=== PATIENT | male | born 1960 | race Caucasian/White ===

== ENCOUNTER 2024-03-15 19:57 | Emergency (ER) | payer BC, SELFPAY ==
--- OUTSIDE RECORDS SUMMARY | 2024-03-15 19:59 | XMS_ITS | Encounter Summary ---
Author Name [facility] [place] Address [address] [place] [address] Care Team Providers Care Peoplesoft Developer Name Role Phone TERRY ROTH Primary Care Provider Unavailabl e Insurance Providers: All historical and current Section Date Range: From patient's date of to the date document was created. This section includes the names of all active insurance providers for the patient. Insurance Provider Type of Coverage Plan Name Start of Policy Coverage End of Policy Coverage Group Number Member ID Insurance Provider's Telephone Number Policy Davis's Name Patient's Relationship to Policy Davis [place] PREFERRED PROVIDER ORGANIZAT ION (PPO) OPERA TING DARIEN EERS Mar 21, 2017 [id number] [phone] BASILIO BRENNAN HN PATIENT [place] PREFERRED PROVIDER ORGANIZAT ION (PPO) OPERA TING DARIEN EERS Mar 21, 2017 [id number] [phone] BASILIO BRENNAN HN PATIENT CATALYST RX PRESCRIPT ION OPER ENG LOCAL 49 Mar 21, 2017 49ERS [id number] BASILIO BRENNAN HN PATIENT OPTUM RX PRESCRIPT ION OPER ENG LOCAL 49 Mar 21, 2020 49ERS [id number] [phone] BASILIO BRENNAN HN PATIENT OPTUM RX PRESCRIPT ION OPER ENG LOCAL 49 Mar 21, 2018 49ERS [id number] [phone] BASILIO BRENNAN PATIENT Selected Encounter This section includes the information on record at [place] for the Encounter. Date/Time Encounter Type Encounter Description Reason Provider Source Apr 11, 2023 08:30 AM OFFICE O/P EST LOW [facility] ICD-10-CM F33.8 Other recurrent depressive disorders ANAIS WILSON [facility] Encounter Template Text not used by [place] Assessments - Encounter Diagnoses This section includes the primary and secondary diagnoses documented for the Encounter. Date/Time Primary/Secondary Diagnosis Diagnosis Name Provider Source Apr 20, 2023 07:31 AM PRIMARY Other recurrent depressive disorders ANAIS WILSON [facility] Apr 20, 2023 07:31 AM SECONDARY Anxiety disorder, unspecified ANAIS WILSON [facility] Plan of Treatment: Future Appointments (+ 6 months) and Future Tests (+/- 45 days) The Plan of Treatment section includes future care activities for the patient from all [place] treatmentfacilities. This section includes future appointments and future orders which are active, pending or scheduled. Future Appointments This section includes appointments that were scheduled to occur 6 months from the date of the Encounter, up to a maximum of 20 appointments. The data comes from all [place] treatment facilities. Appointment Date/Time Appointment Type Appointme nt Facility Name Apr 18, 2023 09:00 AM AMBULATORY - NONE [facility] Apr 18, 2023 10:00 AM AMBULATORY - MEDICINE [facility] Apr 18, 2023 01:30 PM AMBULATORY - SURGERY [facility] Jun 03, 2023 11:30 AM AMBULATORY - SURGERY [facility] Jun 08, 2023 09:00 AM AMBULATORY - PSYCHIATRY [facility] Lab Results: +/- 30 days of the encounter This section includes the Chemistry and Hematology Lab Results on record with [place] for the patient. Radiology Reports and Pathology Reports are provided separately, in subsequent sections. Lab Results This section contains the Chemistry/Hematology Results that were resulted 30 days before or 30 daysafter the date of the Encounter. Date/Time Source Result Type Result - Unit Interpretation Reference Range Comment Apr 18, 2023 09:06 AM [facility] HEMOGLOBIN A1C Specimen Type: BLOOD Comment: Values obtained from A1C measurements can vary. For typical A1C assays, a reported value of 7.0 could actually be between 6.7 and 7.3 if measured by a reference method. A reported value of 9.0 could actually be between 8.7 and 9.3. Ref: http://www.ng sp.org/CAPdat a.asp Ordering Provider: SOPHIA ROTH Report Released Date/Time: Jan 13, 2022 02:03 PM Reporting Lab: [facility] [id number] Performing Lab: [facility] [id number] HEMOGLOBIN A1C 5.2 4.0-6.0 Apr 18, 2023 09:06 AM [facility] TSH W/REFLEX TO FREE T4 Specimen Type: PLASMA No comment entered. Ordering Provider: SOPHIA ROTH Report Released Date/Time: Jan 13, 2022 02:03 PM Reporting Lab: [facility] [id number] Performing Lab: [facility] [id number] TSH 1.88 u[IU]/mL 0.35-4.94 Apr 18, 2023 09:06 AM [facility] CBC Specimen Type: BLOOD No comment entered. Ordering Provider: SOPHIA ROTH Report Released Date/Time: Jan 13, 2022 02:03 PM Reporting Lab: [facility] [id number] Performing Lab: [facility] [id number] WBC 8.77 10*3/uL 4.0-11.0 RBC 5.06 10*6/uL 4.6-6.2 HGB 15.4 g/dL 13.5-17.9 HCT 45.0 41-54 MCV 88.9 fL 80-100 MCH 30.4 pg 27-33 MCHC 34.2 g/dL 32.0-37.5 PLT 225 10*3/uL 150-400 MPV 9.4 fL 7.4-10.4 RDW 12.7 11.5-14.5 Apr 18, 2023 09:06 AM [facility] LIPID PANEL,NON-FASTING Specimen Type: PLASMA No comment entered. Ordering Provider: SOPHIA ROTH Report Released Date/Time: Jan 13, 2022 02:03 PM Reporting Lab: [facility] [id number] Performing Lab: [facility] [phone] CHOLESTEROL 158 mg/dL <199 .HDL 39 mg/dL L >40 LDL CALCULATION 101 mg/dL H <99 VLDL CALCULATION 18 mg/dL <29 NON HDL CHOLESTEROL 119 mg/dL <129 TRIG(NON FASTING) 89 mg/dL <149 Apr 18, 2023 09:06 AM [facility] COMPREHENSIVE METABOLIC PANEL+MG Specimen Type: PLASMA No comment entered. Ordering Provider: SOPHIA ROTH Report Released Date/Time: Jan 13, 2022 02:03 PM Reporting Lab: [facility] [phone] Performing Lab: [facility] [phone] CREATININE 0.9 mg/dL 0.7-1.2 UREA NITROGEN 20 mg/dL 8-26 GLUCOSE 90 mg/dL 70-100 SODIUM 140 mmol/L 136-145 POTASSIUM 3.9 mmol/L 3.5-5.1 CHLORIDE 109 mmol/L H 98-107 CO2 21 mmol/L L 22-29 CALCIUM 9.0 mg/dL 8.4-10.2 PROTEIN,TOTAL 6.6 g/dL 6.0-8.3 ALBUMIN 4.1 g/dL 3.5-5.2 BILIRUBIN, TOTAL 1.1 mg/dL 0.2-1.2 MAGNESIUM 2.1 mg/dL 1.6-2.6 ANION GAP 10 mmol/L 5-15 ALKALINE PHOSPHATASE 36 U/L L 40-150 ALT/SGPT 33 U/L <55 AST/SGOT 22 U/L <34 .CREAT EGFR(CKD-EPI) >90 >60 Social History: Smoking Status (Most current) and Tobacco Use (All prior to encounter date) This section includes the most current, and the historical, smoking and tobacco- related health factors from the [place] facility where the Encounter took place. Current Smoking Status This section includes the most current smoking, or tobacco-related health factor, from the [place] facility where the Encounter took place. Date/Time Current Smoking Status Comment Shante [facility] Feb 21, 2023 01:30 PM VA-TOBACCO QUIT 15 YRS OR MORE [facility] Tobacco Use History This section includes a history of the smoking, or tobacco-related health factors, that were collected on or before the date of the Encounter. The data comes from the [place] facility where the Encounter took place. Date/Time Smoking Status/Tobacco Use Comment [facility] Feb 21, 2023 01:30 PM VA-TOBACCO QUIT 15 YRS OR MORE [facility] Jun 01, 2021 10:45 AM VA-TOBACCO FORMER USER [facility] Jun 01, 2021 10:45 AM VA-TOBACCO QUIT 15 YRS OR MORE [facility] Jan 23, 2019 01:33 PM VA-TOBACCO FORMER USER [facility] Jan 23, 2019 01:33 PM VA-TOBACCO QUIT 15 YRS OR MORE [facility] May 20, 2017 11:03 AM FORMER TOBACCO USER 7Y OR GREATE R [facility] Mar 12, 2016 09:31 AM FORMER TOBACCO USER 7Y OR GREATE R [facility] Mar 11, 2015 07:54 AM CURRENT TOBACCO USER [facility] Feb 22, 2014 09:51 AM FORMER TOBACCO USER 7Y OR GREATE R [facility] Jan 10, 2008 07:56 AM FORMER TOBACCO USER 7Y OR GREATE R [facility] Advance Directives: All historical and current Section Date Range: From patient's date of to the date document was created. This section includes ALL of a patient's completed or amended [place] Advance and Rescinded Directives. The entries below indicate that a directive exists for the patient, but an actual copy is not included with this document. The data comes from all [place] facilities. Date Advance Directives Provider Source Feb 28, 2006 ADVANCE DIRECTIVE SYDNEY PEÑALOZA [facility] Encounter Notes: All associated encounter notes This section contains the clinical notes associated to the Encounter. Date/Time Encounter Note(s) Provider Source Apr 13, 2023 07:19 AM REPORT OF CONTACT: LOCAL TITLE: APPOINTMENT SCHEDULING NOTE STANDARD TITLE: REPORT OF CONTACT DATE OF NOTE: APR 13, 2023@07:19 ENTRY DATE: APR 13, 2023@07:19:35 AUTHOR: KARY JUAREZ EXP COSIGNER: URGENCY: STATUS: COMPLETED APPOINTMENT SCHEDULING NOTE Has ADDENDA Attempted to schedule Return to clinic (RTC) Left [facility] [place] to call [phone]. Sent letter. /destin JUAREZ FERRY PILOT Signed: 04/13/2023 07:20 04/14/2023 ADDENDUM STATUS: COMPLETED 3rd Attempt- Called to (re)schedule appointment with provider. No answer, LVM to call [phone]. /destin JUAREZ FERRY PILOT Signed: 04/14/2023 10:07 04/15/2023 ADDENDUM STATUS: COMPLETED 4th Attempt- Called [place] to (re)schedule appointment with provider. No answer, LVM to call [phone]. No further attempts will be made to contact . /aubrie/ KARY JUAREZ FERRY PILOT Signed: 04/15/2023 09:39 LARRYKARY [facility] Apr 11, 2023 09:26 AM PSYCHIATRY E & M N OTE: LOCAL TITLE: PSYCHIATRIC EVALUATION & MANAGEMENT STANDARD TITLE: PSYCHIATRY E & M NOTE DATE OF NOTE: APR 11, 2023@09:26 ENTRY DATE: APR 11, 2023@09:26:53 AUTHOR: MATT WILSON COSIGNER: URGENCY: STATUS: COMPLETED Med Mgmt and Supportive Psychotherapy Appt. video visit; patient consented to format and confirmed location TIME SPENT (FACE TO FACE): 19 MIN CHIEF COMPLAINT: ongoing care for depression, anxiety DIAGNOSIS: Specified depressive disorder; unspecified anxiety disorder supportive psychotherapy: 16 min ID: male with hx of depression and anxiety, he and care for their autistic son. Subjective: Patient hasn't yet reduced buspirone, encouraged to reduce to 20 mg bid to see if any help with losing weight. Some ongoing stressors, no si/intent/plan. Encouraged to try and utilize phone less, sleep more regular scheduled and exercise. he is in agreement, f/u in 2 months to check on progress. Medications: Active Outpatient Medications (including Supplies): Active Outpatient Medications Status 1) FLUOXETINE HCL 20MG CAP TAKE TWO CAPSULES BY MOUTH ACTIVE EVERY MORNING 2) FLUTICASONE PROP 50MCG 120D NASAL INHL SPRAY 2 SPRAYS ACTIVE (S) IN EACH NOSTRIL TWICE A DAY USE REGULARLY FOR RELIEF OF ALLERGIES/CONGESTION 3) SIMVASTATIN 40MG TAB TAKE ONE-HALF TABLET BY MOUTH AT ACTIVE BEDTIME FOR CHOLESTEROL Pending Outpatient Medications Status 1) BUSPIRONE HCL 10MG TAB TAKE TWO TABLETS BY MOUTH PENDING TWICE A DAY Active Non-VA Medications Status 1) Non-VA ASPIRIN 81MG EC TAB 81MG MOUTH EVERY DAY ACTIVE 2) Non-VA COENZYME Q10 60MG TAB/CAP 1 TABLET MOUTH EVERY ACTIVE DAY 3) Non-VA FISH OIL 1000MG (500MG DHA/EPA) CAP 1000MG ACTIVE MOUTH EVERY DAY 4) Non-VA METOPROLOL SUCCINATE 100MG SA TAB 50MG MOUTH ACTIVE EVERY DAY 5) Non-VA MULTI/MINERAL/ANTIOXIDANT TAB MOUTH EVERY DAY ACTIVE 9 Total Medications PSYCHIATRIC MEDICATION RECOMMENDATION: Psychiatric medications were reviewed, and list above is accurate. Mental status exam: Alert, cooperative. Musculoskeletal: Unable to assess over video. Speech: Within normal limits. Mood: I'm managing. Affect: Full range, congruent. Thought process: Linear. Thought content: Denies SI/HI/AH/VH, no delusions or paranoia elicited. Insight: Fair. Judgment: Fair. RISK ASSESSMENT (unchanged from prior): Patient with hx of depression and anxiety, family stress of difficulties with autistic child.. however pt denies si, intent or plan now or at any time in past, denies suicide attempts, denies current substance abuse, appears well- connected to family and has been stable without ever requiring psychiatric hospitalization. As such, pt is deemed low- risk for imminent self- harm and low chronic risk for self-harm. Diagnosis: Unspecified depressive disorder, unspecified anxiety disorder, alcohol use disorder in full sustained remission ASSESSMENT/PLAN: This is a male with hx of depression and anxiety, continues to be stable on his regimen. We will reduce buspirone to 20 mg po bid (he didn't do this in between last visit and this) and encouraged to decrease phone time, increase exercise/socialization/str ucture and f/u in 2 month. No si/intent/plan elicited. -RTC in 2 months for follow-up with me, video -continue fluoxetine 40 mg daily for mood -reduce buspirone to 20 mg BID for anxiety -Pt aware of clinic contact info if experiencing decompensation /es/ MATT WILSON MD PSYCHIATRIST Signed: 04/11/2023 09:29 MATT WILSON [facility]
--- OUTSIDE RECORDS SUMMARY | 2024-03-15 19:59 | XMS_ITS | Continuity of Care Document ---
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 It does not include entries that were removed or entered in error. Problem Status Onset Date Problem Type Date of Resolution Comments Source Adenomatous polyp of colon Active Condition [facility] Anxiety disorder Active Condition [facility] Chews tobacco (SNOMED CT 77627778) Active Condition [facility] Chronic rhinitis Active Condition [facility] Depressive disorder (SNOMED CT 57488577) Active Condition [facility] Erectile dysfunction Active Condition [facility] Essential hypertension Active Condition [facility] Hyperlipidemia (SNOMED CT 58843837) Active Condition [facility] Low back pain Active Condition [facility] Metatarsal Plantar Flexed Active Condition [facility] Nasal obstruction Active Condition [place] [facility] Obesity Active Condition [facility] Obstructive sleep apnea of adult [facility] Umbilical hernia Active Condition [facility] Diagnosis: ICD-10-CM Z71.89 Other specified counseling Active Diagnosis 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 Diagnosis: ICD-10-CM Z01.118 Encntr for exam of ears and hearing w oth abnormal findings Active Diagnosis [facility] Diagnosis: ICD-10-CM Z01.818 Encounter for other preprocedural examination Active Diagnosis [facility] Diagnosis: ICD-10-CM Z13.6 Encounter for screening for cardiovascular disorders Active Diagnosis [facility] Diagnosis: ICD-10-CM J34.89 Other specified disorders of nose and nasal sinuses Active Diagnosis [facility] Diagnosis: ICD-10-CM J34.2 Deviated nasal septum Active Diagnosis [facility] Diagnosis: ICD-10-CM G47.33 Obstructive sleep apnea (adult) (pediatric) Active Diagnosis [facility] Diagnosis: ICD-10-CM Z46.1 Encounter for fitting and adjustment of hearing aid Active Diagnosis [facility] Diagnosis: ICD-10-CM E78.49 Other hyperlipidemia Active Diagnosis [facility] Diagnosis: ICD-10-CM Z71.9 Counseling, unspecified Active Diagnosis [facility] Diagnosis: ICD-10-CM L84 Corns and callosities Active Diagnosis [facility] Medications Combined list of outpatient medications from Department of Defense and Veterans Affairs facilities.Medications provided include 1) outpatient medications from the last 15 months, and 2) patient-reported medications. Medication Details Route Status Patient Instructions Prescription Expires Prescription Number Last Dispense Date Ordering Provider Order Date Order Qty Source ASPIRIN 81MG TAB,EC TAKE ONE TABLET BY MOUTH EVERY DAY ORAL ACTIVE TERRY ROTH H 2021 [facility] BUSPIRONE HCL 10MG TAB TAKE TWO TABLETS BY MOUTH TWICE A DAY FOR ANXIETY ORAL ACTIVE 04/11/2024 [id number] MATT RODRÍGUEZ 2023 360 [facility] BUSPIRONE HCL 10MG TAB TAKE THREE TABLETS BY MOUTH TWICE A DAY ORAL DISCONT INUED (EDIT) 09/15/2023 [id number] MATT RODRÍGUEZ 2022 540 [facility] COENZYME Q10 CAP/TAB TAKE ONE TABLET BY MOUTH EVERY DAY ORAL ACTIVE GONZALEZ TERRY H 2021 [facility] FISH OIL 1000MG (500MG DHA/EPA) CAP,ORAL TAKE 1 CAPSULE BY MOUTH EVERY DAY ORAL ACTIVE GONZALEZVANNALY H 2021 [facility] FLUOXETINE HCL 20MG CAP TAKE TWO CAPSULES BY MOUTH EVERY MORNING ORAL ACTIVE 12/05/2024 [id number] MATT RODRÍGUEZ 2023 180 [facility] FLUOXETINE HCL 20MG CAP TAKE TWO CAPSULES BY MOUTH EVERY MORNING ORAL DISCONT INUED 09/15/2023 [id number] MATT RODRÍGUEZ 2022 180 [facility] FLUTICASONE PROPIONATE 50MCG/SPRAY SOLN,NASAL, 16GM SPRAY 2 SPRAYS IN EACH NOSTRIL EVERY DAY USE REGULARL Y FOR RELIEF OF ALLERGIE S/CONGES TION NASAL ACTIVE 09/05/2024 [id number] TERRY ROTH 2023 3 [facility] FLUTICASONE PROPIONATE 50MCG/SPRAY SOLN,NASAL, 16GM SPRAY 2 SPRAYS IN EACH NOSTRIL TWICE A DAY USE REGULARL Y FOR RELIEF OF ALLERGIE S/CONGES TION NASAL 07/20/2023 [id number] MIGUEL ÁNGEL WHITT 2022 1 [facility] METOPROLOL SUCCINATE 100MG TAB,SA TAKE ONE-HALF TABLET BY MOUTH EVERY DAY ORAL ACTIVE MIGUEL ÁNGEL WHITT 2020 [facility] MULTI/RADIATION PROTECTION TECHNICIAN AL/ANTIOXID ANT TAB MOUTH EVERY DAY ORAL ACTIVE TERRY ROTH 2021 [facility] SIMVASTATIN 20MG TAB TAKE ONE TABLET BY MOUTH AT BEDTIME FOR CHOLESTE ROL ORAL SUSPEND ED 02/20/2025 [id number] TERRY ROTH 2024 90 [facility] SIMVASTATIN 20MG TAB TAKE ONE TABLET BY MOUTH AT BEDTIME FOR CHOLESTE ROL ORAL DISCONT INUED 03/31/2024 [id number] TERRY ROTH 2023 90 [facility] SIMVASTATIN 40MG TAB TAKE ONE-HALF TABLET BY MOUTH AT BEDTIME FOR CHOLESTE ROL ORAL DISCONT INUED 03/31/2024 [id number] TERRY ROTH 2023 45 [facility] Immunizations Combined list of available immunizations from the Department of Defense and Veterans Affairs facilities. Immunization Series Date Given Administered By Site Reaction Lot Number CVX Code Drug Cottrell Blower Status Comments Source COVID-19 (MODERNA), MRNA, LNP-S, PF, 50 MCG/0.5 ML (AGES 12+ YEARS) 2023 312 complet ed [facility] INFLUENZA, SPLIT VIRUS, TRIVALENT, PF 2023 140 complet ed [facility] COVID-19 (MODERNA), MRNA, LNP-S, PF, 50 MCG/0.5 ML (AGES 12+ YEARS) 2023 312 complet ed [facility] INFLUENZA, INJECTABLE, MDCK, PRESERVATIVE FREE, QUADRIVALENT 2022 171 complet ed [facility] COVID-19 (MODERNA), MRNA, LNP-S, BIVALENT, PF, 50 MCG/0.5 ML OR 25MCG/0.25 ML DOSE 2022 229 complet ed [facility] TDAP 2022 115 complet ed [facility] ZOSTER RECOMBINANT 2022 187 complet ed [facility] COVID-19 (MODERNA), MRNA, LNP-S, BIVALENT, PF, 50 MCG/0.5 ML OR 25MCG/0.25 ML DOSE 2021 229 complet ed [facility] ZOSTER RECOMBINANT 2021 187 complet [facility] PNEUMOCOCCAL CONJUGATE PCV20, POLYSACCHARID E [id number] CONJUGATE, ADJUVANT, PF 2021 216 complet [facility] INFLUENZA, UNSPECIFIED FORMULATION 2021 88 complet [facility] INFLUENZA, INJECTABLE, MDCK, PRESERVATIVE FREE, QUADRIVALENT 2021 171 complet [facility] COVID-19 (MODERNA), MRNA, LNP-S, PF, 100 MCG/0.5ML DOSE OR 50 MCG/0.25ML DOSE 2021 207 complet [facility] COVID-19 (MODERNA), MRNA, LNP-S, PF, 100 MCG/0.5ML DOSE OR 50 MCG/0.25ML DOSE 2020 207 complet [facility] COVID-19 (MODERNA), MRNA, LNP-S, PF, 100 MCG/0.5ML DOSE OR 50 MCG/0.25ML DOSE 3 2020 207 complet [facility] INFLUENZA, INJECTABLE, QUADRIVALENT, PRESERVATIVE FREE 2020 150 complet [facility] INFLUENZA, UNSPECIFIED FORMULATION 2020 88 complet [facility] COVID-19 (MODERNA), MRNA, LNP-S, PF, 100 MCG/0.5 ML DOSE 2 2020 207 complet ed MOD: [id number]; 1 [facility] COVID-19 (MODERNA), MRNA, LNP-S, PF, 100 MCG/0.5 ML DOSE 1 2020 207 complet ed MOD; [id number]; 1 [facility] INFLUENZA, RECOMBINANT, QUADRIVALENT, INJECTABLE, PRESERVATIVE FREE 2019 185 complet ed [facility] INFLUENZA, UNSPECIFIED FORMULATION 2019 88 complet ed [facility] INFLUENZA, RECOMBINANT, QUADRIVALENT, INJECTABLE, PRESERVATIVE FREE 2018 185 complet ed [facility] INFLUENZA, SEASONAL, INJECTABLE 2018 141 complet ed [facility] INFLUENZA, INJECTABLE, QUADRIVALENT, PRESERVATIVE FREE 2017 150 complet ed [facility] INFLUENZA, SEASONAL, INJECTABLE, PRESERVATIVE FREE 2016 140 complet ed [facility] INFLUENZA, SEASONAL, INJECTABLE 2015 141 complet ed [facility] PNEUMOCOCCAL POLYSACCHARID E PPV23 2014 33 complet ed [employer] lot: [id number] exp: 05/13/16 [facility] INFLUENZA, INJECTABLE, QUADRIVALENT, PRESERVATIVE FREE 2014 150 complet ed [facility] INFLUENZA, SEASONAL, INJECTABLE 2014 141 complet ed [facility] INFLUENZA, UNSPECIFIED FORMULATION 2013 88 complet ed [facility] TDAP 2012 115 complet ed [id number] 05/26/15 [facility] INFLUENZA, UNSPECIFIED FORMULATION 2012 88 complet ed [facility] INFLUENZA, SEASONAL, INJECTABLE 2010 141 complet ed [facility] INFLUENZA, UNSPECIFIED FORMULATION 2010 88 complet ed [facility] INFLUENZA, SEASONAL, INJECTABLE 2009 141 complet ed [facility] NOVEL INFLUENZA-H1N 1-09, ALL FORMULATIONS 2009 128 complet ed [facility] INFLUENZA, UNSPECIFIED FORMULATION 2008 88 complet ed [facility] PNEUMOCOCCAL, UNSPECIFIED FORMULATION 2008 109 complet ed [employer] [id number], 0 [facility] INFLUENZA (HISTORICAL) 2007 88 complet ed [facility] INFLUENZA, UNSPECIFIED FORMULATION 2006 88 complet ed [facility] INFLUENZA (HISTORICAL) 2005 88 complet ed [facility] INFLUENZA (HISTORICAL) 2004 88 complet ed [facility] INFLUENZA, UNSPECIFIED FORMULATION 2003 88 complet ed [facility] INFLUENZA (HISTORICAL) 2003 88 complet ed [facility] TD(ADULT) UNSPECIFIED FORMULATION 2003 139 complet ed [facility] INFLUENZA, SEASONAL, INJECTABLE 1997 141 complet ed [facility] MMR 1997 03 complet ed [facility] DT (PEDIATRIC) 1991 28 complet ed [facility] Results Combined list of recent chemistry, hematology and other laboratory results from Department of Defense and Veterans Affairs, ranging from 15 months to all on record, depending upon the facility. Order Name Results Value Reference Range Date Interpretation Specimen Comments Source ACT PART THROMBO TIME APTT IN PLATELET POOR PLASMA BY COAGULATION ASSAY 29.2 s 25.1 - 36.5 02/22 Specimen Type: PLASMA Comment: Automated Differentia l Performed Ordering Provider: DAMION MAGUIRE Report Released Date/Time: Jun 03, 2023 01:52 PM Reporting Lab: [facility] [address] Performing Lab: [facility] [address] [place] [facility] PROTHROMB IN TIME/INR INR IN PLATELET POOR PLASMA BY COAGULATION ASSAY 1.1 0.8 - 1.1 02/22 Specimen Type: PLASMA Comment: Automated Differentia l Performed Ordering Provider: DAMION MAGUIRE Report Released Date/Time: Jun 03, 2023 01:52 PM Reporting Lab: [facility] [address] Performing Lab: [facility] [address] [place] [facility] PROTHROMB IN TIME/INR PROTHROMBIN TIME (PT) 12.5 s 9.4 - 12.5 02/22 Specimen Type: PLASMA Comment: Automated Differentia l Performed Ordering Provider: DAMION MAGUIRE Report Released Date/Time: Jun 03, 2023 01:52 PM Reporting Lab: [facility] [address] Performing Lab: [facility] [address] [place] [facility] HEMOGLOBI N A1C HEMOGLOBIN A1C/HEMOGLO BIN.TOTAL IN BLOOD 5.3 4.0 - 6.0 02/22 Specimen Type: BLOOD Comment: Values obtained from A1C measurement s can vary. For typical A1C assays, a reported value of 7.0 could actually be between 6.7 and 7.3 if measured by a reference method. A reported value of 9.0 could actually be between 8.7 and 9.3. Ref: http://[email or web address] ngsp.org/[place] Pdata.asp Ordering Provider: DAMOIN MAGUIRE Report Released Date/Time: Jun 29, 2023 10:54 AM Reporting Lab: [facility] [address] Performing Lab: [facility] [address] [facility] [facility] BASIC METABOLIC PANEL+MG CREATININE [MASS/VOLUM E] IN SERUM OR PLASMA 1.0 mg/dL 0.7 - 1.2 02/22 Specimen Type: PLASMA No comment entered. Ordering Provider: DAMION MAGUIRE Report Released Date/Time: Jun 03, 2023 01:52 PM Reporting Lab: [facility] [address] Performing Lab: [facility] [address] [place] [facility] BASIC METABOLIC PANEL+MG UREA NITROGEN [MASS/VOLUM E] IN SERUM OR PLASMA 19 mg/dL 8 - 26 02/22 Specimen Type: PLASMA No comment entered. Ordering Provider: DAMION MAGUIRE Report Released Date/Time: Jun 03, 2023 01:52 PM Reporting Lab: [facility] [address] Performing Lab: [facility] [address] [place] [facility] BASIC METABOLIC PANEL+MG GLUCOSE [MASS/VOLUM E] IN SERUM OR PLASMA 100 mg/dL 70 - 100 02/22 Specimen Type: PLASMA No comment entered. Ordering Provider: DAMION MAGUIRE Report Released Date/Time: Jun 03, 2023 01:52 PM Reporting Lab: [facility] [address] Performing Lab: [facility] [address] [place] [facility] BASIC METABOLIC PANEL+MG SODIUM [MOLES/VOLU ME] IN SERUM OR PLASMA 140 mmol/L 136 - 145 02/22 Specimen Type: PLASMA No comment entered. Ordering Provider: DAMION MAGUIRE Report Released Date/Time: Jun 03, 2023 01:52 PM Reporting Lab: [facility] [address] Performing Lab: [facility] [address] [place] [facility] BASIC METABOLIC PANEL+MG POTASSIUM [MOLES/VOLU ME] IN SERUM OR PLASMA 4.0 mmol/L 3.5 - 5.1 02/22 Specimen Type: PLASMA No comment entered. Ordering Provider: DAMION MAGUIRE Report Released Date/Time: Jun 03, 2023 01:52 PM Reporting Lab: [facility] [address] Performing Lab: [facility] [address] [place] [facility] BASIC METABOLIC PANEL+MG CHLORIDE [MOLES/VOLU ME] IN SERUM OR PLASMA 108 mmol/L 98 - 107 02/22 H Specimen Type: PLASMA No comment entered. Ordering Provider: DAMION MAGUIRE Report Released Date/Time: Jun 03, 2023 01:52 PM Reporting Lab: [facility] [address] Performing Lab: [facility] [address] [place] [facility] BASIC METABOLIC PANEL+MG CARBON DIOXIDE, TOTAL [MOLES/VOLU ME] IN SERUM OR PLASMA 25 mmol/L 22 - 29 02/22 Specimen Type: PLASMA No comment entered. Ordering Provider: DAMION MAGUIRE Report Released Date/Time: Jun 03, 2023 01:52 PM Reporting Lab: [facility] [address] Performing Lab: [facility] [address] [place] [facility] BASIC METABOLIC PANEL+MG CALCIUM [MASS/VOLUM E] IN SERUM OR PLASMA 8.8 mg/dL 8.4 - 10.2 02/22 Specimen Type: PLASMA No comment entered. Ordering Provider: DAMION MAGUIRE Report Released Date/Time: Jun 03, 2023 01:52 PM Reporting Lab: [facility] [address] Performing Lab: [facility] [address] [place] [facility] BASIC METABOLIC PANEL+MG MAGNESIUM [MASS/VOLUM E] IN SERUM OR PLASMA 2.1 mg/dL 1.6 - 2.6 02/22 Specimen Type: PLASMA No comment entered. Ordering Provider: DAMION MAGUIRE Report Released Date/Time: Jun 03, 2023 01:52 PM Reporting Lab: [facility] [address] Performing Lab: [facility] [address] [place] [facility] BASIC METABOLIC PANEL+MG ANION GAP IN SERUM OR PLASMA 7 mmol/L 5 - 15 02/22 Specimen Type: PLASMA No comment entered. Ordering Provider: DAMION MAGUIRE Report Released Date/Time: Jun 03, 2023 01:52 PM Reporting Lab: [facility] [address] Performing Lab: [facility] [address] [place] [facility] BASIC METABOLIC PANEL+MG GLOMERULAR FILTRATION RATE/1.73 SQ M.PREDICTED [VOLUME RATE/AREA] IN SERUM, PLASMA OR BLOOD BY CREATININE- BASED FORMULA (CKD-EPI 2020) 85 60 02/22 Specimen Type: PLASMA No comment entered. Ordering Provider: DAMION MAGUIRE Report Released Date/Time: Jun 03, 2023 01:52 PM Reporting Lab: [facility] [address] Performing Lab: [facility] [address] [place] [facility] CBC & DIFF LEUKOCYTES [#/VOLUME] IN BLOOD BY AUTOMATED COUNT 8.4 4.0 - 11.0 02/22 Specimen Type: BLOOD Comment: Automated Differentia l Performed Ordering Provider: DAMION MAGUIRE Report Released Date/Time: Jun 03, 2023 01:52 PM Reporting Lab: [facility] [address] Performing Lab: [facility] [address] [place] [facility] CBC & DIFF ERYTHROCYTE S [#/VOLUME] IN BLOOD BY AUTOMATED COUNT 5.18 4.60 - 6.20 02/22 Specimen Type: BLOOD Comment: Automated Differentia l Performed Ordering Provider: DAMION MAGUIRE Report Released Date/Time: Jun 03, 2023 01:52 PM Reporting Lab: [facility] [address] Performing Lab: [facility] [address] [place] [facility] CBC & DIFF HEMOGLOBIN [MASS/VOLUM E] IN BLOOD 14.9 g/dL 13.5 - 17.9 02/22 Specimen Type: BLOOD Comment: Automated Differentia l Performed Ordering Provider: DAMION MAGUIRE Report Released Date/Time: Jun 03, 2023 01:52 PM Reporting Lab: [facility] [address] Performing Lab: [facility] [address] [place] [facility] CBC & DIFF HEMATOCRIT [VOLUME FRACTION] OF BLOOD BY AUTOMATED COUNT 46.8 41.0 - 54.0 02/22 Specimen Type: BLOOD Comment: Automated Differentia l Performed Ordering Provider: DAMION MAGUIRE Report Released Date/Time: Jun 03, 2023 01:52 PM Reporting Lab: [facility] [address] Performing Lab: [facility] [address] [place] [facility] CBC & DIFF MCV [ENTITIC VOLUME] BY AUTOMATED COUNT 90.3 fL 80.0 - 100.0 02/22 Specimen Type: BLOOD Comment: Automated Differentia l Performed Ordering Provider: DAMION MAGUIRE Report Released Date/Time: Jun 03, 2023 01:52 PM Reporting Lab: [facility] [address] Performing Lab: [facility] [address] [place] [facility] CBC & DIFF MCH [ENTITIC MASS] BY AUTOMATED COUNT 28.8 pg 27.0 - 33.0 02/22 Specimen Type: BLOOD Comment: Automated Differentia l Performed Ordering Provider: DAMION MAGUIRE Report Released Date/Time: Jun 03, 2023 01:52 PM Reporting Lab: [facility] [address] Performing Lab: [facility] [address] [place] [facility] CBC & DIFF MCHC [MASS/VOLUM E] BY AUTOMATED COUNT 31.8 g/dL 32.0 - 37.5 02/22 L Specimen Type: BLOOD Comment: Automated Differentia l Performed Ordering Provider: DAMION MAGUIRE Report Released Date/Time: Jun 03, 2023 01:52 PM Reporting Lab: [facility] [address] Performing Lab: [facility] [address] [place] [facility] CBC & DIFF PLATELETS [#/VOLUME] IN BLOOD BY AUTOMATED COUNT 239 150 - 400 02/22 Specimen Type: BLOOD Comment: Automated Differentia l Performed Ordering Provider: DAMION MAGUIRE Report Released Date/Time: Jun 03, 2023 01:52 PM Reporting Lab: [facility] [address] Performing Lab: [facility] [address] [place] [facility] CBC & DIFF PLATELET MEAN VOLUME [ENTITIC VOLUME] IN BLOOD BY AUTOMATED COUNT 9.4 fL 9.1 - 13.0 02/22 Specimen Type: BLOOD Comment: Automated Differentia l Performed Ordering Provider: DAMION MAGUIRE Report Released Date/Time: Jun 03, 2023 01:52 PM Reporting Lab: [facility] [address] Performing Lab: [facility] [address] [place] [facility] CBC & DIFF NEUTROPHILS /100 LEUKOCYTES IN BLOOD BY MANUAL COUNT 67.6 40.0 - 80.0 02/22 Specimen Type: BLOOD Comment: Automated Differentia l Performed Ordering Provider: DAMION MAGUIRE Report Released Date/Time: Jun 03, 2023 01:52 PM Reporting Lab: [facility] [address] Performing Lab: [facility] [address] [place] [facility] CBC & DIFF LYMPHOCYTES /100 LEUKOCYTES IN BLOOD BY MANUAL COUNT 22.1 15.0 - 45.0 02/22 Specimen Type: BLOOD Comment: Automated Differentia l Performed Ordering Provider: DAMION MAGUIRE Report Released Date/Time: Jun 03, 2023 01:52 PM Reporting Lab: [facility] [address] Performing Lab: [facility] [address] [place] [facility] CBC & DIFF MONOCYTES/1 00 LEUKOCYTES IN BLOOD BY AUTOMATED COUNT 7.6 2.0 - 12.0 02/22 Specimen Type: BLOOD Comment: Automated Differentia l Performed Ordering Provider: DAMION MAGUIRE Report Released Date/Time: Jun 03, 2023 01:52 PM Reporting Lab: [facility] [address] Performing Lab: [facility] [address] [place] [facility] CBC & DIFF EOSINOPHILS /100 LEUKOCYTES IN BLOOD BY AUTOMATED COUNT 1.7 0.0 - 6.0 02/22 Specimen Type: BLOOD Comment: Automated Differentia l Performed Ordering Provider: DAMION MAGUIRE Report Released Date/Time: Jun 03, 2023 01:52 PM Reporting Lab: [facility] [address] Performing Lab: [facility] [address] [place] [facility] CBC & DIFF BASOPHILS/1 00 LEUKOCYTES IN BLOOD BY MANUAL COUNT 0.5 0.0 - 2.0 02/22 Specimen Type: BLOOD Comment: Automated Differentia l Performed Ordering Provider: DAMION MAGUIRE Report Released Date/Time: Jun 03, 2023 01:52 PM Reporting Lab: [facility] [address] Performing Lab: [facility] [address] [place] [facility] CBC & DIFF ERYTHROCYTE DISTRIBUTIO N WIDTH [RATIO] BY AUTOMATED COUNT 13.0 11.5 - 14.5 02/22 Specimen Type: BLOOD Comment: Automated Differentia l Performed Ordering Provider: DAMION MAGUIRE Report Released Date/Time: Jun 03, 2023 01:52 PM Reporting Lab: [facility] [address] Performing Lab: [facility] [address] [place] [facility] CBC & DIFF LYMPHOCYTES [#/VOLUME] IN BLOOD BY AUTOMATED COUNT 1.9 1.0 - 4.0 12/05 /2024 Specimen Type: BLOOD Comment: Automated Differentia l Performed Ordering Provider: DAMION MAGUIRE Report Released Date/Time: Jun 03, 2023 01:52 PM Reporting Lab: [facility] [address] Performing Lab: [facility] [address] [place] [facility] CBC & DIFF MONOCYTES [#/VOLUME] IN BLOOD BY AUTOMATED COUNT 0.6 0.1 - 1.0 02/22 Specimen Type: BLOOD Comment: Automated Differentia l Performed Ordering Provider: DAMION MAGUIRE Report Released Date/Time: Jun 03, 2023 01:52 PM Reporting Lab: [facility] [address] Performing Lab: [facility] [address] [place] [facility] CBC & DIFF NEUTROPHILS [#/VOLUME] IN BLOOD BY AUTOMATED COUNT 5.7 2.0 - 7.7 02/22 Specimen Type: BLOOD Comment: Automated Differentia l Performed Ordering Provider: DAMION MAGUIRE Report Released Date/Time: Jun 03, 2023 01:52 PM Reporting Lab: [facility] [address] Performing Lab: [facility] [address] [place] [facility] CBC & DIFF EOSINOPHILS [#/VOLUME] IN BLOOD BY AUTOMATED COUNT 0.1 0.0 - 0.5 02/22 Specimen Type: BLOOD Comment: Automated Differentia l Performed Ordering Provider: DAMION MAGUIRE Report Released Date/Time: Jun 03, 2023 01:52 PM Reporting Lab: [facility] [address] Performing Lab: [facility] [address] [place] [facility] CBC & DIFF BASOPHILS [#/VOLUME] IN BLOOD BY AUTOMATED COUNT 0.0 0.0 - 0.2 02/22 Specimen Type: BLOOD Comment: Automated Differentia l Performed Ordering Provider: DAMION MAGUIRE Report Released Date/Time: Jun 03, 2023 01:52 PM Reporting Lab: [facility] [id number] Performing Lab: [facility] [id number] [place] [facility] CBC & DIFF IG(META,MYE LO,PRO) 0.5 02/22 Specimen Type: BLOOD Comment: Automated Differentia l Performed Ordering Provider: DAMION MAGUIRE Report Released Date/Time: Jun 03, 2023 01:52 PM Reporting Lab: [facility] [id number] Performing Lab: [facility] [id number] [facility] [facility] DIFF IMMATURE GRANULOCYTE S [PRESENCE] IN BLOOD BY AUTOMATED COUNT 0.0 0.0 - 0.1 02/22 Specimen Type: BLOOD Comment: Automated Differentia l Performed Ordering Provider: DAMION MAGUIRE Report Released Date/Time: Jun 03, 2023 01:52 PM Reporting Lab: [facility] [address] Performing Lab: [facility] [address] [facility] TSH W/REFLEX TO FREE T4 THYROTROPIN [UNITS/VOLU ME] IN SERUM OR PLASMA 1.44 u[IU]/ mL 0.35 - 4.94 02/19 Specimen Type: PLASMA No comment entered. Ordering Provider: SA DONTRELL ROTH Report Released Date/Time: Apr 18, 2023 10:42 AM Reporting Lab: [facility] [address] Performing Lab: [facility] [address] [facility] HEMOGLOBI N A1C HEMOGLOBIN A1C/HEMOGLO BIN.TOTAL IN BLOOD 5.4 4.0 - 6.0 02/19 Specimen Type: BLOOD Comment: Values obtained from A1C measurement s can vary. For typical A1C assays, a reported value of 7.0 could actually be between 6.7 and 7.3 if measured by a reference method. A reported value of 9.0 could actually be between 8.7 and 9.3. Ref: http://www. ngsp.org/[place] Pdata.asp Ordering Provider: SA DONTRELL ROTH Report Released Date/Time: Apr 18, 2023 10:42 AM Reporting Lab: [facility] [address] Performing Lab: [facility] [address] [facility] LIPID PANEL,NON -FASTING CHOLESTEROL [MASS/VOLUM E] IN SERUM OR PLASMA 144 mg/dL <199 - 199 02/19 Specimen Type: PLASMA No comment entered. Ordering Provider: SA DONTRELL ROTH Report Released Date/Time: Apr 18, 2023 10:42 AM Reporting Lab: [facility] [address] Performing Lab: [facility] [address] [place] [facility] LIPID PANEL,NON -FASTING CHOLESTEROL IN HDL [MASS/VOLUM E] IN SERUM OR PLASMA 37 mg/dL 40 02/19 L Specimen Type: PLASMA No comment entered. Ordering Provider: SA DONTRELL ROTH Report Released Date/Time: Apr 18, 2023 10:42 AM Reporting Lab: [facility] [address] Performing Lab: [facility] [address] [place] [facility] LIPID PANEL,NON -FASTING CHOLESTEROL IN LDL [MASS/VOLUM E] IN SERUM OR PLASMA BY CALCULATION 86 mg/dL <99 - 99 02/19 Specimen Type: PLASMA No comment entered. Ordering Provider: SA DONTRELL ROTH Report Released Date/Time: Apr 18, 2023 10:42 AM Reporting Lab: [facility] [address] Performing Lab: [facility] [address] [place] [facility] LIPID PANEL,NON -FASTING CHOLESTEROL IN VLDL [MASS/VOLUM E] IN SERUM OR PLASMA BY CALCULATION 21 mg/dL <29 - 29 02/19 Specimen Type: PLASMA No comment entered. Ordering Provider: SA DONTRELL ROTH Report Released Date/Time: Apr 18, 2023 10:42 AM Reporting Lab: [facility] [address] Performing Lab: [facility] [address] [place] [facility] LIPID PANEL,NON -FASTING CHOLESTEROL NON HDL [MASS/VOLUM E] IN SERUM OR PLASMA 107 mg/dL <129 - 129 02/19 Specimen Type: PLASMA No comment entered. Ordering Provider: SA DONTRELL ROTH Report Released Date/Time: Apr 18, 2023 10:42 AM Reporting Lab: [facility] [address] Performing Lab: [facility] [address] [place] [facility] LIPID PANEL,NON -FASTING TRIGLYCERID E [MASS/VOLUM E] IN SERUM OR PLASMA 104 mg/dL <149 - 149 02/19 Specimen Type: PLASMA No comment entered. Ordering Provider: SA DONTRELL ROTH Report Released Date/Time: Apr 18, 2023 10:42 AM Reporting Lab: [facility] [address] Performing Lab: [facility] [address] [place] [facility] CBC LEUKOCYTES [#/VOLUME] IN BLOOD BY AUTOMATED COUNT 7.7 4.0 - 11.0 02/19 Specimen Type: BLOOD No comment entered. Ordering Provider: SA DONTRELL ROTH Report Released Date/Time: Apr 18, 2023 10:42 AM Reporting Lab: [facility] [address] Performing Lab: [facility] [address] [place] [facility] CBC ERYTHROCYTE S [#/VOLUME] IN BLOOD BY AUTOMATED COUNT 4.99 4.60 - 6.20 02/19 Specimen Type: BLOOD No comment entered. Ordering Provider: SA DONTRELL ROTH Report Released Date/Time: Apr 18, 2023 10:42 AM Reporting Lab: [facility] [address] Performing Lab: [facility] [address] [place] [facility] CBC HEMOGLOBIN [MASS/VOLUM E] IN BLOOD 15.0 g/dL 13.5 - 17.9 02/19 Specimen Type: BLOOD No comment entered. Ordering Provider: SA DONTRELL ROTH Report Released Date/Time: Apr 18, 2023 10:42 AM Reporting Lab: [facility] [address] Performing Lab: [facility] [address] [place] [facility] CBC HEMATOCRIT [VOLUME FRACTION] OF BLOOD BY AUTOMATED COUNT 46.1 41.0 - 54.0 02/19 Specimen Type: BLOOD No comment entered. Ordering Provider: SA DONTRELL ROTH Report Released Date/Time: Apr 18, 2023 10:42 AM Reporting Lab: [facility] [address] Performing Lab: [facility] [address] [facility] CBC MCV [ENTITIC VOLUME] BY AUTOMATED COUNT 92.4 fL 80.0 - 100.0 02/19 Specimen Type: BLOOD No comment entered. Ordering Provider: SA DONTRELL ROTH Report Released Date/Time: Apr 18, 2023 10:42 AM Reporting Lab: [facility] [address] Performing Lab: [facility] [address] [facility] CBC MCH [ENTITIC MASS] BY AUTOMATED COUNT 30.1 pg 27.0 - 33.0 02/19 Specimen Type: BLOOD No comment entered. Ordering Provider: SA DONTRELL ROTH Report Released Date/Time: Apr 18, 2023 10:42 AM Reporting Lab: [facility] [address] Performing Lab: [facility] [address] [facility] CBC MCHC [MASS/VOLUM E] BY AUTOMATED COUNT 32.5 g/dL 32.0 - 37.5 02/19 Specimen Type: BLOOD No comment entered. Ordering Provider: SA DONTRELL ROTH Report Released Date/Time: Apr 18, 2023 10:42 AM Reporting Lab: [facility] [address] Performing Lab: [facility] [address] [facility] CBC PLATELETS [#/VOLUME] IN BLOOD BY AUTOMATED COUNT 235 150 - 400 02/19 Specimen Type: BLOOD No comment entered. Ordering Provider: SA DONTRELL ROTH Report Released Date/Time: Apr 18, 2023 10:42 AM Reporting Lab: [facility] [address] Performing Lab: [facility] [address] [facility] CBC PLATELET MEAN VOLUME [ENTITIC VOLUME] IN BLOOD BY AUTOMATED COUNT 9.3 fL 9.1 - 13.0 02/19 Specimen Type: BLOOD No comment entered. Ordering Provider: SA DONTRELL ROTH Report Released Date/Time: Apr 18, 2023 10:42 AM Reporting Lab: [facility] [address] Performing Lab: [facility] [address] [place] [facility] CBC ERYTHROCYTE DISTRIBUTIO N WIDTH [RATIO] BY AUTOMATED COUNT 13.0 11.5 - 14.5 02/19 Specimen Type: BLOOD No comment entered. Ordering Provider: SA DONTRELL ROTH Report Released Date/Time: Apr 18, 2023 10:42 AM Reporting Lab: [facility] [address] Performing Lab: [facility] [address] [place] [facility] COMPREHEN SIVE METABOLIC PANEL+MG CREATININE [MASS/VOLUM E] IN SERUM OR PLASMA 0.9 mg/dL 0.7 - 1.2 02/19 Specimen Type: PLASMA No comment entered. Ordering Provider: SA DONTRELL ROTH Report Released Date/Time: Apr 18, 2023 10:42 AM Reporting Lab: [facility] [address] Performing Lab: [facility] [address] [facility] COMPREHEN SIVE METABOLIC PANEL+MG UREA NITROGEN [MASS/VOLUM E] IN SERUM OR PLASMA 13 mg/dL 8 - 26 02/19 Specimen Type: PLASMA No comment entered. Ordering Provider: SA DONTRELL ROTH Report Released Date/Time: Apr 18, 2023 10:42 AM Reporting Lab: [facility] [address] Performing Lab: [facility] [address] [facility] COMPREHEN SIVE METABOLIC PANEL+MG GLUCOSE [MASS/VOLUM E] IN SERUM OR PLASMA 97 mg/dL 70 - 100 02/19 Specimen Type: PLASMA No comment entered. Ordering Provider: SA DONTRELL ROTH Report Released Date/Time: Apr 18, 2023 10:42 AM Reporting Lab: [facility] [address] Performing Lab: [facility] [address] [place] [facility] COMPREHEN SIVE METABOLIC PANEL+MG SODIUM [MOLES/VOLU ME] IN SERUM OR PLASMA 141 mmol/L 136 - 145 02/19 Specimen Type: PLASMA No comment entered. Ordering Provider: SA DONTRELL ROTH Report Released Date/Time: Apr 18, 2023 10:42 AM Reporting Lab: [facility] [address] Performing Lab: [facility] [address] [place] [facility] COMPREHEN SIVE METABOLIC PANEL+MG POTASSIUM [MOLES/VOLU ME] IN SERUM OR PLASMA 4.0 mmol/L 3.5 - 5.1 02/19 Specimen Type: PLASMA No comment entered. Ordering Provider: SA DONTRELL ROTH Report Released Date/Time: Apr 18, 2023 10:42 AM Reporting Lab: [facility] [address] Performing Lab: [facility] [address] [place] [facility] COMPREHEN SIVE METABOLIC PANEL+MG CHLORIDE [MOLES/VOLU ME] IN SERUM OR PLASMA 113 mmol/L 98 - 107 02/19 H Specimen Type: PLASMA No comment entered. Ordering Provider: SA DONTRELL ROTH Report Released Date/Time: Apr 18, 2023 10:42 AM Reporting Lab: [facility] [address] Performing Lab: [facility] [address] [place] [facility] COMPREHEN SIVE METABOLIC PANEL+MG CARBON DIOXIDE, TOTAL [MOLES/VOLU ME] IN SERUM OR PLASMA 22 mmol/L 22 - 29 02/19 Specimen Type: PLASMA No comment entered. Ordering Provider: SA DONTRELL ROTH Report Released Date/Time: Apr 18, 2023 10:42 AM Reporting Lab: [facility] [address] Performing Lab: [facility] [address] [place] [facility] COMPREHEN SIVE METABOLIC PANEL+MG CALCIUM [MASS/VOLUM E] IN SERUM OR PLASMA 8.6 mg/dL 8.4 - 10.2 02/19 Specimen Type: PLASMA No comment entered. Ordering Provider: SA DONTRELL ROTH Report Released Date/Time: Apr 18, 2023 10:42 AM Reporting Lab: [facility] [address] Performing Lab: [facility] [address] [place] [facility] COMPREHEN SIVE METABOLIC PANEL+MG PROTEIN [MASS/VOLUM E] IN SERUM OR PLASMA 6.1 g/dL 6.4 - 8.3 02/19 L Specimen Type: PLASMA No comment entered. Ordering Provider: SA DONTRELL ROTH Report Released Date/Time: Apr 18, 2023 10:42 AM Reporting Lab: [facility] [address] Performing Lab: [facility] [address] [place] [facility] COMPREHEN SIVE METABOLIC PANEL+MG ALBUMIN [MASS/VOLUM E] IN SERUM OR PLASMA 3.8 g/dL 3.5 - 5.0 02/19 Specimen Type: PLASMA No comment entered. Ordering Provider: SA DONTRELL ROTH Report Released Date/Time: Apr 18, 2023 10:42 AM Reporting Lab: [facility] [address] Performing Lab: [facility] [address] [place] [facility] COMPREHEN SIVE METABOLIC PANEL+MG BILIRUBIN.T OTAL [MASS/VOLUM E] IN SERUM OR PLASMA 0.3 mg/dL 0.2 - 1.2 02/19 Specimen Type: PLASMA No comment entered. Ordering Provider: SA DONTRELL ROTH Report Released Date/Time: Apr 18, 2023 10:42 AM Reporting Lab: [facility] [address] Performing Lab: [facility] [address] [place] [facility] COMPREHEN SIVE METABOLIC PANEL+MG MAGNESIUM [MASS/VOLUM E] IN SERUM OR PLASMA 2.0 mg/dL 1.6 - 2.6 02/19 Specimen Type: PLASMA No comment entered. Ordering Provider: SA DONTRELL ROTH Report Released Date/Time: Apr 18, 2023 10:42 AM Reporting Lab: [facility] [address] Performing Lab: [facility] [address] [place] [facility] COMPREHEN SIVE METABOLIC PANEL+MG ANION GAP IN SERUM OR PLASMA 6 mmol/L 5 - 15 02/19 Specimen Type: PLASMA No comment entered. Ordering Provider: SA DONTRELL ROTH Report Released Date/Time: Apr 18, 2023 10:42 AM Reporting Lab: [facility] [address] Performing Lab: [facility] [address] [place] [facility] COMPREHEN SIVE METABOLIC PANEL+MG ALKALINE PHOSPHATASE [ENZYMATIC ACTIVITY/VO LUME] IN SERUM OR PLASMA 40 U/L 40 - 150 02/19 Specimen Type: PLASMA No comment entered. Ordering Provider: SA DONTRELL ROTH Report Released Date/Time: Apr 18, 2023 10:42 AM Reporting Lab: [facility] [address] Performing Lab: [facility] [address] [place] [facility] COMPREHEN SIVE METABOLIC PANEL+MG ALANINE AMINOTRANSF ERASE [ENZYMATIC ACTIVITY/VO LUME] IN SERUM OR PLASMA 45 U/L <44 - 44 02/19 H Specimen Type: PLASMA No comment entered. Ordering Provider: SA DONTRELL ROTH Report Released Date/Time: Apr 18, 2023 10:42 AM Reporting Lab: [facility] [address] Performing Lab: [facility] [address] [facility] [facility] COMPREHEN SIVE METABOLIC PANEL+MG ASPARTATE AMINOTRANSF ERASE [ENZYMATIC ACTIVITY/VO LUME] IN SERUM OR PLASMA 30 U/L 11 - 34 02/19 Specimen Type: PLASMA No comment entered. Ordering Provider: SA DONTRELL ROTH Report Released Date/Time: Apr 18, 2023 10:42 AM Reporting Lab: [facility] [address] Performing Lab: [facility] [address] [place] [facility] COMPREHEN SIVE METABOLIC PANEL+MG GLOMERULAR FILTRATION RATE/1.73 SQ M.PREDICTED [VOLUME RATE/AREA] IN SERUM, PLASMA OR BLOOD BY CREATININE- BASED FORMULA (CKD-EPI 2020) >90 60 02/19 Specimen Type: PLASMA No comment entered. 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 Vital Sign Value Date Comments Source SYSTOLIC BLOOD PRESSURE 119 02/23/2024 10:16:03 [facility] DIASTOLIC BLOOD PRESSURE 80 02/23/2024 10:16:03 [facility] PULSE OXIMETRY 95 02/23/2024 [facility] WEIGHT 234.6 02/23/2024 10:16:03 [facility] BMI 33kg/m2 02/23/2024 10:16:03 [facility] PAIN 0 02/23/2024 10:16:03 [facility] HEIGHT 71 02/23/2024 10:16:03 [place] [facility] TEMPERATURE 97.8 02/23/2024 10[facility]16:03 [facility] PULSE 75 02/23/2024 10:16:03 [facility] RESPIRATION 16 02/23/2024 10:16:03 [place] [facility] SYSTOLIC BLOOD PRESSURE 111 02/20/2024 09:37:52 [facility] DIASTOLIC BLOOD PRESSURE 79 02/20/2024 09:37:52 [facility] PULSE OXIMETRY 94 02/20/2024 09:37:52 [facility] WEIGHT 239 02/20/2024 09:37:52 [place] [facility] BMI 33kg/m2 02/20/2024 09:37:52 [facility] PAIN 0 02/20/2024 09:37:52 [place] [facility] HEIGHT 71 02/20/2024 09:37:52 [place] [facility] TEMPERATURE 97.1 02/20/2024 09:37:52 [facility] PULSE 60 02/20/2024 09:37:52 [facility] RESPIRATION 16 02/20/2024 09:37:52 [facility] SYSTOLIC BLOOD PRESSURE 115 04/18/2023 10:00:53 [facility] DIASTOLIC BLOOD PRESSURE 76 04/18/2023 10:00:53 [facility] PULSE OXIMETRY 95% 04/18/2023 10:00:53 [facility] WEIGHT 226.1 04/18/2023 10:00:53 [facility] BMI 32kg/m2 04/18/2023 10:00:53 [facility] PAIN 0 04/18/2023 10:00:53 [facility] TEMPERATURE 97 04/18/2023 10:00:53 [facility] PULSE 54 04/18/2023 10:00:53 [facility] RESPIRATION 18 04/18/2023 10:00:53 [facility] Encounters Combined list of: 1) Encounters from Department of [facility] Affairs facilities going back up to thelast 18 months. 2) Encounters from the Department of Defense facilities going back up to 280 months. 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
MATT WILSON 09/13 [facility] Outpatient Encounter [id number] 12/11 [facility] Outpatient Encounter [id number] [facility] Outpatient Encounter [id number] 02/15 [facility] HC PRO PHONE CALL 11-20 MIN [id number] Diagnos is: ICD-10- CM Z71.9 Post Acute Care Nurse Practitioner ing, unspeci fied
STUBVEGA ICA K 02/17 [facility] OFFICE O/P EST SF 10-19 MIN [id number] Diagnos is: ICD-10- CM L84 Corns and callosi ties
CHUCK BOLDEN H 02/21 [facility] HC PRO PHONE CALL 5-10 MIN [id number] Diagnos is: ICD-10- CM Z71.9 Post Acute Care Nurse Practitioner ing, unspeci fied
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
JAEDSEYOLIA ,MATT P 04/11 [facility] IS [facility] OFFICE O/P EST HI 40 MIN [id number] Diagnos is: ICD-10- CM E78.49 Other hyperli pidemia
Lacho ROTH H 04/18 [facility] HEARING AID FITTING/CH ECKING [id number] Diagnos is: ICD-10- CM Z46.1 Encount er for fitting and adjustm ent of hearing aid<br/ > Lacho ARREGUIN 04/18 [facility] PRO PHONE CALL 5-10 MIN [id number] Diagnos is: ICD-10- CM G47.33 Obstruc tive sleep apnea (adult) (pediat donaldo)
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
MEGHANYOLIMATT Arellano Brit 06/07 [facility] Outpatient Encounter [id number] SPEEDY ANTON Davide 06/30 [facility] Outpatient Encounter [id number] 09/04 [facility] Outpatient Encounter [id number] 09/22 [facility] Outpatient Encounter [id number] 01/12 [facility] Outpatient Encounter [id number] 02/19 [facility] OFFICE O/P EST HI 40 MIN [id number] Diagnos is: ICD-10- CM J34.89 Other specifi ed disorde rs of nose and nasal sinuses
GONZALEZLacho ADITYA H 02/19 [facility] ELECTROCAR DIOGRAM REPORT [id number] Diagnos is: ICD-10- CM Z13.6 Encount er for screeni ng for cardiov ascular disorde rs
NIKITA BROWN 02/22 [facility] OFFICE O/P EST LOW 20 MIN [id number] Diagnos is: ICD-10- CM Z01.818 Encount er for other preproc edural examina tion
SOFIE RODRÍGUEZ 02/22 [facility] PT EDUCATION NOC INDIVID [id number] Diagnos is: ICD-10- CM Z71.89 Other specifi ed clinical mental health counselor ing<br/ > PERRI AQUINO 02/22 [facility] Outpatient Encounter [id number] 02/27 [facility] Outpatient Encounter [id number] 02/27 [facility] HEARING AID FITTING/CH ECKING [id number] Diagnos is: ICD-10- CM Z01.118 Encntr for exam of ears and hearing w oth abnorma l finding s
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
MATT WILSON P 03/05 [facility] Outpatient Encounter [id number] 03/09 [facility] PT EDUCATION NOC INDIVID [id number] Diagnos is: ICD-10- CM Z71.89 Other specifi ed clinical mental health counselor ing<br/ > PERRI AQUINO 03/13 [facility] Outpatient Encounter [id number] 03/15 [facility] Social History Combined list of available smoking, tobacco, and other social history from Department of Defense and [facility] Affairs facilities. Social History Type Response Date Comment Sourc e Tobacco smoking status NHIS VA-TOBACCO USE FORMER CIGARETTES 02/20/2024 [facility] History of tobacco use NE-TOBACCO USE FORMER OTHER TYPE 02/20/[address] [facility] History of tobacco use NE-TOBACCO FORMER USER 02/21/2023 [facility] History of tobacco use VA-TOBACCO FORMER USER 06/01/2021 [facility] History of tobacco use NE-TOBACCO NEVER USED 05/16/2020 [facility] History of tobacco use NE-TOBACCO QUIT 15 YRS OR MORE 01/23/2019 [facility] History of tobacco use FORMER TOBACCO USER 7Y OR GREATER 05/20/2017 [facility] History of tobacco use FORMER TOBACCO USER 7Y OR GREATER 03/12/2016 [facility] History of tobacco use CURRENT TOBACCO USER 03/11/2015 [facility] History of tobacco use FORMER TOBACCO USER 7Y OR GREATER 02/22/2014 [facility] History of tobacco use FORMER TOBACCO USER 7Y OR GREATER 01/10/2008 [facility] Plan of Care List of future care activities from [facility] facilities. Additional future care activities may be listed in the Assessment and Plan section. Date/Time Care Activity Care Activity Detail Facili ty 04/11/2024 AMBULATORY - SURGERY AMBULATORY - SURGERY [facility] Advance Directives List of completed, amended, or rescinded Advance Directives on record at [facility] facilities. An actual copy of the Directive is not included. Date Advance Directive Provider Source 02/28/2006 ADVANCE DIRECTIVE SYDNEY PEÑALOZA FOR[facility]LY [facility]
--- OUTSIDE RECORDS SUMMARY | 2024-03-15 20:00 | XMS_ITS | Encounter Summary ---
Author Name [facility] [facility] [place] [facility] [place] Address [address] [place] [address] Care Team Providers Care Camper Assembler Name Role Phone TERRY ROTH Primary Care [...] PROVIDER ORGANIZAT ION (PPO) OPERA TING DARIEN RS Mar 21, 2017 [id number] [phone] BASILIO BRENNAN HN PATIENT [employer] [place] PREFERRED PROVIDER ORGANIZAT ION (PPO) OPERA TING DARIEN EERS Mar 21, 2017 [id number] [phone] BASILIO BRENNAN HN PATIENT CATALYST RX PRESCRIPT ION OPER ENG LOCAL 49 Mar 21, 2017 [employer] [id number] BASILIO BRENNAN HN PATIENT OPTUM RX PRESCRIPT ION OPER ENG LOCAL 49 Mar 21, 2020 [employer] [id number] [phone] BASILIO BRENNAN HN PATIENT OPTUM RX PRESCRIPT ION OPER ENG LOCAL 49 Mar 21, 2018 [employer] [id number] [phone] BASILIO BRENNAN PATIENT Selected Encounter This section includes the information on record at [place] for the Encounter. Date/Time Encounter Type Encounter Description Reason Provider Source May 11, 2023 02:16 PM HC PRO PHONE CALL 5-10 MIN TELEPHONE/MEDICIN E ICD-10-CM G47.33 Obstructive sleep apnea (adult) (pediatric) MICHEL GALAVIZ IHE Encounter Template Text not used by [place] Assessments - Encounter Diagnoses This section includes the primary and secondary diagnoses documented for the Encounter. Date/Time Primary/Secondary Diagnosis Diagnosis Name Provider Source May 11, 2023 02:16 PM PRIMARY Obstructive sleep apnea (adult) (pediatric) MICHEL GALAVIZ [facility] Plan of Treatment: Future Appointments (+ 6 months) and Future Tests (+/- 45 days) The Plan of Treatment section includes future care activities for the patient from all [place] treatmentfacilities. This section includes future appointments and future orders which are active, pending or scheduled. Future Appointments This section includes appointments that were scheduled to occur 6 months from the date of the Encounter, up to a maximum of 20 appointments. The data comes from all [place] treatment facilities. Appointment Date/Time Appointment Type Appointme nt Facility Name Jun 03, 2023 11:30 AM AMBULATORY - SURGERY [facility] Jun 08, 2023 09:00 AM AMBULATORY - PSYCHIATRY [facility] Lab Results: +/- 30 days of the encounter This section includes the Chemistry and Hematology Lab Results on record with [place] for the patient. Radiology Reports and Pathology Reports are provided separately, in subsequent sections. Lab Results This section contains the Chemistry/Hematology Results that were resulted 30 days before or 30 daysafter the date of the Encounter. Date/Time Source Result Type Result - Unit Interpretation Reference Range Comment Apr 18, 2023 09:06 AM [facility] HEMOGLOBIN A1C Specimen Type: BLOOD Comment: Values [...] Jan 13, 2022 02:03 PM Reporting Lab: [facility] [id number] Performing Lab: [facility] [id number] HEMOGLOBIN A1C 5.2 4.0-6.0 Apr 18, 2023 09:06 AM [facility] CBC Specimen Type: BLOOD No comment entered. Ordering Provider: SOPHIA ROTH Report Released Date/Time: Jan 13, 2022 02:03 PM Reporting Lab: [facility] [id number] Performing Lab: [facility] [id number] WBC 8.77 10*3/uL 4.0-11.0 RBC 5.06 10*6/uL 4.6-6.2 HGB 15.4 g/dL 13.5-17.9 HCT 45.0 41-54 MCV 88.9 fL 80-100 MCH 30.4 pg 27-33 MCHC 34.2 g/dL 32.0-37.5 PLT 225 10*3/uL 150-400 MPV 9.4 fL 7.4-10.4 RDW 12.7 11.5-14.5 Apr 18, 2023 09:06 AM [facility] COMPREHENSIVE METABOLIC PANEL+MG Specimen Type: PLASMA No comment entered. Ordering Provider: SOPHIA ROTH Report Released Date/Time: Jan 13, 2022 02:03 PM Reporting Lab: [facility] [id number] Performing Lab: [facility] [id number] CREATININE 0.9 mg/dL 0.7-1.2 UREA NITROGEN 20 [...] 22 U/L <34 .CREAT EGFR(CKD-EPI) >90 >60 Apr 18, 2023 09:06 AM [facility] LIPID PANEL,NON-FASTING Specimen Type: PLASMA No comment entered. Ordering Provider: SOPHIA ROTH Report Released Date/Time: Jan 13, 2022 02:03 PM Reporting Lab: [facility] [id number] Performing Lab: [facility] [id number] CHOLESTEROL 158 mg/dL <199 .HDL 39 mg/dL L >40 LDL CALCULATION 101 mg/dL H <99 VLDL CALCULATION 18 mg/dL <29 NON HDL CHOLESTEROL 119 mg/dL <129 TRIG(NON FASTING) 89 mg/dL <149 Apr 18, 2023 09:06 AM [facility] TSH W/REFLEX TO FREE T4 Specimen Type: PLASMA No comment entered. Ordering Provider: SOPHIA ROTH Report Released Date/Time: Jan 13, 2022 02:03 PM Reporting Lab: [facility] [phone] Performing Lab: [facility] [id number] TSH 1.88 u[IU]/mL 0.35-4.94 Social History: Smoking Status (Most current) and Tobacco Use (All prior to encounter date) This section includes the most current, and the historical, smoking and tobacco- related health factors from the [place] facility where the Encounter took place. Current Smoking Status This section includes the most current smoking, or tobacco-related health factor, from the [place] facility where the Encounter took place. Date/Time Current Smoking Status Comment Shante yepez Feb 21, 2023 01:30 PM VA-TOBACCO FORMER USER [facility] Tobacco Use History This section includes a history of the smoking, or tobacco-related health factors, that were collected on or before the date of the Encounter. The data comes from the [place] facility where the Encounter took place. Date/Time Smoking Status/Tobacco Use Comment Fauzia acnacho Feb 21, 2023 01:30 PM VA-TOBACCO QUIT 15 YRS OR MORE [facility] Jun 01, 2021 10:45 AM VA-TOBACCO FORMER USER [facility] Jun 01, 2021 10:45 AM VA-TOBACCO QUIT 15 YRS OR MORE [facility] Jan 23, 2019 01:33 PM VA-TOBACCO FORMER USER [facility] Jan 23, 2019 01:33 PM VA-TOBACCO QUIT 15 YRS OR MORE [facility] May 20, 2017 11:03 AM FORMER TOBACCO USER 7Y OR GREATE R [facility] Mar 12, 2016 09:31 AM FORMER TOBACCO USER 7Y OR GREATE R [facility] Mar 11, 2015 07:54 AM CURRENT TOBACCO USER [facility] Feb 22, 2014 09:51 AM FORMER TOBACCO USER 7Y OR GREATE R [facility] Jan 10, 2008 07:56 AM FORMER TOBACCO USER 7Y OR GREATE R [facility] Advance Directives: All historical and current Section Date Range: From patient's date of to the date document was created. This section includes ALL of a patient's completed or amended [place] Advance and Rescinded Directives. The entries below indicate that a directive exists for the patient, but an actual copy is not included with this document. The data comes from all [place] facilities. Date Advance Directives Provider Source Feb 28, 2006 ADVANCE DIRECTIVE SYDNEY PEÑALOZA [facility] Encounter Notes: All associated encounter notes This section contains the clinical notes associated to the Encounter. Date/Time Encounter Note(s) Provider Source May 11, 2023 02:16 PM SLEEP MEDICINE NOT E: LOCAL TITLE: SLEEP MEDICINE NOTE STANDARD TITLE: SLEEP MEDICINE NOTE DATE OF NOTE: MAY 11, 2023@14:16 ENTRY DATE: MAY 11, 2023@14:16:48 AUTHOR: MICHEL GALAVIZ EXP COSIGNER: URGENCY: STATUS: COMPLETED PAP Therapy Telephone Follow-Up Reason for call: Return patient's call Patient called regarding: Equipment questions Patient called worried about the a new recall because he recieved that letter about [employer] stopped selling cpap machines at this time. Cell Tender Helper informed the patient that his DS2 cpap is fine and he should continue using it. Patient instructed to call with problems/questions or if symptoms aren't improved. 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
--- OUTSIDE RECORDS SUMMARY | 2024-03-15 20:00 | XMS_ITS | Encounter Summary ---
Author Name [facility] [place] [facility] [place] Address [address] [place] [address] Care Team Providers Care Insurance Sales Producer Name Role Phone KEY ROTH Primary Care Provider Unavailabl e Insurance [...] OPERA TING DARIEN EERS Mar 21, 2017 [id number] [phone] BASILIO BRENNAN HN PATIENT [place] PREFERRED PROVIDER ORGANIZAT ION (PPO) OPERA TING DARIEN EERS Mar 21, 2017 [id number] [phone] BASILIO BRENNAN HN PATIENT CATALYST RX PRESCRIPT ION OPER ENG LOCAL 49 Mar 21, 2017 49ERS [id number] [phone] BASILIO BRENNAN HN PATIENT OPTUM RX PRESCRIPT ION OPER ENG LOCAL 49 Mar 21, 2020 49ERS [id number] [phone] BASILIO BRENNAN HN PATIENT OPTUM RX PRESCRIPT ION OPER ENG LOCAL 49 Mar 21, 2018 49ERS [id number] [phone] BASILIO BRENNAN PATIENT Selected Encounter This section includes the information on record at [place] for the Encounter. Date/Time Encounter Type Encounter Description Reason Provider Source Apr 18, 2023 10:00 AM OFFICE O/P EST HI 40 MIN PRIMARY CARE/MEDICINE ICD-10-CM E78.49 Other hyperlipidemia GONZALEZSOPHIA Y Andriy Davide Encounter Template Text not used by [place] Assessments - Encounter Diagnoses This section includes the primary and secondary diagnoses documented for the Encounter. Date/Time Primary/Secondary Diagnosis Diagnosis Name Provider Source Apr 27, 2023 12:41 PM PRIMARY Other hyperlipidemia GONZALEZ,SOPHIA Y H [facility] Apr 27, 2023 12:41 PM SECONDARY Anxiety disorder, unspecified GONZALEZSOPHIA Y H [facility] Apr 27, 2023 12:41 PM SECONDARY Benign neoplasm of colon, unspecified GONZALEZSOPHIA Y H [facility] Apr 27, 2023 12:41 PM SECONDARY Chronic rhinitis VANNA ROTHL Y H [facility] Apr 27, 2023 12:41 PM SECONDARY Essential (primary) hypertension VANNA ROTHL Y H [facility] Apr 27, 2023 12:41 PM SECONDARY Low back pain, unspecified GONZALEZ,SOPHIA Y H [facility] Apr 27, 2023 12:41 PM SECONDARY Obesity, unspecified VANNA ROTHL Y H [facility] Apr 27, 2023 12:41 PM SECONDARY Obstructive sleep apnea (adult) (pediatric) VANNA ROTHL Y H [facility] Apr 27, 2023 12:41 PM SECONDARY Other recurrent depressive disorders VANNA ROTHL Y H [facility] Plan of Treatment: Future Appointments (+ 6 months) and Future Tests (+/- 45 days) The Plan of Treatment section includes future care activities for the patient [facility] [place] [facility] This section includes future appointments and future orders which are active, pending or scheduled. Future Appointments This section includes appointments that were scheduled to occur 6 months from the date of the Encounter, up to a maximum of 20 appointments. The data comes from all [place] treatment facilities. Appointment Date/Time Appointment Type Appointme nt Facility Name Jun 03, 2023 11:30 AM AMBULATORY - SURGERY [facility] Jun 08, 2023 09:00 AM [facility] [place] [facility] Lab Results: +/- 30 days of the encounter This section includes the Chemistry and Hematology Lab Results on record with [place] for the patient. Radiology Reports and Pathology Reports are provided separately, in subsequent sections. Lab Results This section contains the Chemistry/Hematology Results that were resulted 30 days before or 30 daysafter the date of the Encounter. Date/Time Source Result Type Result - Unit Interpretation Reference Range Comment Apr 18, 2023 09:06 AM [facility] HEMOGLOBIN A1C Specimen Type: BLOOD Comment: Values [...] Jan 13, 2022 02:03 PM Reporting Lab: [facility] [id number] Performing Lab: [facility] [id number] HEMOGLOBIN A1C 5.2 4.0-6.0 Apr 18, 2023 09:06 AM [facility] TSH W/REFLEX TO FREE T4 Specimen Type: PLASMA No comment entered. Ordering Provider: SOPHIA ROTH Report Released Date/Time: Jan 13, 2022 02:03 PM Reporting Lab: [facility] [id number] Performing Lab: [facility] [id number] TSH 1.88 u[IU]/mL 0.35-4.94 Apr 18, 2023 09:06 AM [facility] LIPID PANEL,NON-FASTING Specimen Type: PLASMA No comment entered. Ordering Provider: SOPHIA ROTH Report Released Date/Time: Jan 13, 2022 02:03 PM Reporting Lab: [facility] [id number] Performing Lab: [facility] [id number] CHOLESTEROL 158 mg/dL <199 .HDL 39 mg/dL L >40 LDL CALCULATION 101 mg/dL H <99 VLDL CALCULATION 18 mg/dL <29 NON HDL CHOLESTEROL 119 mg/dL <129 TRIG(NON FASTING) 89 mg/dL <149 Apr 18, 2023 09:06 AM [facility] COMPREHENSIVE METABOLIC PANEL+MG Specimen Type: PLASMA No comment entered. Ordering Provider: SOPHIA ROTH Report Released Date/Time: Jan 13, 2022 02:03 PM Reporting Lab: [facility] [id number] Performing Lab: [facility] [address] CREATININE 0.9 mg/dL 0.7-1.2 UREA NITROGEN 20 [...] >90 >60 Apr 18, 2023 09:06 AM [facility] CBC Specimen Type: BLOOD No comment entered. Ordering Provider: SOPHIA ROTH Report Released Date/Time: Jan 13, 2022 02:03 PM Reporting Lab: [facility] [id number] Performing Lab: [facility] [address] WBC 8.77 10*3/uL 4.0-11.0 RBC 5.06 10*6/uL 4.6-6.2 HGB 15.4 g/dL 13.5-17.9 HCT 45.0 41-54 MCV 88.9 fL 80-100 MCH 30.4 pg 27-33 MCHC 34.2 g/dL 32.0-37.5 PLT 225 10*3/uL 150-400 MPV 9.4 fL 7.4-10.4 RDW 12.7 11.5-14.5 Vital Signs: All taken on the encounter date This section contains inpatient and outpatient Vital Signs collected on the date of the Encounter. Date/Time Temperature Pulse Blood Pressure Respiratory Rate SP02 Pain Height Weight Body Mass Index Source Apr 18, 2023 10:00 AM 97 F 54 /min 115/76 mm[Hg] 18 /min 95 % 0 226.1 lb 32 [facility]EL CARPIO [facility] Social History: Smoking Status (Most current) and Tobacco Use (All prior to encounter date) This section includes the most current, and the historical, smoking and tobacco- related health factors from the [facility] where the Encounter took place. Current Smoking Status This section includes the most current smoking, or tobacco-related health factor, from the [place] facility where the Encounter took place. Date/Time Current Smoking Status Comment Facil ity Feb 21, 2023 01:30 PM VA-TOBACCO FORMER USER [facility] Tobacco Use History This section includes a history of the smoking, or tobacco-related health factors, that were collected on or before the date of the Encounter. The data comes from the [place] facility where the Encounter took place. Date/Time Smoking Status/Tobacco Use Comment F acility Feb 21, 2023 01:30 PM VA-TOBACCO QUIT 15 YRS OR MORE [facility] Jun 01, 2021 10:45 AM VA-TOBACCO FORMER USER [facility] Jun 01, 2021 10:45 AM VA-TOBACCO QUIT 15 YRS OR MORE [facility] Jan 23, 2019 01:33 PM VA-TOBACCO FORMER USER [facility] Jan 23, 2019 01:33 PM VA-TOBACCO QUIT 15 YRS OR MORE [facility] May 20, 2017 11:03 AM FORMER TOBACCO USER 7Y OR GREATE R [facility] Mar 12, 2016 09:31 AM FORMER TOBACCO USER 7Y OR GREATE R [facility] Mar 11, 2015 07:54 AM CURRENT TOBACCO USER [facility] Feb 22, 2014 09:51 AM FORMER TOBACCO USER 7Y OR GREATE R [facility] Jan 10, 2008 07:56 AM FORMER TOBACCO USER 7Y OR GREATE R [facility] Advance Directives: All historical and current Section Date Range: From patient's date of to the date document was created. This section includes ALL of a patient's completed or amended [place] Advance and Rescinded Directives. The entries below indicate that a directive exists for the patient, but an actual copy is not included with this document. The data comes from all [facility]. Date Advance Directives Provider Source Feb 28, 2006 ADVANCE DIRECTIVE SYDNEY PEÑALOZA [facility] Encounter Notes: All associated encounter notes This section contains the clinical notes associated to the Encounter. Date/Time Encounter Note(s) Provider Source Apr 18, 2023 01:26 PM LETTERS: LOCAL TITLE: FOLLOW UP RESULTS LETTER STANDARD TITLE: LETTERS DATE OF NOTE: APR 18, 2023@13:26 ENTRY DATE: APR 18, 2023@13:26:56 AUTHOR: KEY ROTH COSIGNER: URGENCY: STATUS: COMPLETED [facility] [address] [place] [address] Mar CATIA BRENNAN [address] [place] [phone] Dear [place]: I am writing to inform you of the results of testing that you had done recently at the [facility]. Your test results area acceptable. Collection time: Apr 18, 2023@09:06 Test Name Result Units Range --------- ------ ----- ----- WBC 8.77 K/cmm 4.0 - 11.0 RBC 5.06 M/cmm 4.6 - 6.2 HGB 15.4 g/dL 13.5 - 17.9 HCT 45.0 % 41 - 54 MCV 88.9 fL 80 - 100 MCH 30.4 pg 27 - 33 MCHC 34.2 g/dL 32.0 - 37.5 RDW 12.7 % 11.5 - 14.5 PLT 225 K/cmm 150 - 400 TSH 1.88 uIU/mL 0.35 - 4.94 SODIUM 140 mmol/L 136 - 145 POTASSIUM 3.9 mmol/L 3.5 - 5.1 CHLORIDE 109 H mmol/L 98 - 107 CO2 21 L mmol/L 22 - 29 ANION GAP 10 mmol/L 5 - 15 GLUCOSE 90 mg/dL 70 - 100 UREA NITROGEN 20 mg/dL 8 - 26 CREATININE 0.9 mg/dL 0.7 - 1.2 PROTEIN,TOTAL 6.6 g/dL 6.0 - 8.3 ALBUMIN 4.1 g/dL 3.5 - 5.2 CALCIUM 9.0 mg/dL 8.4 - 10.2 MAGNESIUM 2.1 mg/dL 1.6 - 2.6 BILIRUBIN, TOTAL 1.1 mg/dL 0.2 - 1.2 ALKALINE PHOSPHATASE 36 L U/L 40 - 150 AST/SGOT 22 U/L Ref: <=34 ALT/SGPT 33 U/L Ref: <=55 CHOLESTEROL 158 mg/dL Ref: <=199 TRIG(NON FASTING) 89 mg/dL Ref: <=149 .HDL 39 L mg/dL Ref: >=40 LDL CALCULATION 101 H mg/dL Ref: <=99 HEMOGLOBIN A1C 5.2 % 4.0 - 6.0 If you have any further questions or problems, please contact our nursing staff or provider at the following number: [phone]. Sincerely, Key Roth MD Physician KEY ROTH [facility] Apr 18, 2023 10:03 AM INTERNAL MEDICINE OUTPATIENT NOTE: LOCAL TITLE: MEDICINE CLINIC NURSING NOTE STANDARD TITLE: INTERNAL MEDICINE OUTPATIENT NOTE DATE OF NOTE: APR 18, 2023@10:03 ENTRY DATE: APR 18, 2023@10:03:13 AUTHOR: PERRI PAYAN COSIGNER: URGENCY: STATUS: COMPLETED TYPE OF VISIT: Appointment Check In Type of appointment: In-person appointment REASON FOR VISIT: annual check up ALLERGIES: Patient has answered NKA VITAL SIGNS: Blood Pressure: 115/76 (04/18/2023 10:00) Pulse: 54 (04/18/2023 10:00) Respiration: 18 (04/18/2023 10:00) Temperature: 97 F [36.1 C] (04/18/2023 10:00) Weight: 226.1 lb [102.56 kg] (04/18/2023 10:00) Height: 71 in [180.3 cm] (02/21/2023 13:28) BMI: 31.6 O2 Sat: 95% (04/18/2023 10:00) Pain: 0 (04/18/2023 10:00) PAIN SCREEN: Patient is not having significant pain that they wish to discuss with their provider today. MEDICATION Over the Counter/Herbal Medications: The patient states that they take some outside medications and/or herbals. COVID-19 Immunization: Refused Pfizer Monovalent COVID-19 vaccine Immunization: COVID-19 (PFIZER), MRNA, LNP-S, PF, MELY-SUCROSE, 30 MCG/0.3 ML (AGES 12+ YEARS) Refusal Reason: PATIENT DECISION Patient refuses all immunization(s) in the COVID-19 group Date Documented: 04/18/23 10:05 Suicide Screen: C-SSRS Screening [place] Suicide Severity Rating Scale (C-SSRS) screener 1. Over the past month, have you wished you were or wished you could go to sleep and not wake up? No 2. Over the past month, have you had any actual thoughts of killing yourself? No 3. Over the past month, have you been thinking about how you might do this? Response not required due to responses to other questions. 4. Over the past month, have you had these thoughts and had some intention of acting on them? Response not required due to responses to other questions. 5. Over the past month, have you started to work out or worked out the details of how to kill yourself? Response not required due to responses to other questions. 6. If yes, at any time in the past month did you intend to carry out this plan? Response not required due to responses to other questions. 7. In your lifetime, have you ever done anything, started to do anything, or prepared to do anything to end your life (for example, collected pills, obtained a gun, gave away valuables, went to the roof but didn't jump)? No 8. If YES, was this within the past 3 months? Response not required due to responses to other questions. /aubrie/ PERRI PAYAN LPN LICENSED PRACTICAL NURSE Signed: 04/18/2023 10:06 PERRI PAYAN [facility] Apr 18, 2023 08:34 AM INTERNAL MEDICINE NOTE: LOCAL TITLE: MEDICINE CLINIC NOTE STANDARD TITLE: INTERNAL MEDICINE NOTE DATE OF NOTE: APR 18, 2023@08:34 ENTRY DATE: APR 15, 2023@13:21:15 AUTHOR: KEY ROTH EXP COSIGNER: URGENCY: STATUS: COMPLETED SUBJECT: CLINIC VISIT GENERAL INTERNAL MEDICINE CLINIC PROGRESS NOTE CATIA BRENNAN is a 62 year old MALE with the following CHIEF COMPLAINT: chronic disease management THIS AN ESTABLISHED PATIENT IN THE PRIMARY CARE CLINIC HPI: Catia has a medical history notable for HLD, HTN, JUAN, Mental health conditions (depression, anxiety), Chronic LBP, Colon adenoma, Tobacco use DO, Obesity, ED, Co managed care, Co managed care: Dr. Nikhil Luz, [facility] fax [phone] [place] specialties following: Mental Health/psychiatry Today, we reviewed 's interim chart notes (as summarized below), medications and any need for refills, test results and routine health care maintenance. Additional concerns today: Cor calcium scan ordered by PCP, not elevated 03/16/2023 Obesity: discussed lifetyle mods, info provided I noted nasal obstruction on exam. Chronic nasal obstruction affecting breathing and ability to use cpap effectively, air blows out sides of mask CHART REVIEW: 01/13/22: At our most recent visit to establish care, we reviewed his health history and HCM, meds. Plan at that time: Wt. management assistance declined Nicotine cessation assistance declined Refill sildenafil Labs RTC one year Fax results, per 's request, to PCP in [facility]. The following preventive care screening and other chronic disease management records were reviewed: Immunizations: due for COVID booster--declined, Flu--had elsewhere, Shingrix-- will get at a near future date, Consented to Pneumovax Blood pressure trends (home, clinic): reviewed BMI: 33.5 Labs: See test results section Colon cancer screening: Per [place] GI: Colonoscopy GAP Reminder: Recommendations are needed in the clinical reminder system following the patient's most recent colorectal cancer screening/surveillance test (Colonoscopy, Sigmoidoscopy or CT Colonography) Colonoscopy reminder set 8 years from APR 18, 2022. Comments (optional): hx of 1-2 small adenomas in 2013 and 2020, updated guidelines for polyp surveillance suggests 10 year f/u See nursing note regarding the following screening: Pain, suicide, depression, alcohol use, toxic exposures, fall risk, skin screen, home abuse/violence, nutriton, health education, tobacco use use. Today's nursing notes were reviewed. Active problems - Computerized Problem List is the source for the followin. Hyperlipidemia (SNOMED CT 61709650) 2. Chews tobacco (SNOMED CT 01182439) 3. Low back pain 4. Depressive disorder (SNOMED CT 34243877) 5. Umbilical hernia 6. Metatarsal Plantar Flexed 7. Obstructive sleep apnea of adult 8. Anxiety disorder 9. Essential hypertension 10. Adenomatous polyp of colon 11. Obesity 12. Erectile dysfunction SURGICAL HISTORY: Colonoscopy July. Left shoulder decompession surg Hernia repair FAMILY HISTORY: Brother (Fab): CAD age 50, maker (survived) Brother(Nikhil): [place] of an anomoly artery? 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 1997, started age 17, avg 1+ ppd, chews tobacco tins x 2/week Vape: none Alcohol use: neg. Illicit drug use: none Active and Recently Outpatient Medications (including Supplies): Active Outpatient Medications Status 1) BUSPIRONE HCL 10MG TAB TAKE TWO TABLETS BY MOUTH HOLD TWICE A DAY FOR ANXIETY 2) FLUOXETINE HCL 20MG CAP TAKE TWO CAPSULES BY MOUTH ACTIVE EVERY MORNING 3) FLUTICASONE PROP 50MCG 120D NASAL INHL SPRAY 2 SPRAYS ACTIVE IN EACH NOSTRIL TWICE A DAY USE REGULARLY FOR RELIEF OF ALLERGIES/CONGESTION 4) SIMVASTATIN 40MG TAB TAKE ONE-HALF TABLET BY MOUTH AT ACTIVE BEDTIME FOR CHOLESTEROL Active Non-VA Medications Status 1) Non-VA ASPIRIN 81MG EC TAB 81MG MOUTH EVERY DAY ACTIVE 2) Non-VA COENZYME Q10 60MG TAB/CAP 1 TABLET MOUTH EVERY ACTIVE DAY 3) Non-VA FISH OIL 1000MG (500MG DHA/EPA) CAP 1000MG ACTIVE MOUTH EVERY DAY 4) Non-VA METOPROLOL SUCCINATE 100MG SA TAB 50MG MOUTH ACTIVE EVERY DAY 5) Non-VA MULTI/MINERAL/ANTIOXIDANT TAB MOUTH EVERY DAY ACTIVE MEDICATION RECONCILIATION: completed ALLERGIES: Patient has answered NKA EXAM: VITAL SIGNS: Blood Pressure: 115/76 (04/18/2023 10:00) Pulse: 54 (04/18/2023 10:00) Respiration: 18 (04/18/2023 10:00) Temperature: 97 F [36.1 C] (04/18/2023 10:00) Weight: 226.1 lb [102.56 kg] (04/18/2023 10:00) Height: 71 in [180.3 cm] (02/21/2023 13:28) BMI: 31.6 O2 Sat: 95% (04/18/2023 10:00) PREVIOUS VITAL SIGNS: Blood Pressure: 133/81 (01/13/2022 10:49) Weight: 236.3 lb [107.18 kg] (01/13/2022 10:49) BMI: 33.5 GEN: Alert, no acute distress EENT: Pupils equal, round, reactive to light. No icterus. Ear canals patent w/o significant cerumen, TM's normal,nasal left nostril greater than right nostril narrow passage, oral mucosa moist,pharynx without erythema or exudate Neck: Full active ROM, no cervical lymphadenopathy,thyroid smooth, symmetric, no nodules Lungs: Clear to auscultation throughout Cardiac: Regular rate and rhythm, no murmurs, rubs or gallops, JVP normal/not elevated Abdomen: Normal bowel sounds, soft, non tender, no hepatosplenomegaly or masses, no CVA tenderness or masses Extremities: No peripheral edema, DP pulses 2+, no cyanosis Skin: No jaundice, rashes or suspicious lesions on exposed surfaces MSK: No significant joint deformities noted on hands, no kyphosis Neuro: CN's 2-12 intact, able to get on/off exam table without assistance. Strength grossly intact. Psych: actively engaged in conversation, full range of affect, no psychomotor slowing, no signs of agitation TEST RESULTS: Collection time: Apr 18, 2023@09:06 Test Name Result Units Range --------- ------ ----- ----- WBC 8.77 K/cmm 4.0 - 11.0 RBC 5.06 M/cmm 4.6 - 6.2 HGB 15.4 g/dL 13.5 - 17.9 HCT 45.0 % 41 - 54 MCV 88.9 fL 80 - 100 MCH 30.4 pg 27 - 33 MCHC 34.2 g/dL 32.0 - 37.5 RDW 12.7 % 11.5 - 14.5 PLT 225 K/cmm 150 - 400 TSH 1.88 uIU/mL 0.35 - 4.94 SODIUM 140 mmol/L 136 - 145 POTASSIUM 3.9 mmol/L 3.5 - 5.1 CHLORIDE 109 H mmol/L 98 - 107 CO2 21 L mmol/L 22 - 29 ANION GAP 10 mmol/L 5 - 15 GLUCOSE 90 mg/dL 70 - 100 UREA NITROGEN 20 mg/dL 8 - 26 CREATININE 0.9 mg/dL 0.7 - 1.2 PROTEIN,TOTAL 6.6 g/dL 6.0 - 8.3 ALBUMIN 4.1 g/dL 3.5 - 5.2 CALCIUM 9.0 mg/dL 8.4 - 10.2 MAGNESIUM 2.1 mg/dL 1.6 - 2.6 BILIRUBIN, TOTAL 1.1 mg/dL 0.2 - 1.2 ALKALINE PHOSPHATASE 36 L U/L 40 - 150 AST/SGOT 22 U/L Ref: <=34 ALT/SGPT 33 U/L Ref: <=55 CHOLESTEROL 158 mg/dL Ref: <=199 TRIG(NON FASTING) 89 mg/dL Ref: <=149 .HDL 39 L mg/dL Ref: >=40 LDL CALCULATION 101 H mg/dL Ref: <=99 HEMOGLOBIN A1C 5.2 % 4.0 - 6.0 Collection time: Jan 13, 2022@12:05 Test Name Result Units Range --------- ------ ----- ----- CHOLESTEROL 133 mg/dL Ref: <=199 TRIG(NON FASTING) 78 mg/dL Ref: <=149 HDL 35 L mg/dL Ref: >=40 LDL CALCULATION 82 mg/dL Ref: <=99 B 12 432 pg/mL 213 - 816 PSA 1.40 ng/mL Ref: <=4.00 Specimen Collection Date: Mar 12, 2016@09:55 Test name Result units Ref. range Site Code ANTI-HEP C(EIA) NEGATIVE Ref: NEGATIVE [618] Patient was informed of available lab, imaging, and other study results associated with today's visit. ASSESSMENT AND PLAN: HLD, HTN, JUAN, Chronic nasal obstruction affecting breathing and ability to use cpap effectively Mental health conditions (depression, anxiety), Chronic LBP, Colon adenoma, Tobacco use DO (chew) ED Obesity Co managed care Plan: Weight management discussed and hand outs on MOVE, Smart START classes provided ENT referral RTC one year REMINDERS: Medication Reconciliation: Education Evaluations *Was medication education provided for NEW medications or CHANGES to medications? (including medication name, dose, route, reason for use, and potential side effects). No new medications or medication changes during this encounter. TERATOGENIC MED & CONTRACEPTION REVIEW (Optional)... === MEDICATION RECONCILIATION === List Given: An updated medication list was provided to the patient/caregiver. Review Done: The medication list shown below was verified for accuracy and it includes all pending medications/active medications/all medications or discontinued within the last 90 days/all remote medications and non-VA medications. If a given category (i.e. remote meds) is not shown, that means that a patient doesn't have a medication(s) in that category. Allergies listed below were also reviewed/updated for accuracy. Allergies/ADR from [facility] may not display in CPRS. Use JLV MRT5 - Allergies/ADRs FACILITY ALLERGY/ADR -------- No Remote Allergy/ADR Data available for this patient [facility] [facility] No Known Allergies Active and Recently Outpatient Medications (including Supplies): Issue Date Status Last Fill Active Outpatient Medications Refills Expiration 1) BUSPIRONE HCL 10MG TAB Qty: 360 for 90 HOLD Issu:04-11-23 days Sig: TAKE TWO TABLETS BY MOUTH Refills: 3 TWICE A DAY FOR ANXIETY Expr:04-11-24 2) FLUOXETINE HCL 20MG CAP Qty: 180 for 90 ACTIVE Issu:09-14-22 days Sig: TAKE TWO CAPSULES BY MOUTH Refills: 1 Last:04-10-23 EVERY MORNING Expr:09-15-23 3) FLUTICASONE PROP 50MCG 120D NASAL INHL ACTIVE Issu:07-19-22 Qty: 1 for 30 days Sig: SPRAY 2 Refills: 7 Last:04-11-23 SPRAYS IN EACH NOSTRIL TWICE A DAY Expr:07-20-23 USE REGULARLY FOR RELIEF OF ALLERGIES/CONGESTION 4) SIMVASTATIN 40MG TAB Qty: 45 for 90 ACTIVE Issu:03-31-23 days Sig: TAKE ONE-HALF TABLET BY Refills: 3 Last:04-08-23 MOUTH AT BEDTIME FOR CHOLESTEROL Expr:03-31-24 Issue Date Status Last Fill Inactive Outpatient Medications Refills Expiration 1) BUSPIRONE HCL 10MG TAB Qty: 540 for 90 DISCONTINUED Issu:09-14-22 days Sig: TAKE THREE TABLETS BY MOUTH (EDIT) Last:03-31-23 TWICE A DAY Refills: 2 Expr:09-15-23 2) BUSPIRONE HCL 10MG TAB Qty: 540 for 90 DISCONTINUED Issu:05-13-22 days Sig: TAKE THREE TABLETS BY MOUTH Refills: 2 Last:08-03-22 TWICE A DAY Expr:05-14-23 3) FLUOXETINE HCL 20MG CAP Qty: 180 for 90 DISCONTINUED Issu:05-13-22 days Sig: TAKE TWO CAPSULES BY MOUTH Refills: 3 Last:08-03-22 EVERY MORNING Expr:05-14-23 4) SILDENAFIL CITRATE 100MG TAB Qty: 9 for Issu:01-13-22 90 days Sig: TAKE ONE-HALF TABLET BY Refills: 3 Last:01-14-22 MOUTH EVERY DAY NEEDED 1 HOUR Expr:01-14-23 BEFORE ANTICIPATED SEXUAL ACTIVITY 5) SIMVASTATIN 40MG TAB Qty: 45 for 90 DISCONTINUED Issu:01-13-22 days Sig: TAKE ONE-HALF TABLET BY Refills: 1 Last:11-10-22 MOUTH AT BEDTIME FOR CHOLESTEROL Expr:01-14-23 Start Date Active Non-VA Medications Refills Expiration 1) Non-VA ASPIRIN 81MG EC TAB SiMG ACTIVE MOUTH EVERY DAY 2) Non-VA COENZYME Q10 60MG TAB/CAP Si ACTIVE TABLET MOUTH EVERY DAY 3) Non-VA FISH OIL 1000MG (500MG DHA/EPA) ACTIVE CAP SiMG MOUTH EVERY DAY 4) Non-VA METOPROLOL SUCCINATE 100MG SA TAB ACTIVE SiMG MOUTH EVERY DAY 5) Non-VA MULTI/MINERAL/ANTIOXIDANT TAB ACTIVE Sig: MOUTH EVERY DAY 14 Total Medications Time spent today, including reviewing prior VA- and non-VA notes and test results, independently obtaining history, performing a medically appropriate exam and/or evaluation, documenting clinical information in the EHR progress note, updating the EHR problem list, independently interpreting results, communicating results, counseling and educating patient/surrogate, coordinating care with other health team members, entering orders, completing reminders and coding the encounter: Total Time: 40min Key Roth MD General Internal Medicine [facility] PACT CHIQUITA Zuñiga /es/ Key Roth MD Physician Signed: 04/18/2023 10:48 KEY ROTH [facility]
--- OUTSIDE RECORDS SUMMARY | 2024-03-15 20:00 | XMS_ITS | Encounter Summary ---
Author Name [facility] [place] [facility] [place] Address [address] [place] [address] Care Team Providers Care Superintendent Division Name Role Phone KEY ROTH Primary Care Provider Unavailleny shaw Insurance Providers: All historical and current Section [...] OPERA TING DARIEN EERS Mar 21, 2017 [id number] [phone] BASILIO BRENNAN HN PATIENT [place] PREFERRED PROVIDER ORGANIZAT ION (PPO) OPERA TING DARIEN EERS Mar 21, 2017 [id number] [phone] BASILIO BRENNAN HN PATIENT CATALYST RX PRESCRIPT ION OPER ENG LOCAL 49 Mar 21, 2017 49ERS [id number] [phone] BASILIO BRENNAN HN PATIENT OPTUM RX PRESCRIPT ION OPER ENG LOCAL 49 Mar 21, 2020 49ERS [id number] [phone] BASILIO BRENNAN HN PATIENT OPTUM RX PRESCRIPT ION OPER ENG LOCAL 49 Mar 21, 2018 49ERS [id number] [phone] BASILIO BRENNAN HN PATIENT Selected Encounter This section includes the information on record at [place] for the Encounter. Date/Time Encounter Type Encounter Description Reason Pro vider Source Sep 05, 2023 08:57 AM Outpatient Encounter TELEPHONE TRIAGE IHE Encounter Template Text not used by [place] Plan of Treatment: Future Appointments (+ 6 months) and Future Tests (+/- 45 days) The Plan of Treatment section includes future care activities for the patient from all [place] [facility]. This section includes future appointments and future orders which are active, pending or scheduled. Future Appointments This section includes appointments that were scheduled to occur 6 months from the date of the Encounter, up to a maximum of 20 appointments. The data comes from all [place] treatment facilities. Appointment Date/Time Appointment Type Appointme nt Facility Name Feb 20, 2024 09:00 AM AMBULATORY - NONE [facility] Feb 20, 2024 10:00 AM AMBULATORY - MEDICINE [facility] Feb 23, 2024 09:30 AM AMBULATORY - NONE [facility] Feb 23, 2024 10:00 AM AMBULATORY - MEDICINE [facility] Feb 23, 2024 10:30 AM AMBULATORY - SURGERY [facility] Feb 23, 2024 11:00 AM AMBULATORY - SURGERY [facility] Mar 05, 2024 07:45 AM AMBULATORY - SURGERY [facility] Mar 05, 2024 02:00 PM AMBULATORY - PSYCHIATRY [facility] Social History: Smoking Status (Most current) and Tobacco Use (All prior to encounter date) This section includes the most current, and the historical, smoking and tobacco- related health factors from the [place] facility where the Encounter took place. Current Smoking Status This section includes the most current smoking, or tobacco-related health factor, from the [place] facility where the Encounter took place. Date/Time Current Smoking Status Comment Facil ity Feb 21, 2023 01:30 PM [place]-TOBAC[place] QU[place] [address] [facility] Tobacco Use History This section includes a history of the smoking, or tobacco-related health factors, that were collected on or before the date of the Encounter. The data comes from the [place] facility where the Encounter took place. Date/Time Smoking Status/Tobacco Use Comment F acility Feb 21, 2023 01:30 PM [place]AC[place] QU[place] [address] [facility] Jun 01, 2021 10:45 AM VA-TOBACCO FORMER USER [facility] Jun 01, 2021 10:45 AM VA-TOBACCO QUIT [address] [facility] Jan 23, 2019 01:33 PM VA-TOBACCO FORMER USER [facility] Jan 23, 2019 01:33 PM [place]-TOBAC[place] QU[place] [address] [facility] May 20, 2017 11:03 AM FORMER TOBACCO USER 7Y OR GRE[address] R [facility] Mar 12, 2016 09:31 AM FORMER TOBACCO USER 7Y OR GRE[address] R [facility] Mar 11, 2015 07:54 AM CUR[address] TOBACCO USER [facility] Feb 22, 2014 09:51 AM FORMER TOBACCO USER 7Y OR GREATE R [facility] Jan 10, 2008 07:56 AM FORMER TOBACCO USER 7Y OR GRE[address] R [facility] Advance Directives: All historical and current Section Date Range: From patient's date of to the date document was created. This section includes ALL of a patient's completed or amended [place] Advance and Rescinded Directives. The entries below indicate that a directive exists for the patient, but an actual copy is not included with this document. The data comes from all [place] facilities. Date Advance Directives Provider Source Feb 28, 2006 ADVANCE DIRECTIVE SYDNEY PEÑALOZA [facility] Encounter Notes: All associated encounter notes This section contains the clinical notes associated to the Encounter. Date/Time Encounter Note(s) Provider Source Sep 05, 2023 08:57 AM PHARMACY NOTE: LOCAL TITLE: PHARMACY CALL CENTER MEDICATION RENEWAL REQUEST STANDARD TITLE: PHARMACY NOTE DATE OF NOTE: SEP 05, 2023@08:57 ENTRY DATE: SEP 05, 2023@08:57:56 AUTHOR: ARTIE MEJIA EXP COSIGNER: URGENCY: STATUS: COMPLETED Medication renewal(s) requested by patient for: Non-controlled substance(s): CATIA BRENNAN is requesting a renewal of the following prescription (s): FLUTICASONE PROP 50MCG 120D NASAL INHL [id number] 1 07/20/2023 07/19/2022 05/24/2023 5 MIGUEL ÁNGEL WHITT 2.66 SPRAY 2 SPRAYS IN EACH NOSTRIL TWICE A DAY USE REGULARLY FOR RELIEF If clinically appropriate, please renew. Meds to be MAILED Active and Recently Outpatient Medications (excluding Supplies): Active Outpatient Medications Status 1) BUSPIRONE HCL 10MG TAB TAKE TWO TABLETS BY MOUTH ACTIVE (S) TWICE A DAY FOR ANXIETY 2) FLUOXETINE HCL 20MG CAP TAKE TWO CAPSULES BY MOUTH ACTIVE EVERY MORNING 3) SIMVASTATIN 40MG TAB TAKE ONE-HALF TABLET BY MOUTH AT ACTIVE (S) BEDTIME FOR CHOLESTEROL Active Non-VA Medications Status 1) Non-VA ASPIRIN 81MG EC TAB 81MG MOUTH EVERY DAY ACTIVE 2) Non-VA COENZYME Q10 60MG TAB/CAP 1 TABLET MOUTH EVERY ACTIVE DAY 3) Non-VA FISH OIL 1000MG (500MG DHA/EPA) CAP 1000MG ACTIVE MOUTH EVERY DAY 4) Non-VA METOPROLOL SUCCINATE 100MG SA TAB 50MG MOUTH ACTIVE EVERY DAY 5) Non-VA MULTI/MINERAL/ANTIOXIDANT TAB MOUTH EVERY DAY ACTIVE 8 Total Medications Future appointments: 10/18/2023 07:45 [facility] AUD TWELVE 02/20/2024 09:00 [facility] PC LAB BLOOD DRAW 4C 02/20/2024 10:00 [facility] PACT FERN WH 4F 02/23/2024 09:30 [facility] LAB BLOOD DRAWING ALISON 02/23/2024 10:00 [facility] EKG LAB 3M 02/23/2024 10:30 [facility] ANES 1 PREOP AM 02/23/2024 11:15 [facility] SURG COORD ENT J 03/16/2024 06:15 [facility] OUTPT SURGERY 03/23/2024 10:30 [facility] ENT FROYMOSCAR /aubrie/ ARTIE RG 10 PCC NUCLEAR PLANT 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
--- OUTSIDE RECORDS SUMMARY | 2024-03-15 20:00 | XMS_ITS | Encounter Summary ---
Author Name [facility] [place] Address [address] [place] [address] Care Team Providers Care Live In Companion Name Role Phone TERRY ROTH Primary Care [...] OPERA TING DARIEN EERS Mar 21, 2017 [id number] [phone] BASILIO BRENNAN HN [place]IENT [place] PREFERRED PROVIDER ORGANIZAT ION (PPO) OPERA TING DARIEN EERS Mar 21, 2017 [id number] [phone] BASILIO BRENNAN HN PATIENT CATALYST RX PRESCRIPT ION OPER ENG LOCAL 49 Mar 21, 2017 49ERS [id number] BASILIO BRENNAN HN PATIENT OPTUM RX PRESCRIPT ION OPER ENG LOCAL 49 Mar 21, 2020 49ERS [id number] [phone] BASILIO BRENNAN HN PATIENT OPTUM RX PRESCRIPT ION OPER ENG LOCAL 49 Mar 21, 2018 49ERS [id number] [phone] BASILIO BRENNAN PATIENT Selected Encounter This section includes the information on record at [place] for the Encounter. Date/Time Encounter Type Encounter Description Reason Provider Source Jun 03, 2023 11:30 AM OFFICE O/P NEW MOD 45 MIN OTOLARYNGOLOGY/ENT ICD-10-CM J34.2 Deviated nasal septum CHRISTIE AMARO IHDavide Encounter Template Text not used by [place] Assessments - Encounter Diagnoses This section includes the primary and secondary diagnoses documented for the Encounter. Date/Time Primary/Secondary Diagnosis Diagnosis Name Provider Source Aug 24, 2023 09:38 AM PRIMARY Deviated nasal septum ROSANA MENDEZ [facility] Plan of Treatment: Future Appointments (+ 6 months) and Future Tests (+/- 45 days) The Plan of Treatment section includes future care activities for the patient from all [place] [facility]. This section includes future appointments and future orders which are active, pending or scheduled. Future Appointments This section includes appointments that were scheduled to occur 6 months from the date of the Encounter, up to a maximum of 20 appointments. The data comes from all [place] treatment facilities. Appointment Date/Time Appointment Type Appointme nt Facility Name Jun 08, 2023 09:00 AM AMBULATORY - PSYCHIATRY [facility] Social History: Smoking Status (Most current) and Tobacco Use (All prior to encounter date) This section includes the most current, and the historical, smoking and tobacco- related health factors from the [place] facility where the Encounter took place. Current Smoking Status This section includes the most current smoking, or tobacco-related health factor, from the [place] facility where the Encounter took place. Date/Time Current Smoking Status Comment Facil ity Feb 21, 2023 01:30 PM VA-TOBACCO QUIT 15 YRS OR MORE [facility] Tobacco Use History This section includes a history of the smoking, or tobacco-related health factors, that were collected on or before the date of the Encounter. The data comes from the [place] facility where the Encounter took place. Date/Time Smoking Status/Tobacco Use Comment F acility Feb 21, 2023 01:30 PM VA-TOBACCO QUIT 15 YRS OR MORE [facility] Jun 01, 2021 10:45 AM VA-TOBACCO FORMER USER [facility] Jun 01, 2021 10:45 AM VA-TOBACCO QUIT 15 YRS OR MORE [facility] Jan 23, 2019 01:33 PM VA-TOBACCO FORMER USER [facility] Jan 23, 2019 01:33 PM VA-TOBACCO QUIT 15 YRS OR MORE [facility] May 20, 2017 11:03 AM FORMER TOBACCO USER 7Y OR GREATE R [facility] Mar 12, 2016 09:31 AM FORMER TOBACCO USER 7Y OR GREATE R [facility] Mar 11, 2015 07:54 AM CURRENT TOBACCO USER [facility] Feb 22, 2014 09:51 AM FORMER TOBACCO USER 7Y OR GREATE R [facility] Jan 10, 2008 07:56 AM FORMER TOBACCO USER 7Y OR GREATE R [facility] Advance Directives: All historical and current Section Date Range: From patient's date of to the date document was created. This section includes ALL of a patient's completed or amended [place] Advance and Rescinded Directives. The entries below indicate that a directive exists for the patient, but an actual copy is not included with this document. The data comes from all [place] facilities. Date Advance Directives Provider Source Feb 28, 2006 ADVANCE DIRECTIVE SYDNEY PEÑALOZA [facility] Encounter Notes: All associated encounter notes This section contains the clinical notes associated to the Encounter. Date/Time Encounter Note(s) Provider Source Jun 03, 2023 01:57 PM ADDENDUM: LOCAL TITLE: Addendum STANDARD TITLE: ADDENDUM DATE OF NOTE: JUN 03, 2023@13:57:24 ENTRY DATE: JUN 03, 2023@13:57:25 AUTHOR: VAN THOMAS COSIGNER: URGENCY: STATUS: COMPLETED Diagnosis:Deviated Septum Surgery:Septoplasty, Turbinate Reduction, Latera Implants Surgical Date:03/16/24 Surgeon: Dr. Amaro Please write delayed order for 's pre-operative antibiotic or write no antibiotic indicated for surgery Please write delayed order for DVT prophylaxis for surgery /aubrie/ VAN THOMAS RN STAFF NURSE Signed: 06/03/2023 13:57 Receipt Acknowledged By: 06/03/2023 15:57 /aubrie/ Rosana Mendez MD Resident, ENT --- Original Document --- 06/03/23 SURGERY COORDINATOR NOTE: Diagnosis:Deviated Septum Surgery:Septoplasty, Turbinate Reduction, Latera Implants Surgical Date:03/16/24 Surgeon: Dr. Amaro Spoke with patient today in clinic following appointment with Dr. Amaro and Dr. Mendez on 06/03/23. Discussed process for scheduling, timing and confirmation of surgical procedure.The following surgical date was decided on between the surgeon and the [place]. Allergies: Patient has answered NKA Active Outpatient Medications (excluding Supplies): Outpatient Medications Status 1) BUSPIRONE HCL 10MG TAB TAKE TWO TABLETS BY MOUTH HOLD TWICE A DAY FOR ANXIETY 2) FLUOXETINE HCL 20MG CAP TAKE TWO CAPSULES BY MOUTH ACTIVE (S) EVERY MORNING 3) FLUTICASONE PROP 50MCG 120D NASAL INHL SPRAY 2 SPRAYS ACTIVE IN EACH NOSTRIL TWICE A DAY USE REGULARLY FOR RELIEF OF ALLERGIES/CONGESTION 4) SIMVASTATIN 40MG TAB TAKE ONE-HALF TABLET BY MOUTH AT ACTIVE (S) BEDTIME FOR CHOLESTEROL Non-VA Medications Status 1) Non-VA ASPIRIN 81MG EC TAB 81MG MOUTH EVERY DAY ACTIVE 2) Non-VA COENZYME Q10 60MG TAB/CAP 1 TABLET MOUTH EVERY ACTIVE DAY 3) Non-VA FISH OIL 1000MG (500MG DHA/EPA) CAP 1000MG ACTIVE MOUTH EVERY DAY 4) Non-VA METOPROLOL SUCCINATE 100MG SA TAB 50MG MOUTH ACTIVE EVERY DAY 5) Non-VA MULTI/MINERAL/ANTIOXIDANT TAB MOUTH EVERY DAY ACTIVE 9 Total Medications Reviewed pt's medical history. Problems: Hyperlipidemia (SCT 58389853) Chews tobacco (SCT 26300971) Low back pain (SCT 443975172) Depressive disorder ([facility] 74018086) Umbilical hernia (SCT 786042834) Metatarsal Plantar Flexed (ICD-9-CM 736.79) Obstructive sleep apnea of adult (SCT 11Anxiety disorder (SCT 149901802) Essential hypertension (SCT 95168459) Adenomatous polyp of colon (SCT 904359668) Obesity (SCT 857297015) Erectile dysfunction (SCT 621147673) Chronic rhinitis (SCT 45816419) Following evaluation of pt's needs, ENT coordinator will set up all appropriate pre-operative clearance testing for pt. at [facility] , within 30 days prior to surgery. FEB 23, 2024@09:30 Clinic: [facility] LAB BLOOD DRAWING ROOM FEB 23, 2024@10:00 Clinic: [facility] EKG LAB 3M FEB 23, 2024@10:30 Clinic: [facility] ANES 1 PREOP AM FEB 23, 2024@11:15 Clinic: [facility] SURG COORD ENT J MAR 16, 2024@06:15 Clinic: [facility] OUTPT SURGERY MAR 23, 2024@10:30 Clinic: [facility] ENT TING Finalization of surgical date will be based on patient's successful completion of necessary pre-operative appointments. Filament Coil Winder will then educate and instruct patient on pre/post-operative information providing pt. with all educational materials pertaining to the surgery and pre/post-operative care. Informed pt. he/she will need a mobile lounge driver or operator to drive him/her home after surgery and someone to stay with him/her overnight unless pt. is to stay overnight for monitoring.Loop Puller and 24 hour supervision = (Danna) [phone] Advised pt. today that he can call ENT Coordinator any time with all questions or concerns. Pt. verbalizes agreement and understanding of plan. Total time for this encounter was 75 minutes, of which __55__ minutes were spent in counseling. Also includes chart review, care coordination, education, and follow-up. /aubrie/ VAN THOMAS PICKING TABLE WORKER NURSE Signed: 06/03/2023 13:57 VAN THOMAS V [facility] Jun 03, 2023 01:55 PM SURGERY CASE MANAG ER NOTE: LOCAL TITLE: SURGERY COORDINATOR NOTE STANDARD TITLE: SURGERY GOLF COURSE MANAGER NOTE DATE OF NOTE: JUN 03, 2023@13:55 ENTRY DATE: JUN 03, 2023@13:55:17 AUTHOR: VAN THOMAS COSIGNER: URGENCY: STATUS: COMPLETED SURGERY COORDINATOR NOTE Has ADDENDA Diagnosis:Deviated Septum Surgery:Septoplasty, Turbinate Reduction, Latera Implants Surgical Date:03/16/24 Surgeon: Dr. Amaro Spoke with patient today in clinic following appointment with Dr. Amaro and Dr. Mendez on 06/03/23. Discussed process for scheduling, timing and confirmation of surgical procedure.The following surgical date was decided on between the surgeon and the [place]. Allergies: Patient has answered NKA Active Outpatient Medications (excluding Supplies): Outpatient Medications Status 1) BUSPIRONE HCL 10MG TAB TAKE TWO TABLETS BY MOUTH HOLD TWICE A DAY FOR ANXIETY 2) FLUOXETINE HCL 20MG CAP TAKE TWO CAPSULES BY MOUTH ACTIVE (S) EVERY MORNING 3) FLUTICASONE PROP 50MCG 120D NASAL INHL SPRAY 2 SPRAYS ACTIVE IN EACH NOSTRIL TWICE A DAY USE REGULARLY FOR RELIEF OF ALLERGIES/CONGESTION 4) SIMVASTATIN 40MG TAB TAKE ONE-HALF TABLET BY MOUTH AT ACTIVE (S) BEDTIME FOR CHOLESTEROL Non-VA Medications Status 1) Non-VA ASPIRIN 81MG EC TAB 81MG MOUTH EVERY DAY ACTIVE 2) Non-VA COENZYME Q10 60MG TAB/CAP 1 TABLET MOUTH EVERY ACTIVE DAY 3) Non-VA FISH OIL 1000MG (500MG DHA/EPA) CAP 1000MG ACTIVE MOUTH EVERY DAY 4) Non-VA METOPROLOL SUCCINATE 100MG SA TAB 50MG MOUTH ACTIVE EVERY DAY 5) Non-VA MULTI/MINERAL/ANTIOXIDANT TAB MOUTH EVERY DAY ACTIVE 9 Total Medications Reviewed pt's medical history. Problems: Hyperlipidemia (SCT 91160142) Chews tobacco (SCT 77133877) Low back pain (SCT 393134159) Depressive disorder ([facility] 55618448) Umbilical hernia (SCT 474340796) Metatarsal Plantar Flexed (ICD-9-CM 736.79) Obstructive sleep apnea of adult (SCT 11Anxiety disorder (SCT 507475369) Essential hypertension (SCT 50148923) Adenomatous polyp of colon (SCT 003102443) Obesity (SCT 481717464) Erectile dysfunction (SCT 994890154) Chronic rhinitis ([facility] 15079815) Following evaluation of pt's needs, ENT coordinator will set up all appropriate pre-operative clearance testing for pt. at [facility] , within 30 days prior to surgery. FEB 23, 2024@09:30 Clinic: [facility] BLOOD DRAWING ROOM FEB 23, 2024@10:00 Clinic: [facility] EKG LAB FEB 23, 2024@10:30 Clinic: [facility] ANES 1 PREOP AM FEB 23, 2024@11:15 Clinic: [facility] SURG COORD ENT J MAR 16, 2024@06:15 Clinic: [facility] OUTPT SURGERY MAR 23, 2024@10:30 Clinic: [facility] ENT TING Finalization of surgical date will be based on patient's successful completion of necessary pre-operative appointments. Filament Coil Winder will then educate and instruct patient on pre/post-operative information providing pt. with all educational materials pertaining to the surgery and pre/post-operative care. Informed pt. he/she will need a mobile lounge driver or operator to drive him/her home after surgery and someone to stay with him/her overnight unless pt. is to stay overnight for monitoring.Loop Puller and 24 hour supervision = (Danna) [phone] Advised pt. today that he can call ENT Coordinator any time with all questions or concerns. Pt. verbalizes agreement and understanding of plan. Total time for this encounter was 75 minutes, of which __55__ minutes were spent in counseling. Also includes chart review, care coordination, education, and follow-up. /aubrie/ VAN THOMAS RN STAFF NURSE Signed: 06/03/2023 13:57 06/03/2023 ADDENDUM STATUS: COMPLETED Diagnosis:Deviated Septum Surgery:Septoplasty, Turbinate Reduction, Latera Implants Surgical Date:03/16/24 Surgeon: Dr. Amaro Please write delayed order for 's pre-operative antibiotic or write no antibiotic indicated for surgery Please write delayed order for DVT prophylaxis for surgery /es/ VAN THOMAS, PICKING TABLE WORKER NURSE Signed: 06/03/2023 13:57 Receipt Acknowledged By: * AWAITING SIGNATURE * ROSANA MENDEZ OMOLARA V [facility] Jun 03, 2023 11:30 AM OTOLARYNGOLOGY CON SULT: LOCAL TITLE: ENT CONSULT STANDARD TITLE: OTOLARYNGOLOGY CONSULT DATE OF NOTE: JUN 03, 2023@11:30 ENTRY DATE: JUN 06, 2023@07:11:01 AUTHOR: ROSANA MENDEZ EXP COSIGNER: URGENCY: STATUS: COMPLETED CONSULTATION PATIENT: CATIA BRENNAN SSN: [id number] : 1960 [address] [facility] ENT [facility] CONSULT #: [id number] DICTATED BY: ROSANA MENDEZ M.D. DATE AND TIME OF APPOINTMENT: 06/03/2023@1130 CHIEF COMPLAINT: Nasal obstruction. HISTORY OF PRESENT ILLNESS: The patient reports 15+ year history of bilateral nasal obstruction (right greater than left), which he started noticing after first using CPAP. He states that he needs to wear a full-face mask as he cannot breathe through his mouth, particularly at night. He states that his breathing is okay during the day. However, now that he thinks about it in the office, his right side is usually more blocked than the left. He is also bothered by persistent rhinorrhea at all times. He does endorse a history of seasonal allergies and uses Flonase daily. He denies colored drainage, facial pain/pressure, associated headaches. PAST MEDICAL HISTORY: Hyperlipidemia. PAST SURGICAL HISTORY: 1. Shoulder surgery. 2. Hernia repair. 3. No prior history of head or neck surgery. SOCIAL HISTORY: Quit tobacco 20 years ago. Previously moderate alcohol use; denies active alcohol use. PHYSICAL EXAMINATION: General: Well appearing. Comfortable in chair. Face: Symmetrical. Cranial nerve VII intact bilaterally. Eyes: Extraocular movements intact. Pupils equal and reactive. Ears: No obvious external abnormalities. Nose: Midline and symmetric dorsum. Nasal mucosa is pink and moist. Right anterior cartilaginous septal deviation. Turbinates normal appearing bilaterally. Significant benefit with both Hemalatha and modified [place] maneuvers, particularly on the right. Mouth: Mucous membranes moist. Tongue midline and symmetric. Neck: No lymphadenopathy. Trachea is midline. Neurological: Cranial nerves III through XII grossly intact. ASSESSMENT AND PLAN: This is a 62-year-old otherwise healthy male who presents with a long history of nasal obstruction, likely due to right septal deviation. He does have to have a component of nasal valve collapse as well, given improvement with modified and non-modified Hemalatha maneuvers. We discussed septoplasty surgery, inferior turbinate reduction, and Latera implant placement surgery as a means to relieve the anatomical factors contributing to his nasal obstruction, which would hopefully improve his nasal breathing. We discussed what surgery would entail, including steps during surgery and the expected postoperative recovery process, such as having splints in place for a week following surgery. At this time, the patient is bothered enough by his nasal obstruction that he is willing to proceed with surgery. We will have our schedulers meet with him to work on finding a date. PLAN: 1. OR for septoplasty, bilateral inferior turbinate reduction, bilateral Latera placement. Date/time TBD. 2. Follow up with Sleep Surgery regarding symptoms of persistent tiredness during the day. Patient seen and discussed with Dr. Amaro. @ 0051 @ 0952 [place]: [facility] JOB# [id number] /aubrie/ Rosana Mendez MD Resident, ENT Signed: 06/13/2023 08:38 Receipt Acknowledged By: 06/17/2023 16:13 /aubrie/ DAMION AMARO MD STAFF SURGEON ROSANA MENDEZ [facility]
--- OUTSIDE RECORDS SUMMARY | 2024-03-15 20:00 | XMS_ITS | Encounter Summary ---
Author Name [facility] [facility] [place] [facility] [place] [facility] [place] Address [address] [place] [address] Care Team Providers Care Assembler Sandal [employer] Name Role Phone KEY ROTH Primary Care [...] OPERA TING DARIEN EERS Mar 21, 2017 [id number] [phone] BASILIO BRENNAN HN PATIENT [place] PREFERRED PROVIDER ORGANIZAT ION (PPO) OPERA TING DARIEN EERS Mar 21, 2017 [id number] [phone] BASILIO BRENNAN HN PATIENT CATALYST RX PRESCRIPT ION OPER ENG LOCAL 49 Mar 21, 2017 49ERS [phone] BASILIO BRENNAN HN PATIENT OPTUM RX PRESCRIPT ION OPER ENG LOCAL 49 Mar 21, 2020 49ERS [id number] [phone] BASILIO BRENNAN HN PATIENT OPTUM RX PRESCRIPT ION OPER ENG LOCAL 49 Mar 21, 2018 49ERS [id number] [phone] BASILIO BRENNAN PATIENT Selected Encounter This section includes the information on record at [place] for the Encounter. Date/Time Encounter Type Encounter Description Reason Provider Source Feb 20, 2024 10:00 AM OFFICE O/P EST HI 40 MIN PRIMARY CARE/MEDICINE ICD-10-CM J34.89 Other specified disorders of nose and nasal sinuses KEY ROTH Davide Encounter Template Text not used by [place] Assessments - Encounter Diagnoses This section includes the primary and secondary diagnoses documented for the Encounter. Date/Time Primary/Secondary Diagnosis Diagnosis Name Provider Source Mar 01, 2024 09:51 AM PRIMARY Other specified disorders of nose and nasal sinuses GONZALEZSOPHIA Gabby Ashraf [facility] Mar 01, 2024 09:51 AM SECONDARY Chronic rhinitis GONZALEZSOPHIA Gabby Ashraf [facility] Mar 01, 2024 09:51 AM SECONDARY Essential (primary) hypertension GONZALEZSOPHIA Ashraf [facility] Mar 01, 2024 09:51 AM SECONDARY Obstructive sleep apnea (adult) (pediatric) SOPHIA ROTH [facility] Mar 01, 2024 09:51 AM SECONDARY Other hyperlipidemia GONZALEZ,SOPHIA Gabby Ashraf [facility] Plan of Treatment: Future Appointments (+ 6 months) and Future Tests (+/- 45 days) The Plan of Treatment section includes future care activities for the patient from all [place] [facility]. This section includes future appointments and future orders which are active, pending or scheduled. Future Appointments This section includes appointments that were scheduled to occur 6 months from the date of the Encounter, up to a maximum of 20 appointments. The data comes from all [place] treatment facilities. Appointment Date/Time Appointment Type Appointme nt Facility Name Feb 23, 2024 09:30 AM [facility] Feb 23, 2024 10:00 AM [facility] Feb 23, 2024 10:30 AM AMBULATORY - SURGERY [facility] Feb 23, 2024 11:00 AM AM[facility]UL[facility]ORY - SURGERY [facility] Mar 05, 2024 07:45 AM AM[facility]UL[facility]ORY - SURGERY [facility] Mar 05, 2024 02:00 PM [facility] Apr 11, 2024 07:45 AM AMBULATORY - SURGERY [facility] Lab Results: +/- 30 days of the encounter This section includes the Chemistry and Hematology Lab Results on record with [place] for the patient. Radiology Reports and Pathology Reports are provided separately, in subsequent sections. Lab Results This section contains the Chemistry/Hematology Results that were resulted 30 days before or 30 daysafter the date of the Encounter. Date/Time Source Result Type Result - Unit Interpretation Reference Range Comment Feb 23, 2024 09:18 AM [facility] ACT PART THROMBO TIME Specimen Type: PLASMA Comment: Automated Differential Performed Ordering Provider: DANYELL AMARO Report Released Date/Time: Jun 03, 2023 01:52 PM Reporting Lab: [facility] [id number] Performing Lab: [facility] [id number] APTT 29.2 s 25.1-36.5 Feb 23, 2024 09:18 AM [facility] HEMOGLOBIN A1C Specimen Type: BLOOD Comment: Values obtained from A1C measurements can vary. For typical A1C assays, a reported value of 7.0 could actually be between 6.7 and 7.3 if measured by a reference method. A reported value of 9.0 could actually be between 8.7 and 9.3. Ref: http://www. sp.org/CAPdat a.[email or web address] Ordering Provider: DANYELL AMARO Report Released Date/Time: Jun 29, 2023 10:54 AM Reporting Lab: [facility] [id number] Performing Lab: [facility] [phone] HEMOGLOBIN A1C 5.3 4.0-6.0 Feb 23, 2024 09:18 AM [facility] PROTHROMBIN TIME/INR Specimen Type: PLASMA Comment: Automated Differential Performed Ordering Provider: DANYELL AMARO Report Released Date/Time: Jun 03, 2023 01:52 PM Reporting Lab: [facility] [phone] Performing Lab: [facility] [address] .INR 1.1 0.8-1.1 .PT 12.5 s 9.4-12.5 Feb 23, 2024 09:18 AM [facility] BASIC METABOLIC PANEL+MG Specimen Type: PLASMA No comment entered. Ordering Provider: DANYELL AMARO Report Released Date/Time: Jun 03, 2023 01:52 PM Reporting Lab: [facility] [phone] Performing Lab: [facility] [phone] CREATININE 1.0 mg/dL 0.7-1.2 UREA NITROGEN 19 mg/dL 8-26 GLUCOSE 100 mg/dL 70-100 SODIUM 140 mmol/L 136-145 POTASSIUM 4.0 mmol/L 3.5-5.1 CHLORIDE 108 mmol/L H 98-107 CO2 25 mmol/L 22-29 CALCIUM 8.8 mg/dL 8.4-10.2 MAGNESIUM 2.1 mg/dL 1.6-2.6 ANION GAP 7 mmol/L 5-15 .CREAT EGFR(CKD-EPI) 85 >60 Feb 23, 2024 09:18 AM [facility] CBC & DIFF Specimen Type: BLOOD Comment: Automated Differential Performed Ordering Provider: DANYELL AMARO Report Released Date/Time: Jun 03, 2023 01:52 PM Reporting Lab: [facility] [phone] Performing Lab: [facility] [phone] WBC 8.4 4.0-11.0 RBC 5.18 4.60-6.20 HGB 14.9 g/dL 13.5-17.9 HCT 46.8 41.0-54.0 MCV 90.3 fL 80.0-100.0 MCH 28.8 pg 27.0-33.0 MCHC 31.8 g/dL L 32.0-37.5 PLT 239 150-400 MPV 9.4 fL 9.1-13.0 NEUT 67.6 40.0-80.0 LYMPHS 22.1 15.0-45.0 MONO 7.6 2.0-12.0 EOSINO 1.7 0.0-6.0 BASO 0.5 0.0-2.0 RDW 13.0 11.5-14.5 ABS LYMPH 1.9 1.0-4.0 ABS MONO 0.6 0.1-1.0 ABS NEUT 5.7 2.0-7.7 ABS EOS 0.1 0.0-0.5 ABS BASO 0.0 0.0-0.2 IG(META,MYELO,P RO) 0.5 ABS IMMATURE GRAN 0.0 0.0-0.1 Feb 20, 2024 09:01 AM [facility] TSH W/REFLEX TO FREE T4 Specimen Type: PLASMA No comment entered. Ordering Provider: SOPHIA ROTH Report Released Date/Time: Apr 18, 2023 10:42 AM Reporting Lab: [facility] [phone] Performing Lab: [facility] [phone] TSH 1.44 u[IU]/mL 0.35-4.94 Feb 20, 2024 09:01 AM [facility] HEMOGLOBIN A1C Specimen Type: BLOOD Comment: Values obtained from A1C measurements can vary. For typical A1C assays, a reported value of 7.0 could actually be between 6.7 and 7.3 if measured by a reference method. A reported value of 9.0 could actually be between 8.7 and 9.3. Ref: http://www.ng [email or web address]/CAPdat [email or web address] Ordering Provider: SOPHIA ROTH Report Released Date/Time: Apr 18, 2023 10:42 AM Reporting Lab: [facility] [phone] Performing Lab: [facility] [phone] HEMOGLOBIN A1C 5.4 4.0-6.0 Feb 20, 2024 09:01 AM [facility] CBC Specimen Type: BLOOD No comment entered. Ordering Provider: SOPHIA ROTH Report Released Date/Time: Apr 18, 2023 10:42 AM Reporting Lab: [facility] [phone] Performing Lab: [facility] [phone] WBC 7.7 4.0-11.0 RBC 4.99 4.60-6.20 HGB 15.0 g/dL 13.5-17.9 HCT 46.1 41.0-54.0 MCV 92.4 fL 80.0-100.0 MCH 30.1 pg 27.0-33.0 MCHC 32.5 g/dL 32.0-37.5 PLT 235 150-400 MPV 9.3 fL 9.1-13.0 RDW 13.0 11.5-14.5 Feb 20, 2024 09:01 AM [facility] COMPREHENSIVE METABOLIC PANEL+MG Specimen Type: PLASMA No comment entered. Ordering Provider: SOPHIA ROTH Report Released Date/Time: Apr 18, 2023 10:42 AM Reporting Lab: [facility] [phone] Performing Lab: [facility] [phone] CREATININE 0.9 mg/dL 0.7-1.2 UREA NITROGEN 13 mg/dL 8-26 GLUCOSE 97 mg/dL 70-100 SODIUM 141 mmol/L 136-145 POTASSIUM 4.0 mmol/L 3.5-5.1 CHLORIDE 113 mmol/L H 98-107 CO2 22 mmol/L 22-29 CALCIUM 8.6 mg/dL 8.4-10.2 PROTEIN,TOTAL 6.1 g/dL L 6.4-8.3 ALBUMIN 3.8 g/dL 3.5-5.0 BILIRUBIN, TOTAL 0.3 mg/dL 0.2-1.2 MAGNESIUM 2.0 mg/dL 1.6-2.6 ANION GAP 6 mmol/L 5-15 ALKALINE PHOSPHATASE 40 U/L 40-150 ALT/SGPT 45 U/L H <44 AST/SGOT 30 U/L 11-34 .CREAT EGFR(CKD-EPI) >90 >60 Feb 20, 2024 09:01 AM [facility] LIPID PANEL,NON-FASTING Specimen Type: PLASMA No comment entered. Ordering Provider: SOPHIA ROTH Report Released Date/Time: Apr 18, 2023 10:42 AM Reporting Lab: [facility] [phone] Performing Lab: [facility] [phone] CHOLESTEROL 144 mg/dL <199 .HDL 37 mg/dL L >40 LDL CALCULATION 86 mg/dL <99 VLDL CALCULATION 21 mg/dL <29 NON HDL CHOLESTEROL 107 mg/dL <129 TRIG(NON FASTING) 104 mg/dL <149 Vital Signs: All taken on the encounter date This section contains inpatient and outpatient Vital Signs collected on the date of the Encounter. Date/Time Temperature Pulse Blood Pressure Respiratory Rate SP02 Pain Height Weight Body Mass Index Source Feb 20, 2024 09:37 AM 97.1 60 111/79 16 94 0 71 239 33 HAZEL CARPIO [facility] Social History: Smoking Status (Most current) and Tobacco Use (All prior to encounter date) This section includes the most current, and the historical, smoking and tobacco- related health factors from the [place] facility where the Encounter took place. Current Smoking Status This section includes the most current smoking, or tobacco-related health factor, from the [place] facility where the Encounter took place. Date/Time Current Smoking Status Comment Facil ity Feb 20, 2024 10:00 AM VA-TOBACCO USE FORMER CIGARETTES [facility] Tobacco Use History This section includes a history of the smoking, or tobacco-related health factors, that were collected on or before the date of the Encounter. The data comes from the [facility] where the Encounter took place. Date/Time Smoking Status/Tobacco Use Comment F acility Feb 20, 2024 10:00 AM VA-TOBACCO USE FOR GURMEET OTHER TYPE 20years a go [facility] Feb 21, 2023 01:30 PM VA-TOBACCO FORMER USER [facility] Feb 21, 2023 01:30 PM VA-TOBACCO QUIT 15 YRS OR MORE [facility] Jun 01, 2021 10:45 AM VA-TOBACCO FORMER USER [facility] Jun 01, 2021 10:45 AM VA-TOBACCO QUIT 15 YRS OR MORE [facility] Jan 23, 2019 01:33 PM VA-TOBACCO FORMER USER [facility] Jan 23, 2019 01:33 PM VA-TOBACCO QUIT 15 YRS OR MORE [facility] May 20, 2017 11:03 AM FORMER TOBACCO USE R 7Y OR GREATER [facility] Mar 12, 2016 09:31 AM FORMER TOBACCO USE R 7Y OR GREATER [facility] Mar 11, 2015 07:54 AM CURRENT TOBACCO USER [facility] Feb 22, 2014 09:51 AM FORMER TOBACCO USE R 7Y OR GREATER [facility] Jan 10, 2008 07:56 AM FORMER TOBACCO USE R 7Y OR GREATER [facility] Advance Directives: All historical and current Section Date Range: From patient's date of to the date document was created. This section includes ALL of a patient's completed or amended [place] Advance and Rescinded Directives. The entries below indicate that a directive exists for the patient, but an actual copy is not included with this document. The data comes from all [facility]. Date Advance Directives Provider Source Feb 28, 2006 ADVANCE DIRECTIVE SYDNEY PEÑALOZA [facility] Encounter Notes: All associated encounter notes This section contains the clinical notes associated to the Encounter. Date/Time Encounter Note(s) Provider Source Feb 20, 2024 09:40 AM INTERNAL MEDICINE OUTPATIENT NOTE: LOCAL TITLE: MEDICINE CLINIC NURSING NOTE STANDARD TITLE: INTERNAL MEDICINE OUTPATIENT NOTE DATE OF NOTE: FEB 20, 2024@09:40 ENTRY DATE: FEB 20, 2024@09:40:09 AUTHOR: DIONICIO BRODY COSIGNER: URGENCY: STATUS: COMPLETED TYPE OF VISIT: Appointment Check In Type of appointment: In-person appointment REASON FOR VISIT: Routine check up ALLERGIES: Patient has answered NKA VITAL SIGNS: Blood Pressure: 111/79 (02/20/2024 09:37) Pulse: 60 (02/20/2024 09:37) Respiration: 16 (02/20/2024 09:37) Temperature: 97.1 F [36.2 C] (02/20/2024 09:37) Weight: 239 lb [108.41 kg] (02/20/2024 09:37) Height: 71 in [180.3 cm] (02/20/2024 09:37) BMI: 33.4 O2 Sat: 94% (02/20/2024 09:37) Pain: 0 (02/20/2024 09:37) PAIN SCREEN: Patient is not having significant pain that they wish to discuss with their provider today. MEDICATION Over the Counter/Herbal Medications: The patient states that they take some outside medications and/or herbals. Tobacco Use Screening: The patient is a former cigarette smoker. The patient formerly used other types of tobacco. Comment: 20years a go Depression Screening: Perform PHQ-2 A PHQ-2 screen was performed. The score was 0 which is a negative screen for depression. Over the past two weeks, how often have you been bothered by the following problems? 1. Little interest or pleasure in doing things Not at all 2. Feeling down, depressed, or hopeless Not at all Alcohol Use Screen (AUDIT-C): Alcohol Screen: SCREEN FOR ALCOHOL (AUDIT-C) An alcohol screening test (AUDIT-C) was negative (score=0). 1. How often did you have a drink containing alcohol in the past year? Consider a drink to be a 12 ounce can or bottle of regular beer, 8 ounces of malt liquor, a 5 ounce glass of table wine, or a 1.5 ounce shot of liquor (like scotch, gin, or vodka). Never 2. How many drinks containing alcohol did you have on a typical day when you were drinking in the past year? Response not required due to responses to other questions. 3. How often did you have six or more drinks on one occasion in the past year? Response not required due to responses to other questions. Nursing Annual Screening: Whole Health Screen is due OR due soon (within 90 days). Whole Health Screening Why is addressing your overall health important to you? live What do you want your health for (why do you want to be healthy)? enjoy Fall History Screen During the past 12 months, have you had any falls? Patient does not report any falls in the past 12 months. MEDICATIONS: Patient is on one of the following medication classes: Antihypertensives, Antidepressants, Antipsychotics, Diuretics, or Controlled substance medication used for pain. Script Talk Screen Are you able to read your prescription bottles with your glasses, magnifiers or other aids? Yes or patient not taking any prescriptions. Skin Screen Patient reports any current pressure ulcers, a history of pressure ulcers, or a wound from a medical laboratory manager or Patient is bed-confined or a wheelchair-user or Patient requires assistance to transfer/change position No, Skin Screen is Negative Home Abuse/Violence Screen Is your home free of abuse and violence? Yes MOVE! Program Screen Body Mass Index (BMI)= 33.4 [place]: Collection DT Specimen Test Name Result Units Ref Range 02/20/2024 09:01 BLOOD !! HEMOGLOBIN A1C 5.4 % 4.0 - 6.0 !! Indicates COMMENTS AVAILABLE...Refer to Interim Lab Report. [place] Hgb A1C: No data available [place] Hgb A1C: No data available Point of Care Hgb A1C: POC HGB A1C____ [employer] Weight Management brochure given to and discussed. The counseling includes discussion of the health effects of being overweight/obese, description of the [facility] Weight Management treatment program and contact number for [facility] Weight Management Program. no No Outpatient Nutrition Screen Body Mass Index (BMI)= 33.4 [place]: Collection DT Specimen Test Name Result Units Ref Range 02/20/2024 09:01 BLOOD !! HEMOGLOBIN A1C 5.4 % 4.0 - 6.0 !! Indicates COMMENTS AVAILABLE...Refer to Interim Lab Report. [place] Hgb A1C: No data available [place] Hgb A1C: No data available Point of Care Hgb A1C: POC HGB A1C____ Is patient's BMI less than 18.5? No Does patient have swallowing, coughing, or chewing problems affecting oral intake? No Has patient experienced unplanned weight loss or gain greater than 10 pounds over the last 2 months? No Is patient's Hgb A1C (Glycosylated Hemoglobin) greater than 9.5? No Is patient receiving Total Parenteral Nutrition (TPN) or Tube Feedings? No Patient Health Education Screen BARRIERS/SPECIAL NEEDS: No barriers identified PREFERRED STYLE OF LEARNING: No preference stated Client Assistive Service (LASHONDA) Screen Does the patient require assistance with outpatient visit? No /es/ DIONICIO BRODY L.P.N SALES REPRESENTATIVE [employer] Signed: 02/20/2024 09:44 DIONICIO BRODY [facility] Feb 20, 2024 08:39 AM INTERNAL MEDICINE NOTE: LOCAL TITLE: MEDICINE CLINIC NOTE STANDARD TITLE: INTERNAL MEDICINE NOTE DATE OF NOTE: FEB 20, 2024@08:39 ENTRY DATE: FEB 16, 2024@11:36:14 AUTHOR: KEY ROTH COSIGNER: URGENCY: STATUS: COMPLETED SUBJECT: CLINIC VISIT GENERAL INTERNAL MEDICINE CLINIC PROGRESS NOTE CATIA BRENNAN is a 63 year old MALE with the following CHIEF COMPLAINT: preop THIS AN ESTABLISHED PATIENT IN THE PRIMARY CARE CLINIC HPI: Catia has a medical history notable for HLD, HTN, JUAN, Mental health conditions (depression, anxiety), Chronic LBP, Colon adenoma, Tobacco use DO, Obesity, ED, Co managed care, Co managed care: Dr. Nikhil Luz, [facility] specialties following: Mental Health/psychiatry, ENT, Sleep Med. Today, we reviewed 's interim chart notes (as summarized below), medications and any need for refills, test results and routine health care maintenance. Additional concerns today: UPCOMING PLAN: Surgery:Septoplasty, Turbinate Reduction, Latera Implants Surgical Date:03/16/24 Surgeon: Dr. Amaro. Follow up with Sleep Surgery regarding symptoms of persistent tiredness during the day. [place] looking forward to surgery, hopes to regain benefit of cpap No personal/family hx of bleeding disorder or adverse anesthesia effects, no unanticipated complications of prior surgery. Active, not frail, no cardiopulmonary hx or symptoms. Additional ROS: Weaker urinatary stream (not acute), no nocturia, no incomplete emptying, no urgency, no frequency or burning, no hematuria, no systemic symptoms. Educated on signs/symptoms that may warrant further investigation CHART REVIEW: 06/08/23: Most recent Psychiatry visit 06/03/23: ENT consult 05/11/23 Sleep med RT note 04/18/23: At our most recent visit, we reviewed cor calcium CT (ordered by his non [facility] PCP), addressed weight management strategies, nasal obstruction/chronic, routine HCM Plan at that time: Weight management discussed and hand outs on MOVE, Smart START classes provided ENT referral RTC one year The following preventive care screening and other chronic disease management records were reviewed: Immunizations: SALES REPRESENTATIVE [employer] offered any due Blood pressure trends (home, clinic): reviewed Diet, exercise: reviewed Labs including Hep C and HIV screening: See test results section Colon cancer screening: Per [place] GI: Colonoscopy reminder set 8 years from APR 18, 2022. Comments (optional): hx of 1-2 small adenomas in 2013 and 2020, updated guidelines for polyp surveillance suggests 10 year f/u Prostate cancer screening: Collection time: Jan 13, 2022@12:05 Test Name Result Units Range --------- ------ ----- ----- PSA 1.40 ng/mL Ref: <=4.00 See nursing note regarding the following screening: Pain, suicide, depression, alcohol use, toxic exposures, fall risk, skin screen, home abuse/violence, nutriton, health education, tobacco use use. Today's nursing notes were reviewed. Active problems - Computerized Problem List is the source for the followin. Hyperlipidemia (SNOMED CT 75264576) 2. Chews tobacco (SNOMED CT 19043957) 3. Low back pain 4. Depressive disorder (SNOMED CT 84949102) 5. Umbilical hernia 6. Metatarsal Plantar Flexed 7. Obstructive sleep apnea of adult 8. Anxiety disorder 9. Essential hypertension 10. Adenomatous polyp of colon 11. Obesity 12. Erectile dysfunction 13. Chronic rhinitis 14. Nasal obstruction SURGICAL HISTORY: Colonoscopy July. Left shoulder decompession surg Hernia repair FAMILY HISTORY: Brother (Fab): CAD age 50, maker (survived), lung cancer mets to brain Brother(Nikhil): OR of an anomoly artery? 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 1997, started age 17, avg 1+ ppd, chews tobacco tins x 2/week Vape: none Alcohol use: neg. Illicit drug use: none Active and Recently Outpatient Medications (including Supplies): Active Outpatient Medications Status 1) BUSPIRONE HCL 10MG TAB TAKE TWO TABLETS BY MOUTH ACTIVE TWICE A DAY FOR ANXIETY 2) FLUOXETINE HCL 20MG CAP TAKE TWO CAPSULES BY MOUTH ACTIVE EVERY MORNING 3) FLUTICASONE PROP 50MCG 120D NASAL INHL SPRAY 2 SPRAYS ACTIVE IN EACH NOSTRIL EVERY DAY USE REGULARLY FOR RELIEF OF ALLERGIES/CONGESTION 4) SIMVASTATIN 20MG TAB TAKE ONE TABLET BY MOUTH AT ACTIVE BEDTIME FOR [...] Non-VA MULTI/MINERAL/ANTIOXIDANT TAB MOUTH EVERY DAY ACTIVE ALLERGIES: Patient has answered NKA EXAM: PREVIOUS VITAL SIGNS: Blood Pressure: 115/76 (04/18/2023 10:00) Weight: 226.1 lb [102.56 kg] (04/18/2023 10:00) Blood Pressure: 133/81 (01/13/2022 10:49) Weight: 236.3 [...] signs of agitation TEST RESULTS: Collection time: Feb 20, 2024@09:01 Test Name Result Units Range --------- ------ ----- ----- HEMOGLOBIN A1C 5.4 % 4.0 - 6.0 WBC 7.7 10x3/uL 4.0 - 11.0 RBC 4.99 10x6/uL 4.60 - 6.20 HGB 15.0 g/dL 13.5 - 17.9 HCT 46.1 % 41.0 - 54.0 MCV 92.4 fL 80.0 - 100.0 MCH 30.1 pg 27.0 - 33.0 MCHC 32.5 g/dL 32.0 - 37.5 RDW 13.0 % 11.5 - 14.5 PLT 235 10x3/uL 150 - 400 TSH 1.44 uIU/mL 0.35 - 4.94 SODIUM 141 mmol/L 136 - 145 POTASSIUM 4.0 mmol/L 3.5 - 5.1 CHLORIDE 113 H mmol/L 98 - 107 CO2 22 mmol/L 22 - 29 ANION GAP 6 mmol/L 5 - 15 GLUCOSE 97 mg/dL 70 - 100 UREA NITROGEN 13 mg/dL 8 - 26 CREATININE 0.9 mg/dL 0.7 - 1.2 PROTEIN,TOTAL 6.1 L g/dL 6.4 - 8.3 ALBUMIN 3.8 g/dL 3.5 - 5.0 CALCIUM 8.6 mg/dL 8.4 - 10.2 MAGNESIUM 2.0 mg/dL 1.6 - 2.6 BILIRUBIN, TOTAL 0.3 mg/dL 0.2 - 1.2 ALKALINE PHOSPHATASE 40 U/L 40 - 150 AST/SGOT 30 U/L 11 - 34 ALT/SGPT 45 H U/L Ref: <=44 CHOLESTEROL 144 mg/dL Ref: <=199 TRIG(NON FASTING) 104 mg/dL Ref: <=149 .HDL 37 L mg/dL Ref: >=40 LDL CALCULATION 86 mg/dL Ref: <=99 Collection time: Jan 13, 2022@12:05 Test Name Result Units Range --------- ------ ----- ----- B 12 432 pg/mL 213 - 816 Specimen Collection Date: Mar 12, 2016@09:55 Test name Result units Ref. range Site Code ANTI-HEP C(EIA) NEGATIVE Ref: NEGATIVE [618] Patient was informed of available lab, imaging, and other study results associated with today's visit. ASSESSMENT AND PLAN: Chronic nasal obstruction affecting breathing and ability to use cpap effectively Low cardiopulmonary risk profile for proposed ENT surgery HLD, HTN, JUAN, Mental health conditions (depression, anxiety), Chronic LBP, Colon adenoma, Tobacco use DO (chew) ED Obesity Co managed care Plan: Surgery:Septoplasty, Turbinate Reduction, Latera Implants Surgical Date:03/16/24 RTC one year Patient/Surrogate indicates readiness to learn, verbalizes understanding, agreement and satisfaction with the treatment plan. REMINDERS: Medication Reconciliation: Education Evaluations *Was medication education provided for NEW medications or CHANGES to medications? (including medication name, dose, route, reason for use, and potential side effects). No new medications or medication changes during this encounter. TERATOGENIC MED & CONTRACEPTION REVIEW (Optional)... = MEDICATION RECONCILIATION = List Given: An updated medication list was [...] Remote Allergy/ADR Data available for this patient [facility] No Known Allergies Active and Recently Outpatient Medications (including Supplies): Issue Date Status Last Fill Active Outpatient Medications Refills Expiration 1) BUSPIRONE HCL 10MG TAB Qty: 360 for 90 ACTIVE Issu:04-11-23 days Sig: TAKE TWO TABLETS BY MOUTH Refills: 2 Last:01-16-24 TWICE A DAY FOR ANXIETY Expr:04-11-24 2) FLUOXETINE HCL 20MG CAP Qty: 180 for 90 ACTIVE Issu:12-05-23 days Sig: TAKE TWO CAPSULES BY MOUTH Refills: 2 Last:02-24-24 EVERY MORNING Expr:12-05-24 3) FLUTICASONE PROP 50MCG 120D NASAL INHL ACTIVE Issu:09-05-23 Qty: 3 for 90 days Sig: SPRAY 2 Refills: 1 Last:02-23-24 SPRAYS IN EACH NOSTRIL EVERY DAY USE Expr:09-05-24 REGULARLY FOR RELIEF OF ALLERGIES/CONGESTION 4) SIMVASTATIN 20MG TAB Qty: 90 for 90 ACTIVE Issu:03-31-23 days Sig: TAKE ONE TABLET BY MOUTH AT Refills: 2 Last:02-27-24 BEDTIME FOR CHOLESTEROL Expr:03-31-24 Issue Date Status Last Fill Pending Outpatient Medications Refills Expiration 1) SIMVASTATIN 20MG TAB Qty: 90 Sig: TAKE PENDING ONE TABLET BY MOUTH AT BEDTIME Refills: 0 Issue Date Status Last Fill Inactive Outpatient Medications Refills Expiration 1) SIMVASTATIN 40MG TAB Qty: 45 for 90 DISCONTINUED Issu:03-31-23 days Sig: TAKE ONE-HALF TABLET BY Refills: 1 Last:09-17-23 MOUTH AT BEDTIME FOR CHOLESTEROL Expr:03-31-24 Start Date Active Non-VA Medications Refills Expiration [...] MULTI/MINERAL/ANTIOXIDANT TAB ACTIVE Sig: MOUTH EVERY DAY 11 Total Medications Time spent today, including: Reviewing interim [facility]- and non-[facility] VA chart notes and test results, Independently obtaining history, Performing a medically appropriate exam and/or evaluation, Documenting clinical information in the progress note, Updating the CPRS problem list, Renewing medications, Entering any non-VA medications in CPRS Independently interpreting results, Communicating results (verbally, in results letter), Counseling and educating patient/surrogate, Coordinating care with other health team members, Entering/signing orders, Completing reminders, Composing after visit summary verbally and in writing Coding the encounter. Total Time: 40 min Key Roth MD General Internal Medicine [facility] PACT CHIQUITA Zuñiga /es/ Key Roth MD Physician Signed: 02/20/2024 10:14 KEY ROTH [facility]
--- OUTSIDE RECORDS SUMMARY | 2024-03-15 20:00 | XMS_ITS | Encounter Summary ---
Author Name [facility] [place] [facility] [place] Address [address] [place] [address] Care Team Providers Care Keno Dealer Name Role Phone TERRY ROTH Primary Care [...] OPERA TING DARIEN EERS Mar 21, 2017 [id number] [phone] BASILIO BRENNAN HN PATIENT [place] PREFERRED PROVIDER ORGANIZAT ION (PPO) OPERA TING DARIEN EERS Mar 21, 2017 [id number] [phone] BASILIO BRENNAN HN PATIENT CATALYST RX PRESCRIPT ION OPER ENG LOCAL 49 Mar 21, 2017 [facility] [id number] [phone] BASILIO BRENNAN HN PATIENT OPTUM RX PRESCRIPT ION OPER ENG LOCAL 49 Mar 21, 2020 [facility] [id number] [phone] BASILIO BRENNAN HN PATIENT OPTUM RX PRESCRIPT ION OPER ENG LOCAL 49 Mar 21, 2018 [facility] [id number] [phone] BASILIO BRENNAN PATIENT Selected Encounter This section includes the information on record at [place] for the Encounter. Date/Time Encounter Type Encounter Description Reason Provider Source Jun 08, 2023 09:00 AM OFFICE O/P EST LOW 20 [facility] - IND ICD-10-CM F33.8 Other recurrent depressive disorders ANAIS WILSON [facility] Encounter Template Text not used by [place] Assessments - Encounter Diagnoses This section includes the primary and secondary diagnoses documented for the Encounter. Date/Time Primary/Secondary Diagnosis Diagnosis Name Provider Source Jun 21, 2023 11:26 AM PRIMARY Other recurrent depressive disorders ANAIS WILSON [facility] Social History: Smoking Status (Most current) and Tobacco Use (All prior to encounter date) This section includes the most current, and the historical, smoking and tobacco- related health factors from the [place] facility where the Encounter took place. Current Smoking Status This section includes the most current smoking, or tobacco-related health factor, from the [place] facility where the Encounter took place. Date/Time Current Smoking Status Comment Facil ity Feb 21, 2023 01:30 PM VA-TOBACCO QUIT 15 YRS OR MORE [facility] Tobacco Use History This section includes a history of the smoking, or tobacco-related health factors, that were collected on or before the date of the Encounter. The data comes from the [place] facility where the Encounter took place. Date/Time Smoking Status/Tobacco Use Comment F acility Feb 21, 2023 01:30 PM VA-TOBACCO QUIT 15 YRS OR MORE [facility] Jun 01, 2021 10:45 AM VA-TOBACCO FORMER USER [facility] Jun 01, 2021 10:45 AM VA-TOBACCO QUIT 15 YRS OR MORE [facility] Jan 23, 2019 01:33 PM VA-TOBACCO FORMER USER [facility] Jan 23, 2019 01:33 PM VA-TOBACCO QUIT 15 YRS OR MORE [facility] May 20, 2017 11:03 AM FORMER TOBACCO USER 7Y OR GREATE R [facility] Mar 12, 2016 09:31 AM FORMER TOBACCO USER 7Y OR GREATE R [facility] Mar 11, 2015 07:54 AM CURRENT TOBACCO USER [facility] Feb 22, 2014 09:51 AM FORMER TOBACCO USER 7Y OR GREATE R [facility] Jan 10, 2008 07:56 AM FORMER TOBACCO USER 7Y OR GREATE R [facility] Advance Directives: All historical and current Section Date Range: From patient's date of to the date document was created. This section includes ALL of a patient's completed or amended [place] Advance and Rescinded Directives. The entries below indicate that a directive exists for the patient, but an actual copy is not included with this document. The data comes from all [place] facilities. Date Advance Directives Provider Source Feb 28, 2006 ADVANCE DIRECTIVE SYDNEY PEÑALOZA [facility] Encounter Notes: All associated encounter notes This section contains the clinical notes associated to the Encounter. Date/Time Encounter Note(s) Provider Source Jun 09, 2023 10:52 AM REPORT OF CONTACT: LOCAL TITLE: APPOINTMENT SCHEDULING NOTE STANDARD TITLE: REPORT OF CONTACT DATE OF NOTE: JUN 09, 2023@10:52 ENTRY DATE: JUN 09, 2023@10:52:32 AUTHOR: KARY JUAREZ EXP COSIGNER: URGENCY: STATUS: COMPLETED APPOINTMENT SCHEDULING NOTE Has ADDENDA Attempted to schedule [place] to clinic ([place] [facility] [place] [phone]. Sent letter. /destin JUAREZ MANAGER DIGITAL Signed: 06/09/2023 10:52 06/10/2023 ADDENDUM STATUS: COMPLETED 3rd Attempt- Called [place] to (re)schedule appointment with provider. No answer, LVM to call [phone]. /destin JUAREZ MANAGER DIGITAL Signed: 06/10/2023 10:20 06/13/2023 ADDENDUM STATUS: COMPLETED 4th Attempt- Called [place] to (re)schedule appointment with provider. No answer, LVM to call [phone]. No further attempts will be made to contact . /destin JUAREZ MANAGER DIGITAL Signed: 06/13/2023 08:57 KARY JUAREZ [facility] Jun 08, 2023 09:02 AM PSYCHIATRY E & M N OTE: LOCAL TITLE: MH PSYCHIATRIC EVALUATION & MANAGEMENT STANDARD TITLE: PSYCHIATRY E & M NOTE DATE OF NOTE: JUN 08, 2023@09:02 ENTRY DATE: JUN 08, 2023@09:02:25 AUTHOR: MATT WILSON EXP COSIGNER: URGENCY: STATUS: COMPLETED Med Mgmt and Supportive Psychotherapy Appt. video visit; patient consented to format and confirmed location TIME SPENT (FACE TO FACE): 19 MIN CHIEF COMPLAINT: ongoing care for depression, anxiety DIAGNOSIS: Specified depressive disorder; unspecified anxiety disorder supportive psychotherapy: 16 min ID: male with hx of depression and anxiety, he and care for their autistic son. Subjective: Patient has reduced buspirone to 20 mg bid. Not noting any significant issues. Last week, has done a better job with sleep schedule. not doing too well with weight loss/exercise goals. We discussed strategies to address and engage. He will have surgery next winter for deviated septum. Medications: Active Outpatient Medications (including Supplies): Active [...] video. Speech: Within normal limits. Mood: I'm doing ok, managing. Affect: Full range, congruent. Thought process: [...] continues to be stable on his regimen. Reduced buspirone to 20 mg bid, we will maintain this regimen for now. No decompensation, encouraged to continue on working towards more regular sleep and exercise schedule. -RTC in 2 months for follow-up with me, video -continue fluoxetine 40 mg daily for mood -continue buspirone to 20 mg BID for anxiety -Pt aware of clinic contact info if experiencing decompensation /es/ MATT WILSON MD PSYCHIATRIST Signed: 06/08/2023 09:25 MATT WILSON [facility]
--- OUTSIDE RECORDS SUMMARY | 2024-03-15 20:00 | XMS_ITS | Encounter Summary ---
Author Name [facility] [place] Organization [facility] [place] Address [address] [place] [address] Care Team Providers Care Entry Level Java Developer Name Role Phone TERRY ROTH Primary Care Provider Unavailleny shaw Insurance [...] OPERA TING DARIEN EERS Mar 21, 2017 [id number] [phone] BASILIO BRENNAN HN PATIENT [place] PREFERRED PROVIDER ORGANIZAT ION (PPO) OPERA TING DARIEN EERS Mar 21, 2017 [id number] [phone] BASILIO BRENNAN HN PATIENT CATALYST RX PRESCRIPT ION OPER ENG LOCAL 49 Mar 21, 2017 49ERS [id number] BASILIO BRENNAN HN PATIENT OPTUM RX PRESCRIPT ION OPER ENG LOCAL 49 Mar 21, 2020 [facility]ERS [id number] [phone] BASILIO BRENNAN HN PATIENT OPTUM RX PRESCRIPT ION OPER ENG LOCAL 49 Mar 21, 2018 [facility] [id number] [phone] BASILIO BRENNAN HN PATIENT Selected Encounter This section includes the information on record at [place] for the Encounter. Date/Time Encounter Type Encounter Description Reason Provider Source Jul 01, 2023 02:51 PM Outpatient Encounter TELEPHONE TRIAGE SPEEDY ANTON Encounter Template Text not used by ID Social History: Smoking Status (Most current) and Tobacco Use (All prior to encounter date) This section includes the most current, and the historical, smoking and tobacco- related health factors from the [place] facility where the Encounter took place. Current Smoking Status This section includes the most current smoking, or tobacco-related health factor, from the [place] facility where the Encounter took place. Date/Time Current Smoking Status Comment Facil ity Feb 21, 2023 01:30 PM VA-TOBACCO FORMER USER [facility] Tobacco Use History This section includes a history of the smoking, or tobacco-related health factors, that were collected on or before the date of the Encounter. The data comes from the [place] facility where the Encounter took place. Date/Time Smoking Status/Tobacco Use Comment F acility Feb 21, 2023 01:30 PM VA-TOBACCO QUIT 15 YRS OR MORE [facility] Jun 01, 2021 10:45 AM VA-TOBACCO FORMER USER [facility] Jun 01, 2021 10:45 AM VA-TOBACCO QUIT 15 YRS OR MORE [facility] Jan 23, 2019 01:33 PM VA-TOBACCO FORMER USER [facility] Jan 23, 2019 01:33 PM ID-TOBACCO QUIT 15 YRS OR MORE [facility] May 20, 2017 11:03 AM FORMER TOBACCO USER 7Y OR GREATE R [facility] Mar 12, 2016 09:31 AM FORMER TOBACCO USER 7Y OR GREATE R [facility] Mar 11, 2015 07:54 AM CURRENT TOBACCO USER [facility] Feb 22, 2014 09:51 AM FORMER TOBACCO USER 7Y OR GREATE R [facility] Jan 10, 2008 07:56 AM FORMER TOBACCO USER 7Y OR GREATE R [facility] Advance Directives: All historical and current Section Date Range: From patient's date of to the date document was created. This section includes ALL of a patient's completed or amended [place] Advance and Rescinded Directives. The entries below indicate that a directive exists for the patient, but an actual copy is not included with this document. The data comes from all [place] facilities. Date Advance Directives Provider Source Feb 28, 2006 ADVANCE DIRECTIVE SYDNEY PEÑALOZA [facility] Encounter Notes: All associated encounter notes This section contains the clinical notes associated to the Encounter. Date/Time Encounter Note(s) Provider Source Jul 01, 2023 02:51 PM RN PROGRESS NOTE: LOCAL TITLE: CCC: CLINICAL TRIAGE STANDARD TITLE: RN PROGRESS NOTE DATE OF NOTE: JUL 01, 2023@14:51:44 ENTRY DATE: JUL 01, 2023@14:51:44 AUTHOR: SPEEDY ANTON COSIGNER: URGENCY: STATUS: COMPLETED Patient Demographics Patient Name: CATIA BRENNAN Patient Primary [address]: [address] [place] [id number] Patient Primary Phone: [phone] Patient : 1960 Patient Age: 62 Caller/Recipient Relation to Patient: Self Emergency Contact: DANNA BRENNAN Triage Summary Conducted triage/discussed symptoms Chief Complaint: Flank Pain System WHEN: Self-care Nurse's Recommendation / WHEN: Other Nurse's Other / WHEN: >24 hours System WHERE: Home Nurse's Recommendation / WHERE: Clinic/[facility] Patient Disposition Patient/Caregiver agrees to plan of care: Yes Nursing Plan and Disposition Referred Patient for In-Person Appt Transferred patient to Sched & Admin-Apt No appt avail Advised Urgent Care Other course(s) of action Provided guidance for worsening symptoms: *Caller/Patient* advised to call facilities [place] Clinical Contact Center or seek immediate medical attention for new or worsening symptoms Nurse Summary Nurse Summary: PATIENT CONCERN/DURATION/ONSET: [place] calling to report concerns for right sided back/flank pain x 1 week. He denies it's pain, but an annoyance. Lower level, unable to rate it. He states it's under his ribcage on the right/axilla. States it's nagging and depends on what he's doing how to reduce the pain. He denies trauma, swelling, open wound, fever/chills, SOB, chest pain, urinary issues (dysuria, urgency, frequency, hematuria). WHAT HAS PATIENT TRIED TO TREAT THE SYMPTOMS: Nothing. HISTORY/PREVIOUS TREATMENT: Depression, Anxiety, HLD, HTN, Low back pain, JUAN. WHAT IS PATIENT GOAL FOR THE CALL: Get in to be seen 07/04. Was a Virtual Care Visit considered (TELE or VVC)?: No. VENTILATED RIB FITTER DISPOSITION: Recommended triage is >24 hours with PACT secondary to duration of symptoms with no acute changes. Attempted to schedule with PACT team, no appointments in his requested timeframe/day. [facility] but can't due to work. I offered to send a message to his team to see if they could find an appointment. He wanted to know about being seen today. We discussed [facility] and/or [facility]. He wanted more information on [facility] [facility]. Warm transfer to [facility] number. Advised patient to call back immediately/seek emergency care if any of the signs or symptoms noted above worsen. Best contact for is (verified-[phone]). This note was created by a [address] fleet salesperson. Please do not alert this nurse by adding as a signer for future communications. Alerts are not monitored by this user, please reach out to [facility] instead if indicated. Clinical Contact Center Codes Clinic/Location: [address] PHONE [facility] RN [facility] Triage Complete Triage Date: 07/01/2023 1:40 PM Triage Note: Phone Triage 01 Jul 2023 19:32:46 +0000 [facility] Demographics 62 y/o Male Results CC: Flank Pain Software suggested: Self-care Software suggested follow-up location: Home, consider virtual care Values and Measures Duration of CC: 1 Weeks Positive Responses MEDS: cholesterol-lowering medication PMH: high cholesterol VS: temperature not taken Negative Responses Denies: HPI: arm, shoulder or jaw pain, with back pain Denies: HPI: back injury, recent Denies: HPI: back pain, duration longer than 1 month Denies: HPI: back pain, duration longer than 2 weeks Denies: HPI: back pain, lower back Denies: HPI: back pain, moderate to severe Denies: HPI: back pain, onset within past 2 months Denies: HPI: back pain, severe Denies: HPI: back pain, worsening Denies: HPI: cancer Denies: HPI: chest pain, with back pain Denies: HPI: diaphoresis, with back pain, duration longer than 10 minutes Denies: HPI: difficulty walking Denies: HPI: dyspnea, with back pain Denies: HPI: dysuria Denies: HPI: hematuria Denies: HPI: increased urinary frequency Denies: HPI: leg numbness, unilateral Denies: HPI: leg weakness, bilateral, new Denies: HPI: leg weakness, unilateral Denies: HPI: lightheadedness with back pain, duration longer than 10 minutes Denies: HPI: muscle tenderness, generalized Denies: HPI: myalgias, generalized Denies: HPI: numbness, groin or legs, new Denies: HPI: pain, radiation down leg Denies: HPI: skin erythema, back, worsening Denies: HPI: skin lump, swollen, painful, over the back Denies: HPI: skin swelling, back, worsening Denies: HPI: syncope Denies: HPI: urinary incontinence Denies: HPI: urinary urgency, constant Denies: HPI: vomiting Denies: HPI: weakness, duration longer than 10 minutes, with the back pain Denies: PMH: aortic aneurysm Denies: PMH: heart disease Denies: PMH: Marfan syndrome Denies: PMH: UTI Education Verbal Education Provided for: Back Pain Home Care Education Log Notify your provider if you have back pain and any of the following: Bloody urine Difficulty walking Difficulty urinating Groin numbness Inability to urinate Leg numbness Leg weakness Pain during urination Severe back pain Fever /es/ RACHELL McnamaraN, RN Registered Nurse, V23 [facility] Signed: 07/01/2023 14:51 SPEEDY ANTON [facility]
--- OUTSIDE RECORDS SUMMARY | 2024-03-15 20:00 | XMS_ITS | Encounter Summary ---
Author Name [facility] [place] [facility] [place] [facility] [place] [facility] [place] Address [address] [place] [address] Care Team Providers Care Media Services Specialist Name Role Phone TERRY ROTH Primary Care [...] OPERA TING DARIEN EERS Mar 21, 2017 [id number] [phone] BASILIO BRENNAN HN PATIENT [place] [place] PREFERRED PROVIDER ORGANIZAT ION (PPO) OPERA TING DARIEN EERS Mar 21, 2017 [id number] [phone] BASILIO BRENNAN HN PATIENT CATALYST RX PRESCRIPT ION OPER ENG LOCAL 49 Mar 21, 2017 [employer]ERS [id number] BASILIO BRENNAN HN PATIENT OPTUM RX PRESCRIPT ION OPER ENG LOCAL 49 Mar 21, 2020 [employer]ERS [phone] BASILIO BRENNAN HN PATIENT OPTUM RX PRESCRIPT ION OPER ENG LOCAL 49 Mar 21, 2018 [employer] [id number] [phone] BASILIO BRENNAN HN PATIENT Selected Encounter This section includes the information on record at [place] for the Encounter. Date/Time Encounter Type Encounter Description Reason Provider Source Apr 18, 2023 01:30 PM HEARING AID FITTING/CHECKIN G AUDIOLOGY ICD-10-CM Z46.1 Encounter for fitting and adjustment of hearing aid ARTIE ARREGUIN [place] Encounter Template Text not used by [place] Assessments - Encounter Diagnoses This section includes the primary and secondary diagnoses documented for the Encounter. Date/Time Primary/Secondary Diagnosis Diagnosis Name Provider Source Apr 18, 2023 01:56 PM PRIMARY Encounter for fitting and adjustment of hearing aid FABIENNE ARREGUIN [facility] Apr 18, 2023 01:56 PM SECONDARY Sensorineural hearing loss, bilateral FABIENNE ARREGUIN [facility] Apr 18, 2023 01:56 PM SECONDARY Tinnitus, bilateral FABIENNE ARREGUIN [facility] Plan of Treatment: Future Appointments (+ 6 months) and Future Tests (+/- 45 days) The Plan of Treatment section includes future care activities for the patient from all [place] [facility]. This section includes future appointments and future orders which are active, pending or scheduled. Future Appointments This section includes appointments that were scheduled to occur 6 months from the date of the Encounter, up to a maximum of 20 appointments. The data comes from all [place] treatment facilities. Appointment Date/Time Appointment Type Appointme nt Facility Name Jun 03, 2023 11:30 AM AMBULATORY - SURGERY [facility] Jun 08, 2023 09:00 AM AMBULATORY - PSYCHIATRY [facility] Lab Results: +/- 30 days of the encounter This section includes the Chemistry and Hematology Lab Results on record with [place] for the patient. Radiology Reports and Pathology Reports are provided separately, in subsequent sections. Lab Results This section contains the Chemistry/Hematology Results that were resulted 30 days before or 30 daysafter the date of the Encounter. Date/Time Source Result Type Result - Unit Interpretation Reference Range Comment Apr 18, 2023 09:06 AM [facility] HEMOGLOBIN A1C Specimen Type: BLOOD Comment: Values [...] Jan 13, 2022 02:03 PM Reporting Lab: [facility] [id number] Performing Lab: [facility] [id number] HEMOGLOBIN A1C 5.2 4.0-6.0 Apr 18, 2023 09:06 AM [facility] TSH W/REFLEX TO FREE T4 Specimen Type: PLASMA No comment entered. Ordering Provider: SOPHIA ROTH Report Released Date/Time: Jan 13, 2022 02:03 PM Reporting Lab: [facility] [id number] Performing Lab: [facility] [id number] TSH 1.88 u[IU]/mL 0.35-4.94 Apr 18, 2023 09:06 AM [facility] LIPID PANEL,NON-FASTING Specimen Type: PLASMA No comment entered. Ordering Provider: SOPHIA ROTH Report Released Date/Time: Jan 13, 2022 02:03 PM Reporting Lab: [facility] [id number] Performing Lab: [facility] [phone] CHOLESTEROL 158 mg/dL <199 .HDL 39 mg/dL L >40 LDL CALCULATION 101 mg/dL H <99 VLDL CALCULATION 18 mg/dL <29 NON HDL CHOLESTEROL 119 mg/dL <129 TRIG(NON FASTING) 89 mg/dL <149 Apr 18, 2023 09:06 AM [facility] CBC Specimen Type: BLOOD No comment entered. Ordering Provider: SOPHIA ROTH Report Released Date/Time: Jan 13, 2022 02:03 PM Reporting Lab: [facility] [id number] Performing Lab: [facility] [id number] WBC 8.77 10*3/uL 4.0-11.0 RBC 5.06 10*6/uL 4.6-6.2 HGB 15.4 g/dL 13.5-17.9 HCT 45.0 41-54 MCV 88.9 fL 80-100 MCH 30.4 pg 27-33 MCHC 34.2 g/dL 32.0-37.5 PLT 225 10*3/uL 150-400 MPV 9.4 fL 7.4-10.4 RDW 12.7 11.5-14.5 Apr 18, 2023 09:06 AM [facility] COMPREHENSIVE METABOLIC PANEL+MG Specimen Type: PLASMA No comment entered. Ordering Provider: SOPHIA ROTH Report Released Date/Time: Jan 13, 2022 02:03 PM Reporting Lab: [facility] [id number] Performing Lab: [facility] [id number] CREATININE 0.9 mg/dL 0.7-1.2 UREA NITROGEN 20 [...] 22 U/L <34 .CREAT EGFR(CKD-EPI) >90 >60 Vital Signs: All taken on the encounter date This section contains inpatient and outpatient Vital Signs collected on the date of the Encounter. Date/Time Temperature Pulse Blood Pressure Respiratory Rate SP02 Pain Height Weight Body Mass Index Source Apr 18, 2023 10:00 AM 97 F 54 /min 115/76 mm[Hg] 18 /min 95 % 0 226.1 lb [facility] Social History: Smoking Status (Most current) and Tobacco Use (All prior to encounter date) This section includes the most current, and the historical, smoking and tobacco- related health factors from the [place] facility where the Encounter took place. Current Smoking Status This section includes the most current smoking, or tobacco-related health factor, from the [place] facility where the Encounter took place. Date/Time Current Smoking Status Comment Shante yepez Feb 21, 2023 01:30 PM VA-TOBACCO FORMER USER [facility] Tobacco Use History This section includes a history of the smoking, or tobacco-related health factors, that were collected on or before the date of the Encounter. The data comes from the [place] facility where the Encounter took place. Date/Time Smoking Status/Tobacco Use Comment F acility Feb 21, 2023 01:30 PM VA-TOBACCO QUIT 15 YRS OR MORE [facility] Jun 01, 2021 10:45 AM VA-TOBACCO FORMER USER [facility] Jun 01, 2021 10:45 AM VA-TOBACCO QUIT 15 YRS OR MORE [facility] Jan 23, 2019 01:33 PM VA-TOBACCO FORMER USER [facility] Jan 23, 2019 01:33 PM [place]-TOBACCO QUIT 15 YRS OR MORE [facility] May 20, 2017 11:03 AM FORMER TOBACCO USER 7Y OR GREATE R [facility] Mar 12, 2016 09:31 AM FORMER TOBACCO USER 7Y OR GREATE R [facility] Mar 11, 2015 07:54 AM CURRENT TOBACCO USER [facility] Feb 22, 2014 09:51 AM FORMER TOBACCO USER 7Y OR GREATE R [facility] Jan 10, 2008 07:56 AM FORMER TOBACCO USER 7Y OR GREATE R [facility] Advance Directives: All historical and current Section Date Range: From patient's date of to the date document was created. This section includes ALL of a patient's completed or amended [place] Advance and Rescinded Directives. The entries below indicate that a directive exists for the patient, but an actual copy is not included with this document. The data comes from all [facility]. Date Advance Directives Provider Source Feb 28, 2006 ADVANCE DIRECTIVE SYDNEY PEÑALOZA [facility] Encounter Notes: All associated encounter notes This section contains the clinical notes associated to the Encounter. Date/Time Encounter Note(s) Provider Source Apr 18, 2023 01:44 PM AUDIOLOGY NOTE: LOCAL TITLE: AUDIOLOGY CLINIC NOTE STANDARD TITLE: AUDIOLOGY NOTE DATE OF NOTE: APR 18, 2023@13:44 ENTRY DATE: APR 18, 2023@13:44:35 AUTHOR: ARTIE ARREGUIN COSIGNER: URGENCY: STATUS: COMPLETED SUBJECT: HAE REASON FOR VISIT - AUDIOLOGY EVALUTION, 60 MINUTES Location of visit (Room Number): 2S-106 DIAGNOSIS: - Encounter for Fitting and Adjustment of Hearing Aid - Sensorineural Hearing Loss, Bilateral - Tinnitus, Bilateral HEARING AIDS: Hearing aid-right; Date Fit: Aug Make: Resound Model: Linx Quattro TS 61 Style: Mini OVI-R Serial #: [id number] Home Planning Consultant Salesperson/Slim Tube Size: 3 LP Dome/Earmold: medium open Hearing aid-left; Date Fit: Aug Make: Resound Model: Linx Quattro TS 61 Style: Mini OVI-R Serial #: [id number] Home Planning Consultant Salesperson/Slim Tube Size: 3 LP Dome/Earmold: medium open ACCESSORIES: [employer] 3D soni HISTORY: [place] was seen today for a hearing evaluation and hearing aid service. The 's aids have lost their connection with his iPhone. 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 His daughter has encouraged him to use his hearing aids more often. Hearing seems down since it was last evaluated in June 2018. Positive for intermittent tinnitus. [place] Denied: - Aural fullness - Otalgia - Otorrhea - Vertigo/Dizziness/Imbalance - Otosurgery PROCEDURES: RESULTS AVAILABLE VIA AUDIOGRAM DISPLAY IN [employer] MENU OR [employer] DATABASE OTOSCOPY: Ear canals free of excessive cerumen, tympanic membranes visible. COMPREHENSIVE HEARING EVALUATION: Pure Tone Audiometry, Speech Senior Sharepoint Architect Threshold, & Word Recognition Testing Transducer: Insert earphones & bone oscillator Reliability: Good PURE TONE AUDIOMETRY: RIGHT EAR: Normal through 2 kHz sloping to a moderate notch of sensorineural hearing loss at 3 kHz then rising to mild loss at 6-8 kHz LEFT EAR: Normal through 2 kHz sloping to severe sensorineural hearing loss SPEECH GARBAGE PICK UP MAN THRESHOLD: Spondees RIGHT EAR: 20 dB HL LEFT EAR: 20 dB HL Speech Senior Sharepoint Architect Thresholds are consistent with pure tone thresholds. WORD RECOGNITION: Recorded W-22 word lists RIGHT EAR: 100% Level: 70* dB LEFT EAR: 100% Level: 70* dB TYMPANOMETRY: RIGHT EAR: Type A Pressure: Normal Compliance: Normal Volume: Normal LEFT EAR: Type A Pressure: Normal Compliance: Normal Volume: Normal ACOUSTIC REFLEXES (STIMULUS EAR): unable to tolerate stimulus level SUMMARY: Relative to previous exam on 07/07/2018 right ear hearing is decreased 10 dB at 1 & 6 kHz; left ear hearing is decreased 10 dB at 3 kHz, 30 dB at 6 kHz, and 15 dB at 8 kHz. Word discrimination remains excellent per ear. RIGHT EAR: Normal through 2 kHz sloping to a moderate notch of sensorineural hearing loss at 3 kHz then rising to mild loss at 6-8 kHz with normal word discrimination abilities. Normal middle ear function via tympanometry. LEFT EAR: Normal through 2 kHz sloping to severe sensorineural hearing loss with normal word discrimination abilities. High frequency hearing is poorer than the right ear by 30 dB at 6 kHz and 40 dB at 8 kHz. Normal middle ear function via tympanometry. EDUCATION: - [place] counseled regarding the results of today's hearing evaluation. 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 - [place] counseled on using hearing protection to preserve his hearing. - Recommended establish routine use of bilateral hearing aids when away from his heavy equipment or other hazardous noise exposures. HEARING AID CHECK with REPROGRAMMING: - [place]'s current hearing aids were cleaned and checked. Wax filters, domes, and sports locks were replaced. A listening check revealed a good sound quality. - Hearing aids were programmed to today's audiogram. The 's subjective impressions were considered while adjusting the hearing aids and output was ultimately decreased to 90% of prescribed targets. - The was counseled regarding proper care and maintenance of his aids. We reviewed how to change the wax filters and domes. - [facility] and will [facility] to the . - [place]'s aids were paired with his iPhone and then the [employer] soni. PLAN: - [place] will return in 6 months for repeat HAE to monitor for any increase in left side hearing asymmetry. If otologic symptoms arise or asymmetry increases, ENT referral may be warranted. At that visit we will assess the 's satisfaction with today's adjustments and discuss whether to pursue replacement hearing aids. - Follow up sooner if a change in hearing is noted or as medically indicated. PATIENT IS IN AGREEMENT WITH THIS PLAN. /aubrie/ ARTIE DOMÍNGUEZ DRIVEWAY SEALER Signed: 04/18/2023 15:24 ARTIE ARREGUIN [facility]
--- OUTSIDE RECORDS SUMMARY | 2024-03-15 20:01 | XMS_ITS | Encounter Summary ---
Author Name [facility] [place] [facility] [place] Address [address] [place] [address] Care Team Providers Care Bottle Washer Machine Name Role Phone TERRY ROTH Primary Care [...] OPERA TING DARIEN EERS Mar 21, 2017 [id number] [phone] BASILIO BRENNAN HN PATIENT [place] PREFERRED PROVIDER ORGANIZAT ION (PPO) OPERA TING DARIEN EERS Mar 21, 2017 [id number] [phone] BASILIO BRENNAN HN PATIENT CATALYST RX PRESCRIPT ION OPER ENG LOCAL 49 Mar 21, 2017 49ERS [id number] BASILIO BRENNAN HN PATIENT OPTUM RX PRESCRIPT ION OPER ENG LOCAL 49 Mar 21, 2020 49ERS [id number] [phone] BASILIO BRENNAN HN PATIENT OPTUM RX PRESCRIPT ION OPER ENG LOCAL 49 Mar 21, 2018 49ERS [id number] [phone] BASILIO BRENNAN PATIENT Selected Encounter This section includes the information on record at [place] for the Encounter. Date/Time Encounter Type Encounter Description Reason Provider Source Mar 05, 2024 02:00 PM OFFICE O/P EST LOW [facility] - IND ICD-10-CM F33.8 Other recurrent depressive disorders ANAIS WILSON [facility] Encounter Template Text not used by [place] Assessments - Encounter Diagnoses This section includes the primary and secondary diagnoses documented for the Encounter. Date/Time Primary/Secondary Diagnosis Diagnosis Name Provider Source Mar 05, 2024 02:33 PM PRIMARY Other recurrent depressive disorders ANAIS WILSON [facility] Mar 05, 2024 02:33 PM SECONDARY Anxiety disorder, unspecified ANAIS WILSON [facility] Plan of Treatment: Future Appointments (+ 6 months) and Future Tests (+/- 45 days) The Plan of Treatment section includes future care activities for the patient from all [place] treatmentfacilities. This section includes future appointments and future orders which are active, pending or scheduled. Future Appointments This section includes appointments that were scheduled to occur 6 months from the date of the Encounter, up to a maximum of 20 appointments. The data comes from all [place] treatment facilities. Appointment Date/Time Appointment Type Appointme nt Facility Name Apr 11, 2024 07:45 AM AMBULATORY - SURGERY [facility] Lab Results: +/- 30 days of the encounter This section includes the Chemistry and Hematology Lab Results on record with [place] for the patient. Radiology Reports and Pathology Reports are provided separately, in subsequent sections. Lab Results This section contains the Chemistry/Hematology Results that were resulted 30 days before or 30 daysafter the date of the Encounter. Date/Time Source Result Type Result - Unit Interpretation Reference Range Comment Feb 23, 2024 09:[address] [facility] ACT PART THROMBO TIME Specimen Type: PLASMA Comment: Automated Differential Performed Ordering Provider: DANYELL MAGUIRE Report Released Date/Time: Jun 03, 2023 01:52 PM Reporting Lab: [facility] [id number] Performing Lab: [facility] [phone] APTT 29.2 s 25.1-36.5 Feb 23, 2024 09:[address] [facility] PROTHROMBIN TIME/INR Specimen Type: PLASMA Comment: Automated Differential Performed Ordering Provider: DANYELL MAGUIER Report Released Date/Time: Jun 03, 2023 01:52 PM Reporting Lab: [facility] [phone] Performing Lab: [facility] [address] .INR 1.1 0.8-1.1 .PT 12.5 s 9.4-12.5 Feb 23, 2024 09:[address] [facility] HEMOGLOBIN A1C Specimen Type: BLOOD Comment: Values obtained from A1C measurements can vary. For typical A1C assays, a reported value of 7.0 could actually be between 6.7 and 7.3 if measured by a reference method. A reported value of 9.0 could actually be between 8.7 and 9.3. Ref: http://www.ng sp.org/CAPdat a.asp Ordering Provider: DANYELL MAGUIRE Report Released Date/Time: Jun 29, 2023 10:54 AM Reporting Lab: [facility] [address] Performing Lab: [facility] [address] HEMOGLOBIN A1C 5.3 4.0-6.0 Feb 23, 2024 09:[address] [facility] BASIC METABOLIC PANEL+MG Specimen Type: PLASMA No comment entered. Ordering Provider: DANYELL MAGUIRE Report Released Date/Time: Jun 03, 2023 01:52 PM Reporting Lab: [facility] [address] Performing Lab: [facility] [address] CREATININE 1.0 mg/dL 0.7-1.2 UREA NITROGEN 19 mg/dL 8-26 GLUCOSE 100 mg/dL 70-100 SODIUM 140 mmol/L 136-145 POTASSIUM 4.0 mmol/L 3.5-5.1 CHLORIDE 108 mmol/L H 98-107 CO2 25 mmol/L 22-29 CALCIUM 8.8 mg/dL 8.4-10.2 MAGNESIUM 2.1 mg/dL 1.6-2.6 ANION GAP 7 mmol/L 5-15 .CREAT EGFR(CKD-EPI) 85 >60 Feb 23, 2024 09:[address] [facility] CBC & DIFF Specimen Type: BLOOD Comment: Automated Differential Performed Ordering Provider: DANYELL MAGUIRE Report Released Date/Time: Jun 03, 2023 01:52 PM Reporting Lab: [facility] [address] Performing Lab: [facility] [address] WBC 8.4 4.0-11.0 RBC 5.18 4.60-6.20 HGB [...] 0.0 0.0-0.1 Feb 20, 2024 09:[address] [facility] TSH W/REFLEX TO FREE T4 Specimen Type: PLASMA No comment entered. Ordering Provider: SOPHIA ROTH Report Released Date/Time: Apr 18, 2023 10:42 AM Reporting Lab: [facility] [address] Performing Lab: [facility] [address] TSH 1.44 u[IU]/mL 0.35-4.94 Feb 20, 2024 09:[address] [facility] HEMOGLOBIN A1C Specimen Type: BLOOD Comment: Values [...] Apr 18, 2023 10:42 AM Reporting Lab: [facility] [id number] Performing Lab: [facility] [address] HEMOGLOBIN A1C 5.4 4.0-6.0 Feb 20, 2024 09:[address] [facility] CBC Specimen Type: BLOOD No comment entered. Ordering Provider: SOPHIA ROTH Report Released Date/Time: Apr 18, 2023 10:42 AM Reporting Lab: [facility] [address] Performing Lab: [facility] [address] WBC 7.7 4.0-11.0 RBC 4.99 4.60-6.20 HGB 15.0 g/dL 13.5-17.9 HCT 46.1 41.0-54.0 MCV 92.4 fL 80.0-100.0 MCH 30.1 pg 27.0-33.0 MCHC 32.5 g/dL 32.0-37.5 PLT 235 150-400 MPV 9.3 fL 9.1-13.0 RDW 13.0 11.5-14.5 Feb 20, 2024 09:[address] [facility] LIPID PANEL,NON-FASTING Specimen Type: PLASMA No comment entered. Ordering Provider: SOPHIA ROTH Report Released Date/Time: Apr 18, 2023 10:42 AM Reporting Lab: [facility] [address] Performing Lab: [facility] [address] CHOLESTEROL 144 mg/dL <199 .HDL 37 mg/dL L >40 LDL CALCULATION 86 mg/dL <99 VLDL CALCULATION 21 mg/dL <29 NON HDL CHOLESTEROL 107 mg/dL <129 TRIG(NON FASTING) 104 mg/dL <149 Feb 20, 2024 09:[address] [facility] COMPREHENSIVE METABOLIC PANEL+MG Specimen Type: PLASMA No comment entered. Ordering Provider: SOPHIA ROTH Report Released Date/Time: Apr 18, 2023 10:42 AM Reporting Lab: [facility] [address] Performing Lab: [facility] [address] CREATININE 0.9 mg/dL 0.7-1.2 UREA NITROGEN 13 [...] 30 U/L 11-34 .CREAT EGFR(CKD-EPI) >90 >60 Social History: Smoking Status (Most current) and Tobacco Use (All prior to encounter date) This section includes the most current, and the historical, smoking and tobacco- related health factors from the [place] facility where the Encounter took place. Current Smoking Status This section includes the most current smoking, or tobacco-related health factor, from the [place] facility where the Encounter took place. Date/Time Current Smoking Status Comment Facil ity Feb 20, 2024 10:00 AM [place]-TOBACCO USE FORMER CIGARETTES [facility] Tobacco Use History This section includes a history of the smoking, or tobacco-related health factors, that were collected on or before the date of the Encounter. The data comes from the [place] facility where the Encounter took place. Date/Time Smoking Status/Tobacco Use Comment F acility Feb 20, 2024 10:00 AM VA-TOBACCO USE FOR GURMEET OTHER TYPE 20years a go [facility] Feb 21, 2023 01:30 PM VA-TOBACCO FORMER USER [facility] Feb 21, 2023 01:30 PM VA-TOBACCO QUIT [address] [facility] Jun 01, 2021 10:45 AM VA-TOBACCO FORMER USER [facility] Jun 01, 2021 10:45 AM VA-TOBACCO QUIT [address] [facility] Jan 23, 2019 01:33 PM VA-TOBACCO FORMER USER [facility] Jan 23, 2019 01:33 PM VA-TOBACCO QUIT [address] [facility] May 20, 2017 11:03 AM FORMER TOBACCO USE R 7Y OR GREATER [facility] Mar 12, 2016 09:31 AM FORMER TOBACCO USE R 7Y OR GREATER [facility] Mar 11, 2015 07:54 AM CURRENT TOBACCO USER [facility] Feb 22, 2014 09:51 AM FORMER TOBACCO USE R 7Y OR GREATER [facility] Jan 10, 2008 07:56 AM FORMER TOBACCO USE R 7Y OR GREATER [facility] Advance Directives: All historical and current Section Date Range: From patient's date of to the date document was created. This section includes ALL of a patient's completed or amended [place] Advance and Rescinded Directives. The entries below indicate that a directive exists for the patient, but an actual copy is not included with this document. The data comes from all [place] facilities. Date Advance Directives Provider Source Feb 28, 2006 ADVANCE DIRECTIVE SYDNEY PEÑALOZA [facility] Encounter Notes: All associated encounter notes This section contains the clinical notes associated to the Encounter. Date/Time Encounter Note(s) Provider Source Mar 06, 2024 09:28 AM REPORT OF CONTACT: LOCAL TITLE: APPOINTMENT SCHEDULING NOTE STANDARD TITLE: REPORT OF CONTACT DATE OF NOTE: MAR 06, 2024@09:28 ENTRY DATE: MAR 06, 2024@09:28:25 AUTHOR: KARY JUAREZ EXP COSIGNER: URGENCY: STATUS: COMPLETED APPOINTMENT SCHEDULING NOTE Has ADDENDA Attempted to schedule Return to clinic (RTC) Left [facility] [place] to call [phone]. Sent letter. /destin JUAREZ HAZMAT TANKER DRIVER Signed: 03/06/2024 09:28 03/07/2024 ADDENDUM STATUS: COMPLETED 3rd Attempt- Called [place] to (re)schedule appointment with provider. No answer, LVM to call [phone]. /destin JUAREZ HAZMAT TANKER DRIVER Signed: 03/07/2024 09:13 03/08/2024 ADDENDUM STATUS: COMPLETED 4th Attempt- Called to (re)schedule appointment with provider. No answer, LVM to call [phone]. No further attempts will be made to contact [place]. /destin JUAREZ HAZMAT TANKER DRIVER Signed: 03/08/2024 11:29 KARY JUAREZ [facility] Mar 05, 2024 02:03 PM PSYCHIATRY E & M N OTE: LOCAL TITLE: PSYCHIATRIC EVALUATION & MANAGEMENT STANDARD TITLE: PSYCHIATRY E & M NOTE DATE OF NOTE: MAR 05, 2024@14:03 ENTRY DATE: MAR 05, 2024@14:03:13 AUTHOR: MATT WILSON COSIGNER: URGENCY: STATUS: COMPLETED Med Mgmt and Supportive Psychotherapy Appt. video visit; patient consented to format and confirmed location TIME SPENT (FACE TO FACE): 19 MIN CHIEF COMPLAINT: ongoing care for depression, anxiety DIAGNOSIS: Specified depressive disorder; unspecified anxiety disorder supportive psychotherapy: 16 min ID: male with hx of depression and anxiety, he and care for their autistic son. Subjective: septoplasty being scheduled, looking forward to that. Denies si/intent/plan, currently has URI, but no fevers/SOB. Continues to work, remains engaged with his family. Going to retire officially this month, but can still work some, roughly 20 hrs week. involved with autistic son -- encouraged to be more structured. Medications: Active Outpatient Medications (including Supplies): Active [...] TAKE ONE TABLET BY MOUTH AT ACTIVE (S) BEDTIME [...] above is accurate. Mental status exam: Alert, pleasant. Musculoskeletal: Unable to assess over video. Speech: Within normal limits. Mood: I'm doing fine, managing.. Affect: Full range, congruent. Thought process: Linear. [...] continues to be stable on his regimen. retiring from work, encouraged to build structure of exercise and socializing into his newfound free time. No si/intent/plan. -RTC in 3 months for follow-up with me, video -continue fluoxetine 40 mg daily for mood -continue buspirone to 20 mg BID for anxiety -Pt aware of clinic contact info if experiencing decompensation /es/ MATT WILSON MD PSYCHIATRIST Signed: 03/05/2024 14:[address] [facility]
--- OUTSIDE RECORDS SUMMARY | 2024-03-15 20:01 | XMS_ITS | Encounter Summary ---
Author Name [facility] [place] Address [address] [place] [address] Care Team Providers Care Casework Manager Name Role Phone TERRY ROTH Primary Care [...] OPERA TING DARIEN EERS Mar 21, 2017 [id number] [phone] BASILIO BRENNAN HN PATIENT [place] PREFERRED PROVIDER ORGANIZAT ION (PPO) OPERA TING DARIEN EERS Mar 21, 2017 [id number] [phone] BASILIO BRENNAN HN PATIENT CATALYST RX PRESCRIPT ION OPER ENG LOCAL 49 Mar 21, 2017 49ERS [id number] [phone] BASILIO BRENNAN HN PATIENT OPTUM RX PRESCRIPT ION OPER ENG LOCAL 49 Mar 21, 2020 49ERS [id number] [phone] BASILIO BRENNAN HN PATIENT OPTUM RX PRESCRIPT ION OPER ENG LOCAL 49 Mar 21, 2018 49ERS [id number] [phone] BASILIO BRENNAN HN PATIENT Selected Encounter This section includes the information on record at [place] for the Encounter. Date/Time Encounter Type Encounter Description Reason Provider Source Feb 23, 2024 10:00 AM ELECTROCARDIOGRAM REPORT EKG ICD-10-CM Z13.6 Encounter for screening for cardiovascular disorders PETER BROWN I[facility] Encounter Template Text not used by [place] Assessments - Encounter Diagnoses This section includes the primary and secondary diagnoses documented for the Encounter. Date/Time Primary/Secondary Diagnosis Diagnosis Name Provider Source Feb 23, 2024 09:44 AM PRIMARY Encounter for screening for cardiovascular disorders NATE VAZQUEZ [facility] Plan of Treatment: Future Appointments (+ 6 months) and Future Tests (+/- 45 days) The Plan of Treatment section includes [facility] care [facility] [place] [facility] This section includes future appointments and future orders which are active, pending or scheduled. Future Appointments This section includes appointments that were scheduled to occur 6 months from the date of the Encounter, up to a maximum of 20 appointments. The data comes from all [place] treatment facilities. Appointment Date/Time Appointment Type Appointme nt Facility Name Mar 05, 2024 07:45 AM AMBULATORY - SURGERY [facility] Mar 05, 2024 02:00 PM AMBULATORY - PSYCHIATRY [facility] Apr 11, 2024 07:45 AM AMBULATORY - SURGERY [facility] Lab Results: +/- 30 days of the encounter This section includes the Chemistry and Hematology Lab Results on record with [place] for the patient. Radiology Reports and Pathology Reports are provided separately, in subsequent sections. Lab Results This section contains the Chemistry/Hematology Results that were resulted 30 days before or 30 daysafter the date of the Encounter. Date/Time Source Result Type Result - Unit Interpretation Reference Range Comment Feb 23, 2024 09:[address] [facility] ACT PART THROMBO TIME Specimen Type: PLASMA Comment: Automated Differential Performed Ordering Provider: DANYELL MAGUIRE Report Released Date/Time: Jun 03, 2023 01:52 PM Reporting Lab: [facility] [address] Performing Lab: [facility] [address] APTT 29.2 s 25.1-36.5 Feb 23, 2024 09:[address] [facility] PROTHROMBIN TIME/INR Specimen Type: PLASMA Comment: Automated Differential Performed Ordering Provider: FROYMOVICH,OL EG Report Released Date/Time: Jun 03, 2023 01:52 PM Reporting Lab: [facility] [address] Performing Lab: [facility] [address] .INR 1.1 0.8-1.1 .PT 12.5 s 9.4-12.5 Feb 23, 2024 09:[address] [facility] HEMOGLOBIN A1C Specimen Type: BLOOD Comment: [...] Jun 29, 2023 10:54 AM Reporting Lab: [facility] [address] Performing Lab: [facility] [address] HEMOGLOBIN A1C 5.3 4.0-6.0 Feb 23, 2024 09:[address] [facility] BASIC METABOLIC PANEL+MG Specimen Type: PLASMA No comment entered. Ordering Provider: DANYELL MAGUIRE EG Report Released Date/Time: Jun 03, 2023 01:52 PM Reporting Lab: [facility] [address] Performing Lab: [facility] [address] CREATININE 1.0 mg/dL 0.7-1.2 UREA NITROGEN 19 mg/dL 8-26 GLUCOSE 100 mg/dL 70-100 SODIUM 140 mmol/L 136-145 POTASSIUM 4.0 mmol/L 3.5-5.1 CHLORIDE 108 mmol/L H 98-107 CO2 25 mmol/L 22-29 CALCIUM 8.8 mg/dL 8.4-10.2 MAGNESIUM 2.1 mg/dL 1.6-2.6 ANION GAP 7 mmol/L 5-15 .CREAT EGFR(CKD-EPI) 85 >60 Feb 23, 2024 09:[address] [facility] CBC & DIFF Specimen Type: BLOOD Comment: Automated Differential Performed Ordering Provider: DANYELL MAGUIRE EG Report Released Date/Time: Jun 03, 2023 01:52 PM Reporting Lab: [facility] [address] Performing Lab: [facility] [address] WBC 8.4 4.0-11.0 RBC 5.18 4.60-6.20 HGB [...] 0.0-0.1 Feb 20, 2024 09:[address] [facility] TSH W/REFLEX TO FREE T4 Specimen Type: PLASMA No comment entered. Ordering Provider: SOPHIA ROTH Report Released Date/Time: Apr 18, 2023 10:42 AM Reporting Lab: [facility] [address] Performing Lab: [facility] [address] TSH 1.44 u[IU]/mL 0.35-4.94 Feb 20, 2024 09:[address] [facility] HEMOGLOBIN A1C Specimen Type: BLOOD Comment: [...] Apr 18, 2023 10:42 AM Reporting Lab: [facility] [address] Performing Lab: [facility] [address] HEMOGLOBIN A1C 5.4 4.0-6.0 Feb 20, 2024 09:[address] [facility] CBC Specimen Type: BLOOD No comment entered. Ordering Provider: SOPHIA ROTH Report Released Date/Time: Apr 18, 2023 10:42 AM Reporting Lab: [facility] [address] Performing Lab: [facility] [address] WBC 7.7 4.0-11.0 RBC 4.99 4.60-6.20 HGB 15.0 g/dL 13.5-17.9 HCT 46.1 41.0-54.0 MCV 92.4 fL 80.0-100.0 MCH 30.1 pg 27.0-33.0 MCHC 32.5 g/dL 32.0-37.5 PLT 235 150-400 MPV 9.3 fL 9.1-13.0 RDW 13.0 11.5-14.5 Feb 20, 2024 09:[address] [facility] COMPREHENSIVE METABOLIC PANEL+MG Specimen Type: PLASMA No comment entered. Ordering Provider: SOPHIA ROTH Report Released Date/Time: Apr 18, 2023 10:42 AM Reporting Lab: [facility] [address] Performing Lab: [facility] [address] CREATININE 0.9 mg/dL 0.7-1.2 UREA NITROGEN 13 [...] >90 >60 Feb 20, 2024 09:[address] [facility] LIPID PANEL,NON-FASTING Specimen Type: PLASMA No comment entered. Ordering Provider: SOPHIA ROTH Report Released Date/Time: Apr 18, 2023 10:42 AM Reporting Lab: [facility] [address] Performing Lab: [facility] [address] CHOLESTEROL 144 mg/dL <199 .HDL 37 mg/dL [...] Height Weight Body Mass Index Source Feb 23, 2024 10:16 AM 97.8 75 119/80 16 95 0 71 234.6 [facility] Social History: Smoking Status (Most current) and Tobacco Use (All prior to encounter date) This section includes the most current, and the historical, smoking and tobacco- related health factors from the [place] facility where the Encounter took place. Current Smoking Status This section includes the most current smoking, or tobacco-related health factor, from the [place] facility where the Encounter took place. Date/Time Current Smoking Status Comment Shante ity Feb 20, 2024 10:00 AM [place]-TOBACCO USE FORMER CIGARETTES [facility] Tobacco Use History This section includes a history of the smoking, or tobacco-related health factors, that were collected on or before the date of the Encounter. The data comes from the [place] facility where the Encounter took place. Date/Time Smoking Status/Tobacco Use Comment F acility Feb 20, 2024 10:00 AM VA-TOBACCO USE FOR GURMEET OTHER TYPE 20years a go [facility] Feb 21, 2023 01:30 PM VA-TOBACCO FORMER USER [facility] Feb 21, 2023 01:30 PM VA-TOBACCO QUIT [address] [facility] Jun 01, 2021 10:45 AM VA-TOBACCO FORMER USER [facility] Jun 01, 2021 10:45 AM [place] QU[place] [address] [facility] Jan 23, 2019 01:33 PM VA-TOBACCO FORMER USER [facility] Jan 23, 2019 01:33 PM VA-TOBACCO QUIT [address] [facility] May 20, 2017 11:03 AM FORMER TOBACCO USE R 7Y OR GREATER [facility] Mar 12, 2016 09:31 AM FORMER TOBACCO USE R 7Y OR GREATER [facility] Mar 11, 2015 07:54 AM CURRENT TOBACCO USER [facility] Feb 22, 2014 09:51 AM FORMER TOBACCO USE R 7Y OR GREATER [facility] Jan 10, 2008 07:56 AM FORMER TOBACCO USE R 7Y OR GREATER [facility] Advance Directives: All historical and current Section Date Range: From patient's date of to the date document was created. This section includes ALL of a patient's completed or amended [place] Advance and Rescinded Directives. The entries below indicate that a directive exists for the patient, but an actual copy is not included with this document. The data comes from all [place] facilities. Date Advance Directives Provider Source Feb 28, 2006 ADVANCE DIRECTIVE SYDNEY PEÑALOZA [facility]
--- OUTSIDE RECORDS SUMMARY | 2024-03-15 20:01 | XMS_ITS | Encounter Summary ---
Author Name [facility] [facility] [place] [facility] [place] Address [address] [place] [address] Care Team Providers Care Clinical Data Management Manager Name Role Phone TERRY ROTH Primary Care Provider Unavailleny e Insurance Providers: All historical and current [...] OPERA TING DARIEN EERS Mar 21, 2017 [id number] [phone] BASILIO BRENNAN HN PATIENT [place] PREFERRED PROVIDER ORGANIZAT ION (PPO) OPERA TING DARIEN EERS Mar 21, 2017 [id number] [phone] BASILIO BRENNAN HN PATIENT CATALYST RX PRESCRIPT ION OPER ENG LOCAL 49 Mar 21, 2017 49ERS [id number] BASILIO BRENNAN HN PATIENT OPTUM RX PRESCRIPT ION OPER ENG LOCAL 49 Mar 21, 2020 49ERS [id number] [phone] BASILIO BRENNAN HN PATIENT OPTUM RX PRESCRIPT ION OPER ENG LOCAL 49 Mar 21, 2018 49ERS [id number] [phone] MIKA,BASILIO HN PATIENT Selected Encounter This section includes the information on record at [place] for the Encounter. Date/Time Encounter Type Encounter Description Reason Pro vider Source Mar 09, 2024 09:26 AM Outpatient Encounter TELEPHONE/SURGERY IHE Encounter Template Text not used by [place] Plan of Treatment: Future Appointments (+ 6 months) and Future Tests (+/- 45 days) The Plan of Treatment section includes future care activities for the patient from all [place] treatmentfacilities. This section includes future appointments and future orders which are active, pending or scheduled. Future Appointments This section includes appointments that were scheduled to occur 6 months from the date of the Encounter, up to a maximum of 20 appointments. The data comes from all [place] treatment facilities. Appointment Date/Time Appointment Type Appointme nt Facility Name Apr 11, 2024 07:45 AM AMBULATORY - SURGERY [facility] Lab Results: +/- 30 days of the encounter This section includes the Chemistry and Hematology Lab Results on record with [place] for the patient. Radiology Reports and Pathology Reports are provided separately, in subsequent sections. Lab Results This section contains the Chemistry/Hematology Results that were resulted 30 days before or 30 daysafter the date of the Encounter. Date/Time Source Result Type Result - Unit Interpretation Reference Range Comment Feb 23, 2024 09:18 AM [facility] ACT PART THROMBO TIME Specimen Type: PLASMA Comment: Automated Differential Performed Ordering Provider: DANYELL AMARO Report Released Date/Time: Jun 03, 2023 01:52 PM Reporting Lab: [facility] [id number] Performing Lab: [facility] [address] APTT 29.2 s 25.1-36.5 Feb 23, 2024 09:18 AM [facility] PROTHROMBIN TIME/INR Specimen Type: PLASMA Comment: Automated Differential Performed Ordering Provider: DANYELL AMARO Report Released Date/Time: Jun 03, 2023 01:52 PM Reporting Lab: [facility] [phone] Performing Lab: [facility] [address] .INR 1.1 0.8-1.1 .PT 12.5 s 9.4-12.5 Feb 23, 2024 09:18 AM [facility] HEMOGLOBIN A1C Specimen Type: BLOOD Comment: Values obtained from A1C measurements can vary. For typical A1C assays, a reported value of 7.0 could actually be between 6.7 and 7.3 if measured by a reference method. A reported value of 9.0 could actually be between 8.7 and 9.3. Ref: http://www.ng sp.org/CAPdat a.asp Ordering Provider: DANYELL AMARO Report Released Date/Time: Jun 29, 2023 10:54 AM Reporting Lab: [facility] [phone] Performing Lab: [facility] [address] HEMOGLOBIN A1C 5.3 4.0-6.0 Feb 23, 2024 09:18 AM [facility] BASIC METABOLIC PANEL+MG Specimen Type: PLASMA No comment entered. Ordering Provider: DANYELL AMARO Report Released Date/Time: Jun 03, 2023 01:52 PM Reporting Lab: [facility] [phone] Performing Lab: [facility] [address] CREATININE 1.0 mg/dL 0.7-1.2 UREA NITROGEN 19 mg/dL 8-26 GLUCOSE 100 mg/dL 70-100 SODIUM 140 mmol/L 136-145 POTASSIUM 4.0 mmol/L 3.5-5.1 CHLORIDE 108 mmol/L H 98-107 CO2 25 mmol/L 22-29 CALCIUM 8.8 mg/dL 8.4-10.2 MAGNESIUM 2.1 mg/dL 1.6-2.6 ANION GAP 7 mmol/L 5-15 .CREAT EGFR(CKD-EPI) 85 >60 Feb 23, 2024 09:18 AM [facility] CBC & DIFF Specimen Type: BLOOD Comment: Automated Differential Performed Ordering Provider: DANYELL AMARO Report Released Date/Time: Jun 03, 2023 01:52 PM Reporting Lab: [facility] [phone] Performing Lab: [facility] [address] WBC 8.4 4.0-11.0 RBC 5.18 4.60-6.20 HGB [...] 0.0 0.0-0.1 Feb 20, 2024 09:01 AM [facility] TSH W/REFLEX TO FREE T4 Specimen Type: PLASMA No comment entered. Ordering Provider: SOPHIA ROTH Report Released Date/Time: Apr 18, 2023 10:42 AM Reporting Lab: [facility] [phone] Performing Lab: [facility] [address] TSH 1.44 u[IU]/mL 0.35-4.94 Feb 20, 2024 09:01 AM [facility] HEMOGLOBIN A1C Specimen Type: BLOOD Comment: [...] Apr 18, 2023 10:42 AM Reporting Lab: [facility] [address] Performing Lab: [facility] [address] HEMOGLOBIN A1C 5.4 4.0-6.0 Feb 20, 2024 09:01 AM [facility] LIPID PANEL,NON-FASTING Specimen Type: PLASMA No comment entered. Ordering Provider: SOPHIA ROTH Report Released Date/Time: Apr 18, 2023 10:42 AM Reporting Lab: [facility] [phone] Performing Lab: [facility] [address] CHOLESTEROL 144 mg/dL <199 .HDL 37 mg/dL L >40 LDL CALCULATION 86 mg/dL <99 VLDL CALCULATION 21 mg/dL <29 NON HDL CHOLESTEROL 107 mg/dL <129 TRIG(NON FASTING) 104 mg/dL <149 Feb 20, 2024 09:01 AM [facility] CBC Specimen Type: BLOOD No comment entered. Ordering Provider: SOPHIA ROTH Report Released Date/Time: Apr 18, 2023 10:42 AM Reporting Lab: [facility] [phone] Performing Lab: [facility] [address] WBC 7.7 4.0-11.0 RBC 4.99 4.60-6.20 HGB 15.0 g/dL 13.5-17.9 HCT 46.1 41.0-54.0 MCV 92.4 fL 80.0-100.0 MCH 30.1 pg 27.0-33.0 MCHC 32.5 g/dL 32.0-37.5 PLT 235 150-400 MPV 9.3 fL 9.1-13.0 RDW 13.0 11.5-14.5 Feb 20, 2024 09:01 AM [facility] COMPREHENSIVE METABOLIC PANEL+MG Specimen Type: PLASMA No comment entered. Ordering Provider: SOPHIA ROTH Report Released Date/Time: Apr 18, 2023 10:42 AM Reporting Lab: [facility] [phone] Performing Lab: [facility] [address] CREATININE 0.9 mg/dL 0.7-1.2 UREA NITROGEN 13 [...] and tobacco- related health factors from the [place] facility where the Encounter took place. Current Smoking Status This section includes the most current smoking, or tobacco-related health factor, from the [place] facility where the Encounter took place. Date/Time Current Smoking Status Comment Facil ity Feb 20, 2024 10:00 AM VA-TOBACCO USE FORMER CIGARETTES [facility] Tobacco Use History This section includes a history of the smoking, or tobacco-related health factors, that were collected on or before the date of the Encounter. The data comes from the [place] facility where the Encounter took place. Date/Time Smoking Status/Tobacco Use Comment F acility Feb 20, 2024 10:00 AM VA-TOBACCO USE FOR GURMEET OTHER TYPE 20years a go [facility] Feb 21, 2023 01:30 PM VA-TOBACCO FORMER USER [facility] Feb 21, 2023 01:30 PM VA-TOBACCO QUIT 15 YRS OR MORE [facility] Jun 01, 2021 10:45 AM VA-TOBACCO FORMER USER [facility] Jun 01, 2021 10:45 AM VA-TOBACCO QUIT 15 YRS OR MORE [facility] Jan 23, 2019 01:33 PM VA-TOBACCO FORMER USER [facility] Jan 23, 2019 01:33 PM VA-TOBACCO QUIT 15 YRS OR MORE [facility] May 20, 2017 11:03 AM FORMER TOBACCO USE R 7Y OR GREATER [facility] Mar 12, 2016 09:31 AM FORMER TOBACCO USE R 7Y OR GREATER [facility] Mar 11, 2015 07:54 AM CURRENT TOBACCO USER [facility] Feb 22, 2014 09:51 AM FORMER TOBACCO USE R 7Y OR GREATER [facility] Jan 10, 2008 07:56 AM FORMER TOBACCO USE R 7Y OR GREATER [facility] Advance Directives: All historical and current Section Date Range: From patient's date of to the date document was created. This section includes ALL of a patient's completed or amended [place] Advance and Rescinded Directives. The entries below indicate that a directive exists for the patient, but an actual copy is not included with this document. The data comes from all [place] facilities. Date Advance Directives Provider Source Feb 28, 2006 ADVANCE DIRECTIVE SYDNEY PEÑALOZA [facility] Encounter Notes: All associated encounter notes This section contains the clinical notes associated to the Encounter. Date/Time Encounter Note(s) Provider Source Mar 09, 2024 09:26 AM NURSING TELEPHONE ENCOUNTER NOTE: LOCAL TITLE: COVID-19 SCREENING PRE/POST PROCEDURE CALL STANDARD TITLE: NURSING TELEPHONE ENCOUNTER NOTE DATE OF NOTE: MAR 09, 2024@09:26 ENTRY DATE: MAR 09, 2024@09:26:46 AUTHOR: TONA THACKER EXP COSIGNER: URGENCY: STATUS: COMPLETED Pre-Procedure Call Questions (screening to be done within 3 days of procedure): Surgery Date: Feb Surgical Procedure: Septoplasty, turbinate reduction and Latera Implants Surgeon: Hi Amaro MD Resident: MD Julien Pre op phone call was placed to him today to review some basic instructions and answer questions if needed. VM was reached and a message was left with general surgical information (date/time/location/NPO guidelines/post op appt/med recs) Per chart review, his driver sales and supervision will be his Danna. Informed consent will need to be completed DOS. Pre op H&P was completed/updated on 02/23/2024. Call back was encouraged if he has questions/needs prior to surgery Total time spent on this encounter including chart review, care coordination, phone discussion and follow-up - 8 minutes /es/ Tona Thacker, RN, BSN Surgery Nurse Coordinator Signed: 03/09/2024 09:29 TONA THACKER [facility]
--- OUTSIDE RECORDS SUMMARY | 2024-03-15 20:01 | XMS_ITS | Encounter Summary ---
Author Name [facility] [place] [facility] [place] Address [address] [place] [address] Care Team Providers Care Center Machine Operator Name Role Phone TERRY ROTH Primary Care [...] OPERA TING DARIEN EERS Mar 21, 2017 [id number] [phone] BASILIO BRENNAN HN PATIENT [place] PREFERRED PROVIDER ORGANIZAT ION (PPO) OPERA TING DARIEN EERS Mar 21, 2017 [id number] [phone] BASILIO BRENNAN HN PATIENT CATALYST RX PRESCRIPT ION OPER ENG LOCAL 49 Mar 21, 2017 49ERS [id number] BASILIO BRENNAN HN PATIENT OPTUM RX PRESCRIPT ION OPER ENG LOCAL 49 Mar 21, 2020 49ERS [id number] [phone] BASILIO BRENNAN HN PATIENT OPTUM RX PRESCRIPT ION OPER ENG LOCAL 49 Mar 21, 2018 49ERS [id number] [phone] BASILIO BRENNAN HN PATIENT Selected Encounter This section includes the information on record at [place] for the Encounter. Date/Time Encounter Type Encounter Description Reason Provider Source Mar 05, 2024 08:31 AM PT EDUCATION NOC INDIVID OTOLARYNGOLOGY/EN T ICD-10-CM Z71.89 Other specified counseling PERRI AQUINO IHDavide Encounter Template Text not used by [place] Assessments - Encounter Diagnoses This section includes the primary and secondary diagnoses documented for the Encounter. Date/Time Primary/Secondary Diagnosis Diagnosis Name Provider Source Mar 05, 2024 08:40 AM PRIMARY Other specified counseling PERRI AQUINO [facility] Plan of Treatment: Future Appointments (+ 6 months) and Future Tests (+/- 45 days) The Plan of Treatment section includes future care activities for the patient from all [place] treatmentfacilities. This section includes future appointments and future orders which are active, pending or scheduled. Future Appointments This section includes appointments that were scheduled to occur 6 months from the date of the Encounter, up to a maximum of 20 appointments. The data comes from all [place] treatment facilities. Appointment Date/Time Appointment Type Appointme nt Facility Name Apr 11, 2024 07:45 AM AMBULATORY - SURGERY [facility] Lab Results: +/- 30 days of the encounter This section includes the Chemistry and Hematology Lab Results on record with [place] for the patient. Radiology Reports and Pathology Reports are provided separately, in subsequent sections. Lab Results This section contains the Chemistry/Hematology Results that were resulted 30 days before or 30 daysafter the date of the Encounter. Date/Time Source Result Type Result - Unit Interpretation Reference Range Comment Feb 23, 2024 09:18 AM [facility] ACT PART THROMBO TIME Specimen Type: PLASMA Comment: Automated Differential Performed Ordering Provider: DANYELL AMARO Report Released Date/Time: Jun 03, 2023 01:52 PM Reporting Lab: [facility] [phone] Performing Lab: [facility] [address] APTT 29.2 s 25.1-36.5 Feb 23, 2024 09:18 AM [facility] PROTHROMBIN TIME/INR Specimen Type: PLASMA Comment: Automated Differential Performed Ordering Provider: DANYELL AMARO Report Released Date/Time: Jun 03, 2023 01:52 PM Reporting Lab: [facility] [address] Performing Lab: [facility] [address] .INR 1.1 0.8-1.1 .PT 12.5 s 9.4-12.5 Feb 23, 2024 09:18 AM [facility] HEMOGLOBIN A1C Specimen Type: BLOOD Comment: [...] Jun 29, 2023 10:54 AM Reporting Lab: [facility] [address] Performing Lab: [facility] [address] HEMOGLOBIN A1C 5.3 4.0-6.0 Feb 23, 2024 09:18 AM [facility] BASIC METABOLIC PANEL+MG Specimen Type: PLASMA No comment entered. Ordering Provider: DANYELL AMARO Report Released Date/Time: Jun 03, 2023 01:52 PM Reporting Lab: [facility] [address] Performing Lab: [facility] [address] CREATININE 1.0 mg/dL 0.7-1.2 UREA NITROGEN 19 mg/dL 8-26 GLUCOSE 100 mg/dL 70-100 SODIUM 140 mmol/L 136-145 POTASSIUM 4.0 mmol/L 3.5-5.1 CHLORIDE 108 mmol/L H 98-107 CO2 25 mmol/L 22-29 CALCIUM 8.8 mg/dL 8.4-10.2 MAGNESIUM 2.1 mg/dL 1.6-2.6 ANION GAP 7 mmol/L 5-15 .CREAT EGFR(CKD-EPI) 85 >60 Feb 23, 2024 09:18 AM [facility] CBC & DIFF Specimen Type: BLOOD Comment: Automated Differential Performed Ordering Provider: DANYELL AMARO Report Released Date/Time: Jun 03, 2023 01:52 PM Reporting Lab: [facility] [phone] Performing Lab: [facility] [address] WBC 8.4 4.0-11.0 RBC 5.18 4.60-6.20 HGB [...] 0.0 0.0-0.1 Feb 20, 2024 09:01 AM [facility] TSH W/REFLEX TO FREE T4 Specimen Type: PLASMA No comment entered. Ordering Provider: SOPHIA ROTH Report Released Date/Time: Apr 18, 2023 10:42 AM Reporting Lab: [facility] [address] Performing Lab: [facility] [address] TSH 1.44 u[IU]/mL 0.35-4.94 Feb 20, 2024 09:01 AM [facility] HEMOGLOBIN A1C Specimen Type: BLOOD Comment: [...] Apr 18, 2023 10:42 AM Reporting Lab: [facility] [address] Performing Lab: [facility] [address] HEMOGLOBIN A1C 5.4 4.0-6.0 Feb 20, 2024 09:01 AM [facility] CBC Specimen Type: BLOOD No comment entered. Ordering Provider: SOPHIA ROTH Report Released Date/Time: Apr 18, 2023 10:42 AM Reporting Lab: [facility] [address] Performing Lab: [facility] [address] WBC 7.7 4.0-11.0 RBC 4.99 4.60-6.20 HGB 15.0 g/dL 13.5-17.9 HCT 46.1 41.0-54.0 MCV 92.4 fL 80.0-100.0 MCH 30.1 pg 27.0-33.0 MCHC 32.5 g/dL 32.0-37.5 PLT 235 150-400 MPV 9.3 fL 9.1-13.0 RDW 13.0 11.5-14.5 Feb 20, 2024 09:01 AM [facility] LIPID PANEL,NON-FASTING Specimen Type: PLASMA No comment entered. Ordering Provider: SOPHIA ROTH Report Released Date/Time: Apr 18, 2023 10:42 AM Reporting Lab: [facility] [address] Performing Lab: [facility] [address] CHOLESTEROL 144 mg/dL <199 .HDL 37 mg/dL L >40 LDL CALCULATION 86 mg/dL <99 VLDL CALCULATION 21 mg/dL <29 NON HDL CHOLESTEROL 107 mg/dL <129 TRIG(NON FASTING) 104 mg/dL <149 Feb 20, 2024 09:01 AM [facility] COMPREHENSIVE METABOLIC PANEL+MG Specimen Type: PLASMA No comment entered. Ordering Provider: SOPHIA ROTH Report Released Date/Time: Apr 18, 2023 10:42 AM Reporting Lab: [facility] [address] Performing Lab: [facility] [address] CREATININE 0.9 mg/dL 0.7-1.2 UREA NITROGEN 13 [...] and tobacco- related health factors from the [place] facility where the Encounter took place. Current Smoking Status This section includes the most current smoking, or tobacco-related health factor, from the [place] facility where the Encounter took place. Date/Time Current Smoking Status Comment Facil ity Feb 20, 2024 10:00 AM VA-TOBACCO USE FORMER CIGARETTES [facility] Tobacco Use History This section includes a history of the smoking, or tobacco-related health factors, that were collected on or before the date of the Encounter. The data comes from the [place] facility where the Encounter took place. Date/Time Smoking Status/Tobacco Use Comment F acility Feb 20, 2024 10:00 AM VA-TOBACCO USE FOR GURMEET OTHER TYPE 20years a go [facility] Feb 21, 2023 01:30 PM VA-TOBACCO FORMER USER [facility] Feb 21, 2023 01:30 PM VA-TOBACCO QUIT 15 YRS OR MORE [facility] Jun 01, 2021 10:45 AM VA-TOBACCO FORMER USER [facility] Jun 01, 2021 10:45 AM VA-TOBACCO QUIT 15 YRS OR MORE [facility] Jan 23, 2019 01:33 PM VA-TOBACCO FORMER USER [facility] Jan 23, 2019 01:33 PM VA-TOBACCO QUIT 15 YRS OR MORE [facility] May 20, 2017 11:03 AM FORMER TOBACCO USE R 7Y OR GREATER [facility] Mar 12, 2016 09:31 AM FORMER TOBACCO USE R 7Y OR GREATER [facility] Mar 11, 2015 07:54 AM CURRENT TOBACCO USER [facility] Feb 22, 2014 09:51 AM FORMER TOBACCO USE R 7Y OR GREATER [facility] Jan 10, 2008 07:56 AM FORMER TOBACCO USE R 7Y OR GREATER [facility] Advance Directives: All historical and current Section Date Range: From patient's date of to the date document was created. This section includes ALL of a patient's completed or amended [place] Advance and Rescinded Directives. The entries below indicate that a directive exists for the patient, but an actual copy is not included with this document. The data comes from all [place] facilities. Date Advance Directives Provider Source Feb 28, 2006 ADVANCE DIRECTIVE ALEXVONNIESYDNEYORI CARPIO [facility] Encounter Notes: All associated encounter notes This section contains the clinical notes associated to the Encounter. Date/Time Encounter Note(s) Provider Source Mar 05, 2024 08:40 AM SURGERY CASE MANAG ER NOTE: LOCAL TITLE: SURGERY COORDINATOR NOTE STANDARD TITLE: SURGERY PREPARATION PLANT REPAIRER NOTE DATE OF NOTE: MAR 05, 2024@08:40 ENTRY DATE: MAR 05, 2024@08:40:17 AUTHOR: PERRI AQUINO EXP COSIGNER: URGENCY: STATUS: COMPLETED stops by clinic to discuss his ongoing rhinorrhea. [place] is currently schedule for surgery on 03/16/[address] Amaro for: Septoplasty, turbinate reduction and Latera Implants Today states I hope this surgery can help my rhinorrhea, it is miserable at night when I am wearing my CPAP mask, my nose runs whenever I eat. This telegraphic typewriter repairer advised this may be something the ENT providers are hoping to manage with his turbinate reduction but this telegraphic typewriter repairer is not 100% if that will cure his rhinorrhea. Advised that Dr. Amaro and his team would be alerted to 's questions regarding doing something to control his constant rhinorrhea and that can also bring this up with Dr. Amaro and the ENT team when he is here for surgery on 03/16/24. agrees with plan. Time spent on this encounter including chart review, care coordination, education, face to face discussion and follow-up: Time spent on discussion:11-20 minutes /aubrie/ ZARIA Irvin, SUPERVISOR PIG MACHINE [facility] Specialty RN Gastroenterology Nurse Signed: 03/05/2024 08:40 Receipt Acknowledged By: * AWAITING SIGNATURE * DAMION AMARO 03/05/2024 12:44 /es/ DEMETRIA WHITAKER MD RESIDENT KENIA,PERRI MONZON [facility]
--- OUTSIDE RECORDS SUMMARY | 2024-03-15 20:01 | XMS_ITS | Encounter Summary ---
Author Name [facility] [place] [facility] [place] Address [address] [place] [address] Care Team Providers Care Planer Offbearer Name Role Phone TERRY ROTH Primary Care [...] OPERA TING DARIEN EERS Mar 21, 2017 [id number] [phone] BASILIO BRENNAN HN PATIENT [employer] [place] PREFERRED PROVIDER ORGANIZAT ION (PPO) OPERA TING DARIEN EERS Mar 21, 2017 [id number] [phone] BASILIO BRENNAN HN PATIENT CATALYST RX PRESCRIPT ION OPER ENG LOCAL 49 Mar 21, 2017 [facility] [id number] BASILIO BRENNAN HN PATIENT OPTUM RX PRESCRIPT ION OPER ENG LOCAL 49 Mar 21, 2020 [facility] [id number] [phone] BASILIO BRENNAN HN PATIENT OPTUM RX PRESCRIPT ION OPER ENG LOCAL 49 Mar 21, 2018 [facility] [id number] [phone] MIKA,BASILIO HN PATIENT Selected Encounter This section includes the information on record at [place] for the Encounter. Date/Time Encounter Type Encounter Description Reason Pro vider Source Mar 15, 2024 02:58 PM Outpatient Encounter [facility] IHE Encounter Template Text not used by [place] Plan of Treatment: Future Appointments (+ 6 months) and Future Tests (+/- 45 days) The Plan of Treatment section includes future care activities for the patient from all [place] treatmentfacilities. This section includes future appointments and future orders which are active, pending or scheduled. Future Appointments This section includes appointments that were scheduled to occur 6 months from the date of the Encounter, up to a maximum of 20 appointments. The data comes from all [place] treatment facilities. Appointment Date/Time Appointment Type Appointme nt Facility Name Apr 11, 2024 07:45 AM AMBULATORY - SURGERY [facility] Lab Results: +/- 30 days of the encounter This section includes the Chemistry and Hematology Lab Results on record with [place] for the patient. Radiology Reports and Pathology Reports are provided separately, in subsequent sections. Lab Results This section contains the Chemistry/Hematology Results that were resulted 30 days before or 30 daysafter the date of the Encounter. Date/Time Source Result Type Result - Unit Interpretation Reference Range Comment Feb 23, 2024 09:18 AM [facility] ACT PART THROMBO TIME Specimen Type: PLASMA Comment: Automated Differential Performed Ordering Provider: DANYELL MAGUIRE Report Released Date/Time: Jun 03, 2023 01:52 PM Reporting Lab: [facility] [id number] Performing Lab: [facility] [phone] APTT 29.2 s 25.1-36.5 Feb 23, 2024 09:18 AM [facility] PROTHROMBIN TIME/INR Specimen Type: PLASMA Comment: Automated Differential Performed Ordering Provider: DANYELL MAGUIRE Report Released Date/Time: Jun 03, 2023 01:52 PM Reporting Lab: [facility] [phone] Performing Lab: [facility] [phone] .INR 1.1 0.8-1.1 .PT 12.5 s 9.4-12.5 Feb 23, 2024 09:18 AM [facility] HEMOGLOBIN A1C Specimen Type: BLOOD Comment: [...] Jun 29, 2023 10:54 AM Reporting Lab: [facility] [phone] Performing Lab: [facility] [phone] HEMOGLOBIN A1C 5.3 4.0-6.0 Feb 23, 2024 09:18 AM [facility] BASIC METABOLIC PANEL+MG Specimen Type: PLASMA No comment entered. Ordering Provider: DANYELL MAGUIRE Report Released Date/Time: Jun 03, 2023 01:52 PM Reporting Lab: [facility] [phone] Performing Lab: [facility] [phone] CREATININE 1.0 mg/dL 0.7-1.2 UREA NITROGEN 19 mg/dL 8-26 GLUCOSE 100 mg/dL 70-100 SODIUM 140 mmol/L 136-145 POTASSIUM 4.0 mmol/L 3.5-5.1 CHLORIDE 108 mmol/L H 98-107 CO2 25 mmol/L 22-29 CALCIUM 8.8 mg/dL 8.4-10.2 MAGNESIUM 2.1 mg/dL 1.6-2.6 ANION GAP 7 mmol/L 5-15 .CREAT EGFR(CKD-EPI) 85 >60 Feb 23, 2024 09:18 AM [facility] CBC & DIFF Specimen Type: BLOOD Comment: Automated Differential Performed Ordering Provider: DANYELL MAGUIRE Report Released Date/Time: Jun 03, 2023 01:52 PM Reporting Lab: [facility] [phone] Performing Lab: [facility] [phone] WBC 8.4 4.0-11.0 RBC 5.18 4.60-6.20 HGB [...] 0.0 0.0-0.1 Feb 20, 2024 09:01 AM [facility] TSH W/REFLEX TO FREE T4 Specimen Type: PLASMA No comment entered. Ordering Provider: SOPHIA ROTH Report Released Date/Time: Apr 18, 2023 10:42 AM Reporting Lab: [facility] [phone] Performing Lab: [facility] [phone] TSH 1.44 u[IU]/mL 0.35-4.94 Feb 20, 2024 09:01 AM [facility] HEMOGLOBIN A1C Specimen Type: BLOOD Comment: [...] Apr 18, 2023 10:42 AM Reporting Lab: [facility] [phone] Performing Lab: [facility] [phone] HEMOGLOBIN A1C 5.4 4.0-6.0 Feb 20, 2024 09:01 AM [facility] CBC Specimen Type: BLOOD No comment entered. Ordering Provider: SOPHIA ROTH Report Released Date/Time: Apr 18, 2023 10:42 AM Reporting Lab: [facility] [phone] Performing Lab: [facility] [address] WBC 7.7 4.0-11.0 RBC 4.99 4.60-6.20 HGB 15.0 g/dL 13.5-17.9 HCT 46.1 41.0-54.0 MCV 92.4 fL 80.0-100.0 MCH 30.1 pg 27.0-33.0 MCHC 32.5 g/dL 32.0-37.5 PLT 235 150-400 MPV 9.3 fL 9.1-13.0 RDW 13.0 11.5-14.5 Feb 20, 2024 09:01 AM [facility] LIPID PANEL,NON-FASTING Specimen Type: PLASMA No comment entered. Ordering Provider: SOPHIA ROTH Report Released Date/Time: Apr 18, 2023 10:42 AM Reporting Lab: [facility] [phone] Performing Lab: [facility] [phone] CHOLESTEROL 144 mg/dL <199 .HDL 37 mg/dL L >40 LDL CALCULATION 86 mg/dL <99 VLDL CALCULATION 21 mg/dL <29 NON HDL CHOLESTEROL 107 mg/dL <129 TRIG(NON FASTING) 104 mg/dL <149 Feb 20, 2024 09:01 AM [facility] COMPREHENSIVE METABOLIC PANEL+MG Specimen Type: PLASMA No comment entered. Ordering Provider: SOPHIA ROTH Report Released Date/Time: Apr 18, 2023 10:42 AM Reporting Lab: [facility] [phone] Performing Lab: [facility] [phone] CREATININE 0.9 mg/dL 0.7-1.2 UREA NITROGEN 13 [...] and tobacco- related health factors from the [place] facility where the Encounter took place. Current Smoking Status This section includes the most current smoking, or tobacco-related health factor, from the [place] facility where the Encounter took place. Date/Time Current Smoking Status Comment Facil ity Feb 20, 2024 10:00 AM VA-TOBACCO USE FORMER CIGARETTES [facility] Tobacco Use History This section includes a history of the smoking, or tobacco-related health factors, that were collected on or before the date of the Encounter. The data comes from the [place] facility where the Encounter took place. Date/Time Smoking Status/Tobacco Use Comment F acility Feb 20, 2024 10:00 AM VA-TOBACCO USE FOR GURMEET OTHER TYPE 20years a go [facility] Feb 21, 2023 01:30 PM VA-TOBACCO FORMER USER [facility] Feb 21, 2023 01:30 PM VA-TOBACCO QUIT 15 YRS OR MORE [facility] Jun 01, 2021 10:45 AM VA-TOBACCO FORMER USER [facility] Jun 01, 2021 10:45 AM VA-TOBACCO QUIT 15 YRS OR MORE [facility] Jan 23, 2019 01:33 PM VA-TOBACCO FORMER USER [facility] Jan 23, 2019 01:33 PM VA-TOBACCO QUIT 15 YRS OR MORE [facility] May 20, 2017 11:03 AM FORMER TOBACCO USE R 7Y OR GREATER [facility] Mar 12, 2016 09:31 AM FORMER TOBACCO USE R 7Y OR GREATER [facility] Mar 11, 2015 07:54 AM CURRENT TOBACCO USER [facility] Feb 22, 2014 09:51 AM FORMER TOBACCO USE R 7Y OR GREATER [facility] Jan 10, 2008 07:56 AM FORMER TOBACCO USE R 7Y OR GREATER [facility] Advance Directives: All historical and current Section Date Range: From patient's date of to the date document was created. This section includes ALL of a patient's completed or amended [place] Advance and Rescinded Directives. The entries below indicate that a directive exists for the patient, but an actual copy is not included with this document. The data comes from all [place] facilities. Date Advance Directives Provider Source Feb 28, 2006 ADVANCE DIRECTIVE SYDNEY PEÑALOZA [facility] Encounter Notes: All associated encounter notes This section contains the clinical notes associated to the Encounter. Date/Time Encounter Note(s) Provider Source Mar 15, 2024 02:58 PM REPORT OF CONTACT: LOCAL TITLE: APPOINTMENT SCHEDULING NOTE STANDARD TITLE: REPORT OF CONTACT DATE OF NOTE: MAR 15, 2024@14:58 ENTRY DATE: MAR 15, 2024@14:59:03 AUTHOR: NISHANT LOZADA EXP COSIGNER: URGENCY: STATUS: COMPLETED Attempted to schedule Cancellation Clinic cancellation for [facility] ARTIEileen 05/28/2024 @ 1030 [facility] [[email or web address]] to make outreach attempts to reschedule according to mandated scheduling effort protocol. /aubrie/ NISHANT LOZADA ADV H[employer] AND EYE ATTACHER Signed: 03/15/2024 14:59 NISHANT LOZADA [facility]
--- OUTSIDE RECORDS SUMMARY | 2024-03-15 20:01 | XMS_ITS | Encounter Summary ---
Author Name [facility] Address [address] [place] [address] Care Team Providers Care Mobility Developer Name Role Phone TERRY ROTH Primary [...] OPERA TING DARIEN EERS Mar 21, 2017 [id number] [phone] BASILIO BRENNAN HN PATIENT [place] [place] PREFERRED PROVIDER ORGANIZAT ION (PPO) OPERA TING DARIEN EERS Mar 21, 2017 [id number] [phone] BASILIO BRENNAN HN PATIENT CATALYST RX PRESCRIPT ION OPER ENG LOCAL 49 Mar 21, 2017 [employer] [id number] [phone] BASILIO BRENNAN HN PATIENT OPTUM RX PRESCRIPT ION OPER ENG LOCAL 49 Mar 21, 2020 [employer] [id number] [phone] BASILIO BRENNAN HN PATIENT OPTUM RX PRESCRIPT ION OPER ENG LOCAL 49 Mar 21, 2018 [employer] [id number] [phone] MIKA,BASILIO HN PATIENT Selected Encounter This section includes the information on record at [place] for the Encounter. Date/Time Encounter Type Encounter Description Reason Provider Source Feb 23, 2024 11:00 AM PT EDUCATION NOC INDIVID OTOLARYNGOLOGY/EN T ICD-10-CM Z71.89 Other specified counseling KENIAANA LUISA MORENOISTI Davide Encounter Template Text not used by [place] Assessments - Encounter Diagnoses This section includes the primary and secondary diagnoses documented for the Encounter. Date/Time Primary/Secondary Diagnosis Diagnosis Name Provider Source Mar 06, 2024 12:05 PM PRIMARY Other specified counseling KENIAANA LUISA PISANOI [facility] Plan of Treatment: Future Appointments (+ 6 months) and Future Tests (+/- 45 days) The Plan of Treatment section includes future care activities for the patient from all [place] treatmentfacilities. This section includes future appointments and future orders which are active, pending or scheduled. Future Appointments This section includes appointments that were scheduled to occur 6 months from the date of the Encounter, up to a maximum of 20 appointments. The data comes from all [place] treatment facilities. Appointment Date/Time Appointment Type Appointme nt Facility Name Mar 05, 2024 07:45 AM AMBULATORY - SURGERY [facility] Mar 05, 2024 02:00 PM AMBULATORY - PSYCHIATRY [facility] Apr 11, 2024 07:45 AM AMBULATORY - SURGERY [facility] Lab Results: +/- 30 days of the encounter This section includes the Chemistry and Hematology Lab Results on record with [place] for the patient. Radiology Reports and Pathology Reports are provided separately, in subsequent sections. Lab Results This section contains the Chemistry/Hematology Results that were resulted 30 days before or 30 daysafter the date of the Encounter. Date/Time Source Result Type Result - Unit Interpretation Reference Range Comment Feb 23, 2024 09:18 AM [facility] ACT PART THROMBO TIME Specimen Type: PLASMA Comment: Automated Differential Performed Ordering Provider: DANYELL AMARO Report Released Date/Time: Jun 03, 2023 01:52 PM Reporting Lab: [facility] [id number] Performing Lab: [facility] [id number] APTT 29.2 s 25.1-36.5 Feb 23, 2024 09:18 AM [facility] PROTHROMBIN TIME/INR Specimen Type: PLASMA Comment: Automated Differential Performed Ordering Provider: DANYELL AMARO Report Released Date/Time: Jun 03, 2023 01:52 PM Reporting Lab: [facility] [address] Performing Lab: [facility] [address] .INR 1.1 0.8-1.1 .PT 12.5 s 9.4-12.5 Feb 23, 2024 09:18 AM [facility] HEMOGLOBIN A1C Specimen Type: BLOOD [...] Jun 29, 2023 10:54 AM Reporting Lab: [facility] [address] Performing Lab: [facility] [address] HEMOGLOBIN A1C 5.3 4.0-6.0 Feb 23, 2024 09:18 AM [facility] BASIC METABOLIC PANEL+MG Specimen Type: PLASMA No comment entered. Ordering Provider: DANYELL AMARO Report Released Date/Time: Jun 03, 2023 01:52 PM Reporting Lab: [facility] [address] Performing Lab: [facility] [address] CREATININE 1.0 mg/dL 0.7-1.2 UREA NITROGEN 19 mg/dL 8-26 GLUCOSE 100 mg/dL 70-100 SODIUM 140 mmol/L 136-145 POTASSIUM 4.0 mmol/L 3.5-5.1 CHLORIDE 108 mmol/L H 98-107 CO2 25 mmol/L 22-29 CALCIUM 8.8 mg/dL 8.4-10.2 MAGNESIUM 2.1 mg/dL 1.6-2.6 ANION GAP 7 mmol/L 5-15 .CREAT EGFR(CKD-EPI) 85 >60 Feb 23, 2024 09:18 AM [facility] CBC & DIFF Specimen Type: BLOOD Comment: Automated Differential Performed Ordering Provider: DANYELL AMARO Report Released Date/Time: Jun 03, 2023 01:52 PM Reporting Lab: [facility] [id number] Performing Lab: [facility] [address] WBC 8.4 4.0-11.0 RBC 5.18 4.60-6.20 HGB [...] 0.0 0.0-0.1 Feb 20, 2024 09:01 AM [facility] TSH W/REFLEX TO FREE T4 Specimen Type: PLASMA No comment entered. Ordering Provider: SOPHIA ROTH Report Released Date/Time: Apr 18, 2023 10:42 AM Reporting Lab: [facility] [address] Performing Lab: [facility] [address] TSH 1.44 u[IU]/mL 0.35-4.94 Feb 20, 2024 09:01 AM [facility] HEMOGLOBIN A1C Specimen Type: BLOOD [...] Apr 18, 2023 10:42 AM Reporting Lab: [facility] [address] Performing Lab: [facility] [address] HEMOGLOBIN A1C 5.4 4.0-6.0 Feb 20, 2024 09:01 AM [facility] CBC Specimen Type: BLOOD No comment entered. Ordering Provider: SOPHIA ROTH Report Released Date/Time: Apr 18, 2023 10:42 AM Reporting Lab: [facility] [address] Performing Lab: [facility] [address] WBC 7.7 4.0-11.0 RBC 4.99 4.60-6.20 HGB 15.0 g/dL 13.5-17.9 HCT 46.1 41.0-54.0 MCV 92.4 fL 80.0-100.0 MCH 30.1 pg 27.0-33.0 MCHC 32.5 g/dL 32.0-37.5 PLT 235 150-400 MPV 9.3 fL 9.1-13.0 RDW 13.0 11.5-14.5 Feb 20, 2024 09:01 AM [facility] LIPID PANEL,NON-FASTING Specimen Type: PLASMA No comment entered. Ordering Provider: SOPHIA ROTH Report Released Date/Time: Apr 18, 2023 10:42 AM Reporting Lab: [facility] [address] Performing Lab: [facility] [address] CHOLESTEROL 144 mg/dL <199 .HDL 37 mg/dL L >40 LDL CALCULATION 86 mg/dL <99 VLDL CALCULATION 21 mg/dL <29 NON HDL CHOLESTEROL 107 mg/dL <129 TRIG(NON FASTING) 104 mg/dL <149 Feb 20, 2024 09:01 AM [facility] COMPREHENSIVE METABOLIC PANEL+MG Specimen Type: PLASMA No comment entered. Ordering Provider: SOPHIA ROTH Report Released Date/Time: Apr 18, 2023 10:42 AM Reporting Lab: [facility] [address] Performing Lab: [facility] [address] CREATININE 0.9 mg/dL 0.7-1.2 UREA NITROGEN 13 [...] 30 U/L 11-34 .CREAT EGFR(CKD-EPI) >90 >60 Vital Signs: All taken on the encounter date This section contains inpatient and outpatient Vital Signs collected on the date of the Encounter. Date/Time Temperature Pulse Blood Pressure Respiratory Rate SP02 Pain Height Weight Body Mass Index Source Feb 23, 2024 10:16 AM 97.8 75 119/80 16 95 0 71 234.6 33 [facility] Social History: Smoking Status (Most current) and Tobacco Use (All prior to encounter date) This section includes the most current, and the historical, smoking and tobacco- related health factors from the [place] facility where the Encounter took place. Current Smoking Status This section includes the most current smoking, or tobacco-related health factor, from the [place] facility where the Encounter took place. Date/Time Current Smoking Status Comment Facil ity Feb 20, 2024 10:00 AM VA-TOBACCO USE FORMER CIGARETTES [facility] Tobacco Use History This section includes a history of the smoking, or tobacco-related health factors, that were collected on or before the date of the Encounter. The data comes from the [place] facility where the Encounter took place. Date/Time Smoking Status/Tobacco Use Comment F acility Feb 20, 2024 10:00 AM [place]-TOBACCO USE FOR GURMEET OTHER TYPE 20years a go [facility] Feb 21, 2023 01:30 PM VA-TOBACCO FORMER USER [facility] Feb 21, 2023 01:30 PM VA-TOBACCO QUIT 15 YRS OR MORE [facility] Jun 01, 2021 10:45 AM VA-TOBACCO FORMER USER [facility] Jun 01, 2021 10:45 AM VA-TOBACCO QUIT 15 YRS OR MORE [facility] Jan 23, 2019 01:33 PM VA-TOBACCO FORMER USER [facility] Jan 23, 2019 01:33 PM VA-TOBACCO QUIT 15 YRS OR MORE [facility] May 20, 2017 11:03 AM FORMER TOBACCO USE R 7Y OR GREATER [facility] Mar 12, 2016 09:31 AM FORMER TOBACCO USE R 7Y OR GREATER [facility] Mar 11, 2015 07:54 AM CURRENT TOBACCO USER [facility] Feb 22, 2014 09:51 AM FORMER TOBACCO USE R 7Y OR GREATER [facility] Jan 10, 2008 07:56 AM FORMER TOBACCO USE R 7Y OR GREATER [facility] Advance Directives: All historical and current Section Date Range: From patient's date of to the date document was created. This section includes ALL of a patient's completed or amended [place] Advance and Rescinded Directives. The entries below indicate that a directive exists for the patient, but an actual copy is not included with this document. The data comes from all [place] facilities. Date Advance Directives Provider Source Feb 28, 2006 [facility] Encounter Notes: All associated encounter notes This section contains the clinical notes associated to the Encounter. Date/Time Encounter Note(s) Provider Source Feb 23, 2024 01:02 PM SURGERY CASE MANAG ER NOTE: LOCAL TITLE: SURGERY COORDINATOR NOTE STANDARD TITLE: SURGERY FREIGHT INSPECTOR NOTE DATE OF NOTE: FEB 23, 2024@13:02 ENTRY DATE: FEB 23, 2024@13:02:13 AUTHOR: AN ALUISA AQUINO EXP COSIGNER: URGENCY: STATUS: COMPLETED SURGERY COORDINATOR PRE-PROCEDURE EDUCATION NOTE Surgery Date: Feb Surgical Procedure: Septoplasty, turbinate reduction and Latera Implants Surgeon: Hi Amaro MD Resident: MD Julien Antibiotic order addressed: YES DVT Prophylaxis order addressed: YES Consent: Consent Completed: No If NO--the Consent will be completed on day of surgery: Feb Allergies: Patient has answered NKA PREOPERATIVE ASSESSMENT: Full H&P: Feb Site: [facility] Labwork completed: Yes Feb EKG completed: Yes Feb Chest Xray completed: HCG for females: N/A Anticoagulation Consult and plan: N/A Med Pre-op Assessment= See Pre-op H&P note from Problems: Hyperlipidemia ([facility] [id number]) Chews tobacco ([facility] [id number]) Low back pain ([facility] [id number]) Depressive disorder ([facility] [id number]) Umbilical hernia ([facility] [id number]) Metatarsal Plantar Flexed (ICD-9-CM 736.79) Obstructive sleep apnea of adult (SCT 11Anxiety disorder ([facility] [id number]) Essential hypertension ([facility] 41266904) Adenomatous polyp of colon ([facility] [id number]) Obesity ([facility] 941838512) Erectile dysfunction ([facility] 366354254) Chronic rhinitis ([facility] 07450632) Nasal obstruction ([facility] [id number]) Physical Assessment: Level of Consciousness/mental status intact: Yes HCA/Power of Travograph Operator/Guardianship: No Non-ambulatory or requires ceiling lift: No Hard of Hearing/hearing aids: No Blindness: No issues reported Ambulatory Status: Independent Medication Management: Patient reports they are independent Diabetes: Patient reports that they do not have diabetes Diabetes plan--N/A Obstructive Airway/JUAN: Yes Is CPAP used at night Yes Is Oxygen used No Smoker No If yes, Smoking cessation prior to surgery discussed Medical devices: None Consult for device completed and sent: Not applicable MDRO/Contact Precautions/isolation: None Blood bank/labs: No PRBC Units requested: Not applicable Code Status: Full Code Verified that lives in independent housing: Yes Social Assessment: [place] homeless: No lives in Assisted Living/[facility] with support No [place] currently receiving Home Care Nursing services No Advance Directive completed/on file at [place] Date: 02/28/2006 Advanced Directive Discussion: No requesting information on Advance Directive No Social Work Consult for transportation/AD/Assisted Living/Home Care: No CARE TRANSITION/PLAN OF CARE: Discussed cancellation of surgery without transportation and 24 hour post op supervision. Outpatient Surgery: Arrival date/time: Feb@06:15 [place] [facility]: 's Danna [facility] Contact number: [phone] 24 hour post op supervision: 's Danna Ding plan for discharge: DC to home with 's Danna Choian currently receiving Home Care Nursing services No Postoperative Homecare anticipated: No Social Work consult placed: No lives in senior care/assisted living No Medications: Active Outpatient Medications (including Supplies): Active [...] MOUTH EVERY DAY ACTIVE 9 Total Medications MEDICATION INSTRUCTIONS: Reviewed recommendations from preop H&P: Yes Diabetic instructions: N/A Anticoag Consult instructions: N/A OTC medication instructions: Feb [place] instructed to hold ibuprofen, Naproxyn, fish oil, CBD oil, multivitamins and all lngw-dro-dbefyfh supplements on Mar 09 days prior to surgery Advised to reduce/hold alcohol 1 week prior to surgery if possible Hold these medications on the am of surgery: Per H&P recommendations to hold on Feb: Hold none Take these medications the am of surgery with a sip of water: Per H&P recommendations for Feb: On the day of surgery--take any am medication that has not previously been held with a sip of water Additional medication instructions: hold aspirin 7 days prior to surgery Feb [place] was instructed to bring medications to take while at the hospital - N/A PREOP INSTRUCTIONS: NPO after midnight prior to surgery No food, gum, candy, orange juice, chewing tobacco or dairy after midnight. May have clear liquids up until 2 hrs prior to arrival time--Feb@04:15 Antibacterial scrubs to be completed prior to surgery: N/A Advised no jewelry, money or valuables brought to facility-YES Pain scale reviewed and understanding verbalized-YES Incentive spirometry to be discussed only if Admission surgery THE FOLLOWING DISCHARGE INSTRUCTIONS WERE PROVIDED TO IN WRITING AND VERBALLY PRIOR TO SURGERY: septo/turbs Latera Postop pain management discussed with patient. Do not drive while taking narcotic pain medication -Do not blow your nose until you are seen at your first post op visit and have been cleared to do so. Heavy nose blowing will be painful and could cause increased swelling or bleeding. Protect your nose from injury -Cough or sneeze with your mouth open, this will decrease the pressure inside your nose -To help with the nasal congestion, keep head elevated on two pillows while sleeping and use nasal saline spray as directed in both nostrils -Stay active after surgery but refrain from vigorous activity or heavy lifting. -No lifting > 10 lbs. for two weeks; no strenuous physical activity for 2 weeks -You may need prescription pain medication after surgery for a few days and you will not be allowed to drive while taking this medication -You may have external incisions on your face and you will be given antibiotic ointment when discharged. Use this ointment as directed. Please make sure that your hands are very clean before applying the ointment to the incisions -If you use CPAP for sleep apnea we will direct you how to use or hold that after surgery to allow for healing. Not everyone is allowed to resume use of CPAP after nasal surgery until seen in clinic You will have some drainage from your nose for the first one to two days. Sometimes the drainage goes down your throat instead of our your nostrils. The drainage should stop within three days. The drainage should not be yellow or green and you should not have heavy bleeding from the nose Do not bend over or hang your head down for the first 2-3 weeks. Bend at your knees. This is mainly to prevent drainage from the nose and also it may give increase pressure in the nose if you bend over which will be uncomfortable. Breathe through your mouth as much as you are able. You will struggle to breathe through your nose with the swelling and splints in your nose Cough or sneeze with your mouth open, this will decrease the pressure on your nose Keep head elevated on two pillows-maybe sleep in a recliner for a few nights Use saline nasal spray and pain medication as directed. Call with any questions about medications. No driving while taking narcotics Please watch for any signs of infections: Temperature above 100 F please call Increased tenderness/swelling of nose, yellow or green drainage from nose, a sore throat or a bad taste in your mouth may indicate an infection please call post-op F/U appt. in ENT Clinic on Mar @ 0900am READINESS TO LEARN Barriers: No barriers Participants: Patient Teaching strategy: 1:1, Written Learning needs: preoperative pathway discussed with [place] for scheduled procedure Objectives: Patient/SO correctly states surgery date, time and location -- Yes /SO states understanding of medication instructions -- Yes /SO states understanding of surgical preps N/A states understanding of 2LS-SS/ 2K short stay Not applicable Veteranstates understanding of Admission process Not applicable PRINTED MATERIALS The following perioperative materials were discussed, printed materials given and written preoperative instructions given to patient: Surgery folder with ENT Head & Neck coordinator contact information -- Yes Pre-op Food & Fluid guidelines per anesthesia Instructions and diagram for preop scrubs N/A Medication instructions prior to surgery Materials provided specific to service: ENT Education for surgery scheduled PATIENT/FAMILY RESPONSE(OUTCOME) states understanding and has ENT Head & Neck Coordinator's contact information for follow-up or additional concerns. ADVANCED CARE PLAN: see cover sheet CPRS Total time for this encounter was 75 minutes, of which __55__ minutes were spent in counseling. Also includes chart review, care coordination, education, and follow-up. /aubrie/ Ana Luisa Aquino, BSN, ELECTRICIAN REFINERY Head & Neck Specialty RN Law Office Manager Signed: 02/23/2024 13:11 ANA LUISA AQUINO [facility]
--- OUTSIDE RECORDS SUMMARY | 2024-03-15 20:01 | XMS_ITS | Encounter Summary ---
Author Name [facility] [place] [facility] [place] Address [address] [place] [address] Care Team Providers Care Legal Secretary Name Role Phone TERRY ROTH Primary Care [...] OPERA TING DARIEN EERS Mar 21, 2017 [id number] [phone] BASILIO BRENNAN HN PATIENT BCBS [place] PREFERRED PROVIDER ORGANIZAT ION (PPO) OPERA TING DARIEN EERS Mar 21, 2017 [id number] [phone] BASILIO BRENNAN HN PATIENT CATALYST RX PRESCRIPT ION OPER ENG LOCAL 49 Mar 21, 2017 49ERS [id number] [phone] BASILIO BRENNAN HN PATIENT OPTUM RX PRESCRIPT ION OPER ENG LOCAL 49 Mar 21, 2020 49ERS [id number] [phone] BASILIO BRENNAN HN PATIENT OPTUM RX PRESCRIPT ION OPER ENG LOCAL 49 Mar 21, 2018 [facility] [id number] [phone] MIKA,BASILIO HN PATIENT Selected Encounter This section includes the information on record at [place] for the Encounter. Date/Time Encounter Type Encounter Description Reason Pro vider Source Feb 20, 2024 09:29 AM Outpatient Encounter PRIMARY CARE/MEDICINE IHE Encounter Template Text not used by [place] Plan of Treatment: Future Appointments (+ 6 months) and Future Tests (+/- 45 days) The Plan of Treatment section includes future care activities for the patient from all [place] treatmentfacilities. This section includes future appointments and future orders which are active, pending or scheduled. Future Appointments This section includes appointments that were scheduled to occur 6 months from the date of the Encounter, up to a maximum of 20 appointments. The data comes from all [place] treatment facilities. Appointment Date/Time Appointment Type Appointme nt Facility Name Feb 23, 2024 09:30 AM [facility] [place] [facility] Feb 23, 2024 10:00 AM [facility] Feb 23, 2024 10:30 AM [facility] - SURGERY [facility] Feb 23, 2024 11:00 AM AMBULATORY - SURGERY [facility] Mar 05, 2024 07:45 AM AMBULATORY - SURGERY [facility] Mar 05, 2024 02:00 PM [facility] Apr 11, 2024 07:45 AM AMBULATORY - SURGERY [facility] Lab Results: +/- 30 days of the encounter This section includes the Chemistry and Hematology Lab Results on record with [place] for the patient. Radiology Reports and Pathology Reports are provided separately, in subsequent sections. Lab Results This section contains the Chemistry/Hematology Results that were resulted 30 days before or 30 daysafter the date of the Encounter. Date/Time Source Result Type Result - Unit Interpretation Reference Range Comment Feb 23, 2024 09:18 AM [facility] ACT PART THROMBO TIME Specimen Type: PLASMA Comment: Automated Differential Performed Ordering Provider: DANYELL MAGUIRE Report Released Date/Time: Jun 03, 2023 01:52 PM Reporting Lab: [facility] [id number] Performing Lab: [facility] [phone] APTT 29.2 s 25.1-36.5 Feb 23, 2024 09:18 AM [facility] PROTHROMBIN TIME/INR Specimen Type: PLASMA Comment: Automated Differential Performed Ordering Provider: DANYELL MAGUIRE Report Released Date/Time: Jun 03, 2023 01:52 PM Reporting Lab: [facility] [phone] Performing Lab: [facility] [id number] .INR 1.1 0.8-1.1 .PT 12.5 s 9.4-12.5 Feb 23, 2024 09:18 AM [facility] HEMOGLOBIN A1C Specimen Type: [...] Jun 29, 2023 10:54 AM Reporting Lab: [facility] [phone] Performing Lab: [facility] [address] HEMOGLOBIN A1C 5.3 4.0-6.0 Feb 23, 2024 09:18 AM [facility] BASIC METABOLIC PANEL+MG Specimen Type: PLASMA No comment entered. Ordering Provider: DANYELL MAGUIRE Report Released Date/Time: Jun 03, 2023 01:52 PM Reporting Lab: [facility] [id number] Performing Lab: [facility] [address] CREATININE 1.0 mg/dL 0.7-1.2 UREA NITROGEN 19 mg/dL 8-26 GLUCOSE 100 mg/dL 70-100 SODIUM 140 mmol/L 136-145 POTASSIUM 4.0 mmol/L 3.5-5.1 CHLORIDE 108 mmol/L H 98-107 CO2 25 mmol/L 22-29 CALCIUM 8.8 mg/dL 8.4-10.2 MAGNESIUM 2.1 mg/dL 1.6-2.6 ANION GAP 7 mmol/L 5-15 .CREAT EGFR(CKD-EPI) 85 >60 Feb 23, 2024 09:18 AM [facility] CBC & DIFF Specimen Type: BLOOD Comment: Automated Differential Performed Ordering Provider: DANYELL MAGUIRE Report Released Date/Time: Jun 03, 2023 01:52 PM Reporting Lab: [facility] [phone] Performing Lab: [facility] [phone] WBC 8.4 4.0-11.0 RBC 5.18 4.60-6.20 HGB [...] 0.0 0.0-0.1 Feb 20, 2024 09:01 AM [facility] TSH W/REFLEX TO FREE T4 Specimen Type: PLASMA No comment entered. Ordering Provider: SOPHIA ROTH Report Released Date/Time: Apr 18, 2023 10:42 AM Reporting Lab: [facility] [id number] Performing Lab: [facility] [address] TSH 1.44 u[IU]/mL 0.35-4.94 Feb 20, 2024 09:01 AM [facility] HEMOGLOBIN A1C Specimen Type: [...] Apr 18, 2023 10:42 AM Reporting Lab: [facility] [id number] Performing Lab: [facility] [address] HEMOGLOBIN A1C 5.4 4.0-6.0 Feb 20, 2024 09:01 AM [facility] CBC Specimen Type: BLOOD No comment entered. Ordering Provider: SOPHIA ROTH Report Released Date/Time: Apr 18, 2023 10:42 AM Reporting Lab: [facility] [phone] Performing Lab: [facility] [phone] WBC 7.7 4.0-11.0 RBC 4.99 4.60-6.20 HGB 15.0 g/dL 13.5-17.9 HCT 46.1 41.0-54.0 MCV 92.4 fL 80.0-100.0 MCH 30.1 pg 27.0-33.0 MCHC 32.5 g/dL 32.0-37.5 PLT 235 150-400 MPV 9.3 fL 9.1-13.0 RDW 13.0 11.5-14.5 Feb 20, 2024 09:01 AM [facility] LIPID PANEL,NON-FASTING Specimen Type: PLASMA No comment entered. Ordering Provider: SOPHIA ROTH Report Released Date/Time: Apr 18, 2023 10:42 AM Reporting Lab: [facility] [address] Performing Lab: [facility] [address] CHOLESTEROL 144 mg/dL <199 .HDL 37 mg/dL L >40 LDL CALCULATION 86 mg/dL <99 VLDL CALCULATION 21 mg/dL <29 NON HDL CHOLESTEROL 107 mg/dL <129 TRIG(NON FASTING) 104 mg/dL <149 Feb 20, 2024 09:01 AM [facility] COMPREHENSIVE METABOLIC PANEL+MG Specimen Type: PLASMA No comment entered. Ordering Provider: SOPHIA ROTH Report Released Date/Time: Apr 18, 2023 10:42 AM Reporting Lab: [facility] [address] Performing Lab: [facility] [address] CREATININE 0.9 mg/dL 0.7-1.2 UREA NITROGEN 13 [...] 111/79 16 94 0 [phone] [facility] Social History: Smoking Status (Most current) and Tobacco Use (All prior to encounter date) This section includes the most current, and the historical, smoking and tobacco- related health factors from the [place] facility where the Encounter took place. Current Smoking Status This section includes the most current smoking, or tobacco-related health factor, from the [place] facility where the Encounter took place. Date/Time Current Smoking Status Comment Shante ity Feb 20, 2024 10:00 AM VA-TOBACCO USE FORMER CIGARETTES [facility] Tobacco Use History This section includes a history of the smoking, or tobacco-related health factors, that were collected on or before the date of the Encounter. The data comes from the [place] facility where the Encounter took place. Date/Time Smoking Status/Tobacco Use Comment F acility Feb 20, 2024 10:00 AM VA-TOBACCO USE FOR GURMEET OTHER TYPE 20years a go [facility] Feb 21, 2023 01:30 PM VA-TOBACCO FORMER USER [facility] Feb 21, 2023 01:30 PM VA-TOBACCO QUIT 15 YRS OR MORE [facility] Jun 01, 2021 10:45 AM VA-TOBACCO FORMER USER [facility] Jun 01, 2021 10:45 AM VA-TOBACCO QUIT 15 YRS OR MORE [facility] Jan 23, 2019 01:33 PM VA-TOBACCO FORMER USER [facility] Jan 23, 2019 01:33 PM VA-TOBACCO QUIT 15 YRS OR MORE [facility] May 20, 2017 11:03 AM FORMER TOBACCO USE R 7Y OR GREATER [facility] Mar 12, 2016 09:31 AM FORMER TOBACCO USE R 7Y OR GREATER [facility] Mar 11, 2015 07:54 AM CURRENT TOBACCO USER [facility] Feb 22, 2014 09:51 AM FORMER TOBACCO USE R 7Y OR GREATER [facility] Jan 10, 2008 07:56 AM FORMER TOBACCO USE R 7Y OR GREATER [facility] Advance Directives: All historical and current Section Date Range: From patient's date of to the date document was created. This section includes ALL of a patient's completed or amended [place] Advance and Rescinded Directives. The entries below indicate that a directive exists for the patient, but an actual copy is not included with this document. The data comes from all [place] facilities. Date Advance Directives Provider Source Feb 28, 2006 ADVANCE DIRECTIVE SYDNEY PEÑALOZA [facility] Encounter Notes: All associated encounter notes This section contains the clinical notes associated to the Encounter. Date/Time Encounter Note(s) Provider Source Feb 20, 2024 09:29 AM ADVANCE DIRECTIVE: LOCAL TITLE: AD NOTIFICATION AND SCREENING STANDARD TITLE: ADVANCE DIRECTIVE DATE OF NOTE: FEB 20, 2024@09:29 ENTRY DATE: FEB 20, 2024@09:29:40 AUTHOR: MARIO CORREIA COSIGNER: URGENCY: STATUS: COMPLETED ADVANCE DIRECTIVE NOTIFICATION: I was unable to give the patient written notification of the following rights because: Comment: Patient has AD ADVANCE DIRECTIVE SCREENING: Does patient have an Advance Directive? The patient has an Advance Directive. Does the patient wish to make any changes or revoke their current Advance Directive? No changes requested at this time. /aubrie/ MARIO CORREIA JR., MSA Signed: 02/20/2024 09:30 MARIO CORREIA JR [facility]
--- OUTSIDE RECORDS SUMMARY | 2024-03-15 20:01 | XMS_ITS | Encounter Summary ---
Author Name [facility] [place] [facility] [place] Address [address] [place] [address] Care Team Providers Care Dipper Clock And Watch Hands Name Role Phone TERRY ROTH Primary Care [...] OPERA TING DARIEN EERS Mar 21, 2017 [id number] [phone] BASILIO BRENNAN HN PATIENT [place] PREFERRED PROVIDER ORGANIZAT ION (PPO) OPERA TING DARIEN EERS Mar 21, 2017 [id number] [phone] BASILIO BRENNAN HN PATIENT CATALYST RX PRESCRIPT ION OPER ENG LOCAL 49 Mar 21, 2017 [facility] [id number] BASILIO BRENNAN HN PATIENT OPTUM RX PRESCRIPT ION OPER ENG LOCAL 49 Mar 21, 2020 49[facility] [id number] [phone] BASILIO BRENNAN HN PATIENT OPTUM RX PRESCRIPT ION OPER ENG LOCAL 49 Mar 21, 2018 [facility] [id number] [phone] MIKA,BASILIO HN PATIENT Selected Encounter This section includes the information on record at [place] for the Encounter. Date/Time Encounter Type Encounter Description Reason Pro vider Source Feb 28, 2024 10:36 AM Outpatient Encounter TELEPHONE/SURGERY IHE Encounter Template Text not used by [place] Plan of Treatment: Future Appointments (+ 6 months) and Future Tests (+/- 45 days) The Plan of Treatment section includes future care activities for the patient from all [place] treatmentfacilities. This section includes future appointments and [...] 05, 2024 07:45 AM AMBULATORY - SURGERY [facility] Mar 05, 2024 02:00 PM AMBULATORY - PSYCHIATRY [facility] Apr 11, 2024 07:45 AM AMBULATORY - SURGERY [facility] Lab Results: +/- 30 days of the encounter This section includes the Chemistry and Hematology Lab Results on record with [place] for the patient. Radiology Reports and Pathology Reports are provided separately, in subsequent sections. Lab Results This section contains the Chemistry/Hematology Results that were resulted 30 days before or 30 daysafter the date of the Encounter. Date/Time Source Result Type Result - Unit Interpretation Reference Range Comment Feb 23, 2024 09:18 AM [facility] ACT PART THROMBO TIME Specimen Type: PLASMA Comment: Automated Differential Performed Ordering Provider: DANYELL MAGUIRE Report Released Date/Time: Jun 03, 2023 01:52 PM Reporting Lab: [facility] [id number] Performing Lab: [facility] [address] APTT 29.2 s 25.1-36.5 Feb 23, 2024 09:18 AM [facility] PROTHROMBIN TIME/INR Specimen Type: PLASMA Comment: Automated Differential Performed Ordering Provider: DANYELL MAGUIRE Report Released Date/Time: Jun 03, 2023 01:52 PM Reporting Lab: [facility] [id number] Performing Lab: [facility] [address] .INR 1.1 0.8-1.1 .PT 12.5 s 9.4-12.5 Feb 23, 2024 09:18 AM [facility] HEMOGLOBIN A1C Specimen Type: BLOOD Comment: [...] Jun 29, 2023 10:54 AM Reporting Lab: [facility] [phone] Performing Lab: [facility] [address] HEMOGLOBIN A1C 5.3 4.0-6.0 Feb 23, 2024 09:18 AM [facility] BASIC METABOLIC PANEL+MG Specimen Type: PLASMA No comment entered. Ordering Provider: DANYELL MAGUIRE Report Released Date/Time: Jun 03, 2023 01:52 PM Reporting Lab: [facility] [phone] Performing Lab: [facility] [address] CREATININE 1.0 mg/dL 0.7-1.2 UREA NITROGEN 19 mg/dL 8-26 GLUCOSE 100 mg/dL 70-100 SODIUM 140 mmol/L 136-145 POTASSIUM 4.0 mmol/L 3.5-5.1 CHLORIDE 108 mmol/L H 98-107 CO2 25 mmol/L 22-29 CALCIUM 8.8 mg/dL 8.4-10.2 MAGNESIUM 2.1 mg/dL 1.6-2.6 ANION GAP 7 mmol/L 5-15 .CREAT EGFR(CKD-EPI) 85 >60 Feb 23, 2024 09:18 AM [facility] CBC & DIFF Specimen Type: BLOOD Comment: Automated Differential Performed Ordering Provider: DANYELL MAGUIRE Report Released Date/Time: Jun 03, 2023 01:52 PM Reporting Lab: [facility] [address] Performing Lab: [facility] [address] WBC 8.4 4.0-11.0 RBC 5.18 4.60-6.20 HGB [...] 0.0 0.0-0.1 Feb 20, 2024 09:01 AM [facility] TSH W/REFLEX TO FREE T4 Specimen Type: PLASMA No comment entered. Ordering Provider: SOPHIA ROTH Report Released Date/Time: Apr 18, 2023 10:42 AM Reporting Lab: [facility] [address] Performing Lab: [facility] [address] TSH 1.44 u[IU]/mL 0.35-4.94 Feb 20, 2024 09:01 AM [facility] HEMOGLOBIN A1C Specimen Type: BLOOD Comment: [...] Apr 18, 2023 10:42 AM Reporting Lab: [facility] [address] Performing Lab: [facility] [address] HEMOGLOBIN A1C 5.4 4.0-6.0 Feb 20, 2024 09:01 AM [facility] CBC Specimen Type: BLOOD No comment entered. Ordering Provider: SOPHIA ROTH Report Released Date/Time: Apr 18, 2023 10:42 AM Reporting Lab: [facility] [address] Performing Lab: [facility] [address] WBC 7.7 4.0-11.0 RBC 4.99 4.60-6.20 HGB 15.0 g/dL 13.5-17.9 HCT 46.1 41.0-54.0 MCV 92.4 fL 80.0-100.0 MCH 30.1 pg 27.0-33.0 MCHC 32.5 g/dL 32.0-37.5 PLT 235 150-400 MPV 9.3 fL 9.1-13.0 RDW 13.0 11.5-14.5 Feb 20, 2024 09:01 AM [facility] LIPID PANEL,NON-FASTING Specimen Type: PLASMA No comment entered. Ordering Provider: SOPHIA ROTH Report Released Date/Time: Apr 18, 2023 10:42 AM Reporting Lab: [facility] [address] Performing Lab: [facility] [address] CHOLESTEROL 144 mg/dL <199 .HDL 37 mg/dL L >40 LDL CALCULATION 86 mg/dL <99 VLDL CALCULATION 21 mg/dL <29 NON HDL CHOLESTEROL 107 mg/dL <129 TRIG(NON FASTING) 104 mg/dL <149 Feb 20, 2024 09:01 AM [facility] COMPREHENSIVE METABOLIC PANEL+MG Specimen Type: PLASMA No comment entered. Ordering Provider: SOPHIA ROTH Report Released Date/Time: Apr 18, 2023 10:42 AM Reporting Lab: [facility] [id number] Performing Lab: [facility] [address] CREATININE 0.9 mg/dL 0.7-1.2 UREA NITROGEN 13 [...] 2024 10:00 AM VA-TOBACCO USE FORMER CIGARETTES [facility] Tobacco Use History This section includes a history of the smoking, or tobacco-related health factors, that were collected on or before the date of the Encounter. The data comes from the [place] facility where the Encounter took place. Date/Time Smoking Status/Tobacco Use Comment F acility Feb 20, 2024 10:00 AM VA-TOBACCO USE FOR GURMEET OTHER TYPE 20years a go [facility] Feb 21, 2023 01:30 PM VA-TOBACCO FORMER USER [facility] Feb 21, 2023 01:30 PM VA-TOBACCO QUIT 15 YRS OR MORE [facility] Jun 01, 2021 10:45 AM VA-TOBACCO FORMER USER [facility] Jun 01, 2021 10:45 AM VA-TOBACCO QUIT 15 YRS OR MORE [facility] Jan 23, 2019 01:33 PM VA-TOBACCO FORMER USER [facility] Jan 23, 2019 01:33 PM VA-TOBACCO QUIT 15 YRS OR MORE [facility] May 20, 2017 11:03 AM FORMER TOBACCO USE R 7Y OR GREATER [facility] Mar 12, 2016 09:31 AM FORMER TOBACCO USE R 7Y OR GREATER [facility] Mar 11, 2015 07:54 AM CURRENT TOBACCO USER [facility] Feb 22, 2014 09:51 AM FORMER TOBACCO USE R 7Y OR GREATER [facility] Jan 10, 2008 07:56 AM FORMER TOBACCO USE R 7Y OR GREATER [facility] Advance Directives: All historical and current [...] Feb 28, 2006 ADVANCE DIRECTIVE SYDNEY PEÑALOZA [facility] Encounter Notes: All associated encounter notes This section contains the clinical notes associated to the Encounter. Date/Time Encounter Note(s) Provider Source Feb 28, 2024 10:36 AM SURGERY CASE MANAG ER NOTE: LOCAL TITLE: SURGERY COORDINATOR NOTE STANDARD TITLE: SURGERY FUR POLISHER NOTE DATE OF NOTE: FEB 28, 2024@10:36 ENTRY DATE: FEB 28, 2024@10:36:25 AUTHOR: PERRI AQUINO EXP COSIGNER: URGENCY: STATUS: COMPLETED Phone call to with no answer,left Hippa compliant voicemail with ENT Head & Neck RN Coordinator's contact information,requesting a return call. /aubrie/ ZARIA Irvin, PATIENT ACCESS REGISTRAR Head & Neck Specialty RN [place] [employer] [place] Signed: 02/28/2024 10:36 PERRI AQUINO [facility]
--- OUTSIDE RECORDS SUMMARY | 2024-03-15 20:01 | XMS_ITS | Encounter Summary ---
Author Name [facility] [place] [facility] [place] Address [address] [place] [address] Care Team Providers Care Wound Nurse Name Role Phone TERRY ROTH Primary Care [...] OPERA TING DARIEN EERS Mar 21, 2017 [id number] [phone] BASILIO BRENNAN HN PATIENT [place] PREFERRED PROVIDER ORGANIZAT ION (PPO) OPERA TING DARIEN EERS Mar 21, 2017 [id number] [phone] BASILIO BRENNAN HN PATIENT CATALYST RX PRESCRIPT ION OPER ENG LOCAL 49 Mar 21, 2017 [facility] [id number] [phone] BASILIO BRENNAN HN PATIENT OPTUM RX PRESCRIPT ION OPER ENG LOCAL 49 Mar 21, 2020 [facility] [id number] [phone] BASILIO BRENNAN HN PATIENT OPTUM RX PRESCRIPT ION OPER ENG LOCAL 49 Mar 21, 2018 [facility] [id number] [phone] MIKA,BASILIO HN PATIENT Selected Encounter This section includes the information on record at [place] for the Encounter. Date/Time Encounter Type Encounter Description Reason Pro vider Source Jan 13, 2024 12:00 AM Outpatient Encounter EVENT (HISTORICAL) IHE Encounter Template Text not used by [place] Plan of Treatment: Future Appointments (+ 6 months) and Future Tests (+/- 45 days) The Plan of Treatment section includes future care activities for the patient from all [place] treatmentfacilities. This section includes future appointments and future orders which are active, pending or scheduled. Future Appointments This section includes appointments that were scheduled to occur 6 months from the date of the Encounter, up to a maximum of 20 appointments. The data comes from all [place] treatment facilities. Appointment Date/Time Appointment Type Appointme nt Facility Name Feb 20, 2024 09:00 AM AMBULATORY - NONE [facility] Feb 20, 2024 10:00 AM AMBULATORY - MEDICINE [facility] Feb 23, 2024 09:30 AM AMBULATORY - NONE [facility] Feb 23, 2024 10:00 AM AMBULATORY - MEDICINE [facility] Feb 23, 2024 10:30 AM AMBULATORY - SURGERY [facility] Feb 23, 2024 11:00 AM AMBULATORY - SURGERY [facility] Mar 05, 2024 07:45 AM AMBULATORY - SURGERY [facility] Mar 05, 2024 02:00 PM AMBULATORY - PSYCHIATRY [facility] Apr 11, 2024 07:45 AM AMBULATORY - SURGERY [facility] Immunizations: All administered on the encounter date This section contains immunizations associated to the Encounter. Immunization Series Date Issued Reaction Comments COVID-19 (MODERNA), MRNA, LN P-S, PF, 50 MCG/0.5 ML (AGES 12+ YEARS) Jan 13, 2024 INFLUENZA, SPLIT VIRUS, TRIVALENT, PF Jan 12, 2 024 Social History: Smoking Status (Most current) and Tobacco Use (All prior to encounter date) This section includes the most current, and the historical, smoking and tobacco- related health factors from the [place] facility where the Encounter took place. Current Smoking Status This section includes the most current smoking, or tobacco-related health factor, from the [place] facility where the Encounter took place. Date/Time Current Smoking Status Pauly yepez Feb 21, 2023 01:30 PM VA-TOBACCO FORMER USER [facility] Tobacco Use History This section includes a history of the smoking, or tobacco-related health factors, that were collected on or before the date of the Encounter. The data comes from the [place] facility where the Encounter took place. Date/Time Smoking Status/Tobacco Use Comment F acility Feb 21, 2023 01:30 PM VA-TOBACCO QUIT 15 YRS OR MORE [facility] Jun 01, 2021 10:45 AM VA-TOBACCO FORMER USER [facility] Jun 01, 2021 10:45 AM VA-TOBACCO QUIT 15 YRS OR MORE [facility] Jan 23, 2019 01:33 PM VA-TOBACCO FORMER USER [facility] Jan 23, 2019 01:33 PM OR-TOBACCO QUIT 15 YRS OR MORE [facility] May 20, 2017 11:03 AM FORMER TOBACCO USER 7Y OR GREATE R [facility] Mar 12, 2016 09:31 AM FORMER TOBACCO USER 7Y OR GREATE R [facility] Mar 11, 2015 07:54 AM CURRENT TOBACCO USER [facility] Feb 22, 2014 09:51 AM FORMER TOBACCO USER 7Y OR GREATE R [facility] Jan 10, 2008 07:56 AM FORMER TOBACCO USER 7Y OR GREATE R [facility] Advance Directives: All historical and current Section Date Range: From patient's date of to the date document was created. This section includes ALL of a patient's completed or amended [place] Advance and Rescinded Directives. The entries below indicate that a directive exists for the patient, but an actual copy is not included with this document. The data comes from all [facility]. Date Advance Directives Provider Source Feb 28, 2006 ADVANCE DIRECTIVE SYDNEY PEÑALOZA [facility]
--- OUTSIDE RECORDS SUMMARY | 2024-03-15 20:01 | XMS_ITS | Encounter Summary ---
Author Name [facility] [place] [facility] [place] Address [address] [place] [address] Care Team Providers Care Supervisor Housecleaner Name Role Phone TERRY ROTH Primary Care [...] OPERA TING DARIEN EERS Mar 21, 2017 [id number] [phone] BASILIO BRENNAN HN PATIENT [place] PREFERRED PROVIDER ORGANIZAT ION (PPO) OPERA TING DARIEN EERS Mar 21, 2017 [id number] [phone] BASILIO BRENNAN HN PATIENT CATALYST RX PRESCRIPT ION OPER ENG LOCAL 49 Mar 21, 2017 49ERS [id number] BASILIO BRENNAN HN PATIENT OPTUM RX PRESCRIPT ION OPER ENG LOCAL 49 Mar 21, 2020 49ERS [id number] [phone] BASILIO BRENNAN HN PATIENT OPTUM RX PRESCRIPT ION OPER ENG LOCAL 49 Mar 21, 2018 49ERS [id number] [phone] BASILIO BRENNAN HN PATIENT Selected Encounter This section includes the information on record at [place] for the Encounter. Date/Time Encounter Type Encounter Description Reason Provider Source Mar 05, 2024 07:45 AM HEARING AID FITTING/CHECKING AUDIOLOGY ICD-10-CM Z01.118 Encntr for exam of ears and hearing w oth abnormal findings [facility] Encounter Template Text not used by [place] Assessments - Encounter Diagnoses This section includes the primary and secondary diagnoses documented for the Encounter. Date/Time Primary/Secondary Diagnosis Diagnosis Name Provider Source Mar 05, 2024 08:28 AM PRIMARY Encntr for exam of ears and hearing w oth abnormal findings ARELIS MORTENSENN [facility] Mar 05, 2024 08:28 AM SECONDARY Encounter for fitting and adjustment of hearing aid ARELIS MORTENSENN [facility] Mar 05, 2024 08:28 AM SECONDARY Sensorineural hearing loss, bilateral BALBINAARELIS MCDANIELSN [facility] Mar 05, 2024 08:28 AM SECONDARY Tinnitus, bilateral BALBINAARELIS [facility] Plan of Treatment: Future Appointments (+ 6 months) and Future Tests (+/- 45 days) The Plan of Treatment section includes future care activities for the [facility] [place] [facility] This section includes future appointments and [...] 11, 2024 07:45 AM AMBULATORY - SURGERY [facility] Lab Results: +/- 30 days of [...] Range Comment Feb 23, 2024 09:18 AM [facility] ACT PART THROMBO TIME Specimen Type: PLASMA Comment: Automated Differential Performed Ordering Provider: DANYELL MAGUIRE Report Released Date/Time: Jun 03, 2023 01:52 PM Reporting Lab: [facility] [address] Performing Lab: [facility] [address] APTT 29.2 s 25.1-36.5 Feb 23, 2024 09:18 AM [facility] PROTHROMBIN TIME/INR Specimen Type: PLASMA Comment: Automated Differential Performed Ordering Provider: DANYELL MAGUIRE Report Released Date/Time: Jun 03, 2023 01:52 PM Reporting Lab: [facility] [address] Performing Lab: [facility] [address] .INR 1.1 0.8-1.1 .PT 12.5 s 9.4-12.5 Feb 23, 2024 09:18 AM [facility] HEMOGLOBIN A1C Specimen Type: [...] Jun 29, 2023 10:54 AM Reporting Lab: [facility] [address] Performing Lab: [facility] [address] HEMOGLOBIN A1C 5.3 4.0-6.0 Feb 23, 2024 09:18 AM [facility] BASIC METABOLIC PANEL+MG Specimen Type: PLASMA No comment entered. Ordering Provider: DANYELL MAGUIRE Report Released Date/Time: Jun 03, 2023 01:52 PM Reporting Lab: [facility] [address] Performing Lab: [facility] [address] CREATININE 1.0 mg/dL 0.7-1.2 UREA NITROGEN 19 mg/dL 8-26 GLUCOSE 100 mg/dL 70-100 SODIUM 140 mmol/L 136-145 POTASSIUM 4.0 mmol/L 3.5-5.1 CHLORIDE 108 mmol/L H 98-107 CO2 25 mmol/L 22-29 CALCIUM 8.8 mg/dL 8.4-10.2 MAGNESIUM 2.1 mg/dL 1.6-2.6 ANION GAP 7 mmol/L 5-15 .CREAT EGFR(CKD-EPI) 85 >60 Feb 23, 2024 09:18 AM [facility] CBC & DIFF Specimen Type: BLOOD Comment: Automated Differential Performed Ordering Provider: DANYELL MAGUIRE Report Released Date/Time: Jun 03, 2023 01:52 PM Reporting Lab: [facility] [address] Performing Lab: [facility] [address] WBC 8.4 4.0-11.0 RBC 5.18 4.60-6.20 HGB [...] 0.0 0.0-0.1 Feb 20, 2024 09:01 AM [facility] TSH W/REFLEX TO FREE T4 Specimen Type: PLASMA No comment entered. Ordering Provider: SOPHIA ROTH Report Released Date/Time: Apr 18, 2023 10:42 AM Reporting Lab: [facility] [address] Performing Lab: [facility] [address] TSH 1.44 u[IU]/mL 0.35-4.94 Feb 20, 2024 09:01 AM [facility] HEMOGLOBIN A1C Specimen Type: [...] Apr 18, 2023 10:42 AM Reporting Lab: [facility] [address] Performing Lab: [facility] [address] HEMOGLOBIN A1C 5.4 4.0-6.0 Feb 20, 2024 09:01 AM [facility] LIPID PANEL,NON-FASTING Specimen Type: PLASMA No comment entered. Ordering Provider: SOPHIA ROTH Report Released Date/Time: Apr 18, 2023 10:42 AM Reporting Lab: [facility] [address] Performing Lab: [facility] [address] CHOLESTEROL 144 mg/dL <199 .HDL 37 mg/dL L >40 LDL CALCULATION 86 mg/dL <99 VLDL CALCULATION 21 mg/dL <29 NON HDL CHOLESTEROL 107 mg/dL <129 TRIG(NON FASTING) 104 mg/dL <149 Feb 20, 2024 09:01 AM [facility] CBC Specimen Type: BLOOD No comment entered. Ordering Provider: SOPHIA ROTH Report Released Date/Time: Apr 18, 2023 10:42 AM Reporting Lab: [facility] [address] Performing Lab: [facility] [address] WBC 7.7 4.0-11.0 RBC 4.99 4.60-6.20 HGB 15.0 g/dL 13.5-17.9 HCT 46.1 41.0-54.0 MCV 92.4 fL 80.0-100.0 MCH 30.1 pg 27.0-33.0 MCHC 32.5 g/dL 32.0-37.5 PLT 235 150-400 MPV 9.3 fL 9.1-13.0 RDW 13.0 11.5-14.5 Feb 20, 2024 09:01 AM [facility] COMPREHENSIVE METABOLIC PANEL+MG Specimen Type: PLASMA No comment entered. Ordering Provider: SOPHIA ROTH Report Released Date/Time: Apr 18, 2023 10:42 AM Reporting Lab: [facility] [address] [facility] [address] Performing Lab: [facility] [address] [facility] [address] CREATININE 0.9 mg/dL 0.7-1.2 UREA NITROGEN 13 [...] 2024 10:00 AM VA-TOBACCO USE FORMER CIGARETTES [facility] Tobacco Use History This section includes a history of the smoking, or tobacco-related health factors, that were collected on or before the date of the Encounter. The data comes from the [place] facility where the Encounter took place. Date/Time Smoking Status/Tobacco Use Comment F acility Feb 20, 2024 10:00 AM VA-TOBACCO USE FOR GURMEET OTHER TYPE 20years a go [facility] Feb 21, 2023 01:30 PM VA-TOBACCO FORMER USER [facility] Feb 21, 2023 01:30 PM VA-TOBACCO QUIT 15 YRS OR MORE [facility] Jun 01, 2021 10:45 AM VA-TOBACCO FORMER USER [facility] Jun 01, 2021 10:45 AM VA-TOBACCO QUIT 15 YRS OR MORE [facility] Jan 23, 2019 01:33 PM VA-TOBACCO FORMER USER [facility] Jan 23, 2019 01:33 PM VA-TOBACCO QUIT 15 YRS OR MORE [facility] May 20, 2017 11:03 AM FORMER TOBACCO USE R 7Y OR GREATER [facility] Mar 12, 2016 09:31 AM FORMER TOBACCO USE R 7Y OR GREATER [facility] Mar 11, 2015 07:54 AM CURRENT TOBACCO USER [facility] Feb 22, 2014 09:51 AM FORMER TOBACCO USE R 7Y OR GREATER [facility] Jan 10, 2008 07:56 AM FORMER TOBACCO USE R 7Y OR GREATER [facility] Advance Directives: All historical and current Section Date Range: From patient's date of to the date document was created. This section includes ALL of a patient's completed or amended [place] Advance and Rescinded Directives. The entries below indicate that a directive exists for the patient, but an actual copy is not included with this document. The data comes from all [facility]. Date Advance Directives Provider Source Feb 28, 2006 ADVANCE DIRECTIVE SYDNEY PEÑALOZA [facility] Encounter Notes: All associated encounter notes This section contains the clinical notes associated to the Encounter. Date/Time Encounter Note(s) Provider Source Mar 05, 2024 07:11 AM AUDIOLOGY NOTE: LOCAL TITLE: AUDIOLOGY CLINIC NOTE STANDARD TITLE: AUDIOLOGY NOTE DATE OF NOTE: MAR 05, 2024@07:11 ENTRY DATE: MAR 05, 2024@07:11:52 AUTHOR: ARELIS MORTENSEN EXP COSIGNER: URGENCY: STATUS: COMPLETED SUBJECT: HAE DIAGNOSIS: Encounter for examination of ears and hearing Bilateral Sensorineural Hearing Loss Bilateral Tinnitus REASON FOR VISIT: THERAPEUTIC:HEARING AID EVALUATION, 60 minutes: was seen in the clinic today for a hearing evaluation, tympanometry, hearing aid selection/2 ears, hearing aid repair/modification x2, and hearing aid programming. The was last seen in this clinic on 04/18/2023. The is Service Connected for Hearing Loss/Tinnitus. was unaccompanied. The wears the following hearing aids: HEARING AIDS: Hearing aid-right; Date Fit: Aug Make: Resound Model: Linx Quattro TS 61 Style: Mini VOI-R Serial #: [id number] Lace Weaver/Slim Tube Size: 3 LP Dome/Earmold: medium open Hearing aid-left; Date Fit: Aug Make: Resound Model: Linx Quattro TS 61 Style: Mini [facility]- Serial #: [id number] Lace Weaver/Slim Tube Size: 3 LP Dome/Earmold: medium open ACCESSORIES: Prognomix soni HEALTH HISTORY: Hearing loss, both ears: gradual Tinnitus: Both ears: intermittent Sound Sensitivity: Yes, to high frequencies Wade's reported hearing concerns: TV PROCEDURES: OTOSCOPY Bilaterally: Free of excessive cerumen. Normal appearing TM's and canals. TYMPANOMETRY: RIGHT EAR: Type: As Pressure: Normal Compliance: Shallow (0.19 mmhos) Volume: Normal LEFT EAR: Type: A Pressure: Normal Compliance: Normal Volume: Normal AUDIOMETRICS: Air conduction, Bone conduction, Speech testing Transducer: Circumaural headphones Reliability: good RIGHT EAR (Hz) 250 942 535 5460 1500 2000 3000 4000 6000 8000 Air: see Audiogram display under Tools->Audiology->ROES or see RYAN database. Bone: see Audiogram display under Tools->Audiology->ROES or see RYAN database. LEFT EAR (Hz) 250 921 812 0142 1500 2000 3000 4000 6000 8000 Air: see Audiogram display under Tools->Audiology->ROES or see RYAN database. Bone: see Audiogram display under Tools->Audiology->ROES or see RYAN database. - All thresholds are in dB HL * = Masked Threshold WORD RECOGNITION: Recorded/NU-6 word list Right Ear: 100% Level: 65* dB Left Ear: 96% Level: 65* dB SUMMARY: RIGHT EAR: Normal hearing from 250-2000 Hz, sloping to a moderate notched high frequency sensorineural hearing loss from 5536-9012 Hz with normal speech comprehension. Tympanometry reflects reduced tympanic membrane mobility. LEFT EAR: Normal hearing from 250-2000 Hz, sloping from a moderate to severe sensorineural hearing loss from 4864-0471 Hz with normal speech comprehension. Tympanometry reflects normal tympanic membrane mobility. AMPLIFICATION: - Wade is a good candidate for hearing aid use. - Wade was counseled on their type, degree and configuration of hearing loss. - The 's hearing loss has progressed currently to the extent that it affects full participation in the provision of health care as noted today in our discussions. Hearing aids are medically indicated to treat the 's auditory conditions. - Different styles/technologies were reviewed with consideration given to 's listening situations and lifestyle needs. - The Wade has good vision, memory, and dexterity for hearing aid use. - counseled on realistic expectations associated with adjusting to hearing aids, use of the devices, VA procedures and trial period. - counseled on effective communication strategies such as maintaining face to face contact when speaking, eliminating background noise when possible and talking at a close distance. - counseled on tinnitus, its physiologic basis, potential triggers, and treatment options/management strategies such as using a fan at night, avoiding silence, and trying to habituate to the sound. - Wade counseled on hearing protection in noise. - Hearing aids ordered: Resound Nexia 60 micro - R, espresso, size 3 LP, medium open domes, sport locks, Smart 3D soni - Accessories ordered: none at this time HEARING AID REPAIR/MODIFICATION (x2): (Serial #:[id number]) - Both hearing aids are cleaned and checked today. - Wax filters and microphone ports are significantly plugged. - Size 3LP receivers were replaced, AU. Domes and sport locks were also replaced. - Microphone ports were suctioned/brushed to remove debris. - After this, listening check confirms both aids are working well. HEARING AID REPROGRAMMING: (Serial #: [id number]) - Both hearing aids are connected to the fitting software today. - Acoustic parameters verified. - Hearing aids are reprogrammed based on prescriptive targets derived from the results of today's hearing evaluation. - Feedback calibration is ran. - reports the hearing aids sound clear and comfortable after these changes. PLAN: - Wade will be scheduled for a 60-minute hearing aid fitting appointment. - Monitor hearing annually for increase in asymmetry of hearing loss and/or word recognition scores. If otologic symptoms arise or asymmetry increases, ENT referral may be warranted at this time. - Regular follow up recommended to monitor for changes in hearing, or as medically indicated. - Wade is in agreement with this plan. /aubrie/ KYLER MCDERMOTT STAFF OR MANAGER Signed: 03/05/2024 08:28 ARELIS MORTENSEN [facility]
--- OUTSIDE RECORDS SUMMARY | 2024-03-15 20:01 | XMS_ITS | Encounter Summary ---
Author Name [facility] [place] [facility] [place] Address [address] [place] [address] Care Team Providers Care Data Communications Analyst Name Role Phone TERRY ROTH Primary Care [...] OPERA TING DARIEN EERS Mar 21, 2017 [id number] [phone] BASILIO BRENNAN HN PATIENT [place] PREFERRED PROVIDER ORGANIZAT ION (PPO) OPERA TING DARIEN EERS Mar 21, 2017 [id number] [phone] BASILIO BRENNAN HN PATIENT CATALYST RX PRESCRIPT ION OPER ENG LOCAL 49 Mar 21, 2017 49ERS [id number] BASILIO BRENNAN HN PATIENT OPTUM RX PRESCRIPT ION OPER ENG LOCAL 49 Mar 21, 2020 49ERS [id number] [phone] BASILIO BRENNAN HN PATIENT OPTUM RX PRESCRIPT ION OPER ENG LOCAL 49 Mar 21, 2018 49ERS [id number] [phone] MIKA,BASILIO HN PATIENT Selected Encounter This section includes the information on record at [place] for the Encounter. Date/Time Encounter Type Encounter Description Reason Pro vider Source Feb 28, 2024 08:51 AM Outpatient Encounter TELEPHONE/SURGERY I[facility] Encounter Template Text not used by [place] Plan of Treatment: Future Appointments (+ 6 months) and Future Tests (+/- 45 days) The Plan of Treatment section includes future care activities for the patient from all [place] treatmentfacilities. This section includes future appointments and future orders which are active, pending or scheduled. Future Appointments This section includes appointments that were scheduled to occur 6 months from the date of the Encounter, up to a maximum of 20 appointments. The data comes from all [place] treatment facilities. Appointment Date/Time Appointment Type Appointme nt Facility Name Mar 05, 2024 07:45 AM AMBULATORY - SURGERY [facility] Mar 05, 2024 02:00 PM AMBULATORY - PSYCHIATRY [facility] Apr 11, 2024 07:45 AM AMBULATORY - SURGERY [facility] Lab Results: +/- 30 days of the encounter This section includes the Chemistry and Hematology Lab Results on record with [place] for the patient. Radiology Reports and Pathology Reports are provided separately, in subsequent sections. Lab Results This section contains the Chemistry/Hematology Results that were resulted 30 days before or 30 daysafter the date of the Encounter. Date/Time Source Result Type Result - Unit Interpretation Reference Range Comment Feb 23, 2024 09:18 AM [facility] ACT PART THROMBO TIME Specimen Type: PLASMA Comment: Automated Differential Performed Ordering Provider: DANYELL MAGUIRE Report Released Date/Time: Jun 03, 2023 01:52 PM Reporting Lab: [facility] [address] Performing Lab: [facility] [address] APTT 29.2 s 25.1-36.5 Feb 23, 2024 09:18 AM [facility] PROTHROMBIN TIME/INR Specimen Type: PLASMA Comment: Automated Differential Performed Ordering Provider: DANYELL MAGUIRE Report Released Date/Time: Jun 03, 2023 01:52 PM Reporting Lab: [facility] [address] Performing Lab: [facility] [address] .INR 1.1 0.8-1.1 .PT 12.5 s 9.4-12.5 Feb 23, 2024 09:18 AM [facility] HEMOGLOBIN A1C Specimen Type: [...] Jun 29, 2023 10:54 AM Reporting Lab: [facility] [address] Performing Lab: [facility] [address] HEMOGLOBIN A1C 5.3 4.0-6.0 Feb 23, 2024 09:18 AM [facility] BASIC METABOLIC PANEL+MG Specimen Type: PLASMA No comment entered. Ordering Provider: DANYELL MAGUIRE Report Released Date/Time: Jun 03, 2023 01:52 PM Reporting Lab: [facility] [address] Performing Lab: [facility] [address] CREATININE 1.0 mg/dL 0.7-1.2 UREA NITROGEN 19 mg/dL 8-26 GLUCOSE 100 mg/dL 70-100 SODIUM 140 mmol/L 136-145 POTASSIUM 4.0 mmol/L 3.5-5.1 CHLORIDE 108 mmol/L H 98-107 CO2 25 mmol/L 22-29 CALCIUM 8.8 mg/dL 8.4-10.2 MAGNESIUM 2.1 mg/dL 1.6-2.6 ANION GAP 7 mmol/L 5-15 .CREAT EGFR(CKD-EPI) 85 >60 Feb 23, 2024 09:18 AM [facility] CBC & DIFF Specimen Type: BLOOD Comment: Automated Differential Performed Ordering Provider: DANYELL MAGUIRE Report Released Date/Time: Jun 03, 2023 01:52 PM Reporting Lab: [facility] [address] Performing Lab: [facility] [address] WBC 8.4 4.0-11.0 RBC 5.18 4.60-6.20 HGB [...] 0.0 0.0-0.1 Feb 20, 2024 09:01 AM [facility] TSH W/REFLEX TO FREE T4 Specimen Type: PLASMA No comment entered. Ordering Provider: SOPHIA ROTH Report Released Date/Time: Apr 18, 2023 10:42 AM Reporting Lab: [facility] [address] Performing Lab: [facility] [address] TSH 1.44 u[IU]/mL 0.35-4.94 Feb 20, 2024 09:01 AM [facility] HEMOGLOBIN A1C Specimen Type: [...] Apr 18, 2023 10:42 AM Reporting Lab: [facility] [address] Performing Lab: [facility] [address] HEMOGLOBIN A1C 5.4 4.0-6.0 Feb 20, 2024 09:01 AM [facility] LIPID PANEL,NON-FASTING Specimen Type: PLASMA No comment entered. Ordering Provider: SOPHIA ROTH Report Released Date/Time: Apr 18, 2023 10:42 AM Reporting Lab: [facility] [address] Performing Lab: [facility] [address] CHOLESTEROL 144 mg/dL <199 .HDL 37 mg/dL L >40 LDL CALCULATION 86 mg/dL <99 VLDL CALCULATION 21 mg/dL <29 NON HDL CHOLESTEROL 107 mg/dL <129 TRIG(NON FASTING) 104 mg/dL <149 Feb 20, 2024 09:01 AM [facility] CBC Specimen Type: BLOOD No comment entered. Ordering Provider: SOPHIA ROTH Report Released Date/Time: Apr 18, 2023 10:42 AM Reporting Lab: [facility] [address] Performing Lab: [facility] [address] WBC 7.7 4.0-11.0 RBC 4.99 4.60-6.20 HGB 15.0 g/dL 13.5-17.9 HCT 46.1 41.0-54.0 MCV 92.4 fL 80.0-100.0 MCH 30.1 pg 27.0-33.0 MCHC 32.5 g/dL 32.0-37.5 PLT 235 150-400 MPV 9.3 fL 9.1-13.0 RDW 13.0 11.5-14.5 Feb 20, 2024 09:01 AM [facility] COMPREHENSIVE METABOLIC PANEL+MG Specimen Type: PLASMA No comment entered. Ordering Provider: SOPHIA ROTH Report Released Date/Time: Apr 18, 2023 10:42 AM Reporting Lab: [facility] [address] Performing Lab: [facility] [address] CREATININE 0.9 mg/dL 0.7-1.2 UREA NITROGEN 13 [...] and tobacco- related health factors from the [place] facility where the Encounter took place. Current Smoking Status This section includes the most current smoking, or tobacco-related health factor, from the [place] facility where the Encounter took place. Date/Time Current Smoking Status Comment Facil ity Feb 20, 2024 10:00 AM VA-TOBACCO USE FORMER CIGARETTES [facility] Tobacco Use History This section includes a history of the smoking, or tobacco-related health factors, that were collected on or before the date of the Encounter. The data comes from the [place] facility where the Encounter took place. Date/Time Smoking Status/Tobacco Use Comment F acility Feb 20, 2024 10:00 AM VA-TOBACCO USE FOR GURMEET OTHER TYPE 20years a go [facility] Feb 21, 2023 01:30 PM VA-TOBACCO FORMER USER [facility] Feb 21, 2023 01:30 PM VA-TOBACCO [...] FORMER TOBACCO USE R 7Y OR GREATER [facility] Mar 12, 2016 09:31 AM FORMER TOBACCO USE R 7Y OR GREATER [facility] Mar 11, 2015 07:54 AM CURRENT TOBACCO USER [facility] Feb 22, 2014 09:51 AM FORMER TOBACCO USE R 7Y OR GREATER [facility] Jan 10, 2008 07:56 AM FORMER TOBACCO USE R 7Y OR GREATER [facility] Advance Directives: All historical and current Section Date Range: From patient's date of to the date document was created. This section includes ALL of a patient's completed or amended [place] Advance and Rescinded Directives. The entries below indicate that a directive exists for the patient, but an actual copy is not included with this document. The data comes from all [place] facilities. Date Advance Directives Provider Source Feb 28, 2006 ADVANCE DIRECTIVE SYDNEY PEÑALOZA [facility] Encounter Notes: All associated encounter notes This section contains the clinical notes associated to the Encounter. Date/Time Encounter Note(s) Provider Source Feb 28, 2024 08:51 AM OTOLARYNGOLOGY JOCELYN SEAY NOTE: LOCAL TITLE: ENT SURGERY CLINIC NURSING NOTE STANDARD TITLE: OTOLARYNGOLOGY NURSING NOTE DATE OF NOTE: FEB 28, 2024@08:51 ENTRY DATE: FEB 28, 2024@08:51:22 AUTHOR: SPEEDY MONTES COSIGNER: URGENCY: STATUS: COMPLETED ENT SURGERY CLINIC NURSING NOTE Has ADDENDA Patient left VM on ENT phone line stating he wanted to schedule an appointment for his rhinorrhea. Pt. last saw ENT Dr. Hercules 05/2023 and is currently scheduled for ENT surgery 03/16/24 Septoplasty, turbinate reduction and Latera Implants. Will alert ENT Coordinator to advise/call pt. at [phone]. /destin MONTES RN, BSN, PHN Registered Nurse Signed: 02/28/2024 08:55 Receipt Acknowledged By: 02/28/2024 10:34 /aubrie/ ZARIA Irvin, FERRYBOAT OPERATOR HELPER Head & Neck Specialty RN Supervisor [employer] Duplicating Unit 02/28/2024 ADDENDUM STATUS: COMPLETED attempted to call back to discuss his concerns for rhinorrhea. No answer and will alert 's PCP MD Harsha as 's surgery is for turbinate reduction and septoplasty to open airways but will not necessarily address his rhinorrhea. May need allergy consult? /aubrie/ ZARIA Irvin, FERRYBOAT OPERATOR HELPER Head & Neck Specialty RN Supervisor Microfilm Duplicating Unit Signed: 02/28/2024 10:39 SPEEDY MONTES [facility]
--- OUTSIDE RECORDS SUMMARY | 2024-03-15 20:01 | XMS_ITS | Encounter Summary ---
Author Name [facility] [place] [facility] [place] Address [address] [place] [address] Care Team Providers Care Sports Management Professor Name Role Phone TERRY ROTH Primary Care [...] OPERA TING DARIEN EERS Mar 21, 2017 [id number] [phone] BASILIO BRENNAN HN PATIENT [place] PREFERRED PROVIDER ORGANIZAT ION (PPO) OPERA TING DARIEN EERS Mar 21, 2017 [id number] [phone] BASILIO BRENNAN HN PATIENT CATALYST RX PRESCRIPT ION OPER ENG LOCAL 49 Mar 21, 2017 [employer] [phone] BASILIO BRENNAN HN PATIENT OPTUM RX PRESCRIPT ION OPER ENG LOCAL 49 Mar 21, 2020 [employer] [id number] [phone] BASILIO BRENNAN HN PATIENT OPTUM RX PRESCRIPT ION OPER ENG LOCAL 49 Mar 21, 2018 [employer] [id number] [phone] BASILIO BRENNAN HN PATIENT Selected Encounter This section includes the information on record at OR for the Encounter. Date/Time Encounter Type Encounter Description Reason Provider Source Mar 13, 2024 09:51 AM PT EDUCATION NOC INDIVID TELEPHONE/SURGERY ICD-10-CM Z71.89 Other specified counseling ANA LUISA AQUINO IHDavide Encounter Template Text not used by OR Assessments - Encounter Diagnoses This section includes the primary and secondary diagnoses documented for the Encounter. Date/Time Primary/Secondary Diagnosis Diagnosis Name Provider Source Mar 13, 2024 09:51 AM PRIMARY Other specified counseling ANA LUISA AQUINO [facility] Plan of Treatment: Future Appointments (+ 6 [...] 11, 2024 07:45 AM AMBULATORY - SURGERY [facility] Lab Results: +/- 30 days of the encounter This section includes the Chemistry and Hematology Lab Results on record with OR for the patient. Radiology Reports and Pathology Reports are provided separately, in subsequent sections. Lab Results This section contains the Chemistry/Hematology Results that were resulted 30 days before or 30 daysafter the date of the Encounter. Date/Time Source Result Type Result - Unit Interpretation Reference Range Comment Feb 23, 2024 09:18 AM [facility] ACT PART THROMBO TIME Specimen Type: PLASMA Comment: Automated Differential Performed Ordering Provider: DANYELL AMARO Report Released Date/Time: Jun 03, 2023 01:52 PM Reporting Lab: [facility] [id number] Performing Lab: [facility] [id number] APTT 29.2 s 25.1-36.5 Feb 23, 2024 09:18 AM [facility] PROTHROMBIN TIME/INR Specimen Type: PLASMA Comment: Automated Differential Performed Ordering Provider: DANYELL AMARO Report Released Date/Time: Jun 03, 2023 01:52 PM Reporting Lab: [facility] [id number] Performing Lab: [facility] [address] .INR 1.1 0.8-1.1 .PT 12.5 s 9.4-12.5 Feb 23, 2024 09:18 AM [facility] HEMOGLOBIN A1C Specimen Type: BLOOD Comment: Values [...] AM Reporting Lab: [facility] [id number] Performing Lab: [facility] [address] HEMOGLOBIN A1C 5.3 4.0-6.0 Feb 23, 2024 09:18 AM [facility] BASIC METABOLIC PANEL+MG Specimen Type: PLASMA No comment entered. Ordering Provider: DANYELL AMARO Report Released Date/Time: Jun 03, 2023 01:52 PM Reporting Lab: [facility] [id number] Performing Lab: [facility] [address] CREATININE 1.0 mg/dL 0.7-1.2 UREA NITROGEN 19 mg/dL 8-26 GLUCOSE 100 mg/dL 70-100 SODIUM 140 mmol/L 136-145 POTASSIUM 4.0 mmol/L 3.5-5.1 CHLORIDE 108 mmol/L H 98-107 CO2 25 mmol/L 22-29 CALCIUM 8.8 mg/dL 8.4-10.2 MAGNESIUM 2.1 mg/dL 1.6-2.6 ANION GAP 7 mmol/L 5-15 .CREAT EGFR(CKD-EPI) 85 >60 Feb 23, 2024 09:18 AM [facility] CBC & DIFF Specimen Type: BLOOD Comment: Automated Differential Performed Ordering Provider: DANYELL AMARO Report Released Date/Time: Jun 03, 2023 01:52 PM Reporting Lab: [facility] [id number] Performing Lab: [facility] [address] WBC 8.4 4.0-11.0 RBC 5.18 4.60-6.20 HGB [...] 0.0 0.0-0.1 Feb 20, 2024 09:01 AM [facility] TSH W/REFLEX TO FREE T4 Specimen Type: PLASMA No comment entered. Ordering Provider: SOPHIA ROTH Report Released Date/Time: Apr 18, 2023 10:42 AM Reporting Lab: [facility] [address] Performing Lab: [facility] [address] TSH 1.44 u[IU]/mL 0.35-4.94 Feb 20, 2024 09:01 AM [facility] HEMOGLOBIN A1C Specimen Type: BLOOD Comment: Values [...] AM Reporting Lab: [facility] [phone] Performing Lab: [facility] [address] HEMOGLOBIN A1C 5.4 4.0-6.0 Feb 20, 2024 09:01 AM [facility] CBC Specimen Type: BLOOD No comment entered. Ordering Provider: SOPHIA ROTH Report Released Date/Time: Apr 18, 2023 10:42 AM Reporting Lab: [facility] [address] Performing Lab: [facility] [address] WBC 7.7 4.0-11.0 RBC 4.99 4.60-6.20 HGB 15.0 g/dL 13.5-17.9 HCT 46.1 41.0-54.0 MCV 92.4 fL 80.0-100.0 MCH 30.1 pg 27.0-33.0 MCHC 32.5 g/dL 32.0-37.5 PLT 235 150-400 MPV 9.3 fL 9.1-13.0 RDW 13.0 11.5-14.5 Feb 20, 2024 09:01 AM [facility] LIPID PANEL,NON-FASTING Specimen Type: PLASMA No comment entered. Ordering Provider: SOPHIA ROTH Report Released Date/Time: Apr 18, 2023 10:42 AM Reporting Lab: [facility] [phone] Performing Lab: [facility] [address] CHOLESTEROL 144 mg/dL <199 .HDL 37 mg/dL L >40 LDL CALCULATION 86 mg/dL <99 VLDL CALCULATION 21 mg/dL <29 NON HDL CHOLESTEROL 107 mg/dL <129 TRIG(NON FASTING) 104 mg/dL <149 Feb 20, 2024 09:01 AM [facility] COMPREHENSIVE METABOLIC PANEL+MG Specimen Type: PLASMA No comment entered. Ordering Provider: SOPHIA ROTH Report Released Date/Time: Apr 18, 2023 10:42 AM Reporting Lab: [facility] [address] Performing Lab: [facility] [address] CREATININE 0.9 mg/dL 0.7-1.2 UREA NITROGEN 13 [...] 2024 10:00 AM VA-TOBACCO USE FORMER CIGARETTES [facility] Tobacco Use History This section includes a history of the smoking, or tobacco-related health factors, that were collected on or before the date of the Encounter. The data comes from the [place] facility where the Encounter took place. Date/Time Smoking Status/Tobacco Use Comment F acility Feb 20, 2024 10:00 AM VA-TOBACCO USE FOR GURMEET OTHER TYPE 20years a go [facility] Feb 21, 2023 01:30 PM VA-TOBACCO FORMER USER [facility] Feb 21, 2023 01:30 PM VA-TOBACCO QUIT 15 YRS OR MORE [facility] Jun 01, 2021 10:45 AM VA-TOBACCO FORMER USER [facility] Jun 01, 2021 10:45 AM VA-TOBACCO QUIT 15 YRS OR MORE [facility] Jan 23, 2019 01:33 PM VA-TOBACCO FORMER USER [facility] Jan 23, 2019 01:33 PM VA-TOBACCO QUIT 15 YRS OR MORE [facility] May 20, 2017 11:03 AM FORMER TOBACCO USE R 7Y OR GREATER [facility] Mar 12, 2016 09:31 AM FORMER TOBACCO USE R 7Y OR GREATER [facility] Mar 11, 2015 07:54 AM CURRENT TOBACCO USER [facility] Feb 22, 2014 09:51 AM FORMER TOBACCO USE R 7Y OR GREATER [facility] Jan 10, 2008 07:56 AM FORMER TOBACCO USE R 7Y OR GREATER [facility] Advance Directives: All historical and current Section Date Range: From patient's date of to the date document was created. This section includes ALL of a patient's completed or amended OR Advance and Rescinded Directives. The entries below indicate that a directive exists for the patient, but an actual copy is not included with this document. The data comes from all OR facilities. Date Advance Directives Provider Source Feb 28, 2006 ADVANCE DIRECTIVE ALEXVONNIESYDNEY Kaylynn AVILAORI CARPIO [facility] Encounter Notes: All associated encounter notes This section contains the clinical notes associated to the Encounter. 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 If it continues to be yellow he should reach out to his PCP for their recommendations. [place] agrees with plan. /es/ ZARIA Irvin, DRUG REGULATORY AFFAIRS SPECIALIST Head & Neck Specialty RN Weatherization Technician Signed: 03/13/2024 10:07 Receipt Acknowledged By: 03/13/2024 10:11 /es/ Breann Srivastava MD STAFF PHYSICIAN for TERRY ROTH 03/13/2024 11:14 /es/ MICAELA LIZARRAGA RN REGISTERED NURSE --- Original Document --- 03/13/24 SURGERY COORDINATOR NOTE: [place] calls the ENT Nurse line and leaves message that he had COVID last weekend. 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 states he tested positive for COVID on 03/05/24 and states I had a boatload of symptoms, all the stuff. I had a high fever, chills, coughed up a lot of stuff and still am. Yellow phlegm but it's not an infection. I still have a runny nose, and get SOB when I go up the stairs. I had the start of Paxlovid on 03/06/24 and finished it on 03/10/24. This magazine writer reviewed 's symptoms and illness with Darby Arredondo APRN from Anesthesia and when asked if this would cancel surgery and how long until reschedule the procedure, she notes Lower resp symptoms would necessitate 4 weeks unfortunately prior to rescheduling. A productive cough and SOB is a no go unfortunately. Surgery will need to be cancelled. This magazine writer called back to advise that due to both his ongoing lower respiratory symptoms and COVID infection his surgery would need to be cancelled and rescheduled for a later date 4 weeks from 03/05/24 at least. [place] expresses disappointment and also verbalizes understanding that the ENT Coordinator will be alerted and will call him back to reschedule. All appointments cancelled for surgery/post-op. Time spent on this encounter including chart review, care coordination, phone discussion, education & follow-up: Time spent home companion:11-20 minutes /es/ ZARIA Irvin, DRUG REGULATORY AFFAIRS SPECIALIST Head & Neck Specialty RN Weatherization Technician Signed: 03/13/2024 10:06 Receipt Acknowledged By: * AWAITING SIGNATURE * HI AMARO * AWAITING SIGNATURE * CRIS THACKER MARY KRISTI [facility] Mar 13, 2024 09:51 AM SURGERY CASE MANAG ER NOTE: LOCAL TITLE: SURGERY COORDINATOR NOTE STANDARD TITLE: SURGERY DIRECTOR APPAREL NOTE DATE OF NOTE: MAR 13, 2024@09:51 ENTRY DATE: MAR 13, 2024@09:51:36 AUTHOR: ANA LUISA AQUINO EXP COSIGNER: URGENCY: STATUS: COMPLETED SURGERY COORDINATOR NOTE Has ADDENDA calls the ENT Nurse line and leaves message that he had COVID last weekend. 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 states he tested positive for COVID on 03/05/24 and states I had a boatload of symptoms, all the stuff. I had a high fever, chills, coughed up a lot of stuff and still am. Yellow phlegm but it's not an infection. I still have a runny nose, and get SOB when I go up the stairs. I had the start of Paxlovid on 03/06/24 and finished it on 03/10/24. This magazine writer reviewed jorge's symptoms and illness with Darby Arredondo APRN from Anesthesia and when asked if this would cancel surgery and how long until reschedule the procedure, she notes Lower resp symptoms would necessitate 4 weeks unfortunately prior to rescheduling. A productive cough and SOB is a no go unfortunately. Surgery will need to be cancelled. This magazine writer called back to advise that due to both his ongoing lower respiratory symptoms and COVID infection his surgery would need to be cancelled and rescheduled for a later date 4 weeks from 03/05/24 at least. Jorge expresses disappointment and also verbalizes understanding that the ENT Coordinator will be alerted and will call him back to reschedule. All appointments cancelled for surgery/post-op. 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 If it continues to be yellow he should reach out to his PCP for their recommendations. agrees with plan. /aubrie/ Ana Luisa K. Aquino, BSN, DRUG REGULATORY AFFAIRS SPECIALIST Head & Neck Specialty RN Weatherization Technician Signed: 03/13/2024 10:07 Receipt Acknowledged By: 03/13/2024 10:11 /es/ Breann Srivastava MD STAFF PHYSICIAN for TERRY ROTH * AWAITING SIGNATURE * MICAELA LIZARRAGA,ANA LUISA MONZON [facility]
--- OUTSIDE RECORDS SUMMARY | 2024-03-15 20:01 | XMS_ITS | Encounter Summary ---
Author Name [facility] [facility] [place] [facility] [place] [facility] [place] Address [address] [place] [address] Care Team Providers [facility] Director Name Role Phone TERRY ROTH Primary Care [...] OPERA TING DARIEN EERS Mar 21, 2017 [id number] [phone] BASILIO JAMES HN PATIENT [place] PREFERRED PROVIDER ORGANIZAT ION (PPO) OPERA TING DARIEN EERS Mar 21, 2017 [id number] [phone] BASILIO JAMES HN PATIENT CATALYST RX PRESCRIPT ION OPER ENG LOCAL 49 Mar 21, 2017 49ERS [id number] BASILIO JAMES HN PATIENT OPTUM RX PRESCRIPT ION OPER ENG LOCAL 49 Mar 21, 2020 49ERS [id number] [phone] BASILIO JAMES HN PATIENT OPTUM RX PRESCRIPT ION OPER ENG LOCAL 49 Mar 21, 2018 49ERS [id number] [phone] BASILIO JAMES HN PATIENT Selected Encounter This section includes the information on record at [place] for the Encounter. Date/Time Encounter Type Encounter Description Reason Provider Source Feb 23, 2024 10:30 AM OFFICE O/P EST LOW 20 MIN ANESTHESIA PRE/POST-OP CONSULT ICD-10-CM Z01.818 Encounter for other preprocedural examination SOFIE RODRÍGUEZ [facility] Encounter Template Text not used by [place] Assessments - Encounter Diagnoses This section includes the primary and secondary diagnoses documented for the Encounter. Date/Time Primary/Secondary Diagnosis Diagnosis Name Provider Source Mar 06, 2024 12:04 PM PRIMARY Encounter for other preprocedural examination SOFIE RODRÍGUEZ [facility] Mar 06, 2024 12:04 PM SECONDARY Anxiety disorder, unspecified SOFIE RODRÍGEUZ [facility] Mar 06, 2024 12:04 PM SECONDARY Essential (primary) hypertension SOFIE RODRÍGUEZ [facility] Mar 06, 2024 12:04 PM SECONDARY Nicotine dependence, chewing tobacco, uncomplicated SOFIE RODRÍGUEZ [facility] Mar 06, 2024 12:04 PM SECONDARY Obesity, unspecified SOFIE RODRÍGUEZ [facility] Mar 06, 2024 12:04 PM SECONDARY Obstructive sleep apnea (adult) (pediatric) SOFIE RODRÍGUEZ [facility] Mar 06, 2024 12:04 PM SECONDARY Other specified disorders of nose and nasal sinuses SOFIE RODRÍGUEZ [facility] Plan of Treatment: Future Appointments (+ 6 months) and Future Tests (+/- 45 days) The Plan of Treatment section includes future care activities for the patient [facility] [place] [facility]. This section includes future appointments and future orders which are active, pending or scheduled. Future Appointments This section includes appointments that were scheduled to occur 6 months from the date of the Encounter, up to a maximum of 20 appointments. The data comes from all [place] treatment facilities. Appointment Date/Time Appointment Type Appointme nt Facility Name Mar 05, 2024 07:45 AM AMBULATORY - SURGERY [facility] Mar 05, 2024 02:00 PM AMBULATORY - PSYCHIATRY [facility] Apr 11, 2024 07:45 AM AMBULATORY - SURGERY [facility] Lab Results: +/- 30 days of the encounter This section includes the Chemistry and Hematology Lab Results on record with [place] for the patient. Radiology Reports and Pathology Reports are provided separately, in subsequent sections. Lab Results This section contains the Chemistry/Hematology Results that were resulted 30 days before or 30 daysafter the date of the Encounter. Date/Time Source Result Type Result - Unit Interpretation Reference Range Comment Feb 23, 2024 09:18 AM [facility] ACT PART THROMBO TIME Specimen Type: PLASMA Comment: Automated Differential Performed Ordering Provider: DANYELL MAGUIRE Report Released Date/Time: Jun 03, 2023 01:52 PM Reporting Lab: [facility] [address] Performing Lab: [facility] [id number] APTT 29.2 s 25.1-36.5 Feb 23, 2024 09:18 AM [facility] PROTHROMBIN TIME/INR Specimen Type: PLASMA Comment: Automated Differential Performed Ordering Provider: DANYELL MAGUIRE Report Released Date/Time: Jun 03, 2023 01:52 PM Reporting Lab: [facility] [address] Performing Lab: [facility] [address] .INR 1.1 0.8-1.1 .PT 12.5 s 9.4-12.5 Feb 23, 2024 09:18 AM [facility] HEMOGLOBIN A1C Specimen Type: BLOOD Comment: [...] Jun 29, 2023 10:54 AM Reporting Lab: [facility] [id number] Performing Lab: [facility] [address] HEMOGLOBIN A1C 5.3 4.0-6.0 Feb 23, 2024 09:18 AM [facility] BASIC METABOLIC PANEL+MG Specimen Type: PLASMA No comment entered. Ordering Provider: DANYELL MAGUIRE Report Released Date/Time: Jun 03, 2023 01:52 PM Reporting Lab: [facility] [address] Performing Lab: [facility] [address] CREATININE 1.0 mg/dL 0.7-1.2 UREA NITROGEN 19 mg/dL 8-26 GLUCOSE 100 mg/dL 70-100 SODIUM 140 mmol/L 136-145 POTASSIUM 4.0 mmol/L 3.5-5.1 CHLORIDE 108 mmol/L H 98-107 CO2 25 mmol/L 22-29 CALCIUM 8.8 mg/dL 8.4-10.2 MAGNESIUM 2.1 mg/dL 1.6-2.6 ANION GAP 7 mmol/L 5-15 .CREAT EGFR(CKD-EPI) 85 >60 Feb 23, 2024 09:18 AM [facility] CBC & DIFF Specimen Type: BLOOD Comment: Automated Differential Performed Ordering Provider: DANYELL MAGUIRE Report Released Date/Time: Jun 03, 2023 01:52 PM Reporting Lab: [facility] [address] Performing Lab: [facility] [address] WBC 8.4 4.0-11.0 RBC 5.18 4.60-6.20 HGB [...] 0.0 0.0-0.1 Feb 20, 2024 09:01 AM [facility] TSH W/REFLEX TO FREE T4 Specimen Type: PLASMA No comment entered. Ordering Provider: SOPHIA ROTH Report Released Date/Time: Apr 18, 2023 10:42 AM Reporting Lab: [facility] [address] Performing Lab: [facility] [address] TSH 1.44 u[IU]/mL 0.35-4.94 Feb 20, 2024 09:01 AM [facility] HEMOGLOBIN A1C Specimen Type: BLOOD Comment: [...] Apr 18, 2023 10:42 AM Reporting Lab: [facility] [address] Performing Lab: [facility] [address] HEMOGLOBIN A1C 5.4 4.0-6.0 Feb 20, 2024 09:01 AM [facility] CBC Specimen Type: BLOOD No comment entered. Ordering Provider: SOPHIA ROTH Report Released Date/Time: Apr 18, 2023 10:42 AM Reporting Lab: [facility] [address] Performing Lab: [facility] [address] WBC 7.7 4.0-11.0 RBC 4.99 4.60-6.20 HGB 15.0 g/dL 13.5-17.9 HCT 46.1 41.0-54.0 MCV 92.4 fL 80.0-100.0 MCH 30.1 pg 27.0-33.0 MCHC 32.5 g/dL 32.0-37.5 PLT 235 150-400 MPV 9.3 fL 9.1-13.0 RDW 13.0 11.5-14.5 Feb 20, 2024 09:01 AM [facility] COMPREHENSIVE METABOLIC PANEL+MG Specimen Type: PLASMA No comment entered. Ordering Provider: SOPHIA ROTH Report Released Date/Time: Apr 18, 2023 10:42 AM Reporting Lab: [facility] [address] Performing Lab: [facility] [address] CREATININE 0.9 mg/dL 0.7-1.2 UREA NITROGEN 13 [...] >90 >60 Feb 20, 2024 09:01 AM [facility] LIPID PANEL,NON-FASTING Specimen Type: PLASMA No comment entered. Ordering Provider: SOPHIA ROTH Report Released Date/Time: Apr 18, 2023 10:42 AM Reporting Lab: [facility] [address] Performing Lab: [facility] [address] CHOLESTEROL 144 mg/dL <199 .HDL 37 mg/dL [...] 119/80 16 95 0 71 234.6 33 [place] [facility] Social History: Smoking Status (Most current) and Tobacco Use (All prior to encounter date) This section includes the most current, and the historical, smoking and tobacco- related health factors from the [place] facility where the Encounter took place. Current Smoking Status This section includes the most current smoking, or tobacco-related health factor, from the [place] facility where the Encounter took place. Date/Time Current Smoking Status Comment Facil lucho Feb 20, 2024 10:00 AM VA-TOBACCO USE FORMER CIGARETTES [facility] Tobacco Use History This section includes a history of the smoking, or tobacco-related health factors, that were collected on or before the date of the Encounter. The data comes from the [place] facility where the Encounter took place. Date/Time Smoking Status/Tobacco Use Comment F acility Feb 20, 2024 10:00 AM VA-TOBACCO USE FOR GURMEET OTHER TYPE 20years a go [facility] Feb 21, 2023 01:30 PM VA-TOBACCO FORMER USER [facility] Feb 21, 2023 01:30 PM VA-TOBACCO QUIT 15 YRS OR MORE [facility] Jun 01, 2021 10:45 AM VA-TOBACCO FORMER USER [facility] Jun 01, 2021 10:45 AM VA-TOBACCO QUIT 15 YRS OR MORE [facility] Jan 23, 2019 01:33 PM VA-TOBACCO FORMER USER [facility] Jan 23, 2019 01:33 PM VA-TOBACCO QUIT 15 YRS OR MORE [facility] May 20, 2017 11:03 AM FORMER TOBACCO USE R 7Y OR GREATER [facility] Mar 12, 2016 09:31 AM FORMER TOBACCO USE R 7Y OR GREATER [facility] Mar 11, 2015 07:54 AM CURRENT TOBACCO USER [facility] Feb 22, 2014 09:51 AM FORMER TOBACCO USE R 7Y OR GREATER [facility] Jan 10, 2008 07:56 AM FORMER TOBACCO USE R 7Y OR GREATER [facility] Advance Directives: All historical and current Section Date Range: From patient's date of to the date document was created. This section includes ALL of a patient's completed or amended [place] Advance and Rescinded Directives. The entries below indicate that a directive exists for the patient, but an actual copy is not included with this document. The data comes from all [facility]. Date Advance Directives Provider Source Feb 28, 2006 ADVANCE DIRECTIVE SYDNEY PEÑALOZA [facility] Encounter Notes: All associated encounter notes This section contains the clinical notes associated to the Encounter. Date/Time Encounter Note(s) Provider Source Feb 23, 2024 09:30 AM ANESTHESIOLOGY NOT E: LOCAL TITLE: ANESTHESIA PREOPERATIVE ASSESSMENT STANDARD TITLE: ANESTHESIOLOGY NOTE DATE OF NOTE: FEB 23, 2024@09:30 ENTRY DATE: FEB 25, 2024@12:23:43 AUTHOR: SOFIE RODRÍGUEZ EXP COSIGNER: URGENCY: STATUS: COMPLETED Preoperative Anesthesia Assessment Chief Complaint: 63 year old with BMI 33.4 for preoperative evaluation. This is a face to face visit. Pt was scheduled for H&P, but this had already been done w/PCP Dr. Roth on 02/19. Assessed as Anesthesia Preop eval. ----History of present illness Mr. James is a pleasant 63 y/o male w/deviated nasal septum & chronic rhinitis being evaluated preoperatively for septoplasty, turbinate reduction, and latera implants scheduled on 03/16/24. His PMHx is sig for HTN, HLD, obesity (BMI 33.4), JUAN not on CPAP, +active tobacco chewer, LBP, anxiety, and male ED. +Co-managed w/Dr. Luz @[facility] Denies COVID + hx in the last 3 months Pt. denies recent cold/cough/flu/fever/COVID sx Pt. instructed to notify surgical team for development of any URI sx prior to surgery ----Allergies -------- Patient has answered NKA ----VITAL SIGNS HR: 60 (02/20/2024 09:37) BP: 111/79 (02/20/2024 09:37) RR: 16 (02/20/2024 09:37) O2: 94% (02/20/2024 09:37) Temp: 97.1 F [36.2 C] (02/20/2024 09:37) HT: 71 in [180.3 cm] (02/20/2024 09:37) WT: 239 lb [108.41 kg] (02/20/2024 09:37) BMI: 33.4 ----Past Surgical History No personal or family history of anesthesia complications - Pt was kept overnight postop for hypoxia 2/2 JUAN several years ago 03/16/2024 Septoplasty, Turbinate Reduction, REQUESTED Latera Implants Other: Colonoscopy July Left shoulder decompession surg UHR L-lung collapse as a teen ----SOCIAL HISTORY Tobacco: Yes quit cigarettes '98 w/36+ PYH, chews tobacco 1 tin/5 days - advised to abstain per preop guidelines Alcohol: No Substance use: No ----FAMILY HISTORY Mother had renal CA Father had [place] ----PAST MEDICAL HISTORY 1. Hyperlipidemia (SNOMED CT 70581589) 2. Chews tobacco (SNOMED CT 38777707) 3. Low back pain 4. Depressive disorder (SNOMED CT 59523514) 5. Umbilical hernia 6. Metatarsal Plantar Flexed 7. Obstructive sleep apnea of adult 8. Anxiety disorder 9. Essential hypertension 10. Adenomatous polyp of colon 11. Obesity 12. Erectile dysfunction 13. Chronic rhinitis 14. Nasal obstruction ----FUNCTIONAL CAPACITY IN MEASURE OF EXERCISE TOLERANCE BEFORE SURGERY (METS) METS: 4-6 walk 2 blocks and goes up 2 FOS w/o CV sx ----MEDICATIONS ------- Medication list reviewed with patient and/or patient's family Active/Pending/ Outpatient Medications 1) BUSPIRONE HCL 10MG TAB TAKE TWO [...] MOUTH AT ACTIVE (S) BEDTIME FOR CHOLESTEROL 1) Non-VA ASPIRIN 81MG EC TAB 81MG MOUTH EVERY DAY ACTIVE 2) Non-VA COENZYME Q10 60MG TAB/CAP 1 TABLET MOUTH EVERY ACTIVE DAY 3) Non-VA FISH OIL 1000MG (500MG DHA/EPA) CAP 1000MG ACTIVE MOUTH EVERY DAY 4) Non-VA METOPROLOL SUCCINATE 100MG SA TAB 50MG MOUTH ACTIVE EVERY DAY 5) Non-VA MULTI/MINERAL/ANTIOXIDANT TAB MOUTH EVERY DAY ACTIVE Other: eye MVI Naltrexone: No Buprenorphine: No ---LABORATORY STUDIES 02/23/2024 09:18 BLOOD !! WBC 8.4 10x3/uL 4.0 - 11.0 02/23/2024 09:18 BLOOD !! RBC 5.18 10x6/uL 4.60 - 6.20 02/23/2024 09:18 BLOOD !! HGB 14.9 g/dL 13.5 - 17.9 02/23/2024 09:18 BLOOD !! HCT 46.8 % 41.0 - 54.0 02/23/2024 09:18 BLOOD !! MCV 90.3 fL 80.0 - 100.0 02/23/2024 09:18 BLOOD !! MCH 28.8 pg 27.0 - 33.0 02/23/2024 09:18 BLOOD !! MCHC 31.8 L g/dL 32.0 - 37.5 02/23/2024 09:18 BLOOD !! PLT 239 10x3/uL 150 - 400 02/23/2024 09:18 BLOOD !! MPV 9.4 fL 9.1 - 13.0 02/23/2024 09:18 BLOOD !! RDW 13.0 % 11.5 - 14.5 02/23/2024 09:18 PLASMA .INR 1.1 0.8 - 1.1 02/23/2024 09:18 PLASMA APTT 29.2 sec 25.1 - 36.5 02/23/2024 09:18 PLASMA GLUCOSE 100 mg/dL 70 - 100 02/23/2024 09:18 PLASMA SODIUM 140 mmol/L 136 - 145 02/23/2024 09:18 PLASMA POTASSIUM 4.0 mmol/L 3.5 - 5.1 02/23/2024 09:18 PLASMA CHLORIDE 108 H mmol/L 98 - 107 02/23/2024 09:18 PLASMA CO2 25 mmol/L 22 - 29 02/23/2024 09:18 PLASMA ANION GAP 7 mmol/L 5 - 15 02/23/2024 09:18 PLASMA UREA NITROGEN 19 mg/dL 8 - 26 02/23/2024 09:18 PLASMA CREATININE 1.0 mg/dL 0.7 - 1.2 02/20/2024 09:01 PLASMA PROTEIN,TOTAL 6.1 L g/dL 6.4 - 8.3 02/20/2024 09:01 PLASMA ALBUMIN 3.8 g/dL 3.5 - 5.0 02/23/2024 09:18 PLASMA CALCIUM 8.8 mg/dL 8.4 - 10.2 02/20/2024 09:01 PLASMA BILIRUBIN, TOTAL 0.3 mg/dL 0.2 - 1.2 02/20/2024 09:01 PLASMA AST/SGOT 30 U/L 11 - 34 02/20/2024 09:01 PLASMA ALT/SGPT 45 H U/L Ref: <=44 02/20/2024 09:01 PLASMA ALKALINE PHOSPHAT 40 U/L 40 - 150 EGFR (10/22) 05/16/2020@0931 87 CREATININE EGFR (CKD-EPI) 02/23/2024@0918 85 02/23/2024 09:18 BLOOD !! HEMOGLOBIN A1C 5.3 % 4.0 - 6.0 ----DIAGNOSTIC STUDIES EK02/23/24 NSR, rightward axis, 72 bpm No EKG for comparison ----Risk Stratification Revised Cardiac Risk Index (RCRI): 0 risk factors or class I CAPRINI score: 5 or high risk ---Physical Exam Weight: 234.6 lb [106.41 kg] (02/23/2024 10:16) Height: 71 in [180.3 cm] (02/23/2024 10:16) BMI: 32.8 Blood Pressure: 119/80 (02/23/2024 10:16) Pulse: 75 (02/23/2024 10:16) Pulse Oximetry: 95% (02/23/2024 10:16) Respiration: 16 (02/23/2024 10:16) Temperature: 97.8 F [36.6 C] (02/23/2024 10:16) Airway Exam: Mallampati Class: II Mouth opening: full Neck: full range of motion Thyromental distance: >6cm Dentition: normal Cardiac System: Cardiovascular exam normal: regular rhythm and rate, no murmur Respiratory: Clear to auscultation, normal respiratory rate and effort Mental/Neuro exam: Alert, oriented, calm, cooperative ----ASSESSMENT/PLAN ------- This is a 63Y.O. undergoing evaluation for septoplasty, turbinate reduction, and latera implants. The final anesthesia plan will be determined by the providers on the day of surgery. Cardiac: No known cardiac disease. Denies chest pain/palpitations/presyncope/syn cope/orthopnea. +Chronic mild JORGENSEN w/steep hill or elevation - METS >4 can walk 2 blocks and go up 2 FOS w/o CV sx. Pulmonary: Hx of obesity (BMI 33.4), JUAN on CPAP, tobacco chewer - 1 tin/every 2 weeks. Advised to abstain per preop guidelines. Dermatologic: Denies rash/open wounds. MH: PTSD hx - remote waking agitated/combative. No recent nightmares. Denies anxiety/panic attacks. Anesthesia Plan: Final plan TBD by anesthesia and surgical teams on DOS. ----Patient Education Discussed NPO, Med Mgmt, Transportation, Senior Telecommunications Technician Guidelines, Regional (as deemed appropriate), Sarah, CVC, anesthesia team, IV Access, monitoring, pre/post op expectations & GETA vs MAC Preoperative Medication Management: Hold all multivitamins, herbal supplements, NSAIDS x 7 days prior to surgery Hold aspirin x1 week preop /es/ SOFIE RODRÍGUEZ, BRO, AGNP-C ADULT ANKUSH NURSE PRACTITIONER Signed: 02/25/2024 12:29 SOFIE RODRÍGUEZ [facility]
--- OUTSIDE RECORDS SUMMARY | 2024-03-15 20:01 | XMS_ITS | Encounter Summary ---
Author Name [facility] [place] [facility] [place] [facility] [place] Address [address] [place] [id number] Care Team Providers Care Docket Clerk Name Role Phone TERRY ROTH Primary Care [...] OPERA TING DARIEN EERS Mar 21, 2017 [id number] [phone] BASILIO BRENNAN HN PATIENT [place] PREFERRED PROVIDER ORGANIZAT ION (PPO) OPERA TING DARIEN EERS Mar 21, 2017 [id number] [phone] BASILIO BRENNAN HN PATIENT CATALYST RX PRESCRIPT ION OPER ENG LOCAL 49 Mar 21, 2017 49ERS [id number] BASILIO BRENNAN HN PATIENT OPTUM RX PRESCRIPT ION OPER ENG LOCAL 49 Mar 21, 2020 49ERS [id number] [phone] BASILIO BRENNAN HN PATIENT OPTUM RX PRESCRIPT ION OPER ENG LOCAL 49 Mar 21, 2018 49ERS [id number] [phone] BASILIO BRENNAN HN PATIENT Selected Encounter This section includes the information on record at [place] for the Encounter. Date/Time Encounter Type Encounter Description Reason Pro vider Source IHE Encounter Template Text not used by [place] Advance Directives: All historical and current Section Date Range: From patient's date of to the date document was created. This section includes ALL of a patient's completed or amended [place] Advance and Rescinded Directives. The entries below indicate that a directive exists for the patient, but an actual copy is not included with this document. The data comes from all [place] facilities. Date Advance Directives Provider Source Feb 28, 2006 ADVANCE DIRECTIVE SYDNEY PEÑALOZA [facility]
--- OUTSIDE RECORDS SUMMARY | 2024-03-15 20:01 | XMS_ITS | Encounter Summary ---
Author Name [facility] [place] [facility] [place] Address [address] [place] [address] Care Team Providers Care System Integration Engineer Name Role Phone TERRY ROTH Primary Care [...] OPERA TING DARIEN EERS Mar 21, 2017 [id number] [phone] BASILIO BRENNAN HN PATIENT [place] PREFERRED PROVIDER ORGANIZAT ION (PPO) OPERA TING DARIEN EERS Mar 21, 2017 [id number] [phone] BASILIO BRENNAN HN PATIENT CATALYST RX PRESCRIPT ION OPER ENG LOCAL 49 Mar 21, 2017 49ERS [id number] BASILIO BRENNAN HN PATIENT OPTUM RX PRESCRIPT ION OPER ENG LOCAL 49 Mar 21, 2020 49ERS [id number] [phone] BASILIO BRENNAN HN PATIENT OPTUM RX PRESCRIPT ION OPER ENG LOCAL 49 Mar 21, 2018 49ERS [id number] [phone] MIKA,BASILIO HN PATIENT Selected Encounter This section includes the information on record at [place] for the Encounter. Date/Time Encounter Type Encounter Description Reason Pro vider Source Sep 23, 2023 12:00 AM Outpatient Encounter EVENT (HISTORICAL) I[facility] Encounter Template Text not used by [place] Plan of Treatment: Future Appointments (+ 6 [...] 20, 2024 09:00 AM AMBULATORY - NONE [facility] Feb 20, 2024 10:00 AM AMBULATORY - MEDICINE [facility] Feb 23, 2024 09:30 AM AMBULATORY - NONE [facility] Feb 23, 2024 10:00 AM AMBULATORY - MEDICINE [facility] Feb 23, 2024 10:30 AM AMBULATORY - SURGERY [facility] Feb 23, 2024 11:00 AM AMBULATORY - SURGERY [facility] Mar 05, 2024 07:45 AM AMBULATORY - SURGERY [facility] Mar 05, 2024 02:00 PM AMBULATORY - PSYCHIATRY [facility] Immunizations: All administered on the encounter date This section contains immunizations associated to the Encounter. Immunization Series Date Issued Reaction Comments COVID-19 (MODERNA), MRNA, LN P-S, PF, 50 MCG/0.5 ML (AGES 12+ YEARS) Sep 23, 2023 Social History: Smoking Status (Most current) and [...] 21, 2023 01:30 PM VA-TOBACCO FORMER USER [facility] Tobacco Use History This section includes a history of the smoking, or tobacco-related health factors, that were collected on or before the date of the Encounter. The data comes from the [place] facility where the Encounter took place. Date/Time Smoking Status/Tobacco Use Comment F acility Feb 21, 2023 01:30 PM VA-TOBACCO QUIT 15 YRS OR MORE [facility] Jun 01, 2021 10:45 AM VA-TOBACCO FORMER USER [facility] Jun 01, 2021 10:45 AM VA-TOBACCO QUIT 15 YRS OR MORE [facility] Jan 23, 2019 01:33 PM VA-TOBACCO FORMER USER [facility] Jan 23, 2019 01:33 PM [place]-TOBACCO QUIT 15 YRS OR MORE [facility] May 20, 2017 11:03 AM FORMER TOBACCO USER 7Y OR GREATE R [facility] Mar 12, 2016 09:31 AM FORMER TOBACCO USER 7Y OR GREATE R [facility] Mar 11, 2015 07:54 AM CURRENT TOBACCO USER [facility] Feb 22, 2014 09:51 AM FORMER TOBACCO USER 7Y OR GREATE R [facility] Jan 10, 2008 07:56 AM FORMER TOBACCO USER 7Y OR GREATE R [facility] Advance Directives: All historical and current [...] 2006 ADVANCE DIRECTIVE SYDNEY PEÑALOZA [facility]
[2024-03-15 20:03] VITALS: BP 132/81; PULSE 90; RESP 22; TEMP 37.3; O2SAT 92
--- NOTE | 2024-03-15 20:17 | ED_ITS ---
HPI - General Adult General Date Seen: 03/15/24 Chief complaint: Cough Stated complaint: fever, headache Time Seen by Provider: 03/15/24 20:14 History of Present Illness HPI narrative: 63-year-old male presenting to the ER today for cough, fever and headache. He was diagnosed with coronavirus 2 weeks ago and was feeling better for couple of days but started feeling sick again 2 days ago on Tuesday. He has had a cough, also a bad headache which is worse with coughing. Cough currently is worse than the cough he had 2 weeks ago with COVID. He is also having lower abdominal pain, nausea but no vomiting. He saw his PCP today and was prescribed Augmentin for possible sinus infection. In review of medical record I see that he saw Dr. Fuentes today. According to that record he had a positive COVID test on 03/05. History from the patient and his is that he did come down with COVID with for symptoms around March 04. He was tested positive at that at home test on the and was started on Paxil that on the . He completed his 5 day course around the or so. He felt much better on the Paxlovid other than a bad taste in his mouth. He did had done really well and was feeling pretty well for about 3 days after finishing the Paxlovid. Two days ago he started to have recurrent symptoms including nasal congestion, cough, stuffy nose, mild sore throat, and headache. He has also had fevers. Yesterday and today is headaches have gotten worse. He is coughing but has a no production of sputum. He is not short of breath. No chest pain. He was mildly nauseous. No significant or repetitive vomiting. No diarrhea. No rash They saw his PCP today was diagnosed empirically with a possible sinus infection. The patient says that his doctor was ?throwing darts at the wall. ? it sounds like they were not definitive in the diagnosis. This evening his headache got worse. His called the nurse triage line and they were extracted come here to the ER for us to evaluate for possible meningitis. Overall the patient and his do not think he has meningitis but they come to the ER as advised. He is not having any neck stiffness. No recent head trauma. He is not anticoagulated. Related Data Home Medications ?Medication ?Instructions ?Recorded ?Confirmed aspirin 81 mg chewable tablet 81 mg PO DAILY 01/11/22 03/15/24 buspirone 10 mg tablet 30 mg PO BID 01/11/22 03/15/24 coenzyme Q10 100 mg capsule 100 mg PO DAILY 01/11/22 03/15/24 fluoxetine 20 mg capsule 40 mg PO DAILY 01/11/22 03/15/24 krill oil 500 mg capsule 500 mg PO QDAY 01/11/22 03/15/24 simvastatin 40 mg tablet 20 mg PO .Bedtime 01/11/22 03/15/24 diphenhydramine HCl 25 mg tablet 25 mg PO QDAY PRN 01/12/22 03/15/24 (Allergy) [id number] 150 mcg-vit K1 tab PO 08/02/22 03/15/24 30 mcg-lycop 300 mcg-lutein tablet (Centrum Minis Men 50 Plus) vitamins A,C,O-hlun-pfrira 4,296 1 cap PO QDAY 08/02/22 03/15/24 mcg-226 mg-90 mg capsule (ICaps AREDS) sildenafil 100 mg tablet mg PO 03/16/23 03/15/24 Previous Rx's ?Medication ?Instructions ?Recorded metoprolol succinate 50 mg 50 mg PO QDAY #90 tabs 04/04/23 tablet,extended release 24 hr amoxicillin 875 mg-potassium 1 tab PO BID #20 tabs 03/15/24 clavulanate 125 mg tablet Allergies Allergy/AdvReac Type Severity Reaction Status Date / Time tetracycline Allergy Intermediate extreme Verified 03/15/24 20:45 photosensitivity PFSH REPLACED BY [facility] Medical History Mixed hyperlipidemia ?E78.2 - Mixed hyperlipidemia (ICD-10) Primary hypertension ?I10 - Essential (primary) hypertension (ICD-10) Umbilical hernia without mention of obstruction or gangrene ?K42.9 - Umbilical hernia without obstruction or gangrene (ICD-10) Sensorineural hearing loss (SNHL) ?H90.5 - Unspecified sensorineural hearing loss (ICD-10) Obstructive sleep apnea syndrome ?G47.33 - Obstructive sleep apnea (adult) (pediatric) (ICD-10) Lung nodule ?R91.1 - Solitary pulmonary nodule (ICD-10) Low testosterone in male ?R79.89 - Other specified abnormal findings of blood chemistry (ICD-10) History of adenomatous polyp of colon (06/04/13) ?Z86.010 - Personal history of colonic polyps (ICD-10) Chronic low back pain ?M54.50 - Low back pain, unspecified (ICD-10) ?G89.29 - Other chronic pain (ICD-10) Anxiety with depression ?F41.8 - Other specified anxiety disorders (ICD-10) Surgical History History of hernia repair ?Z98.890 - Other specified postprocedural states (ICD-10) ?Z87.19 - Personal history of other diseases of the digestive system (ICD-10) History of colonoscopy with polypectomy ?Z98.890 - Other specified postprocedural states (ICD-10) ?Z86.010 - Personal history of colonic polyps (ICD-10) History of arthroscopy of left shoulder ?Z98.890 - Other specified postprocedural states (ICD-10) Family History Brother Coronary artery disease Brother Myocardial infarction Mother Cancer of kidney Father Parkinsons disease Son Autism Social History Smoking Status: Former smoker Exam Narrative: Exam Narrative: Constitutional: Appears well-developed and well-nourished. Alert. Conversant. Does feel warm to the touch. Is running a fever (99 to a triage). Alert and conversant. Looks uncomfortable but not toxic. HENT: Head: Atraumatic. Nose: Nose normal. Mouth/Throat: Oral mucosa is clear and moist. no trismus. Pharynx normal. Tonsils symmetric. Mild pharyngeal erythema. No tonsillar enlargemen, or exudate. Eyes: Conjunctivae normal. EOM normal. Pupils equal, round, and reactive to light. No scleral icterus. Neck: Normal range of motion. No stiffness. Neck supple. No tracheal deviation present. Cardiovascular: Normal rate, regular rhythm. No gallop. No friction rub. No murmur heard. Symmetric radial artery pulses Pulmonary/Chest: Effort normal. No stridor. No respiratory distress. No wheezes. No rales. No rhonchi . No tenderness. Abdominal: Soft. Bowel sounds normal. No distension. No mass. No tenderness. No rebound. No guarding. Musculoskeletal: RUE: Normal range of motion. No tenderness. No deformity LUE: Normal range of motion. No tenderness. No deformity RLE: Normal range of motion. No edema. No tenderness. No deformity LLE: Normal range of motion. No edema. No tenderness. No deformity Lymph: No cervical adenopathy. Neurological: Alert and oriented to person, place, and time. Normal strength. CN II-VII intact. No sensory deficit. GCS eye subscore is 4. GCS verbal subscore is 5. GCS motor subscore is 6. Normal coordination Skin: Skin is warm and dry. No rash noted. No pallor. Normal capillary refill. Psychiatric: Normal mood. Normal affect. Const: Vital Signs, click to edit/add: Vital Signs - 24 hr 03/15/24 20:03 03/15/24 23:16 Temperature 99.2 F Pulse Rate [Pulse Oximeter] 90 88 Respiratory Rate 22 18 Blood Pressure [Le ft Upper Arm] 132/81 152/88 H Pulse Oximetry 92 96 Oxygen Delivery Me thod Room Air Room Air Course Course ED Course: Recheck-patient reports his headache is much better. He is feeling better after meds and fluids. Requesting discharge Reevaluation(s) Reevaluation #1: Recheck-I was delayed in responding to the patient's bedside after he is feeling better because of other critical patients. He is now sleeping but easily arousable. Continues to feel well. Discussed test results. He his are comfortable discharging to home and eager for discharge. Vital Signs Vital signs: Initial Vital Signs Temperature 99.2 F 03/15/24 20:03 Temperature Source Temporal Artery Scan 03/15/24 20:03 Pulse Rate 90 03/15/24 20:03 Pulse Rhythm Regular 03/15/24 20:03 Respiratory Rate 22 03/15/24 20:03 Blood Pressure 132/81 03/15/24 20:03 Blood Pressure Mean 98 03/15/24 20:03 Blood Pressure Position Sitting 03/15/24 20:03 Pulse Oximetry 92 03/15/24 20:03 Oxygen Delivery Method Room Air 03/15/24 20:03 Vital Signs Temperature 99.2 F 03/15/24 20:03 Pulse Rate 90 03/15/24 20:03 Respiratory Rate 22 03/15/24 20:03 Blood Pressure 132/81 03/15/24 20:03 Pulse Oximetry 92 03/15/24 20:03 Oxygen Delivery Method Room Air 03/15/24 20:03 Temperature 99.2 F 03/15/24 20:03 Pulse Rate 88 03/15/24 23:16 Respiratory Rate 18 03/15/24 23:16 Blood Pressure 152/88 H 03/15/24 23:16 Pulse Oximetry 96 03/15/24 23:16 Oxygen Delivery Method Room Air 03/15/24 23:16 Medications Administered Medications: Discontinued Medications Generic Name Dose Route Start Last Admin Trade Name Ranulfo PRN Reason Stop Dose Admin Diphenhydramine HCl 12.5 mg 03/15/24 20:41 03/15/24 21:33 Diphenhydramine 50 Mg/Ml Inj IVP 03/15/24 20:42 12.5 mg ONCE ONE Administration Sodium Chloride 500 mls @ 500 mls/hr 03/15/24 20:41 03/15/24 23:24 0.9 % Sodium Chloride 500 Ml IV 03/15/24 21:40 Infused .Q1H ONE Infusion Ketorolac Tromethamine 15 mg 03/15/24 20:41 03/15/24 21:31 Ketorolac 15 Mg/Ml Inj IVP 03/15/24 20:42 15 mg ONCE ONE Administration Metoclopramide HCl 10 mg 03/15/24 20:41 03/15/24 21:35 Metoclopramide Hcl 5 Mg/Ml Inj IVP 03/15/24 20:42 10 mg ONCE ONE Administration Medical Decision Making [facility] Narrative Medical decision making narrative: 63-year-old male presenting to the ER today for fever, headache, body aches, cough, sore throat. He did come down with an illness 11 days ago and tested positive for coronavirus at home 10 days ago. He was treated with a 5 day course of Paxlovid in felt better after completed that medication for 3 days. T wo days ago he started developing symptoms again of cough fever, headache. He saw his PCP today for this illness and was started on Augmentin for a possible sinus infection. However he is feeling worse today. He called the phone triage nurse and was sent into the ER for evaluation. He is not sure if he really has a sinus infection and not and his primary doctor told there was some ambiguity diagnosis. He does have a history of sinus disease and actually due for a nasal septum surgery next week. Head CT scan does show paranasal sinus disease and fluid levels and inflammation which could indicate sinusitis. Also sometimes CT is abnormal without active bacterial sinusitis. Overall this point with the abnormal imaging findings and his symptoms I think it is reasonable for him to continue the antibiotic prescribed by his PCP. He does have a headache but no associated altered mental status, neck stiffness or meningismus. We discussed possible lumbar puncture. The patient, his , and I agree that at this point the risk and discomfort LP would outweigh the benefit. With recent COVID we did double check COVID/influenza/RSV PCR. He is positive for coronaviru s but negative for influenza and RSV. In the setting of COVID he is now about 11 days out from his 1st day of symptoms and had a course of Paxlovid already. Suspect that this may be a rebound COVID after completing the Paxlovid. Oxygen saturations are 92% here in the ER. At this point no indication for hospitalization. However discussed the risk of respiratory deterioration. Precautions for return to the ER reviewed. Patient is verbalized understanding Chest x-ray is negative for any acute infiltrates. No sign of an acute bacterial pneumonia. Lab workup shows a white count of 10.1. CRP mildly abnormal at 3.5. 83% neutrophils which would suggest a possible bacterial infection. Laboratory workup shows normal kidney function, normal glucose. Overall he remains hemodynamically stable. Feeling much better after meds and fluids. Discussed supportive care at home. Precautions for return to the ER. Questions answered. Lab Data Labs: Lab Results 03/15/24 Range/Units 21:23 WBC 10.11 (4.50-11.00) K/uL RBC 4.60 (4.30-5.90) m/uL Hgb 13.7 (13.5-17.5) gm/dL Hct 41.5 (37.0-53.0) % MCV 90 (80-100) fL MCH 30 (26-34) pg MCHC 33 (32-36) gm/dL RDW Coeff of Mark 12.8 (11.5-15.5) % Plt Count 220 (140-440) K/uL Neut % (Auto) 83.0 H (42.0-72.0) % Lymph % (Auto) 7.8 L (20-44) % Swain % (Auto) 7.8 (0.0-11.0) % Eos % (Auto) 0.0 (0.0-7.0) % Baso % (Auto) 0.2 (0.0-3.0) % Neut # (Auto) 8.40 H (1.7-7.0) K/uL Lymph # (Auto) 0.80 L (0.90-2.90) K/uL Swain # (Auto) 0.80 (0.00-0.90) K/UL Eos # (Auto) 0.00 (0.00-0.50) K/uL Baso # (Auto) 0.02 (0.00-0.30) K/uL Abs Immat Gran (auto) 0.12 (0.00-0.30) K/uL Imm/Tot Granulo (auto) 1.2 % Sodium 134 L (135-149) mmol/L Potassium 3.9 (3.6-5.1) mmol/L Chloride 104 (96-114) mmol/L Carbon Dioxide 23 (20-32) mmol/L Anion Gap 7 (7-15) mEq/L BUN 13 (7-30) mg/dL Creatinine 0.8 (0.5-1.5) mg/dL Estimated GFR 100 ml/min Glucose 113 (60-115) mg/dL Lactate 1.2 (0.5-1.9) mmol/L Calcium 8.9 (8.4-10.6) mg/dL C-Reactive Protein 3.5 H (0.5-1.0) mg/dL SARS-CoV-2 (PCR) POSITIVE SARS-CoV-2 A (Negative) Influenza Type A (PCR) Negative PCR FLU A (Negative) Influenza Type B (PCR) Negative PCR FLU B (Negative) RSV (PCR) Negative PCR RSV (Negative) SARS-CoV-2 Ag (Rapid) POSITIVE A (Negative) Imaging Data CT scan - head: Attestation: I have reviewed the pertinent imaging results. Radiologist's impression: FINDINGS: No CT evidence of acute cortical infarct. No loss of marquez white matter differentiation. No hyperdense vessels to suggest intracranial thrombus. No acute intracranial hemorrhage. No mass effect or midline shift. No hydrocephalus or extra-axial collections. White matter is within normal limits for age. No acute osseous abnormalities. Widespread paranasal sinus mucosal thickening and bilateral maxillary sinus air-fluid levels. Normal soft tissues. IMPRESSION: IMPRESSION:1. No CT evidence of acute cortical infarct. No acute intracranial hemorrhage. No other acute intracranial findings. Chest x-ray: Attestation: I have reviewed the pertinent imaging results. Radiologist's impression: IMPRESSION: No acute cardiopulmonary abnormality. Discharge Plan Discharge Clinical Impression: Coronavirus infection, Headache Patient Disposition: Home, Self-Care Instructions: Acute Headache (DC), COVID-19 (Coronavirus Disease 2019) (ED) Additional Instructions: As we discussed, please come back to the ER right away if you have worsening symptoms especially worsening headache, confusion, vomiting or dehydration, trouble breathing or oxygen level below 90%, or if any other concerns Please continue to treat herself at home. Use Tylenol or ibuprofen id if needed for headache or fever. Drink plenty fluids and stay hydrated. If you are not completely improved within 3 days, please recheck with the ER or with your regular doctor. If you get worse, come back to the ER right away. Prescriptions: No Action sildenafil 100 mg tablet PO amoxicillin-pot clavulanate 875-125 mg tablet 1 tab PO BID Qty: 20 0RF coenzyme Q10 100 mg capsule 100 mg PO DAILY fluoxetine 20 mg capsule 40 mg PO DAILY aspirin 81 mg tablet,chewable 81 mg PO DAILY buspirone 10 mg tablet 30 mg PO BID simvastatin 40 mg tablet 20 mg PO .Bedtime krill oil 500 mg capsule 500 mg PO QDAY diphenhydramine HCl [Allergy] 25 mg tablet 25 mg PO QDAY PRN ICaps AREDS 4,296 mcg-226 mg-90 mg capsule 1 cap PO QDAY Centrum Minis Men 50 Plus [phone] mcg tablet PO metoprolol succinate 50 mg tablet extended release 24 hr 50 mg PO QDAY Qty: 90 3RF Follow Up/Referrals: Nikhil Luz MD [Primary Care Provider] - Stand Alone Forms: [facility] Info Instructions
--- NOTE | 2024-03-15 20:41 | CRLHL7_ITS ---
For Patients: As a result of the Century Cures Act, medical imaging exams and procedure reports are released immediately into your electronic medical record. You may view this report before your referring provider. If you have questions, please contact your health care provider. INDICATION: Headaches. Fever. TECHNIQUE: CT of the head without contrast. Coronal and sagittal reformats are included. COMPARISON: Head CT from 04/04/2019. FINDINGS: No CT evidence of acute cortical infarct. No loss of marquez white matter differentiation. No hyperdense vessels to suggest intracranial thrombus. No acute intracranial hemorrhage. No mass effect or midline shift. No hydrocephalus or extra-axial collections. White matter is within normal limits for age. No acute osseous abnormalities. Widespread paranasal sinus mucosal thickening and bilateral maxillary sinus air-fluid levels. Normal soft tissues. IMPRESSION: IMPRESSION:1. No CT evidence of acute cortical infarct. No acute intracranial hemorrhage. No other acute intracranial findings. Please note that all CT scans at this facility use dose modulation, iterative reconstruction, and/or weight-based dosing when appropriate to reduce radiation dose to as low as reasonably achievable. Dictated by Naresh Jon MD @ 03/15/2024 9:25:12 PM (Electronically Signed)
--- NOTE | 2024-03-15 20:41 | CRLHL7_ITS ---
For Patients: As a result of the Cures Act, medical imaging exams and procedure reports are released immediately into your electronic medical record. You may view this report before your referring provider. If you have questions, please contact your health care provider. INDICATION: Fever and cough. TECHNIQUE: Chest 2 views. COMPARISON: Chest CT 04/04/2019. FINDINGS: The heart is not abnormally enlarged. The trachea is midline. No definite confluent airspace opacity. No pleural effusion or pneumothorax. No acute osseous abnormality. Mild left lung base atelectasis. IMPRESSION: No acute cardiopulmonary abnormality. Dictated by Killian Marti MD @ 03/15/2024 9:36:45 PM (Electronically Signed)
--- OUTSIDE RECORDS SUMMARY | 2024-03-15 20:54 | XMS_ITS | Continuity of Care Document ---
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 It does not include entries that were removed or entered in error. Problem Status Onset Date Problem Type Date of Resolution Comments Source Adenomatous polyp of colon Active Condition [facility] Anxiety disorder Active Condition [facility] Chews tobacco (SNOMED CT 08295733) Active Condition [facility] Chronic rhinitis Active Condition [facility] Depressive disorder (SNOMED CT 80226044) Active Condition [facility] Erectile dysfunction Active Condition [facility] Essential hypertension Active Condition [facility] Hyperlipidemia (SNOMED CT 87374694) Active Condition [facility] Low back pain Active Condition [facility] Metatarsal Plantar Flexed Active Condition [facility] Nasal obstruction Active Condition [facility] [facility] Obesity Active Condition [facility] Obstructive sleep apnea of adult [facility] Umbilical hernia Active Condition 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 [facility] Diagnosis: ICD-10-CM Z01.118 Encntr for exam of ears and hearing w oth abnormal findings Active Diagnosis [facility] Diagnosis: ICD-10-CM Z01.818 Encounter for other preprocedural examination Active Diagnosis [facility] Diagnosis: ICD-10-CM Z13.6 Encounter for screening for cardiovascular disorders Active Diagnosis [facility] Diagnosis: ICD-10-CM J34.89 Other specified disorders of nose and nasal sinuses Active Diagnosis [facility] Diagnosis: ICD-10-CM J34.2 Deviated nasal septum Active Diagnosis [facility] Diagnosis: ICD-10-CM G47.33 Obstructive sleep apnea (adult) (pediatric) Active Diagnosis [facility] Diagnosis: ICD-10-CM Z46.1 Encounter for fitting and adjustment of hearing aid Active Diagnosis [facility] Diagnosis: ICD-10-CM E78.49 Other hyperlipidemia Active Diagnosis [facility] Diagnosis: ICD-10-CM Z71.9 Counseling, unspecified Active Diagnosis [facility] Diagnosis: ICD-10-CM L84 Corns and callosities Active Diagnosis [facility] Medications Combined list of outpatient medications from [...] DAY ORAL ACTIVE TERRY ROTH H 2021 [facility] BUSPIRONE HCL 10MG TAB TAKE TWO TABLETS BY MOUTH TWICE A DAY FOR ANXIETY ORAL ACTIVE 04/11/2024 [id number] 4 MATT RODRÍGUEZ 2023 360 [facility] BUSPIRONE HCL 10MG TAB TAKE THREE TABLETS BY MOUTH TWICE A DAY ORAL DISCONT INUED (EDIT) 09/15/2023 [id number] 4 MATT RODRÍGUEZ 2022 540 [facility] COENZYME Q10 CAP/TAB TAKE ONE TABLET BY MOUTH EVERY DAY ORAL ACTIVE GONZALEZ TERRY H 2021 [facility] FISH OIL 1000MG (500MG DHA/EPA) CAP,ORAL TAKE 1 CAPSULE BY MOUTH EVERY DAY ORAL ACTIVE GONZALEZVANNALY H 2021 [facility] FLUOXETINE HCL 20MG CAP TAKE TWO CAPSULES BY MOUTH EVERY MORNING ORAL ACTIVE 12/05/2024 [id number] 4 MATT RODRÍGUEZ 2023 180 [facility] FLUOXETINE HCL 20MG CAP TAKE TWO CAPSULES BY MOUTH EVERY MORNING ORAL DISCONT INUED 09/15/2023 [id number] 4 MATT RODRÍGUEZ 2022 180 [facility] FLUTICASONE PROPIONATE 50MCG/SPRAY SOLN,NASAL, 16GM SPRAY 2 SPRAYS IN EACH NOSTRIL EVERY DAY USE REGULARL Y FOR RELIEF OF ALLERGIE S/CONGES TION NASAL ACTIVE 09/05/2024 [id number] TERRY ROTH 2023 3 [facility] FLUTICASONE PROPIONATE 50MCG/SPRAY SOLN,NASAL, 16GM SPRAY 2 SPRAYS IN EACH NOSTRIL TWICE A DAY USE REGULARL Y FOR RELIEF OF ALLERGIE S/CONGES TION NASAL 07/20/2023 [id number] 4 MIGUEL ÁNGEL WHITT 2022 1 [facility] METOPROLOL SUCCINATE 100MG TAB,SA TAKE ONE-HALF TABLET BY MOUTH EVERY DAY ORAL ACTIVE MIGUEL ÁNGEL WHITT 2020 [facility] MULTI/SOLDERER DIPPER AL/ANTIOXID ANT TAB MOUTH EVERY DAY ORAL ACTIVE TERRY ROTH 2021 [facility] SIMVASTATIN 20MG TAB TAKE ONE TABLET BY MOUTH AT BEDTIME FOR CHOLESTE ROL ORAL SUSPEND ED 02/20/2025 [id number] TERRY ROTH 2024 90 [facility] SIMVASTATIN 20MG TAB TAKE ONE TABLET BY MOUTH AT BEDTIME FOR CHOLESTE ROL ORAL DISCONT INUED 03/31/2024 [id number] TERRY ROTH 2023 90 [facility] SIMVASTATIN 40MG TAB TAKE ONE-HALF TABLET BY MOUTH AT BEDTIME FOR CHOLESTE ROL ORAL DISCONT INUED 03/31/2024 [id number] 4 TERRY ROTH 2023 45 [facility] Immunizations Combined list of available immunizations from the Department of Defense and Veterans Affairs facilities. Immunization Series Date Given Administered By Site Reaction Lot Number CVX Code Drug Commiss[employer] Production Supervisor Status Comments Source COVID-19 (MODERNA), MRNA, LNP-S, PF, 50 MCG/0.5 ML (AGES 12+ YEARS) 2023 312 complet ed [facility] INFLUENZA, SPLIT VIRUS, TRIVALENT, PF 2023 140 complet ed [facility] COVID-19 (MODERNA), MRNA, LNP-S, PF, 50 MCG/0.5 ML (AGES 12+ YEARS) 2023 312 complet ed [facility] INFLUENZA, INJECTABLE, MDCK, PRESERVATIVE FREE, QUADRIVALENT 2022 171 complet ed [facility] COVID-19 (MODERNA), MRNA, LNP-S, BIVALENT, PF, 50 MCG/0.5 ML OR 25MCG/0.25 ML DOSE 2022 229 complet ed [facility] TDAP 2022 115 complet ed [facility] ZOSTER RECOMBINANT 2022 187 complet ed [facility] COVID-19 (MODERNA), MRNA, LNP-S, BIVALENT, PF, 50 MCG/0.5 ML OR 25MCG/0.25 ML DOSE 2021 229 complet ed [facility] ZOSTER RECOMBINANT 2021 187 complet [facility] PNEUMOCOCCAL CONJUGATE PCV20, POLYSACCHARID E QIC382 CONJUGATE, ADJUVANT, PF 2021 216 complet [facility] INFLUENZA, UNSPECIFIED FORMULATION 2021 88 complet [facility] INFLUENZA, INJECTABLE, MDCK, PRESERVATIVE FREE, QUADRIVALENT 2021 171 complet [facility] COVID-19 (MODERNA), MRNA, LNP-S, PF, 100 MCG/0.5ML DOSE OR 50 MCG/0.25ML DOSE 2021 207 complet [facility] COVID-19 (MODERNA), MRNA, LNP-S, PF, 100 MCG/0.5ML DOSE OR 50 MCG/0.25ML DOSE 2020 207 complet [facility] COVID-19 (MODERNA), MRNA, LNP-S, PF, 100 MCG/0.5ML DOSE OR 50 MCG/0.25ML DOSE 3 2020 207 complet [facility] INFLUENZA, INJECTABLE, QUADRIVALENT, PRESERVATIVE FREE 2020 150 complet [facility] INFLUENZA, UNSPECIFIED FORMULATION 2020 88 complet [facility] COVID-19 (MODERNA), MRNA, LNP-S, PF, 100 MCG/0.5 ML DOSE 2 2020 207 complet ed MOD: [id number]; 1 [facility] COVID-19 (MODERNA), MRNA, LNP-S, PF, 100 MCG/0.5 ML DOSE 1 2020 207 complet ed MOD; [id number]; 1 [facility] INFLUENZA, RECOMBINANT, QUADRIVALENT, INJECTABLE, PRESERVATIVE FREE 2019 185 complet ed [facility] INFLUENZA, UNSPECIFIED FORMULATION 2019 88 complet ed [facility] INFLUENZA, RECOMBINANT, QUADRIVALENT, INJECTABLE, PRESERVATIVE FREE 2018 185 complet ed [facility] INFLUENZA, SEASONAL, INJECTABLE 2018 141 complet ed [facility] INFLUENZA, INJECTABLE, QUADRIVALENT, PRESERVATIVE FREE 2017 150 complet ed [facility] INFLUENZA, SEASONAL, INJECTABLE, PRESERVATIVE FREE 2016 140 complet ed [facility] INFLUENZA, SEASONAL, INJECTABLE 2015 141 complet ed [facility] PNEUMOCOCCAL POLYSACCHARID E PPV23 2014 33 complet ed [employer] lot: [id number] exp: 05/13/16 [facility] INFLUENZA, INJECTABLE, QUADRIVALENT, PRESERVATIVE FREE 2014 150 complet ed [facility] INFLUENZA, SEASONAL, INJECTABLE 2014 141 complet ed [facility] INFLUENZA, UNSPECIFIED FORMULATION 2013 88 complet ed [facility] TDAP 2012 115 complet ed [id number] [id number] 05/26/15 [facility] INFLUENZA, UNSPECIFIED FORMULATION 2012 88 complet ed [facility] INFLUENZA, SEASONAL, INJECTABLE 2010 141 complet ed [facility] INFLUENZA, UNSPECIFIED FORMULATION 2010 88 complet ed [facility] INFLUENZA, SEASONAL, INJECTABLE 2009 141 complet ed [facility] NOVEL INFLUENZA-H1N 1-09, ALL FORMULATIONS 2009 128 complet ed [facility] INFLUENZA, UNSPECIFIED FORMULATION 2008 88 complet ed [facility] PNEUMOCOCCAL, UNSPECIFIED FORMULATION 2008 109 complet ed [employer] [id number], 0 [facility] INFLUENZA (HISTORICAL) 2007 88 complet ed [facility] INFLUENZA, UNSPECIFIED FORMULATION 2006 88 complet ed [facility] INFLUENZA (HISTORICAL) 2005 88 complet ed [facility] INFLUENZA (HISTORICAL) 2004 88 complet ed [facility] INFLUENZA, UNSPECIFIED FORMULATION 2003 88 complet ed [facility] INFLUENZA (HISTORICAL) 2003 88 complet ed [facility] TD(ADULT) UNSPECIFIED FORMULATION 2003 139 complet ed [facility] INFLUENZA, SEASONAL, INJECTABLE 1997 141 complet ed [facility] MMR 1997 03 complet ed [facility] DT (PEDIATRIC) 1991 28 complet ed [facility] Results Combined list of recent chemistry, hematology [...] Jun 03, 2023 01:52 PM Reporting Lab: [facility] [address] Performing Lab: [facility] [address] [facility] BASIC METABOLIC PANEL+MG CREATININE [MASS/VOLUM E] IN SERUM OR PLASMA 1.0 mg/dL 0.7 - 1.2 02/22 Specimen Type: PLASMA No comment entered. Ordering Provider: DAMION MAGUIRE Report Released Date/Time: Jun 03, 2023 01:52 PM Reporting Lab: [facility] [address] Performing Lab: [facility] [address] [facility] BASIC METABOLIC PANEL+MG UREA NITROGEN [MASS/VOLUM E] IN SERUM OR PLASMA 19 mg/dL 8 - 26 02/22 Specimen Type: PLASMA No comment entered. Ordering Provider: DAMION MAGUIRE Report Released Date/Time: Jun 03, 2023 01:52 PM Reporting Lab: [facility] [address] Performing Lab: [facility] [address] [place] [facility] BASIC METABOLIC PANEL+MG GLUCOSE [MASS/VOLUM E] IN SERUM OR PLASMA 100 mg/dL 70 - 100 02/22 Specimen Type: PLASMA No comment entered. Ordering Provider: DAMION MAGUIRE Report Released Date/Time: Jun 03, 2023 01:52 PM Reporting Lab: [facility] [address] Performing Lab: [facility] [address] [place] [facility] BASIC METABOLIC PANEL+MG SODIUM [MOLES/VOLU ME] IN SERUM OR PLASMA 140 mmol/L 136 - 145 02/22 Specimen Type: PLASMA No comment entered. Ordering Provider: DAMION MAGUIRE Report Released Date/Time: Jun 03, 2023 01:52 PM Reporting Lab: [facility] [address] Performing Lab: [facility] [address] [place] [facility] BASIC METABOLIC PANEL+MG POTASSIUM [MOLES/VOLU ME] IN SERUM OR PLASMA 4.0 mmol/L 3.5 - 5.1 02/22 Specimen Type: PLASMA No comment entered. Ordering Provider: DAMION MAGUIRE Report Released Date/Time: Jun 03, 2023 01:52 PM Reporting Lab: [facility] [address] Performing Lab: [facility] [address] [place] [facility] BASIC METABOLIC PANEL+MG CHLORIDE [MOLES/VOLU ME] IN SERUM OR PLASMA 108 mmol/L 98 - 107 02/22 H Specimen Type: PLASMA No comment entered. Ordering Provider: DAMION MAGUIRE Report Released Date/Time: Jun 03, 2023 01:52 PM Reporting Lab: [facility] [address] Performing Lab: [facility] [address] [place] [facility] BASIC METABOLIC PANEL+MG CARBON DIOXIDE, TOTAL [MOLES/VOLU ME] IN SERUM OR PLASMA 25 mmol/L 22 - 29 02/22 Specimen Type: PLASMA No comment entered. Ordering Provider: DAMION MAGUIRE Report Released Date/Time: Jun 03, 2023 01:52 PM Reporting Lab: [facility] [address] Performing Lab: [facility] [address] [place] [facility] BASIC METABOLIC PANEL+MG CALCIUM [MASS/VOLUM E] IN SERUM OR PLASMA 8.8 mg/dL 8.4 - 10.2 02/22 Specimen Type: PLASMA No comment entered. Ordering Provider: DAMION MAGUIRE Report Released Date/Time: Jun 03, 2023 01:52 PM Reporting Lab: [facility] [address] Performing Lab: [facility] [address] [place] [facility] BASIC METABOLIC PANEL+MG MAGNESIUM [MASS/VOLUM E] IN SERUM OR PLASMA 2.1 mg/dL 1.6 - 2.6 02/22 Specimen Type: PLASMA No comment entered. Ordering Provider: DAMION MAGUIRE Report Released Date/Time: Jun 03, 2023 01:52 PM Reporting Lab: [facility] [address] Performing Lab: [facility] [address] [place] [facility] BASIC METABOLIC PANEL+MG ANION GAP IN SERUM OR PLASMA 7 mmol/L 5 - 15 02/22 Specimen Type: PLASMA No comment entered. Ordering Provider: DAMION MAGUIRE Report Released Date/Time: Jun 03, 2023 01:52 PM Reporting Lab: [facility] [address] Performing Lab: [facility] [address] [place] [facility] BASIC METABOLIC PANEL+MG GLOMERULAR FILTRATION RATE/1.73 SQ M.PREDICTED [VOLUME RATE/AREA] IN SERUM, PLASMA OR BLOOD BY CREATININE- BASED FORMULA (CKD-EPI 2020) 85 60 02/22 Specimen Type: PLASMA No comment entered. Ordering Provider: DAMION MAGUIRE Report Released Date/Time: Jun 03, 2023 01:52 PM Reporting Lab: [facility] [address] Performing Lab: [facility] [address] [place] [facility] CBC & DIFF LEUKOCYTES [#/VOLUME] IN BLOOD BY AUTOMATED COUNT 8.4 4.0 - 11.0 02/22 Specimen Type: BLOOD Comment: Automated Differentia l Performed Ordering Provider: DAMION MAGUIRE Report Released Date/Time: Jun 03, 2023 01:52 PM Reporting Lab: [facility] [address] Performing Lab: [facility] [address] [place] [facility] CBC & DIFF ERYTHROCYTE S [#/VOLUME] IN BLOOD BY AUTOMATED COUNT 5.18 4.60 - 6.20 02/22 Specimen Type: BLOOD Comment: Automated Differentia l Performed Ordering Provider: DAMION MAGUIRE Report Released Date/Time: Jun 03, 2023 01:52 PM Reporting Lab: [facility] [address] Performing Lab: [facility] [address] [place] [facility] CBC & DIFF HEMOGLOBIN [MASS/VOLUM E] IN BLOOD 14.9 g/dL 13.5 - 17.9 02/22 Specimen Type: BLOOD Comment: Automated Differentia l Performed Ordering Provider: DAMION MAGUIRE Report Released Date/Time: Jun 03, 2023 01:52 PM Reporting Lab: [facility] [address] Performing Lab: [facility] [address] [place] [facility] CBC & DIFF HEMATOCRIT [VOLUME FRACTION] OF BLOOD BY AUTOMATED COUNT 46.8 41.0 - 54.0 02/22 Specimen Type: BLOOD Comment: Automated Differentia l Performed Ordering Provider: DAMION MAGUIRE Report Released Date/Time: Jun 03, 2023 01:52 PM Reporting Lab: [facility] [address] Performing Lab: [facility] [address] [place] [facility] CBC & DIFF MCV [ENTITIC VOLUME] BY AUTOMATED COUNT 90.3 fL 80.0 - 100.0 02/22 Specimen Type: BLOOD Comment: Automated Differentia l Performed Ordering Provider: DAMION MAGUIRE Report Released Date/Time: Jun 03, 2023 01:52 PM Reporting Lab: [facility] [address] Performing Lab: [facility] [address] [place] [facility] CBC & DIFF MCH [ENTITIC MASS] BY AUTOMATED COUNT 28.8 pg 27.0 - 33.0 02/22 Specimen Type: BLOOD Comment: Automated Differentia l Performed Ordering Provider: DAMION MAGUIRE Report Released Date/Time: Jun 03, 2023 01:52 PM Reporting Lab: [facility] [address] Performing Lab: [facility] [address] [place] [facility] CBC & DIFF MCHC [MASS/VOLUM E] BY AUTOMATED COUNT 31.8 g/dL 32.0 - 37.5 02/22 L Specimen Type: BLOOD Comment: Automated Differentia l Performed Ordering Provider: DAMION MAGUIRE Report Released Date/Time: Jun 03, 2023 01:52 PM Reporting Lab: [facility] [address] Performing Lab: [facility] [address] [place] [facility] CBC & DIFF PLATELETS [#/VOLUME] IN BLOOD BY AUTOMATED COUNT 239 150 - 400 02/22 Specimen Type: BLOOD Comment: Automated Differentia l Performed Ordering Provider: DAMION MAGUIRE Report Released Date/Time: Jun 03, 2023 01:52 PM Reporting Lab: [facility] [address] Performing Lab: [facility] [address] [place] [facility] CBC & DIFF PLATELET MEAN VOLUME [ENTITIC VOLUME] IN BLOOD BY AUTOMATED COUNT 9.4 fL 9.1 - 13.0 02/22 Specimen Type: BLOOD Comment: Automated Differentia l Performed Ordering Provider: DAMION MAGUIRE Report Released Date/Time: Jun 03, 2023 01:52 PM Reporting Lab: [facility] [address] Performing Lab: [facility] [address] [place] [facility] CBC & DIFF NEUTROPHILS /100 LEUKOCYTES IN BLOOD BY MANUAL COUNT 67.6 40.0 - 80.0 02/22 Specimen Type: BLOOD Comment: Automated Differentia l Performed Ordering Provider: DAMION MAGUIRE Report Released Date/Time: Jun 03, 2023 01:52 PM Reporting Lab: [facility] [address] Performing Lab: [facility] [address] [place] [facility] CBC & DIFF LYMPHOCYTES /100 LEUKOCYTES IN BLOOD BY MANUAL COUNT 22.1 15.0 - 45.0 02/22 Specimen Type: BLOOD Comment: Automated Differentia l Performed Ordering Provider: DAMION MAGUIRE Report Released Date/Time: Jun 03, 2023 01:52 PM Reporting Lab: [facility] [address] Performing Lab: [facility] [address] [place] [facility] CBC & DIFF MONOCYTES/1 00 LEUKOCYTES IN BLOOD BY AUTOMATED COUNT 7.6 2.0 - 12.0 02/22 Specimen Type: BLOOD Comment: Automated Differentia l Performed Ordering Provider: DAMION MAGUIRE Report Released Date/Time: Jun 03, 2023 01:52 PM Reporting Lab: [facility] [address] Performing Lab: [facility] [address] [place] [facility] CBC & DIFF EOSINOPHILS /100 LEUKOCYTES IN BLOOD BY AUTOMATED COUNT 1.7 0.0 - 6.0 02/22 Specimen Type: BLOOD Comment: Automated Differentia l Performed Ordering Provider: DAMION MAGUIRE Report Released Date/Time: Jun 03, 2023 01:52 PM Reporting Lab: [facility] [address] Performing Lab: [facility] [address] [place] [facility] CBC & DIFF BASOPHILS/1 00 LEUKOCYTES IN BLOOD BY MANUAL COUNT 0.5 0.0 - 2.0 02/22 Specimen Type: BLOOD Comment: Automated Differentia l Performed Ordering Provider: DAMION MAGUIRE Report Released Date/Time: Jun 03, 2023 01:52 PM Reporting Lab: [facility] [address] Performing Lab: [facility] [address] [place] [facility] CBC & DIFF ERYTHROCYTE DISTRIBUTIO N WIDTH [RATIO] BY AUTOMATED COUNT 13.0 11.5 - 14.5 02/22 Specimen Type: BLOOD Comment: Automated Differentia l Performed Ordering Provider: DAMION MAGUIRE Report Released Date/Time: Jun 03, 2023 01:52 PM Reporting Lab: [facility] [address] Performing Lab: [facility] [address] [place] [facility] CBC & DIFF LYMPHOCYTES [#/VOLUME] IN BLOOD BY AUTOMATED COUNT 1.9 1.0 - 4.0 02/22 Specimen Type: BLOOD Comment: Automated Differentia l Performed Ordering Provider: DAMION MAGUIRE Report Released Date/Time: Jun 03, 2023 01:52 PM Reporting Lab: [facility] [address] Performing Lab: [facility] [address] [place] [facility] CBC & DIFF MONOCYTES [#/VOLUME] IN BLOOD BY AUTOMATED COUNT 0.6 0.1 - 1.0 02/22 Specimen Type: BLOOD Comment: Automated Differentia l Performed Ordering Provider: DAMION MAGUIRE Report Released Date/Time: Jun 03, 2023 01:52 PM Reporting Lab: [facility] [address] Performing Lab: [facility] [address] [place] [facility] CBC & DIFF NEUTROPHILS [#/VOLUME] IN BLOOD BY AUTOMATED COUNT 5.7 2.0 - 7.7 02/22 Specimen Type: BLOOD Comment: Automated Differentia l Performed Ordering Provider: DAMION MAGUIRE Report Released Date/Time: Jun 03, 2023 01:52 PM Reporting Lab: [facility] [address] Performing Lab: [facility] [address] [place] [facility] CBC & DIFF EOSINOPHILS [#/VOLUME] IN BLOOD BY AUTOMATED COUNT 0.1 0.0 - 0.5 02/22 Specimen Type: BLOOD Comment: Automated Differentia l Performed Ordering Provider: DAMION MAGUIRE Report Released Date/Time: Jun 03, 2023 01:52 PM Reporting Lab: [facility] [address] Performing Lab: [facility] [address] [place] [facility] CBC & DIFF BASOPHILS [#/VOLUME] IN BLOOD BY AUTOMATED COUNT 0.0 0.0 - 0.2 02/22 Specimen Type: BLOOD Comment: Automated Differentia l Performed Ordering Provider: DAMION MAGUIRE Report Released Date/Time: Jun 03, 2023 01:52 PM Reporting Lab: [facility] [address] Performing Lab: [place] [address] [place] [facility] CBC & DIFF IG(META,MYE LO,PRO) 0.5 02/22 Specimen Type: BLOOD Comment: Automated Differentia l Performed Ordering Provider: DAMION MAGUIRE Report Released Date/Time: Jun 03, 2023 01:52 PM Reporting Lab: [facility] [address] Performing Lab: [facility] [address] [place] [facility] CBC & DIFF IMMATURE GRANULOCYTE S [PRESENCE] IN BLOOD BY AUTOMATED COUNT 0.0 0.0 - 0.1 02/22 Specimen Type: BLOOD Comment: Automated Differentia l Performed Ordering Provider: DAMION MAGUIRE Report Released Date/Time: Jun 03, 2023 01:52 PM Reporting Lab: [facility] [address] Performing Lab: [facility] [address] [place] [facility] HEMOGLOBI N A1C HEMOGLOBIN A1C/HEMOGLO BIN.TOTAL [...] 9.3. Ref: [email or web address] Ordering Provider: DAMION MAGUIRE Report Released Date/Time: Jun 29, 2023 10:54 AM Reporting Lab: [facility] [address] Performing Lab: [facility] [address] [place] [facility] PROTHROMB IN TIME/INR INR IN PLATELET POOR PLASMA BY COAGULATION ASSAY 1.1 0.8 - 1.1 02/22 Specimen Type: PLASMA Comment: Automated Differentia l Performed Ordering Provider: DAMION MAGUIRE Report Released Date/Time: Jun 03, 2023 01:52 PM Reporting Lab: [facility] [address] Performing Lab: [facility] [address] [place] [facility] PROTHROMB IN TIME/INR PROTHROMBIN TIME (PT) 12.5 s 9.4 - 12.5 02/22 Specimen Type: PLASMA Comment: Automated Differentia l Performed Ordering Provider: DAMION MAGUIRE Report Released Date/Time: Jun 03, 2023 01:52 PM Reporting Lab: [facility] [address] Performing Lab: [facility] [id number] [place] [facility] CBC LEUKOCYTES [#/VOLUME] IN BLOOD BY AUTOMATED COUNT 7.7 4.0 - 11.0 02/19 Specimen Type: BLOOD No comment entered. Ordering Provider: SA DONTRELL ROTH Report Released Date/Time: Apr 18, 2023 10:42 AM Reporting Lab: [facility] [address] Performing Lab: [facility] [address] [place] [facility] CBC ERYTHROCYTE S [#/VOLUME] IN BLOOD BY AUTOMATED COUNT 4.99 4.60 - 6.20 02/19 Specimen Type: BLOOD No comment entered. Ordering Provider: SA DONTRELL ROTH Report Released Date/Time: Apr 18, 2023 10:42 AM Reporting Lab: [facility] [address] Performing Lab: [facility] [address] [place] [facility] CBC HEMOGLOBIN [MASS/VOLUM E] IN BLOOD 15.0 g/dL 13.5 - 17.9 02/19 Specimen Type: BLOOD No comment entered. Ordering Provider: SA DONTRELL ROTH Report Released Date/Time: Apr 18, 2023 10:42 AM Reporting Lab: [facility] [address] Performing Lab: [facility] [address] [place] [facility] CBC HEMATOCRIT [VOLUME FRACTION] OF BLOOD BY AUTOMATED COUNT 46.1 41.0 - 54.0 02/19 Specimen Type: BLOOD No comment entered. Ordering Provider: SA DONTRELL ROTH Report Released Date/Time: Apr 18, 2023 10:42 AM Reporting Lab: [facility] [address] Performing Lab: [facility] [address] [place] [facility] CBC MCV [ENTITIC VOLUME] BY AUTOMATED COUNT 92.4 fL 80.0 - 100.0 02/19 Specimen Type: BLOOD No comment entered. Ordering Provider: SA DONTRELL ROTH Report Released Date/Time: Apr 18, 2023 10:42 AM Reporting Lab: [facility] [address] Performing Lab: [facility] [address] [place] [facility] CBC MCH [ENTITIC MASS] BY AUTOMATED COUNT 30.1 pg 27.0 - 33.0 02/19 Specimen Type: BLOOD No comment entered. Ordering Provider: SA DONTRELL ROTH Report Released Date/Time: Apr 18, 2023 10:42 AM Reporting Lab: [facility] [address] Performing Lab: [facility] [address] [place] [facility] CBC MCHC [MASS/VOLUM E] BY AUTOMATED COUNT 32.5 g/dL 32.0 - 37.5 02/19 Specimen Type: BLOOD No comment entered. Ordering Provider: SA DONTRELL ROTH Report Released Date/Time: Apr 18, 2023 10:42 AM Reporting Lab: [facility] [address] Performing Lab: [facility] [address] [place] [facility] CBC PLATELETS [#/VOLUME] IN BLOOD BY AUTOMATED COUNT 235 150 - 400 02/19 Specimen Type: BLOOD No comment entered. Ordering Provider: SA DONTRELL ROTH Report Released Date/Time: Apr 18, 2023 10:42 AM Reporting Lab: [facility] [address] Performing Lab: [facility] [address] [place] [facility] CBC PLATELET MEAN VOLUME [ENTITIC VOLUME] IN BLOOD BY AUTOMATED COUNT 9.3 fL 9.1 - 13.0 02/19 Specimen Type: BLOOD No comment entered. Ordering Provider: SA DONTRELL ROTH Report Released Date/Time: Apr 18, 2023 10:42 AM Reporting Lab: [facility] [address] Performing Lab: [facility] [address] [place] [facility] CBC ERYTHROCYTE DISTRIBUTIO N WIDTH [RATIO] BY AUTOMATED COUNT 13.0 11.5 - 14.5 02/19 Specimen Type: BLOOD No comment entered. Ordering Provider: SA DONTRELL ROTH Report Released Date/Time: Apr 18, 2023 10:42 AM Reporting Lab: [facility] [address] Performing Lab: [facility] [address] [place] [facility] COMPREHEN SIVE METABOLIC PANEL+MG CREATININE [MASS/VOLUM E] IN SERUM OR PLASMA 0.9 mg/dL 0.7 - 1.2 02/19 Specimen Type: PLASMA No comment entered. Ordering Provider: SA DONTRELL ROTH Report Released Date/Time: Apr 18, 2023 10:42 AM Reporting Lab: [facility] [address] Performing Lab: [facility] [address] [place] [facility] COMPREHEN SIVE METABOLIC PANEL+MG UREA NITROGEN [MASS/VOLUM E] IN SERUM OR PLASMA 13 mg/dL 8 - 26 02/19 Specimen Type: PLASMA No comment entered. Ordering Provider: SA DONTRELL ROTH Report Released Date/Time: Apr 18, 2023 10:42 AM Reporting Lab: [facility] [address] Performing Lab: [facility] [address] [place] [facility] COMPREHEN SIVE METABOLIC PANEL+MG GLUCOSE [MASS/VOLUM E] IN SERUM OR PLASMA 97 mg/dL 70 - 100 02/19 Specimen Type: PLASMA No comment entered. Ordering Provider: SA DONTRELL ROTH Report Released Date/Time: Apr 18, 2023 10:42 AM Reporting Lab: [facility] [address] Performing Lab: [facility] [address] [place] [facility] COMPREHEN SIVE METABOLIC PANEL+MG SODIUM [MOLES/VOLU ME] IN SERUM OR PLASMA 141 mmol/L 136 - 145 02/19 Specimen Type: PLASMA No comment entered. Ordering Provider: SA DONTRELL ROTH Report Released Date/Time: Apr 18, 2023 10:42 AM Reporting Lab: [facility] [address] Performing Lab: [facility] [address] [place] [facility] COMPREHEN SIVE METABOLIC PANEL+MG POTASSIUM [MOLES/VOLU ME] IN SERUM OR PLASMA 4.0 mmol/L 3.5 - 5.1 02/19 Specimen Type: PLASMA No comment entered. Ordering Provider: SA DONTRELL ROTH Report Released Date/Time: Apr 18, 2023 10:42 AM Reporting Lab: [facility] [address] Performing Lab: [facility] [address] [place] [facility] COMPREHEN SIVE METABOLIC PANEL+MG CHLORIDE [MOLES/VOLU ME] IN SERUM OR PLASMA 113 mmol/L 98 - 107 02/19 H Specimen Type: PLASMA No comment entered. Ordering Provider: SA DONTRELL ROTH Report Released Date/Time: Apr 18, 2023 10:42 AM Reporting Lab: [facility] [address] Performing Lab: [facility] [address] [place] [facility] COMPREHEN SIVE METABOLIC PANEL+MG CARBON DIOXIDE, TOTAL [MOLES/VOLU ME] IN SERUM OR PLASMA 22 mmol/L 22 - 29 02/19 Specimen Type: PLASMA No comment entered. Ordering Provider: SA DONTRELL ROTH Report Released Date/Time: Apr 18, 2023 10:42 AM Reporting Lab: [facility] [address] Performing Lab: [facility] [address] [place] [facility] COMPREHEN SIVE METABOLIC PANEL+MG CALCIUM [MASS/VOLUM E] IN SERUM OR PLASMA 8.6 mg/dL 8.4 - 10.2 02/19 Specimen Type: PLASMA No comment entered. Ordering Provider: SA DONTRELL ROTH Report Released Date/Time: Apr 18, 2023 10:42 AM Reporting Lab: [facility] [address] Performing Lab: [facility] [address] [place] [facility] COMPREHEN SIVE METABOLIC PANEL+MG PROTEIN [MASS/VOLUM E] IN SERUM OR PLASMA 6.1 g/dL 6.4 - 8.3 02/19 L Specimen Type: PLASMA No comment entered. Ordering Provider: SA DONTRELL ROHT Report Released Date/Time: Apr 18, 2023 10:42 AM Reporting Lab: [facility] [address] Performing Lab: [facility] [address] [place] [facility] COMPREHEN SIVE METABOLIC PANEL+MG ALBUMIN [MASS/VOLUM E] IN SERUM OR PLASMA 3.8 g/dL 3.5 - 5.0 02/19 Specimen Type: PLASMA No comment entered. Ordering Provider: SA DONTRELL ROTH Report Released Date/Time: Apr 18, 2023 10:42 AM Reporting Lab: [facility] [address] Performing Lab: [facility] [address] [place] [facility] COMPREHEN SIVE METABOLIC PANEL+MG BILIRUBIN.T OTAL [MASS/VOLUM E] IN SERUM OR PLASMA 0.3 mg/dL 0.2 - 1.2 02/19 Specimen Type: PLASMA No comment entered. Ordering Provider: SA DONTRELL ROTH Report Released Date/Time: Apr 18, 2023 10:42 AM Reporting Lab: [facility] [address] Performing Lab: [facility] [address] [place] [facility] COMPREHEN SIVE METABOLIC PANEL+MG MAGNESIUM [MASS/VOLUM E] IN SERUM OR PLASMA 2.0 mg/dL 1.6 - 2.6 02/19 Specimen Type: PLASMA No comment entered. Ordering Provider: SA DONTRELL ROTH Report Released Date/Time: Apr 18, 2023 10:42 AM Reporting Lab: [facility] [address] Performing Lab: [facility] [address] [place] [facility] COMPREHEN SIVE METABOLIC PANEL+MG ANION GAP IN SERUM OR PLASMA 6 mmol/L 5 - 15 02/19 Specimen Type: PLASMA No comment entered. Ordering Provider: SA DONTRELL ROTH Report Released Date/Time: Apr 18, 2023 10:42 AM Reporting Lab: [facility] [address] Performing Lab: [facility] [address] [place] [facility] COMPREHEN SIVE METABOLIC PANEL+MG ALKALINE PHOSPHATASE [ENZYMATIC ACTIVITY/VO LUME] IN SERUM OR PLASMA 40 U/L 40 - 150 02/19 Specimen Type: PLASMA No comment entered. Ordering Provider: SA DONTRELL ROTH Report Released Date/Time: Apr 18, 2023 10:42 AM Reporting Lab: [facility] [address] Performing Lab: [facility] [address] [place] [facility] COMPREHEN SIVE METABOLIC PANEL+MG ALANINE AMINOTRANSF ERASE [ENZYMATIC ACTIVITY/VO LUME] IN SERUM OR PLASMA 45 U/L <44 - 44 02/19 H Specimen Type: PLASMA No comment entered. Ordering Provider: SA DONTRELL ROTH Report Released Date/Time: Apr 18, 2023 10:42 AM Reporting Lab: [facility] [address] Performing Lab: [facility] [address] [place] [facility] COMPREHEN SIVE METABOLIC PANEL+MG ASPARTATE AMINOTRANSF ERASE [ENZYMATIC ACTIVITY/VO LUME] IN SERUM OR PLASMA 30 U/L 11 - 34 02/19 Specimen Type: PLASMA No comment entered. Ordering Provider: SA DONTRELL ROTH Report Released Date/Time: Apr 18, 2023 10:42 AM Reporting Lab: [facility] [address] Performing Lab: [facility] [address] [place] [facility] COMPREHEN SIVE METABOLIC PANEL+MG GLOMERULAR FILTRATION RATE/1.73 SQ M.PREDICTED [VOLUME RATE/AREA] IN SERUM, PLASMA OR BLOOD BY CREATININE- BASED FORMULA (CKD-EPI 2020) >90 60 02/19 Specimen Type: PLASMA No comment entered. Ordering Provider: SA DONTRELL ROTH Report Released Date/Time: Apr 18, 2023 10:42 AM Reporting Lab: [facility] [address] Performing Lab: [facility] [address] [place] [facility] HEMOGLOBI N A1C HEMOGLOBIN A1C/HEMOGLO BIN.TOTAL [...] Apr 18, 2023 10:42 AM Reporting Lab: [facility] [address] Performing Lab: [facility] [address] [place] [facility] LIPID PANEL,NON -FASTING CHOLESTEROL [MASS/VOLUM E] IN SERUM OR PLASMA 144 mg/dL <199 - 199 02/19 Specimen Type: PLASMA No comment entered. Ordering Provider: SA DONTRELL ROTH Report Released Date/Time: Apr 18, 2023 10:42 AM Reporting Lab: [facility] [address] Performing Lab: [facility] [address] [place] [facility] LIPID PANEL,NON -FASTING CHOLESTEROL IN HDL [MASS/VOLUM E] IN SERUM OR PLASMA 37 mg/dL 40 02/19 L Specimen Type: PLASMA No comment entered. Ordering Provider: SA DONTRELL ROTH Report Released Date/Time: Apr 18, 2023 10:42 AM Reporting Lab: [facility] [address] Performing Lab: [facility] [address] [place] [facility] LIPID PANEL,NON -FASTING CHOLESTEROL IN LDL [MASS/VOLUM E] IN SERUM OR PLASMA BY CALCULATION 86 mg/dL <99 - 99 02/19 Specimen Type: PLASMA No comment entered. Ordering Provider: SA DONTRELL ROTH Report Released Date/Time: Apr 18, 2023 10:42 AM Reporting Lab: [facility] [address] Performing Lab: [facility] [address] [place] [facility] LIPID PANEL,NON -FASTING CHOLESTEROL IN VLDL [MASS/VOLUM E] IN SERUM OR PLASMA BY CALCULATION 21 mg/dL <29 - 29 02/19 Specimen Type: PLASMA No comment entered. Ordering Provider: SA DONTRELL ROTH Report Released Date/Time: Apr 18, 2023 10:42 AM Reporting Lab: [facility] [address] Performing Lab: [facility] [address] [place] [facility] LIPID PANEL,NON -FASTING CHOLESTEROL NON HDL [MASS/VOLUM E] IN SERUM OR PLASMA 107 mg/dL <129 - 129 02/19 Specimen Type: PLASMA No comment entered. Ordering Provider: SA DONTRELL ROTH Report Released Date/Time: Apr 18, 2023 10:42 AM Reporting Lab: [facility] [address] Performing Lab: [facility] [address] [place] [facility] LIPID PANEL,NON -FASTING TRIGLYCERID E [MASS/VOLUM E] IN SERUM OR PLASMA 104 mg/dL <149 - 149 02/19 Specimen Type: PLASMA No comment entered. Ordering Provider: SA DONTRELL ROTH Report Released Date/Time: Apr 18, 2023 10:42 AM Reporting Lab: [facility] [address] Performing Lab: [facility] [address] [place] [facility] TSH W/REFLEX TO FREE T4 THYROTROPIN [UNITS/VOLU ME] IN SERUM OR PLASMA 1.44 u[IU]/ mL 0.35 - 4.94 02/19 Specimen Type: PLASMA No comment entered. 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 Vital Sign Value Date Comments Source SYSTOLIC BLOOD PRESSURE 119 02/23/2024 10:16:03 [facility] DIASTOLIC BLOOD PRESSURE 80 02/23/2024 10:16:03 [facility] PULSE OXIMETRY 95 02/23/2024 10:16:03 [facility] WEIGHT 234.6 02/23/2024 10:16:03 [facility] BMI 33kg/m2 02/23/2024 10:16:03 [facility] PAIN 0 02/23/2024 10:16:03 [facility] HEIGHT 71 02/23/2024 10:16:03 [place] [facility] TEMPERATURE 97.8 02/23/2024 10:16:03 [facility] PULSE 75 02/23/2024 10:16:03 [facility] RESPIRATION 16 02/23/2024 10:16:03 [place] [facility] SYSTOLIC BLOOD PRESSURE 111 02/20/2024 09:37:52 [facility] DIASTOLIC BLOOD PRESSURE 79 02/20/2024 09:37:52 [facility] PULSE OXIMETRY 94 02/20/2024 09:37:52 [facility] WEIGHT 239 02/20/2024 09:37:52 [place] [facility] BMI 33kg/m2 02/20/2024 09:37:52 [facility] PAIN 0 02/20/2024 09:37:52 [place] [facility] HEIGHT 71 02/20/2024 09:37:52 [place] [facility] TEMPERATURE 97.1 02/20/2024 09:37:52 [facility] PULSE 60 02/20/2024 09:37:52 [facility] RESPIRATION 16 02/20/2024 09:37:52 [facility] SYSTOLIC BLOOD PRESSURE 115 04/18/2023 10:00:53 [facility] DIASTOLIC BLOOD PRESSURE 76 04/18/2023 10:00:53 [facility] PULSE OXIMETRY 95% 04/18/2023 10:00:53 [facility] WEIGHT 226.1 04/18/2023 10:00:53 [facility] BMI 32kg/m2 04/18/2023 10:00:53 [facility] PAIN 0 04/18/2023 10:00:53 [facility] TEMPERATURE 97 04/18/2023 10:00:53 [facility] PULSE 54 04/18/2023 10:00:53 [facility] RESPIRATION 18 04/18/2023 10:00:53 [facility] Encounters Combined list of: 1) Encounters from Department of [facility] Affairs facilities going back up to thelast 18 months. 2) Encounters from the Department of Defense facilities going back up to 280 months. 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
MATT WILSON 09/13 [facility] Outpatient Encounter [id number] 12/11 [facility] Outpatient Encounter [id number] 01/14 [facility] Outpatient Encounter [id number] 02/15 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
STUBVEGA ICA K 02/17 [facility] OFFICE O/P EST SF 10-19 MIN [id number] Diagnos is: ICD-10- CM L84 Corns and callosi ties
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
VEGA LIZARRAGA ICA K 02/22 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
STEVEMATT P 02/23 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
JAEDSEYOLIA ,MATT P 04/11 [facility] OFFICE O/P EST HI 40 MIN [id number] Diagnos is: ICD-10- CM E78.49 Other hyperli pidemia
Lacho ROTH H 04/18 [facility] HEARING AID FITTING/CH ECKING [id number] Diagnos is: ICD-10- CM Z46.1 Encount er for fitting and adjustm ent of hearing aid<br/ > Lacho ARREGUIN 04/18 [facility] PRO PHONE CALL 5-10 MIN [id number] Diagnos is: ICD-10- CM G47.33 Obstruc tive sleep apnea (adult) (pediat donaldo)
KIRK GALAVIZ 05/11 [facility] OFFICE O/P NEW MOD 45 MIN [id number] Diagnos is: ICD-10- CM J34.2 Deviate d nasal septum< br/> DAMION MAGUIRE 06/02 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
MEGHANYOLIMATT Arellano Brit 06/07 [facility] Outpatient Encounter [id number] SPEEDY ANTON Davide [facility] Outpatient Encounter [id number] 09/04 [facility] Outpatient Encounter [id number] 09/22 [facility] Outpatient Encounter [id number] 01/12 [facility] Outpatient Encounter [id number] 02/19 [facility] OFFICE O/P EST HI 40 MIN [id number] Diagnos is: ICD-10- CM J34.89 Other specifi ed disorde rs of nose and nasal sinuses
GONZALEZLacho ADITYA H 02/19 [facility] ELECTROCAR DIOGRAM REPORT [id number] Diagnos is: ICD-10- CM Z13.6 Encount er for screeni ng for cardiov ascular disorde rs
NIKITA BROWN 02/22 [facility] OFFICE O/P EST LOW 20 MIN [id number] Diagnos is: ICD-10- CM Z01.818 Encount er for other preproc edural examina tion
SOFIE RODRÍGUEZ 02/22 [facility] PT EDUCATION NOC INDIVID [id number] Diagnos is: ICD-10- CM Z71.89 Other specifi ed parliamentary counsel ing<br/ > PERRI AQUINO 02/22 [facility] Outpatient Encounter [id number] 02/27 [facility] Outpatient Encounter [id number] 02/27 [facility] HEARING AID FITTING/CH ECKING [id number] Diagnos is: ICD-10- CM Z01.118 Encntr for exam of ears and hearing w oth abnorma l finding s
BALBINANATHAN LLE BLAIR 03/05 [facility] PT EDUCATION NOC INDIVID [id number] Diagnos is: ICD-10- CM Z71.89 Other specifi ed parliamentary counsel ing<br/ > PERRI AQUINO 03/05 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
MATT WILSON P 03/05 [facility] Outpatient Encounter [id number] 03/09 [facility] PT EDUCATION NOC INDIVID [id number] Diagnos is: ICD-10- CM Z71.89 Other specifi ed parliamentary counsel ing<br/ > PERRI AQUINO 03/13 [facility] Outpatient Encounter [id number] 03/15 [facility] Social History Combined list of available smoking, tobacco, and other social history from Department of Defense and [facility] Affairs facilities. Social History Type Response Date Comment Sourc e Tobacco smoking status NHIS VA-TOBACCO USE FORMER CIGARETTES 02/20/2024 [facility] History of tobacco use AL-TOBACCO USE FORMER OTHER TYPE 02/20/2024 20years a go [facility] History of tobacco use AL-TOBACCO FORMER USER 02/21/2023 [facility] History of tobacco use VA-TOBACCO FORMER USER 06/01/2021 [facility] History of tobacco use AL-TOBACCO NEVER USED 05/16/2020 [facility] History of tobacco use AL-TOBACCO QUIT 15 YRS OR MORE 01/23/2019 [facility] History of tobacco use FORMER TOBACCO USER 7Y OR GREATER 05/20/2017 [facility] History of tobacco use FORMER TOBACCO USER 7Y OR GREATER 03/12/2016 [facility] History of tobacco use CURRENT TOBACCO USER 03/11/2015 [facility] History of tobacco use FORMER TOBACCO USER 7Y OR GREATER 02/22/2014 [facility] History of tobacco use FORMER TOBACCO USER 7Y OR GREATER 01/10/2008 [facility] Plan of Care List of future care activities from Department [facility] facilities. Additional future care activities may be listed in the Assessment and Plan section. Date/Time Care Activity Care Activity Detail Facili ty 04/11/2024 AMBULATORY - SURGERY AMBULATORY - SURGERY [facility] Advance Directives List of completed, amended, or rescinded Advance Directives on record at Department [facility] facilities. An actual copy of the Directive is not included. Date Advance Directive Provider Source 02/28/2006 ADVANCE DIRECTIVE SYDNEY PEÑALOZA [facility]
[2024-03-15] MEDS: KETOROLAC 15 MG/ML inj IVP (21:31)
[2024-03-15] MEDS: diphenhydrAMINE 50 MG/ML inj 12.5 MG IVP (21:33)
[2024-03-15] MEDS: METOCLOPRAMIDE HCL 5 MG/ML INJ 10 MG IVP (21:35)
[2024-03-15] MEDS: 0.9 % SODIUM CHLORIDE 500 ML 500 ML IV (21:37)
[2024-03-15 21:44] LABS: Lactate* 1.2 mmol/L (0.5-1.9)
[2024-03-15 22:04] LABS: Chloride* 104 mmol/L (96-114); Potassium* 3.9 mmol/L (3.6-5.1); Sodium* 134 mmol/L (135-149)
[2024-03-15 22:07] LABS: Anion Gap 7 mEq/L (7-15); Blood Urea Nitrogen* 13 mg/dL (7-30); Carbon Dioxide* 23 mmol/L (20-32); Creatinine* 0.8 mg/dL (0.5-1.5); Estimated Glomerular Filt Rate 100 ml/min; Glucose* 113 mg/dL (60-115)
[2024-03-15 22:08] LABS: Calcium* 8.9 mg/dL (8.4-10.6)
[2024-03-15 22:10] LABS: Basophils Absolute Auto 0.02 K/uL (0.00-0.30); Basophils Percent Auto 0.2 % (0.0-3.0); C Reactive Protein* 3.5 mg/dL (0.5-1.0); Hematocrit 41.5 % (37.0-53.0); Hemoglobin* 13.7 gm/dL (13.5-17.5); Immature Granulocytes Abs Auto 0.12 K/uL (0.00-0.30); Immature Granulocytes Pct Auto 1.2 %; Lymphocytes Percent Auto 7.8 % (20-44); Mean Corpuscular HGB Conc 33 gm/dL (32-36); Mean Corpuscular Hemoglobin 30 pg (26-34); Mean Corpuscular Volume 90 fL (80-100); Monocytes Percent Auto 7.8 % (0.0-11.0); Platelet Count* 220 K/uL (140-440); RDW Coefficient of Variation % 12.8 % (11.5-15.5); White Blood Count* 10.11 K/uL (4.50-11.00)
[2024-03-15 22:14] LABS: Slide Review Reflex No
[2024-03-15 22:27] LABS: SARS Antigen* POSITIVE (Negative)
[2024-03-15 22:54] LABS: PCR FLU A Negative PCR FLU A (Negative); PCR FLU B Negative PCR FLU B (Negative); PCR RSV Negative PCR RSV (Negative); SARS PCR* POSITIVE SARS-CoV-2 (Negative)
[2024-03-15 23:16] VITALS: BP 152/88; PULSE 88; RESP 18; O2SAT 96
== END 2024-03-15 23:42 | disposition home or self-care (01) ==
PROVIDERS: Emergency Provider Emergency Medicine; PCP Family Medicine
DX: U07.1 COVID-19 (principal); R51.9 Headache, unspecified
CPT/HCPCS: 36415; 70450; 71046; 80048; 83605; 85025; 86140; 87040; 87426; 87631; 96361; 96374; 96375; 99284; 99285; J1200; J1885; J2765; J7030

== ENCOUNTER 2024-08-20 11:57 | Outpatient (CLI) | payer BC, SELFPAY | END 2024-08-20 11:58 | disposition home or self-care (01) | PROVIDERS: PCP Family Medicine; Visit Provider Family Medicine | DX: E29.1 Testicular hypofunction (principal); Z12.5 Encounter for screening for malignant neoplasm of prostate | CPT/HCPCS: 84403; G0103 ==